=== PATIENT | female | born 1940 | race Caucasian/White ===

== ENCOUNTER 2020-09-15 12:57 | Outpatient (CLI) | payer MEDICARE, SELFPAY ==
--- NOTE | 2020-09-15 16:55 | ONC CON_ITS ---
Dr. Aguilar New Patient Note Patient: Ashlee Gray Unit #: [id number]: 1940 Dicatated By: Korin Aguilar M.D.Date of Visit: Sep 15, 2020 Onc MED New Patient/Consult Referring Physician: Luana Garcia History of Present Illness: Ms. Ashlee Gray, is a 80-year-old female with a history of stage IV breast cancer, as per patient in July 2019 she underwent mammogram which showed right breast mass followed by ultrasound right breast which shows 3.4 x 2 x 2.4 cm hypoechoic mass with spiculated margin at 1 o'clock position patient underwent right breast biopsy on August 16, 2019 which showed predominantly blood with atypical cells and on September 20, 2019, she underwent ultrasound-guided right breast biopsy which confirmed invasive ductal carcinoma ER positive more than 90% SD +40% and HER-2/joao negative, Ki-67 was 15% Patient underwent CT PET scan on October 02, 2019 which showed 3.6 x 2.7 cm mass in the right breast with SUV of 7. There is no pathologically enlarged or hypermetabolic lymph nodes seen. In the bones there is focal increased uptake in left sacral gladis at the level of S1 with SUV of 10. But no associated lesion by CT scan. And there is no other hypermetabolic lesion worrisome for malignancy. MRI scan of sacrum was recommended which was done on October 18, 2019 which showed within the left sacral ala S1 level basis stir hyperintense, T1 hypointense enhancing lesion measuring 3 x 2.3 x 2.7 cm does not appear to be extension into sacral neural foramen. No pathological fracture. No additional lesions are identified. As per medical record she was planned for breast surgery but it was canceled due to MRI scan findings and biopsy was ordered and on November 18, 2019 patient underwent sacral lesion biopsy which confirmed metastatic carcinoma favor breast origin, ER/SD positive, HER-2/joao negative Ki-67 was 20%. And on January 01, 2020 she was started on Ibrance and anastrozole and monthly Zometa. And on April 13, [address] scan of abdomen pelvis and bone scan which showed diverticulosis coli without CT scan evidence of diverticulitis. Stable small right adrenal gland nodule, stable 5 mm left lower lobe lung nodule, benign. Left sacral bone metastasis. And underwent bone scan on May 14, 2020 shows abnormal uptake in left sacral gladis near SI joint unchanged since prior. On the right at L4-L5 increased uptake associated noted unchanged since the prior could be degenerative. Patient received all this evaluation and treatment in [place], now moved to [place], [place] and now have decided to come to our clinic for further treatment. She is tolerating Ibrance/anastrozole/Zometa well but with expected side effects, bony pains, occasionally hot flashes. Patient still has right breast lesion, as per patient initially she was seen by surgery and removal of right breast was under consideration but somehow after she gone through sacral biopsy which came back positive for metastatic disease surgery was postponed and then due to Covid 19 situation it was not rescheduled. Her family history significant for breast cancer in her grandmother as well as brother She has history of COPD/asthma hypertension Patient denies any fever chills, denies any nausea or vomiting denies any diarrhea or constipation denies any new bony pains except persistent nagging pain in the lower back area but under control with current pain medication. She is on anastrozole and just started Ibrance today and she may need refill after this treatment. Past Medical History: Ms. Gray's medical history consists of chronic obstructive pulmonary disease, gastroesophageal reflux disease, hyperlipidemia, hypertension, and osteopenia. Past Surgical History: Ms. Gray's surgical/procedural history consists of appendectomy, carpal tunnel release, cataract excision, cholecystectomy, colectomy, colonoscopy, c-spine repair-plates and screws, hernia repair, knee atrhroscopy, and tubal ligation. Medications: Anastrozole 1 Tablet (of 1 mg) Oral daily, Metoprolol Succinate ER 1 Tablet (of 50 mg) Tablet SR 24 HR Oral daily, Ondansetron HCl 1 Tablet (of 4 mg) Oral q 8 hours PRN Allergies: Codeine Sulfate and Morphine Sulfate. Social History: Ms. Gray is . Ms. Gray no longer smokes. She has no history of drinking. Family History: There is no documented family history. Review Of Symptoms: Constitutional - Appetite is good and weight is stable. No fever or hot flashes. Energy level is poor, ENMT - No sinus congestion/drainage. No mouth sores. No sore throat or difficulty swallowing, Hematologic/Lymphatic - Positive for frequent nosebleeds. Pt also has history of blood transfusions, Respiratory - Positive for shortness of breath. Positive for cough and pleuritic pain. No hemoptysis, Cardiovascular - No angina pain. No palpitations, Gastrointestinal - Positive for nausea, no vomiting. No heartburn or acid reflux. Positive for diarrhea, no constipation. No blood in the stool or black stools, Genitourinary (F) - No dysuria or hematuria. Positive for urinary frequency. No urgency or incontinence, Musculoskeletal - Positive for joint and bone pain, Neurologic - Positive for headaches and dizziness. No numbness or tingling. No other focal neurologic symptoms, Psychiatric - Positive for anxiety, depression and insomnia. Vital Signs: Performed on Sep 15, 2020 14:06: 6, 38.36 (HIGH), 1.85 sq.m, 60 in, 95 % (LOW), 111 /min (HIGH), 18 /min, 142/92 mm(hg) (HIGH), 98.5 F, and 196.4 lbs (HIGH). Performance Status: 1 - No physically strenuous activity, but ambulatory and able to carry out light or sedentary work (e.g. office work, light house work). (ECOG) Physical Examination: ENMT - No mouth sores, no thrush, no jaundice, Respiratory - Lungs are clear to auscultation, Breast exam shows vaguely palpable mass in the right breast with nipple retraction, no overlying skin changes no right axillary lymph node palpable, Cardiovascular - Regular rate and rhythm of heart, Abdomen - Soft, bowel sounds present, Extremities - No visible edema. Lab/Imaging: Most recent lab results are not available for this patient. Impression: Metastatic breast cancer with biopsy-proven single lesion in left sacral ala initially diagnosed on September 20, 2019, ER more than 90% positive SD 40% positive HER-2/joao negative Ki-67 15%. Clinical stage T4, skin involvement, NX M1, stage IV Started on Ibrance/anastrozole/Zometa on January 01, 2020 COPD/asthma Obesity Hypertension Plan: Discussed with patient regarding her disease status and treatment options at this point, we will consider CT PET scan to assess disease status and response to Ibrance and anastrozole if CT PET scan shows persistent disease in the right breast and solitary left sacral gladis lesion, then will consider simple mastectomy and refer her to radiation oncology for evaluation for symptomatic single biopsy-proven left sacral bone lesion. With that patient will be without visibly active disease and then , to minimize treatment related toxicity, we would consider to continue with anastrozole alone along with vitamin D and calcium supplement. Patient was advised to hold Ibrance, to prevent neutropenia, in case surgical intervention is considered but to continue with with anastrozole along with vitamin D and calcium supplement. She will return to clinic after CT PET scan to discuss further treatment options. On the other hand if it shows metastatic disease or disease progression then we will discuss about other treatment options. Patient and her granddaughter expressed full understanding and in the meantime will obtain CBC CMP and CA 2729 and CA 15.3, if elevated, can be used for follow-up in the future. Signed By: Korin Aguilar M.D. <<Signature on File>>
== END 2020-09-15 12:58 | disposition home or self-care (01) ==
PROVIDERS: PCP Nurse Practitioner Family; Visit Provider Internal Medicine Hematology & Oncology
DX: C50.812 Malignant neoplasm of overlapping sites of left female breast (principal); Z17.0 Estrogen receptor positive status [ER+]; E55.9 Vitamin D deficiency, unspecified; E83.52 Hypercalcemia; I10 Essential (primary) hypertension; E66.01 Morbid (severe) obesity due to excess calories; J44.9 Chronic obstructive pulmonary disease, unspecified; J45.909 Unspecified asthma, uncomplicated; Z79.818 Long term (current) use of other agents affecting estrogen receptors and estrogen levels; Z79.899 Other long term (current) drug therapy
CPT/HCPCS: 99205

== ENCOUNTER 2020-09-30 10:22 | Outpatient (CLI) | payer MEDICARE, SELFPAY ==
[2020-09-30 10:56] LABS: Basophils # 0.1 10^3/uL (0.0-0.1); Basophils % 1.7 %; Eosinophils # 0.1 10^3/uL (0.0-0.8); Eosinophils % 1.8 %; Hematocrit 37.2 % (37.0-47.0); Hemoglobin 12.1 g/dL (11.5-15.3); Lymphocytes # 1.9 10^3/uL (0.8-4.8); Lymphocytes % 28.4 %; Mean Corpuscular HGB Conc 32.5 g/dL (30.0-36.0); Mean Corpuscular Hemoglobin 34.1 pg (28.0-34.0); Mean Corpuscular Volume 104.8 fL (81-99); Mean Platelet Volume 10.3 fL (7.4-10.4); Monocytes # 0.9 10^3/uL (0.2-0.9); Monocytes % 13.1 %; Neutrophils # 3.56 10^3/uL (1.8-7.7); Neutrophils % 54.7 %; Nucleated Red Blood Cells % 0 %; Platelet Count 257 10^3/cmm (130-400); Red Blood Count 3.55 10^6/uL (4.1-5.3); Red Cell Distribution Width 12.5 % (12.1-15.1); White Blood Count 6.5 10^3/uL (4.0-10.0)
[2020-09-30 11:27] LABS: Alanine Aminotransferase 13 U/L (0-33); Alkaline Phosphatase 74 IU/L (35-105); Aspartate Amino Transferase 17 U/L (0-32); Blood Urea Nitrogen 17 mg/dL (8-23); Calcium 9.5 mg/dL (8.5-10.5); Carbon Dioxide 28 mmol/L (22-29); Chloride 102 mmol/L (98-107); Globulin 2.7 g/dL (1.3-4.6); Glucose 122 mg/dL (65-115); Osmolality Calculated 289 mOsm/kg (285-295); Sodium 138 mmol/L (136-145); Total Bilirubin 0.4 mg/dL (0.15-1.2); Total Protein 6.7 g/dL (6.6-8.7)
== END 2020-09-30 10:23 | disposition home or self-care (01) ==
LOC: ONCMED 14:12
PROVIDERS: PCP Nurse Practitioner Family; Visit Provider Internal Medicine Hematology & Oncology
DX: C50.211 Malignant neoplasm of upper-inner quadrant of right female breast (principal)
CPT/HCPCS: 80053; 85025

== ENCOUNTER 2020-10-01 05:43 | Outpatient (CLI) | payer MEDICARE, SELFPAY ==
[2020-10-01 10:58] LABS: CA 15-3 39.7 U/mL (0-25)
[2020-10-03 09:33] LABS: CA 27.29 64 U/mL (<38)
--- NOTE | 2020-10-15 17:18 | ONC FU_ITS ---
Dr. Aguilar follow up note Patient: Ashlee Gray Unit #: [id number]: 1940 Dicatated By: Korin Aguilar M.D.Date of Visit:Oct 01, 2020 Onc Med Follow-up/Prog Note History of Present Illness: Ms. Ashlee Gray, is a 80-year-old female with a history of stage IV breast cancer, as per patient in July 2019 she underwent mammogram which showed right breast mass followed by ultrasound right breast which shows 3.4 x 2 x 2.4 cm hypoechoic mass with spiculated margin at 1 o'clock position patient underwent right breast biopsy on August 16, 2019 which showed predominantly blood with atypical cells and on September 20, 2019, she underwent ultrasound-guided right breast biopsy which confirmed invasive ductal carcinoma ER positive more than 90% KS +40% and HER-2/joao negative, Ki-67 was 15% Patient underwent CT PET scan on October 02, 2019 which showed 3.6 x 2.7 cm mass in the right breast with SUV of 7. There is no pathologically enlarged or hypermetabolic lymph nodes seen. In the bones there is focal increased uptake in left sacral gladis at the level of S1 with SUV of 10. But no associated lesion by CT scan. And there is no other hypermetabolic lesion worrisome for malignancy. MRI scan of sacrum was recommended which was done on October 18, 2019 which showed within the left sacral ala S1 level basis stir hyperintense, T1 hypointense enhancing lesion measuring 3 x 2.3 x 2.7 cm does not appear to be extension into sacral neural foramen. No pathological fracture. No additional lesions are identified. As per medical record she was planned for breast surgery but it was canceled due to MRI scan findings and biopsy was ordered and on November 18, 2019 patient underwent sacral lesion biopsy which confirmed metastatic carcinoma favor breast origin, ER/KS positive, HER-2/joao negative Ki-67 was 20%. And on January 01, 2020 she was started on Ibrance and anastrozole and monthly Zometa. And on April 13, [address] scan of abdomen pelvis and bone scan which showed diverticulosis coli without CT scan evidence of diverticulitis. Stable small right adrenal gland nodule, stable 5 mm left lower lobe lung nodule, benign. Left sacral bone metastasis. And underwent bone scan on May 14, 2020 shows abnormal uptake in left sacral gladis near SI joint unchanged since prior. On the right at L4-L5 increased uptake associated noted unchanged since the prior could be degenerative. Patient received all this evaluation and treatment in [place], now moved to [place], [place] and now have decided to come to our clinic for further treatment. She is tolerating Ibrance/anastrozole/Zometa well but with expected side effects, bony pains, occasionally hot flashes. Patient still has right breast lesion, as per patient initially she was seen by surgery and removal of right breast was under consideration but somehow after she gone through sacral biopsy which came back positive for metastatic disease surgery was postponed and then due to Covid 19 situation it was not rescheduled. Her family history significant for breast cancer in her grandmother as well as brother She has history of COPD/asthma hypertension Patient denies any fever chills, denies any nausea or vomiting denies any diarrhea or constipation denies any new bony pains except persistent nagging pain in the lower back area but under control with current pain medication. She is on anastrozole and just started Ibrance today and she may need refill after this treatment.Follow-up CT PET scan done on September 29, 2019 showed right breast lesion 3.9 x 1.8 cm SUV of 4.39 and no axillary lymphadenopathy Right clavicular head uptake, indeterminate. No other abnormality seen Came for follow-up, denies any specific complaints, no fever chills, no nausea or vomiting, no diarrhea or constipation, no new bony pains tolerating Arimidex/Ibrance well. Medications: Anastrozole 1 Tablet (of 1 mg) Oral daily, Metoprolol Succinate ER 1 Tablet (of 50 mg) Tablet SR 24 HR Oral daily, Ondansetron HCl 1 Tablet (of 4 mg) Oral q 8 hours PRN Allergies: Codeine Sulfate and Morphine Sulfate. Review of Systems: Review of Systems is not available for this patient. Vital Signs: Performed on Oct 01, 2020 08:52 Height - 60.00 in Weight - 195.8 lbs (LOW) BSA - 1.85 sq.m BMI - 38.24 (HIGH) Temperature - 98.6 F Pulse - 77 /min Respiration - 16 /min BP - 164/89 mm(hg) (HIGH) O2 Sat - 95 % (LOW) Pain - 7 Performance Status: 0 - Fully active, able to carry on all predisease activities without restrictions. (ECOG) Physical Examination: Respiratory - Lungs are clear to auscultation, Cardiovascular - Regular rate and rhythm of heart, Gastrointestinal - Soft, bowel sounds present, Extremities - No visible edema or rash. Lab/Imaging: Most recent lab results are not available for this patient. Impression: Metastatic breast cancer with biopsy-proven single lesion in left sacral ala Status post radiation therapy initially diagnosed on September 20, 2019, ER more than 90% positive KS 40% positive HER-2/joao negative Ki-67 15%. Clinical stage T4, skin involvement, NX M1, stage IV Started on Ibrance/anastrozole/Zometa on January 01, 2020 COPD/asthma Obesity Hypertension Follow-up CT PET scan done on September 29, 2020 showed persistent right breast uptake otherwise no right axillary lymphadenopathy or distant mets. Right clavicular head uptake, indeterminate Plan: Discussed with patient regarding her CT PET scan finding which showed persistent mass in her right breast size 3.9 x 1.8 cm with SUV of 4.39 but no right axillary lymphadenopathy or any distant mets but increased uptake in the right clavicular head, indeterminate At this point, we will refer her to surgery for evaluation regarding right breast lumpectomy followed by radiation therapy or simple mastectomy and refer to radiation oncology for evaluation for SBRT to right clavicular head if metastatic disease is confirmed, with this approach, there will not alexa radiographic evidence of active disease , considering her age , she can be managed with hormone therapy alone with minimal toxicity compared to hormonal therapy/Ibrance. In the meantime we will hold her Ibrance but continue with Arimidex Patient will return to clinic after surgical evaluation with CBC CMP Signed By: Korin Aguilar M.D. <<Signature on File>>
== END 2020-10-01 05:44 | disposition home or self-care (01) ==
LOC: ONCMED 05:44
PROVIDERS: PCP Nurse Practitioner Family; Visit Provider Internal Medicine Hematology & Oncology
DX: C50.411 Malignant neoplasm of upper-outer quadrant of right female breast (principal); C79.51 Secondary malignant neoplasm of bone; Z17.0 Estrogen receptor positive status [ER+]; Z79.811 Long term (current) use of aromatase inhibitors; Z79.899 Other long term (current) drug therapy; J44.9 Chronic obstructive pulmonary disease, unspecified; I10 Essential (primary) hypertension; E66.9 Obesity, unspecified; Z68.38 Body mass index [BMI] 38.0-38.9, adult
CPT/HCPCS: 86300; 99214

== ENCOUNTER 2020-10-12 06:40 | Outpatient (CLI) | payer MEDICARE, SELFPAY ==
--- NOTE | 2020-10-12 13:38 | N.ONRAD NP_ITS ---
Radiation Oncology Consultation Patient Name: Ashlee Gray Date of : 1940 Date of Service: 10/12/2020 Attending Physician: Mk Oseguera M.D. Ashlee Gray was seen in consultation this morning at the request of Giovanni Aguilar M.D. for consideration of possible radiotherapy for the management of her metastatic breast cancer. She was initially evaluated in the late fall 2018 for a palpable right breast lesion (medical records were requested and personally reviewed upon receipt). Diagnostic mammogram revealed a mass with spiculated margins in the central portion of the right breast associated with skin retraction. Ultrasonography confirmed a 2.4 cm low echoic mass in the right breast at the 1 o'clock position without suspicious axillary adenopathy. Initial biopsy in August 2019 was discordant with clinical presentation (non-diagnostic). A repeat biopsy obtained in September 2019 diagnosed a grade 2 invasive ductal carcinoma. The breast cancer profile was positive for estrogen receptor and progesterone receptor while negative for HER-2. FELIX???67 was 15%. A PET CT for initial staging demonstrated increased uptake in the left sacral ala with confirmation on MR of a T1 hypointense enhancing lesion measuring 3 cm without extension into the sacral neural foramina. In December 2019, she began Ibrance, anastrozole, and monthly Zometa at [facility] in [place], [place]. The patient moved to [place] last month and has established continuing care with [facility]. Staging PET CT ordered on September 29, 2020 (dependently visualized in [facility]) identified the known right breast cancer and a new lytic lesion in the right clavicular head (SUV 7.9). Following a discussion with Giovanni Aguilar M.D. and Bjorn Nagel M.D. concerning the patient's limited disease burden metastatic breast cancer, consideration for surgery is warranted. Retrospective studies have suggested a survival benefit after complete excision of the breast tumor. However, two randomized studies evaluated surgery in the setting of metastatic disease failed to demonstrate an overall survival difference. Interestingly, a Vietnamese study reported a survival advantage in those patients randomized to local management. Of note, a subgroup analysis reported the greatest overall survival benefit from surgical intervention seen in women with hormone receptor positive disease, HER-2 negative disease, and solitary bone metastasis. The patient will be evaluated for possible surgical intervention. She has verbalized understanding and would like to proceed as recommended. Signed by: Dr. Mk Oseguera 10/12/2020 1:37:10 PM
== END 2020-10-12 06:41 | disposition home or self-care (01) ==
LOC: ONCMED 06:41
PROVIDERS: PCP Nurse Practitioner Family; Visit Provider Radiology Radiation Oncology
DX: C50.211 Malignant neoplasm of upper-inner quadrant of right female breast (principal); Z17.0 Estrogen receptor positive status [ER+]; C79.51 Secondary malignant neoplasm of bone
CPT/HCPCS: 99215

== ENCOUNTER → 2020-10-16 14:05 | Outpatient (BNVA) | payer MEDICARE, SELFPAY | PROVIDERS: PCP Nurse Practitioner Family; Visit Provider Surgery | DX: Z85.3 Personal history of malignant neoplasm of breast (principal) | CPT/HCPCS: 87635 ==

== ENCOUNTER 2020-10-20 12:12 | Outpatient (RCR) | payer MEDICARE, SELFPAY | END 2020-11-08 23:59 | disposition home or self-care (01) | LOC: SPT 12:12 | PROVIDERS: PCP Nurse Practitioner Family; Referring Provider Internal Medicine Hematology & Oncology; Visit Provider Internal Medicine Hematology & Oncology | DX: C50.919 Malignant neoplasm of unspecified site of unspecified female breast (principal) | CPT/HCPCS: 97161 ==

== ENCOUNTER 2020-10-21 12:10 | Observation (INO) | payer MEDICARE, SELFPAY ==
[2020-10-20 15:59] VITALS: BMI 38.2
[2020-10-21] VITALS (21 sets, daily range): BP systolic 96–175; BP diastolic 53–80; PULSE 73–97; RESP 13–24; TEMP 35.8–36.9; O2SAT 92–100
--- NOTE | 2020-10-21 09:28 | W.PM.OPSUD ---
Surgery/Procedure H&P Update DATE OF PROCEDURE: October 21, 2020 DATE H&P PERFORMED: 10/06/20 H&P UPDATE INFORMATION: I have reviewed H&P completed within last 30 days, I have examined patient prior to procedure and No changes to prior documentation PREOP DIAGNOSIS: Right breast cancer PLANNED PROCEDURE: Operation Date: 10/21/20 09:50 Proposed Procedures p Mastectomy Simple 18189 Z85.3(Right) - Robe Milan MD
[2020-10-21] MEDS: sodium chloride 0.9% 1,000 ML 30 ML IV (09:30)
--- NOTE | 2020-10-21 10:42 | ANES.PREANE2 ---
Pre-Anesthetic Assessment Pre-Anesthetic Assessment: Height/Weight: Height 1.52 m Weight 88.904 kg Temp Pulse Resp BP Pulse Ox 96.5 F L 88 18 167/80 96 10/21/20 09:24 10/21/20 09:24 10/21/20 09:24 10/21/20 09:24 10/21/20 09:24 Preop Diagnosis: Right breast cancer Proposed Procedure: Operation Date: 10/21/20 09:50 Proposed Procedures p Mastectomy Simple 45219 Z85.3(Right) - Robe Milan MD Was Beta [place] taken within 24 hours: Yes Last intake: Intake Last Liquid Date 10/20/20 Last Liquid Time 19:00 Last Solid Date 10/20/20 Last Solid Time 14:00 Social: Social History: No alcohol and No tobacco Exam: Pre-Anes Outpt Exam: alert, oriented x 3, clear to auscultation bilaterally and regular rate & rhythm Airway: Submandibular: WNL Cervical ROM: WNL MP: 2 Dentition: False Pulmonary: Pulmonary: Asthma and COPD CV/HEM: CV/HEM: HTN Metabolic: Metabolic: Morbid obesity Anesthetic Plan: ASA status: 3 Anesthesia: General Other: H/O post op delirium Risk of > 500 ml blood loss (7ml/kg in children): No Meds/Allergies Current Medications: Current Medications Generic Name Dose Route Start Last Admin Trade Name Freq PRN Reason Stop Dose Admin Sodium Chloride 1,000 mls @ 30 ml s/hr 10/21/20 09:15 10/21/20 09:30 Sodium Chloride 0.9% IV 10/22/20 09:14 30 mls/hr .Q24H SEEMA Administration PFSH Anesthesia PFSH: Medical History (Updated 10/08/20 @ 12:10 by Robe Milan MD) COPD (chronic obstructive pulmonary disease) History of right breast cancer Hypertension Pneumonia Surgical History (Updated 10/06/20 @ 16:34 by Robe Milan MD) H/O neck surgery History of appendectomy History of arthroscopic knee surgery History of breast biopsy History of carpal tunnel release History of hernia repair History of laparoscopic cholecystectomy History of tubal ligation Family History Denies family history of Anesthesia complication Bleeding disorder Social History Smoking and tobacco status: never smoked Alcohol intake: never Adopted: No Caregiver/support person: Yes Lives independently: Yes Data Anesthesia Cardiac Studies: No Data to Display
[2020-10-21] MEDS: ondansetron 2 mg/ML SDV 2 mL 4 MG IVP ×4 (12:32→23:28)
--- NOTE | 2020-10-21 12:36 | PM.OP ---
Operative Report Date of procedure: October 21, 2020 Pre-op Diagnosis: Right breast cancer Post-op Diagnosis: 1. Right breast invasive ductal carcinoma 2. Mass could not be palpated in the clavicle Procedure Done: Right mastectomy Specimens removed/disposition: Right mastectomy, short stitch superior, long stitch lateral Surgeon: Robe Milan Anesthesia: General Condition: stable Disposition: PACU Procedure: The patient was taken to the operating room and intubated under general anesthesia after IV antibiotic and instead. The right chest and arm was prepped and draped in a sterile manner. Using a 15 blade an elliptical incision was made around the nipple areolar complex and dermis was divided with electrocautery. 60 mL of normal saline mixed with 20 mL of 1% lidocaine and 20 mL of 0.5% Marcaine was injected deep to the dermis using a 22-gauge spinal needle for tumescence. Using Bjorn scissors skin flaps were raised superiorly up to the second rib space, inferiorly to the inframammary line, medially up to the lateral edge of sternum and laterally up to the latissimus dorsi in the avascular plane. Using electrocautery the breast along with the pectoral fascia was dissected off the pectoralis muscle starting superiorly and medially and moving inferiorly and laterally. A short stitch was placed superiorly and long stitch was placed laterally using 2-0 silk on the partially excised breast specimen. The lateral edge of the breast was freed along with the axillary tail and the specimen was removed entirely from the operative field. There were couple of bleeding muscular branches from the pectoral muscle which were controlled with cautery and medium clips. The wound was irrigated with warm water and the site was reexamined to ensure adequate hemostasis. Thrombin Gelfoam and fibrin glue was applied over the mastectomy bed for hemostasis. There was no active bleeding noted. A stab incision was made laterally and 10 flat DESTIN drain was placed along the inframammary fold and attached to bulb suction. The skin flaps appeared healthy and of adequate thickness. The dermis was approximated using running 3-0 Vicryl suture and the skin was closed using absorbable sutures and surgical glue. Fluffs and a surgical bra was used for pressure dressing. Patient was transferred to the recovery room in stable condition.
[2020-10-21] MEDS: metoclopramide 5 mg/mL SDV 2 mL 10 MG IVP (12:43)
--- NOTE | 2020-10-21 13:39 | ANE.PACU2 ---
Inpatient post-anesthesia follow up: Airway intact: Yes Vital signs: Temperature 97.4 F Pulse Rate 83 Respiratory Rate 18 Blood Pressure 146/62 Pulse Oximetry 98 Oxygen Delivery Me thod Nasal Cannula Oxygen Flow Rate 1 Fraction of Inspir ed Oxygen Hydration adequate: Yes Nausea and vomiting: No Pain level: 2 Mental status: Baseline
[2020-10-21] MEDS: sodium chloride 0.9% 1,000 ML 50 ML IV (13:45)
[2020-10-21] MEDS: docusate sodium 100 mg Capsule PO (17:26)
[2020-10-21] MEDS: HYDROcodone-acetaminophen 5-325 mg Tablet 1 TAB PO (23:26)
[2020-10-21] MEDS: ketorolac 30 mg/mL INJ 15 MG IVP (23:38)
[2020-10-22 02:35] LABS: Basophils % 0.2 %; Hematocrit 32.2 % (37.0-47.0); Hemoglobin 10.3 g/dL (11.5-15.3); Lymphocytes % 5.5 %; Mean Corpuscular Volume 103.2 fL (81-99); Mean Platelet Volume 11.1 fL (7.4-10.4); Monocytes # 1.7 10^3/uL (0.2-0.9); Monocytes % 8.8 %; Neutrophils # 16.12 10^3/uL (1.8-7.7); Neutrophils % 84.9 %; Nucleated Red Blood Cells % 0 %; Platelet Count 217 10^3/cmm (130-400); Red Blood Count 3.12 10^6/uL (4.1-5.3); Red Cell Distribution Width 12.1 % (12.1-15.1)
[2020-10-22 02:52] LABS: Blood Urea Nitrogen 21 mg/dL (8-23); Calcium 7.9 mg/dL (8.5-10.5); Carbon Dioxide 25 mmol/L (22-29); Chloride 105 mmol/L (98-107); Glucose 181 mg/dL (65-115); Osmolality Calculated 298 mOsm/kg (285-295); Sodium 140 mmol/L (136-145)
[2020-10-22 04:32] VITALS: BP 112/52; PULSE 89; RESP 18; TEMP 36.6; O2SAT 95
[2020-10-22 07:37] VITALS: BP 106/53; PULSE 91; RESP 18; TEMP 36.8; O2SAT 95
[2020-10-22 07:42] VITALS: BP 106/53; PULSE 91; RESP 18; TEMP 36.8; O2SAT 95
[2020-10-22] MEDS: docusate sodium 100 mg Capsule PO ×2 (09:00→18:02)
[2020-10-22] MEDS: metoprolol succinate ER (24 HR) 50 mg Tablet PO (09:00)
--- NOTE | 2020-10-22 09:32 | P.PN_ITS ---
Vitals/I&O/Wt Last Vital Signs Temp 98.2 F 10/22/20 07:42 Pulse 91 10/22/20 07:42 Resp 18 10/22/20 07:42 BP 106/53 10/22/20 07:42 Pulse Ox 95 10/22/20 07:42 10/21/20 10/22/20 10/22/20 22:59 06:59 14:59 Intake Total 50 / 150 50 / 150 240 / 240 Output Total 510 / 1040 370 / 1040 60 / 60 Balance -460 / -890 -320 / -890 180 / 180 Weight last 48 hrs Weight 196 lb Weight 196 lb Physical Exam Narrative: EXAM NARRATIVE: Chest: Ecchymosis of the skin flaps right mastectomy drain has sanguinous output of 350 cc since surgery Data : 10/22/20 02:06 10/22/20 02:06 A&P Assessment and plan (1) S/P right mastectomy: Status post right mastectomy overall doing well DC IV fluids Regular diet Continue home meds She had 350 cc of sanguinous output since yesterday and therefore I will repeat the hemoglobin this evening and tomorrow morning to ensure that she does not have significant postop bleed Status: Acute Attestations Medical Necessity Statement*: right mastectomy Coding Level of Care Code Acute Supervisor Rubber Covering for Mera Fwrush Diagnoses S/P right mastectomy Z90.11
[2020-10-22 11:55] VITALS: BP 111/67; PULSE 90; RESP 18; TEMP 37.3; O2SAT 96
[2020-10-22 15:58] VITALS: BP 115/60; PULSE 50; RESP 18; TEMP 36.9; O2SAT 99
[2020-10-22 16:44] LABS: Hematocrit 30.3 % (37.0-47.0); Hemoglobin 9.8 g/dL (11.5-15.3)
[2020-10-22] MEDS: HYDROcodone-acetaminophen 5-325 mg Tablet 1 TAB PO (18:02)
[2020-10-22 19:09] VITALS: BP 104/59; PULSE 104; RESP 18; TEMP 37; O2SAT 94
[2020-10-23 01:28] VITALS: BP 154/65; PULSE 79; RESP 18; TEMP 36.5; O2SAT 98
[2020-10-23 02:28] LABS: Basophils # 0.1 10^3/uL (0.0-0.1); Basophils % 0.5 %; Eosinophils % 0.2 %; Hematocrit 30.4 % (37.0-47.0); Hemoglobin 9.5 g/dL (11.5-15.3); Lymphocytes # 2.8 10^3/uL (0.8-4.8); Lymphocytes % 23.3 %; Mean Corpuscular HGB Conc 31.3 g/dL (30.0-36.0); Mean Corpuscular Hemoglobin 32.8 pg (28.0-34.0); Mean Corpuscular Volume 104.8 fL (81-99); Mean Platelet Volume 11.3 fL (7.4-10.4); Monocytes # 1.6 10^3/uL (0.2-0.9); Monocytes % 13.4 %; Neutrophils # 7.51 10^3/uL (1.8-7.7); Neutrophils % 62.1 %; Nucleated Red Blood Cells % 0 %; Platelet Count 206 10^3/cmm (130-400); Red Cell Distribution Width 12.4 % (12.1-15.1); White Blood Count 12.1 10^3/uL (4.0-10.0)
[2020-10-23 02:48] LABS: Anion Gap 13.3 (5-19); Blood Urea Nitrogen 24 mg/dL (8-23); Calcium 7.8 mg/dL (8.5-10.5); Carbon Dioxide 25 mmol/L (22-29); Chloride 106 mmol/L (98-107); Glucose 120 mg/dL (65-115); Osmolality Calculated 295 mOsm/kg (285-295); Potassium 4.3 mmol/L (3.5-5.1); Sodium 140 mmol/L (136-145)
[2020-10-23 05:24] VITALS: BP 120/73; PULSE 79; RESP 18; TEMP 36.6; O2SAT 94
--- NOTE | 2020-10-23 06:39 | PC.NURSE ---
Patient slept partially through the night. Patient did complain that the surgical bra was causing discomfort and rubbing, the was alleviated by adjusting.
[2020-10-23 07:08] VITALS: BP 122/71; PULSE 80; RESP 18; TEMP 37.1; O2SAT 96
[2020-10-23] MEDS: docusate sodium 100 mg Capsule PO (08:05)
[2020-10-23] MEDS: metoprolol succinate ER (24 HR) 50 mg Tablet PO (08:05)
[2020-10-23 11:05] VITALS: BP 123/66; PULSE 77; RESP 18; TEMP 37.2; O2SAT 94
--- NOTE | 2020-10-23 12:03 | PC.CHAP ---
Pastoral Care Encounter/Spiritual Assessment Type of Contact [] Declined corrections cadet visit [] Patient/Family/Request visit [] Outpatient visit [] Follow-up visit [] Physician referral [] Code/Alert [xx] Routine visit [] Staff referral [] Actively dying [] Patient sleeping [] Family support [] [] Out of room [] Palliative care [] [] Receiving care in room [] Pre-surgical visit [] Trauma [] Long length of stay [] ICU visit [] Other: Relational/Emotional Strength [xx] Patient feels connected with others/family/visitors/staff [] Distress [] Loneliness/isolation [] Abandonment Spirituality of Patient [xx] Person of Guerline [xx] Attends Religion of their Guerline [xx] Believes in Prayer [xx] Reads Bible or Shinto materials [] There are Spiritual issues to be addressed Financial Reporting Analyst Interventions [xx] Prayer [xx] Active listening [xx] Non-anxious presence [] Spiritual/emotional support [] Crisis/trauma care [] Spiritual counseling [] Bereavement support [] Provided bereavement packet [xx] Provided Bible/devotional materials [] Provided toy/stuffed animal, coloring book to patient or family member [] Provided Communion [] Anointing/Camp [] Salvation [xx] Completed spiritual assessment [] Other: Impact on Illness or Injury [] Angry [] Fearful [] Anxious [] Often cries [] Exhaustion [] Unable to work [] Unable to attend quaker [] Unable to walk/stand [] Unable to read [] Unable to drive [] Unable to eat/drink [] Unable to sleep [] Unable to be with family [] Patient intubated [] Other: Summary Patient stated she feels much better and expects to be discharged later today. She accepted devotional [employer]. Time spent with patient 12 minutes
[2020-10-23] MEDS: ketorolac 30 mg/mL INJ 15 MG IVP (13:21)
[2020-10-23 15:48] VITALS: BP 133/66; PULSE 76; RESP 18; TEMP 36.8; O2SAT 96
--- NOTE | 2020-10-23 15:55 | PM.PN ---
Subjective Subjective: Interval history: She is overall doing well, still continues to have serosanguineous output from the DESTIN drain, pain is better controlled Vitals/I&O/Wt Last Vital Signs Temp 98.3 F 10/23/20 15:48 Pulse 76 10/23/20 15:48 Resp 18 10/23/20 15:48 BP 133/66 10/23/20 15:48 Pulse Ox 96 10/23/20 15:48 10/23/20 10/23/20 10/23/20 06:59 14:59 22:59 Intake Total 720 / 720 Output Total 455 / 745 Balance -455 / 975 720 / 720 Physical Exam Narrative: EXAM NARRATIVE: Chest: Ecchymosis of the skin flaps, incision healing well, DESTIN drain output serosanguineous, no significant cellulitis or hematoma Data : 10/23/20 01:55 10/23/20 01:55 A&P Assessment and plan (1) S/P right mastectomy: Overall doing well, keen to go home Hemoglobin is stable Given instructions on DESTIN drain care and to contact us once output is less than 30 cc in 24 hours Status: Acute Attestations Medical Necessity Statement*: Status post mastectomy going home today Coding Level of Care Code Acute Dentures Lab Technician for Chg Fwd Diagnoses S/P right mastectomy Z90.11
--- NOTE | 2020-10-23 15:56 | P.DS_ITS ---
Discharge Providers Date of Admission: 10/21/20 12:10 Date of Discharge: October 23, 2020 Attending Provider at Admission: Robe Milan MD Attending Provider at Discharge: Robe iMlan MD Primary Care Provider: EASTON Singleton Diagnoses at Discharge Discharge Diagnosis (1) S/P right mastectomy: Status: Acute Reason for Visit Reason for Visit: history of right breast cancer Hospital Course Hospital Course This is a 80-year-old female who underwent simple right mastectomy on 10/21/2020. Patient had 350 cc of serosanguineous output from the DESTIN drain on postop day 1 and therefore she was kept for 1 more day in the hospital. Her hemoglobin remained stable and she was hemodynamically stable. At time of discharge she was ambulating her pain is well controlled and her vital signs are stable. Her last hemoglobin is 9.5 Discharge Data Data Completed and Pending: Pending at discharge Category Date Time Status Basic Metabolic P blake AM LABS Lab 10/24/20 04:00 Ordered Complete Blood Co unt w/Auto AM LABS Lab 10/24/20 04:00 Ordered Pathology: Surgic al [PTH] Routine Pth 10/21/20 12:14 Received Labs from last 24 hours 10/23/20 10/23/20 10/22/20 01:55 01:55 16:35 WBC 12.1 H RBC 2.90 L Hgb 9.5 L 9.8 L Hct 30.4 L 30.3 L MCV 104.8 H MCH 32.8 MCHC 31.3 RDW 12.4 Plt Count 206 MPV 11.3 H Neut % (Auto) 62.1 Lymph % (Auto) 23.3 Carlton % (Auto) 13.4 Eos % (Auto) 0.2 Baso % (Auto) 0.5 Neut # (Auto) 7.51 Lymph # (Auto) 2.8 Carlton # (Auto) 1.6 H Eos # (Auto) 0.0 Baso # (Auto) 0.1 Nucleated RBC % (a uto) 0 Nucleated RBCs # 0.0 Sodium 140 Potassium 4.3 Chloride 106 Carbon Dioxide 25 Anion Gap 13.3 BUN 24 H Creatinine 1.4 H GFR Calculation Not Reportable Glucose 120 H Calculated Osmolal ity 295 Calcium 7.8 L Vitals: Last Vital Signs Temp 98.3 F 10/23/20 15:48 Pulse 76 10/23/20 15:48 Resp 18 10/23/20 15:48 BP 133/66 10/23/20 15:48 Pulse Ox 96 10/23/20 15:48 Discharge Plan Discharge Patient Disposition: Home Condition: Stable Prescriptions: New Zofran 4 mg tablet 4 mg PO Q6H PRN (Reason: nausea and vomiting) Qty: 20 RF: 0 Colace 100 mg capsule 100 mg PO BID Qty: 30 RF: 0 [place] 5-325 mg tablet 1 tab PO Q6H 7 Days Qty: 20 RF: 0 Continued anastrozole 1 mg tablet 1 mg PO DAILY RF: 0 metoprolol succinate 50 mg tablet extended release 24 hr 50 mg PO DAILY RF: 0 ondansetron HCl [Zofran] 4 mg tablet 4 mg PO Q8H RF: 0 Discharge Orders: Discharge Order (Routine); Ordered 10/23/20 Ordered By: Robe Milan Referrals: Robe Milan MD [Physician] - 2 weeks (Call on Monday to make an appointment to be seen within 2 weeks.) Discharge Diet: Advance as tolerated and Usual diet Patient Instructions: Den-Story Drain Care (DC), Mastectomy (DC), Wound Care (General) Activity Restrictions/Additional Instructions: 1. Up and walking as tolerated. 2. Ok to shower in 48 hours after surgery. 3. Remove Dermabond dressing in 7-10 days. 4. Do not lift more than 10 pounds. 5. Do not operate heavy machinery or drive while using pain medications. 6. Advised to return to ER or contact my office if there are any signs of infection like, increasing pain, fevers, chills, redness or drainage of pus. 7. Contact clinic once drain output is less than 30 cc in 24 hours for removal Discharge Attestations Time Spent in Discharge Care*: less than 30 min Quality Metrics Clinical Quality Measures During this hospital stay, did patient experience: None Coding Level of Care Code Acute Plaster Machine Operator for g Fwd Diagnoses S/P right mastectomy Z90.11
[2020-10-23 17:09] VITALS: BP 133/66; PULSE 76; RESP 18; TEMP 36.8; O2SAT 96
--- NOTE | 2020-10-23 17:10 | PC.NURSE ---
Patient discharged at this time in stable condition. Released in the care of patients spouse. Discharge instructions given to patient. All questions answered. IV was removed tip intact.
--- NOTE | 2020-10-23 17:20 | PC.RESP ---
Smoking Cessation and Pulmonary Rehab information sent to patient.
[2020-11-03 14:39] LABS: Miscellaneous Test See Scanned Lab Rpt
== END 2020-10-23 16:45 | disposition home or self-care (01) ==
LOC: MEDSURG 12:10
PROVIDERS: Admitting Provider Surgery; PCP Nurse Practitioner Family; Visit Provider Surgery
PROC: (CPT 19303; principal; 2020-10-21 09:50)
DX: C50.911 Malignant neoplasm of unspecified site of right female breast (principal); Z80.3 Family history of malignant neoplasm of breast; J44.9 Chronic obstructive pulmonary disease, unspecified; I10 Essential (primary) hypertension
CPT/HCPCS: 19303; 12345; 36415; 80048; 85014; 85018; 85025; 88309; 88361; 88367; 88374; 96365; 96375; G0378; J0131; J0690; J1100; J1885; J2405; J2704; J2765; J3010; J3490; J7030

== ENCOUNTER 2020-11-04 17:49 | Observation (INO) | payer MEDICARE, SELFPAY ==
[2020-11-04] VITALS (7 sets, daily range): BP systolic 113–133; BP diastolic 60–83; PULSE 90–104; RESP 13–24; TEMP 37.5–37.8; O2SAT 92–95; BMI 36.9
--- NOTE | 2020-11-04 18:33 | XR_ITS ---
WS: [id number] Exam: XR chest 1V portable [id number] Date/Time of Exam: 11/04/2020 7:10 PM Reason For Exam: cough Comparison 11/13/2017. The lungs are clear and fully expanded. Chronic elevation of the right diaphragm. Cardiomediastinal s tructures are unremarkable for technique. No pleural effusions. Operative fusion and laminectomy of t he visualized lower cervical spine with hardware. Monitoring leads superimpose the chest. XR/XR chest 1V portable [id number] IMPRESSION: 1. No acute cardiopulmonary finding.
--- NOTE | 2020-11-04 19:34 | ECG_ITS ---
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
[2020-11-04 20:24] LABS: Basophils # 0.2 10^3/uL (0.0-0.1); Basophils % 0.7 %; Eosinophils % 0.2 %; Hematocrit 36.7 % (37.0-47.0); Hemoglobin 11.6 g/dL (11.5-15.3); Lymphocytes # 2.3 10^3/uL (0.8-4.8); Lymphocytes % 10.5 %; Mean Corpuscular HGB Conc 31.6 g/dL (30.0-36.0); Mean Corpuscular Hemoglobin 31.7 pg (28.0-34.0); Mean Corpuscular Volume 100.3 fL (81-99); Mean Platelet Volume 10.5 fL (7.4-10.4); Monocytes # 2.4 10^3/uL (0.2-0.9); Monocytes % 11.3 %; Neutrophils # 16.59 10^3/uL (1.8-7.7); Neutrophils % 76.9 %; Nucleated Red Blood Cells % 0 %; Platelet Count 252 10^3/cmm (130-400); Red Blood Count 3.66 10^6/uL (4.1-5.3); Red Cell Distribution Width 12.3 % (12.1-15.1); White Blood Count 21.6 10^3/uL (4.0-10.0)
[2020-11-04 20:30] LABS: D Dimer 0.79 ug/mIFEU (0-0.59)
[2020-11-04 20:36] LABS: Lactic Sepsis W/Reflex 1.9 mmol/L (0.5-2.2)
[2020-11-04] MEDS: sodium chloride 0.9% 1,000 ML 75 ML IV (20:37)
[2020-11-04] MEDS: acetaminophen 500 mg Tablet 1000 MG PO (20:38)
[2020-11-04 20:41] LABS: Troponin T (5th) Once 18 ng/L (0-10)
--- NOTE | 2020-11-04 20:45 | CTR_ITS ---
PROCEDURE INFORMATION: Exam: CT Angiography Chest With Contrast Exam date and time: 11/04/2020 9:02 PM Age: 80 years old Clinical indication: Shortness of breath; Prior surgery; Surgery date: <1 month; Patient HX: SOB and cough. Mastectomy two weeks ago. ; Additional info: R/O pe TECHNIQUE: Imaging protocol: Computed tomographic angiography of the chest with contrast. 3D rendering (Not supervised by radiologist): MIP and/or 3D reconstructed images were created by the technologist. Radiation optimization: All CT scans at this facility use at least one of these dose optimization techniques: automated exposure control; mA and/or kV adjustment per patient size (includes targeted exams where dose is matched to clinical indication); or iterative reconstruction. Contrast material: VISI 320; Contrast volume: 69 ml; Contrast route: INTRAVENOUS (IV); COMPARISON: CR XR chest 1V portable [id number] 11/04/2020 8:14 PM RADIATION DOSE METRICS: Total DLP (mGy-cm): 839.14 FINDINGS: Pulmonary arteries: Normal. No pulmonary emboli. Aorta: Unremarkable. No aortic aneurysm. No aortic dissection. Lungs: [id number] emphysema of the lungs. Mild dependent subsegmental atelectasis in the lower lobes. No focal pulmonary consolidation. No focal endobronchial lesion. No suspicious pulmonary nodule. Pleural spaces: Unremarkable. No pneumothorax. No pleural effusion. Heart: Unremarkable. No cardiomegaly. No pericardial effusion. Lymph nodes: Unremarkable. No enlarged lymph nodes. Gallbladder and bile ducts: Cholecystectomy. Bones/joints: Unremarkable. No acute fracture. Soft tissues: Large bandlike fluid and gas collection in the deep subcutaneous fat of the right anterior chest wall superficial to the pectoralis musculature. The collection spans about 20 cm in transverse diameter by 3.2 cm AP by the 8.7 cm in [address]aniocaudad length. CT/CT angio chest PE protcl [id number] IMPRESSION: 1. Negative for pulmonary embolism. 2. No focal pneumonia. 3. Large postoperative nonspecific fluid and gas collection in the deep subcutaneous fat of the right anterior chest wall. This may represent of postoperative seroma, hematoma, lymphatic collection, or abscess not excluded. Radiation Dose CTDIVOL = (mGy): DLP = 839.14 (mGy-cm)
[2020-11-04 20:46] LABS: Alanine Aminotransferase 13 U/L (0-33); Albumin Level 3.6 g/dL (3.5-5.2); Alkaline Phosphatase 75 IU/L (35-105); Anion Gap 14.7 (5-19); Aspartate Amino Transferase 22 U/L (0-32); Blood Urea Nitrogen 14 mg/dL (8-23); C Reactive Protein 138.8 mg/L (0.0-4.9); Calcium 8.7 mg/dL (8.5-10.5); Carbon Dioxide 25 mmol/L (22-29); Chloride 99 mmol/L (98-107); Globulin 2.4 g/dL (1.3-4.6); Glucose 133 mg/dL (65-115); NT Pro B Type Natriuretic Pept 180 pg/mL (0-450); Osmolality Calculated 280 mOsm/kg (285-295); Potassium 4.7 mmol/L (3.5-5.1); Sodium 134 mmol/L (136-145); Total Bilirubin 0.9 mg/dL (0.15-1.2)
[2020-11-04 20:57] LABS: Influenza A by IFA Negative (Negative); Influenza B by IFA Negative (Negative); SARS Covid-2 Antigen Negative (Negative)
[2020-11-04] MEDS: iodixanol 320 mg/mL 100mL Btl IV (21:43)
--- NOTE | 2020-11-04 22:53 | PM.HP ---
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 Milan, presented today with chief complaint of not feeling well. Patient is stating that in last 2 to 3 days she has not been feeling well which she is describing as fever as high as 10 2-1 03, her right side of the chest is sore and tender, about 2 days ago her daughter who is a nurse when she was changing dressing she noticed purulent discharge around the draining catheter, she has follow-up with Dr. Milan as well. Drains were removed. She has had multiple episodes of emesis today. Because of the symptoms she decided to come to the hospital for further evaluation Diagnostics in the ER revealed sepsis, CT rule out PE no consolidation seen on pulmonary imaging, she has tender anterior chest wall on the right side with mild hyperemia, Dr. Murillo was notified who recommended breast ultrasound to rule out abscess, I have started her on clindamycin CTA chest: 1. Negative for pulmonary embolism. 2. No focal pneumonia. 3. Large postoperative nonspecific fluid and gas collection in the deep subcutaneous fat of the right anterior chest wall. This may represent of postoperative seroma, hematoma, lymphatic collection, or abscess not excluded. Breast ultrasound: IMPRESSION: Soft tissue fluid collection in the right anterior chest wall not clearly assessed by this examinatio Review of Systems Const: Reports: fever(s), chills, body aches, change in appetite, change in weight, fatigue and malaise Eyes: Denies: change in vision ENMT: Denies: throat pain Card: Reports: chest pain; Denies: swelling of feet/ankles, pre-syncope or dyspnea on exertion Resp: Denies: dyspnea GI: Reports: nausea and vomiting; Denies: abdominal pain, diarrhea or constipation : Denies: flank pain Musc: Denies: neck pain Skin/Breast: Reports: skin tenderness, skin swelling, new lesions, changing lesions and non-healing lesions; Denies: lesions Neuro: Denies: headache(s) Psych: Denies: anxiety Endo: Denies: polyuria Ronen/Lymph: Denies: easy bruising All/Imm: Denies: urticaria Medications/Allergies Home Medications Medication Instructions Recorded Confirmed Last Taken Type anastrozole 1 mg tablet 1 mg PO DAILY@0710/06/20 11/04/20 11/04/20 History metoprolol succinate 50 mg 50 mg PO DAILY@0700 10/06/20 11/04/20 11/04/20 History tablet,extended release 24 hr ondansetron HCl [Zofran] 4 mg PO Q6H PRN #20 tab 10/23/20 11/04/20 11/04/20 Rx acetaminophen [Tylenol] 325 mg PO QID PRN 11/04/20 11/04/20 Unknown History docusate sodium [Colace] 100 mg PO BID PRN 11/04/20 11/04/20 11/03/20 History hydrocodone-acetaminophen 1 tab PO Q6H PRN 11/04/20 11/04/20 11/04/20 History Allergies Allergy/AdvReac Type Severity Reaction Status Date / Time codeine Allergy Unknown Unknown Verified 11/04/20 17:56 morphine Allergy Unknown Unknown Verified 11/04/20 17:56 PFSH Acute PFSH: Medical History COPD (chronic obstructive pulmonary disease) History of right breast cancer Hypertension Pneumonia Surgical History H/O neck surgery History of appendectomy History of arthroscopic knee surgery History of breast biopsy History of carpal tunnel release History of hernia repair History of laparoscopic cholecystectomy History of tubal ligation S/P right mastectomy (10/21/20) Family History Denies family history of Anesthesia complication Bleeding disorder Social History Smoking and tobacco status: never smoked Alcohol intake: never Adopted: No Caregiver/support person: Yes Lives independently: Yes Vitals/I&O/Wt Last Vital Signs Temp 99.5 F 11/04/20 19:45 Pulse 96 11/04/20 19:45 Resp 13 11/04/20 19:45 BP 133/83 11/04/20 19:45 Pulse Ox 94 11/04/20 20:07 Weight last 48 hrs Weight 85.729 kg Physical Exam Narrative: EXAM NARRATIVE: Elderly female was sitting in her bed without any active respiratory distress was saturating well on room air, appears stated age Very pleasant during my evaluation S1, S2 sinus rhythm Abdomen soft no abdominal pain No acute respite distress Right side of her chest does not show any active purulent drainage however shows sign of mild hyperemia with tenderness on palpation Appropriate mood and affect No neurological deficit No joint swelling or lower extremity swelling Data : 11/04/20 19:58 11/04/20 19:58 A&P Assessment and plan (1) Sepsis: Criteria met with tachycardia, leukocytosis, lactic acid normal CTA chest rule out PE no consolidation or signs of pneumonia she saturating well on room air Most likely source is infected hematoma versus anterior chest wall abscess Obtain blood cultures Keep maintenance fluid rate normal saline at 75 mL/h Status: Acute Qualifiers: Sepsis acute organ dysfunction status: unspecified Sepsis type: sepsis due to unspecified organism Qualified Code(s): A41.9 - Sepsis, unspecified organism (2) Acute breast pain: Postop day 15 Patient is stating that her daughter noticed purulent drainage about 2 days ago when she was changing dressing around the drainage catheter Tender with hyperemia concern for anterior chest wall abscess Clindamycin for toxin suppression along vancomycin We will consult general surgery Ultrasound right breast area showed complex fluid collection subcutaneous fat right anterior chest wall We will keep her n.p.o. 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 DNR/DNI Attestations Medical Necessity Statement*: Anticipating stay in the hospital cross more than 2 midnights for this, possible postoperative abscess formation Time Spent in Patient Care: (>than 50% of time spent in counselling and/or direct pt care on unit). 35mins Coding Level of Care Code Acute Deposit Refund Clerk for Chg Fwd Diagnoses Sepsis A41.9 Sepsis acute organ dysfunction status: unspecified Sepsis type: sepsis due to unspecified organism Acute breast pain N64.4
--- NOTE | 2020-11-04 22:58 | ED_ITS ---
HPI - General Adult General: Chief complaint: COVID symptoms Stated complaint: Fever, Nausea, Headache, Poss Infection Time Seen by Provider: 11/04/20 19:34 History of Present Illness: HPI narrative: The patient is a 80-year-old female with past medical history right breast cancer status postmastectomy on October 21. She had her drain taken out a couple days ago. She comes to the ER today complaining of a couple days of increasing fatigue, weakness, headache, loss of taste and smell, muscle aches. Most pronounced is the general weakness she says she got progressively weaker throughout the day and eventually had to be carried around so she was brought to the ER. She also says she had a fever up to 102.1 at home and has not been drinking well. Onset (ago): day(s) (2) Severity: moderate Quality: sharp Pain Consistency: constant Relieving factors: none Exacerbating factors: none Associated symptoms: Reports cough, dyspnea, fevers/chills, nausea and weakness; Deny chest pain, confusion, headache(s), rash or palpitations Review of Systems General: Reports: 10 or more systems reviewed and unremarkable except in HPI and below Const: Reports: fever(s), chills, body aches and fatigue Eyes: Denies: change in vision, blurry vision or eye redness ENMT: Denies: throat pain, swelling of lips/tongue, ear or mastoid pain or nasal congestion Card: Denies: chest pain, palpitations, irregular heart rhythm, edema, dyspnea on exertion or orthopnea Resp: Reports: dyspnea and non-productive cough GI: Reports: nausea : Denies: flank pain, difficulty voiding, urinary frequency or urinary urgency Musc: Denies: neck pain, back pain, extremity pain, joint pain, joint redness, limited range of motion or muscle weakness Skin/Breast: Denies: rash, pruritus, erythema, skin pain or skin tenderness Neuro: Denies: headache(s), numbness in extremities, weakness in extremities, sensory changes, difficulty walking, dizziness, confusion or Slurred speech present Psych: Denies: anxiety or depression Endo: Denies: polyuria All/Imm: Denies: urticaria, throat swelling or tongue swelling PFS ED PFSH: Medical History COPD (chronic obstructive pulmonary disease) History of right breast cancer Hypertension Pneumonia Surgical History H/O neck surgery History of appendectomy History of arthroscopic knee surgery History of breast biopsy History of carpal tunnel release History of hernia repair History of laparoscopic cholecystectomy History of tubal ligation S/P right mastectomy (10/21/20) Family History Denies family history of Anesthesia complication Bleeding disorder Social History Smoking and tobacco status: never smoked Alcohol intake: never Adopted: No Caregiver/support person: Yes Lives independently: Yes Physical Exam Const: COMMON NORMALS: no acute distress, average body habitus, patient oriented x3, no limitations, healthy appearing, alert and well nourished GENERAL APPEARANCE: cooperative, comfortable, well kempt and well developed ORIENTATION/CONSCIOUSNESS: Yes awake, Yes oriented to person, Yes oriented to place and Yes oriented to time OTHER: Elevated temperature 100.1. Slightly pale HENMT: COMMON NORMALS: normocephalic, external ears normal and Normal external nose present HEAD & SCALP: normal to inspection and normocephalic NOSE: Normal external nose present EXTERNAL EAR: Yes external ears normal MOUTH: Normal oral and palatal mucosa present THROAT: posterior oropharynx normal Eye: COMMON NORMALS: Equal, round and reactive pupils present and EOMs intact bilaterally GENERAL EYE: appearance normal, both eyes and all related structures PUPIL: Yes Equal, round and reactive pupils present Neck/C-Spine: COMMON NORMALS: full ROM, no lymphadenopathy, no meningeal signs and no JVD GENERAL: Yes normal visual inspection Lymph: LYMPHATIC: no lymphadenopathy noted Chest: COMMONS NORMALS: normal inspection of the chest and normal palpation of entire chest wall OTHER: Status post right mastectomy aged approximately 2 weeks. Tenderness likely expected for 2 weeks post surgery. No significant bruising or erythema noted. Resp: COMMON NORMALS: normal respiratory effort, No retractions, No use of accessory muscles, clear to auscultation bilaterally and percussion normal EFFORT & INSPECTION: Yes able to speak in complete sentences AUSCULTATION: clear to auscultation bilaterally PERCUSSION: percussion normal Cardio: COMMON NORMALS: no JVD, regular rhythm, S1 normal heart sound present, S2 normal heart sound present and Peripheral pulses 2+ throughout RATE: tachycardic RHYTHM: regular rhythm HEART SOUNDS: S1 normal heart sound present and S2 normal heart sound present PERIPHERAL PULSES: Peripheral pulses 2+ throughout GI: COMMON NORMALS: Normal to inspection, nondistended, normoactive bowel sounds present, Soft to palpation, non-tender and no masses INSPECTION: Yes normal to inspection PALPATION: Yes Soft to palpation : COMMON NORMALS: Yes no CVA tenderness BLADDER/KIDNEY EXAM: Yes no CVA tenderness Back/Pelvis: COMMON NORMALS: no CVA tenderness, thoracic and lumbar spine normal to inspection, no thoracic nor lumbar tenderness and thoraco-lumbar ROM normal Extremity: COMMON NORMALS: normal to inspection, full ROM, capillary refill normal, no joint enlargement and no pedal edema GENERAL: Yes normal exam except as noted Neuro: COMMON NORMALS: patient oriented x3, CN's II-XII intact bilaterally, moves all extremities, no focal motor deficits, no sensory deficits noted and gait normal SENSORIUM/ORIENTATION: Yes alert, Yes oriented to person, Yes oriented to place and Yes oriented to time MENINGEAL SIGNS: Yes no meningeal signs OTHER: She has mild general weakness. No focal weakness. Psych: COMMON NORMALS: mental status grossly normal, Normal thought process present, cooperative, normal affect and speech normal APPEARANCE: Yes well kempt ATTITUDE: Yes calm SPEECH: Yes normal speech THOUGHT PROCESS: Normal thought process present Skin: COMMON NORMALS: no rashes or lesions noted GENERAL SKIN EXAM: no rashes or lesions noted and pallor Course Vital Signs: Vital signs: Vital Signs Temperature 99.5 F 11/04/20 19:45 Pulse Rate 96 11/04/20 19:45 Respiratory Rate 13 11/04/20 19:45 Blood Pressure 133/83 11/04/20 19:45 Pulse Oximetry 94 11/04/20 20:07 MDM - General Adult MDM Narrative: Medical decision making narrative: She presents with Covid symptoms and right breast pain. The patient has a white count of 21.6 with elevated temperature and possible source of infection in her lungs and right breast. CT shows a possible fluid collection in the right breast. Discussed with Dr. Murillo who recommends getting an ultrasound but thinks more likely the respiratory symptoms are the cause of her sepsis. Discussed with Dr. Davenport who accepts for inpatient hospitalization. Lab Data: Labs: Lab Results 11/04/20 11/04/20 11/04/20 Range/Units 19:58 19:58 19:58 WBC 21.6 H (4.0-10.0) 10^3/ uL RBC 3.66 L (4.1-5.3) 10^6/u L Hgb 11.6 (11.5-15.3) g/dL Hct 36.7 L (37.0-47.0) % MCV 100.3 H (81-99) fL MCH 31.7 (28.0-34.0) pg MCHC 31.6 (30.0-36.0) g/dL RDW 12.3 (12.1-15.1) % Plt Count 252 (130-400) 10^3/c mm MPV 10.5 H (7.4-10.4) fL Neut % (Auto) 76.9 % Lymph % (Auto) 10.5 % [place]ger % (Auto) 11.3 % Eos % (Auto) 0.2 % Baso % (Auto) 0.7 % Neut # (Auto) 16.59 H (1.8-7.7) 10^3/u L Lymph # (Auto) 2.3 (0.8-4.8) 10^3/u L Wil[place]ger # (Auto) 2.4 H (0.2-0.9) 10^3/u L Eos # (Auto) 0.0 (0.0-0.8) 10^3/u L Baso # (Auto) 0.2 H (0.0-0.1) 10^3/u L Nucleated RBC % (a uto) 0 % Nucleated RBCs # 0.0 /100WBC D-Dimer 0.79 H (0-0.59) ug/mIFE U Sodium 134 L (136-145) mmol/L Potassium 4.7 (3.5-5.1) mmol/L Chloride 99 (98-107) mmol/L Carbon Dioxide 25 (22-29) mmol/L Anion Gap 14.7 (5-19) BUN 14 (8-23) mg/dL Creatinine 1.5 H (0.5-0.9) mg/dL GFR Calculation Not Reportable Glucose 133 H (65-115) mg/dL Calculated Osmolal ity 280 L (285-295) mOsm/k g Lactic Acid (0.5-2.2) mmol/L Calcium 8.7 (8.5-10.5) mg/dL Total Bilirubin 0.9 (0.15-1.2) mg/dL AST 22 (0-32) U/L ALT 13 (0-33) U/L Alkaline Phosphata se 75 (35-105) IU/L Troponin T Gen 5 n g/L (0-10) ng/L C-Reactive Protein 138.8 H (0.0-4.9) mg/L NT-Pro-B Natriuret Pep 180 (0-450) pg/mL Total Protein 6.0 L (6.6-8.7) g/dL Albumin 3.6 (3.5-5.2) g/dL Globulin 2.4 (1.3-4.6) g/dL Influenza Type A A g (Negative) Influenza Type B A g (Negative) SARS-CoV-2 Ag (Rap id) (Negative) 11/04/20 11/04/20 11/04/20 Range/Units 19:58 19:58 20:02 WBC (4.0-10.0) 10^3/ uL RBC (4.1-5.3) 10^6/u L Hgb (11.5-15.3) g/dL Hct (37.0-47.0) % MCV (81-99) fL MCH (28.0-34.0) pg MCHC (30.0-36.0) g/dL RDW (12.1-15.1) % Plt Count (130-400) 10^3/c mm MPV (7.4-10.4) fL Neut % (Auto) % Lymph % (Auto) % [place]barger % (Auto) % Eos % (Auto) % Baso % (Auto) % Neut # (Auto) (1.8-7.7) 10^3/u L Lymph # (Auto) (0.8-4.8) 10^3/u L Wilbarger # (Auto) (0.2-0.9) 10^3/u L Eos # (Auto) (0.0-0.8) 10^3/u L Baso # (Auto) (0.0-0.1) 10^3/u L Nucleated RBC % (a uto) % Nucleated RBCs # /100WBC D-Dimer (0-0.59) ug/mIFE U Sodium (136-145) mmol/L Potassium (3.5-5.1) mmol/L Chloride (98-107) mmol/L Carbon Dioxide (22-29) mmol/L Anion Gap (5-19) BUN (8-23) mg/dL Creatinine (0.5-0.9) mg/dL GFR Calculation Glucose (65-115) mg/dL Calculated Osmolal ity (285-295) mOsm/k g Lactic Acid 1.9 (0.5-2.2) mmol/L Calcium (8.5-10.5) mg/dL Total Bilirubin (0.15-1.2) mg/dL AST (0-32) U/L ALT (0-33) U/L Alkaline Phosphata se (35-105) IU/L Troponin T Gen 5 n g/L 18 H (0-10) ng/L C-Reactive Protein (0.0-4.9) mg/L NT-Pro-B Natriuret Pep (0-450) pg/mL Total Protein (6.6-8.7) g/dL Albumin (3.5-5.2) g/dL Globulin (1.3-4.6) g/dL Influenza Type A A g (Negative) Influenza Type B A g (Negative) SARS-CoV-2 Ag (Rap id) Negative (Negative) 11/04/20 Range/Units 20:02 WBC (4.0-10.0) 10^3/ uL RBC (4.1-5.3) 10^6/u L Hgb (11.5-15.3) g/dL Hct (37.0-47.0) % MCV (81-99) fL MCH (28.0-34.0) pg MCHC (30.0-36.0) g/dL RDW (12.1-15.1) % Plt Count (130-400) 10^3/c mm MPV (7.4-10.4) fL Neut % (Auto) % Lymph % (Auto) % Wilbarger % (Auto) % Eos % (Auto) % Baso % (Auto) % Neut # (Auto) (1.8-7.7) 10^3/u L Lymph # (Auto) (0.8-4.8) 10^3/u L [place] # (Auto) (0.2-0.9) 10^3/u L Eos # (Auto) (0.0-0.8) 10^3/u L Baso # (Auto) (0.0-0.1) 10^3/u L Nucleated RBC % (a uto) % Nucleated RBCs # /100WBC D-Dimer (0-0.59) ug/mIFE U Sodium (136-145) mmol/L Potassium (3.5-5.1) mmol/L Chloride (98-107) mmol/L Carbon Dioxide (22-29) mmol/L Anion Gap (5-19) BUN (8-23) mg/dL Creatinine (0.5-0.9) mg/dL GFR Calculation Glucose (65-115) mg/dL Calculated Osmolal ity (285-295) mOsm/k g Lactic Acid (0.5-2.2) mmol/L Calcium (8.5-10.5) mg/dL Total Bilirubin (0.15-1.2) mg/dL AST (0-32) U/L ALT (0-33) U/L Alkaline Phosphata se (35-105) IU/L Troponin T Gen 5 n g/L (0-10) ng/L C-Reactive Protein (0.0-4.9) mg/L NT-Pro-B Natriuret Pep (0-450) pg/mL Total Protein (6.6-8.7) g/dL Albumin (3.5-5.2) g/dL Globulin (1.3-4.6) g/dL Influenza Type A A g Negative (Negative) Influenza Type B A g Negative (Negative) SARS-CoV-2 Ag (Rap id) (Negative) Discharge Plan Discharge Patient Disposition: Admitted As Inpatient Clinical Impression: Acute breast pain Sepsis Qualifiers: Sepsis type: sepsis due to unspecified organism Sepsis acute organ dysfunction status: unspecified Qualified Code(s): A41.9 - Sepsis, unspecified organism Condition: Stable Coding Level of Care 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
[2020-11-04] MEDS: levofloxacin-dextrose 5 % 750 MG/150 ML PREMIX 100 MG IV (23:11)
[2020-11-04] MEDS: HYDROcodone-acetaminophen 5-325 mg Tablet 1 TAB PO (23:37)
--- NOTE | 2020-11-04 23:49 | PC.NURSE ---
called to patients room due to redness at and around the IV site where levoquin was running. the infusion was stopped; Dr. Navarro was notified; orders given to stop infusion and switch to rocephin.
[2020-11-04] MEDS: ondansetron 2 mg/ML SDV 2 mL 4 MG IVP (23:55)
[2020-11-04] MEDS: cefTRIAXone 1,000 MG in sodium chloride 0.9% (plus) 50 ML 100 MG IV (23:58)
[2020-11-05] VITALS (7 sets, daily range): BP systolic 99–133; BP diastolic 58–76; PULSE 81–93; RESP 16–22; TEMP 36.3–37.6; O2SAT 93–95
--- NOTE | 2020-11-05 00:01 | USR_ITS ---
PROCEDURE INFORMATION: Exam: US Right Breast Limited; Trauma Exam date and time: 11/05/2020 12:02 AM Age: 80 years old Clinical indication: Abnormal findings on imaging; Right; Prior surgery; Surgery date: <1 month; Additional info: Evaluate fluid collection seen on CT. Post mastectomy on10/21 TECHNIQUE: Imaging protocol: Limited ultrasound of Right breast with image documentation, including axilla when performed. Exam focused on the search and evaluation for trauma. COMPARISON: No relevant prior studies available. FINDINGS: US breast: Edematous soft tissues of right anterior chest wall. Elongated hypoechoic complex fluid collection in the subcutaneous fat of the right anterior chest wall as suggested on the CT scan, although difficult to characterize secondary to artifact with challenging acoustic windows from the overlying surgical incision. US/US breast RT limited* [id number] IMPRESSION: Soft tissue fluid collection in the right anterior chest wall not clearly assessed by this examination.
[2020-11-05] MEDS: azithromycin 500 MG in sodium chloride 0.9% 250 ML 250 MG IV (00:56)
--- NOTE | 2020-11-05 01:51 | PC.PHAR ---
Pharmacokinetic dosing service Date: 11/05/2020 Time: 199 Objective: Patient: Ashlee Gray Floor: 253-2 Age: 80 yo Serum creatinine: 1.5 mg/dL Height: 60.0 Inches Weight (kg): 85.729 Diagnosis: Relevant medical/social history: Cultures and sensitivities: Other labs: Assessment: IBW (kg): 45.50 Dosing wt(kg): 85.729 Estimated Creatinine clearance (ml/min): 22.2 CRCL method: Cockcroft and Gault using ibw(default). Drug selected: Vancomycin Loading dose (mg): 0 Vd (liters): 77.2 (factor used: 0.9 L/kg) Domo (hr-1): 0.023 Half life (hrs): 30.14 Recommended dose: 1500 mg Interval: 36 hrs Infusion time (hrs): 1.5 Predicted peak (mcg/mL): 33.9 Predicted trough (mcg/mL): 15.33 Total body weight is being used for vancomycin dosing. Renal function is stable [ ] /unstable [ ] Recommendations: Give Vancomycin 1500 mg q 36 hrs with an expected Cpeak of 33.9 mcg/ml and an expected Ctrough of 15.33 mcg/ml Renal dosing of other antibiotics (review renal dosing of other medications and list guidelines here): Thank you for the consult, will continue to follow. Signature: Blanca Dumont [facility]
[2020-11-05] MEDS: sodium chloride 0.9% 1,000 ML 75 ML IV (02:41)
[2020-11-05] MEDS: vancomycin 1,500 MG/300 ML PIGGYBACK 150 MG IV (02:42)
[2020-11-05] MEDS: clindamycin 600 MG/50 ML PREMIX 100 MG IV ×2 (02:42→09:17)
[2020-11-05 03:26] LABS: Basophils # 0.1 10^3/uL (0.0-0.1); Basophils % 0.6 %; Eosinophils # 0.1 10^3/uL (0.0-0.8); Eosinophils % 0.4 %; Hematocrit 37.2 % (37.0-47.0); Hemoglobin 10.9 g/dL (11.5-15.3); Lymphocytes # 2.6 10^3/uL (0.8-4.8); Lymphocytes % 16.1 %; Mean Corpuscular HGB Conc 29.3 g/dL (30.0-36.0); Mean Corpuscular Hemoglobin 31.7 pg (28.0-34.0); Mean Corpuscular Volume 108.1 fL (81-99); Mean Platelet Volume 9.9 fL (7.4-10.4); Monocytes # 1.9 10^3/uL (0.2-0.9); Monocytes % 12.1 %; Neutrophils # 11.18 10^3/uL (1.8-7.7); Neutrophils % 70.3 %; Nucleated Red Blood Cells % 0 %; Platelet Count 191 10^3/cmm (130-400); Red Blood Count 3.44 10^6/uL (4.1-5.3); Red Cell Distribution Width 12.5 % (12.1-15.1); White Blood Count 15.9 10^3/uL (4.0-10.0)
[2020-11-05 03:45] LABS: Blood Urea Nitrogen 15 mg/dL (8-23); Calcium 7.8 mg/dL (8.5-10.5); Carbon Dioxide 23 mmol/L (22-29); Chloride 104 mmol/L (98-107); Glucose 103 mg/dL (65-115); Osmolality Calculated 281 mOsm/kg (285-295); Sodium 135 mmol/L (136-145)
[2020-11-05 03:50] LABS: Anion Gap 12.1 (5-19); Potassium 4.1 mmol/L (3.5-5.1)
[2020-11-05] MEDS: diphenhydrAMINE 50 mg/mL SDV 1mL 25 MG IVP (05:08)
--- NOTE | 2020-11-05 05:09 | PC.NURSE ---
pt has received azithromycin followed by clindamycin along with vancomycin as well as her IVF at 75m/hr. pt had no immediate complaints when the azithromycin and clindamycin finished. As soon as the vancomycin had infused, pt began complaining of both palms itching to TRENT Haq. This nurse went in to observe pt and noticed redness around pt's eyes and chin. trunk and limbs were assessed for other reddened areas, no other areas noted. The pt does not complain of shortness of breath or trouble swallowing. This nurse asked TRENT [place] Charge to come lay eyes on the pt, since she did her physical admission, for a second opinion. Itchiness was also accompanied by a drop of BP from 133/76 at 0132 to 99/60 at 0424. Pt received a one time dose 25mg Benadryl IVP.
[2020-11-05] MEDS: metoprolol succinate ER (24 HR) 50 mg Tablet PO (06:18)
[2020-11-05] MEDS: anastrozole 1 mg Tablet PO (06:18)
--- NOTE | 2020-11-05 12:55 | PM.CONSULT ---
Providers/Reason For Consult Consulting Physican/Specialty*: Franco Davenport MD Reason for Consult*: Fevers Attending Physician: Franco Davenport MD Primary Care Provider: EASTON Singleton History of Present Illness History of Present Illness Ashlee Gray is a 80 year old female who underwent simple right mastectomy on 10/21/2020. Patient subsequently discharged home on 10/23/2020 with a DESTIN drain. I saw her in the office on 11/03/2020 where there was concern about erythema around the drain and the drain was removed. She states that she did well that night but the following day she developed fevers and generalized body aches. Her breast was mildly more tender but she had generalized myalgia and chills. Review of Systems General: Reports: 10 or more systems reviewed and unremarkable except in HPI and below Meds/Allergies Home Medications and Allergies Home Medications Medication Instructions Recorded Confirmed Last Taken Type anastrozole 1 mg tablet 1 mg PO DAILY@0700 10/06/20 11/04/20 11/04/20 History metoprolol succinate 50 mg 50 mg PO DAILY@0700 10/06/20 11/04/20 11/04/20 History tablet,extended release 24 hr ondansetron HCl [Zofran] 4 mg PO Q6H PRN #20 tab 10/23/20 11/04/20 11/04/20 Rx acetaminophen [Tylenol] 325 mg PO QID PRN 11/04/20 11/04/20 Unknown History docusate sodium [Colace] 100 mg PO BID PRN 11/04/20 11/04/20 11/03/20 History hydrocodone-acetaminophen 1 tab PO Q6H PRN 11/04/20 11/04/20 11/04/20 History Allergies Allergy/AdvReac Type Severity Reaction Status Date / Time codeine Allergy Unknown Unknown Verified 11/04/20 17:56 morphine Allergy Unknown Unknown Verified 11/04/20 17:56 levofloxacin [From Levaquin] Allergy ALGY-Hives Verified 11/05/20 01:56 Current Medications Current Medications Generic Name Dose Route Start Last Admin Trade Name Freq PRN Reason Stop Dose Admin Anastrozole 1 mg 11/05/20 07:00 11/05/20 06:18 Anastrozole 1 Mg Tablet PO 1 mg DAILY@0700 SEEMA Administration Sodium Chloride 1,000 mls @ 75 mls/hr 11/04/20 19:45 11/05/20 02:41 Sodium Chloride 0.9% IV 75 mls/hr .[id number] SEEMA Administration Clindamycin HCl/Dextrose 600 mg in 50 mls @ 100 mls/hr 11/05/20 03:00 11/05/20 09:17 Cleocin IV 100 mls/hr Q6H SEEMA Administration Protocol Vancomycin/PEG/NADA/Lysine/Water 1,500 mg in 300 mls @ 200 mls/hr 11/05/20 02:00 11/05/20 04:58 Vancocin IV Infused Q36H SEEMA Infusion Metoprolol Succinate 50 mg 11/05/20 07:00 11/05/20 06:18 Metoprolol Succinate Er (24 Hr) 50 Mg Tablet PO 50 mg DAILY@0700 SEEMA Administration PFSH Acute PFSH: Medical History COPD (chronic obstructive pulmonary disease) History of right breast cancer Hypertension Pneumonia Surgical History H/O neck surgery History of appendectomy History of arthroscopic knee surgery History of breast biopsy History of carpal tunnel release History of hernia repair History of laparoscopic cholecystectomy History of tubal ligation S/P right mastectomy (10/21/20) Family History Denies family history of Anesthesia complication Bleeding disorder Social History Smoking and tobacco status: never smoked Alcohol intake: never Adopted: No Caregiver/support person: Yes Lives independently: Yes Vitals/I&O/Wt Last Vital Signs Temp 98.0 F 11/05/20 11:33 Pulse 84 11/05/20 11:33 Resp 17 11/05/20 11:33 BP 113/73 11/05/20 11:33 Pulse Ox 94 11/05/20 11:33 11/04/20 11/05/20 11/05/20 22:59 06:59 14:59 Intake Total 1136.667 / 1136.667 240 / 240 Output Total 500 / 500 Balance 636.667 / 636.667 240 / 240 Weight last 48 hrs Weight 189 lb Physical Exam Narrative: EXAM NARRATIVE: HEENT: Normocephalic Eye: Sclera /conjunctiva normal Abdomen: Ecchymosis abdominal wall Neurological: Oriented to place person and time Skin: Intact, no lesions appreciated on gross exam Breast: Well-healed mastectomy scar, no significant cellulitis, some underlying postop fluid Left breast -no palpable masses or skin changes, Left nipple areolar complex: Normal, no drainage, left axilla: Normal Data Micro: Micro: Microbiology 11/05/20 03:00 Blood Culture - Pr eliminary Blood SPECIMEN [facility] LUIS ANGEL 11/05/20 03:00 Blood Culture - Pr eliminary Blood SPECIMEN [facility] A&P Assessment and plan (1) Sepsis: 80-year-old female status post right mastectomy for invasive ductal carcinoma who presents with fevers and generalized body aches. On clinical exam there does not appear to be any cellulitis of significance. There was air noted on the CT chest which would be not unexpected considering the fact that the DESTIN drain had been taken out 24 hours prior. Rapid COVID-19 test was negative. At this point patient is hemodynamically stable and will therefore continue the vancomycin and clindamycin for 24 more hours. I have explained to the patient that she if she continues to be afebrile and her repeat white count tomorrow morning is normal then we will transition her to oral antibiotics for possible discharge tomorrow. 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
--- NOTE | 2020-11-05 15:22 | P.PN_ITS ---
Subjective Subjective: Interval history: Overnight labs and H&P reviewed. Patient denies any new complaints. 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 Site of drain removal with some crusting, no gross discharge noted. Data : 11/05/20 03:00 11/05/20 03:00 Micro: Microbiology 11/05/20 03:00 Blood Culture - Preliminary Blood SPECIMEN COLLECTED 11/05/20 03:00 Blood Culture - Preliminary Blood SPECIMEN COLLECTED A&P Assessment and plan (1) Sepsis: Criteria met with tachycardia, leukocytosis, fever CTA chest rule out PE no consolidation or signs of pneumonia she saturating well on room air Most likely source is infected hematoma versus anterior chest wall abscess Currently on treatment with vancomycin and clindamycin. Discontinue clindamycin as there are no signs of necrotizing fasciitis at this present time. Add cefazolin 2 g IV every 8 hours. Trend leukocytosis, fever curve. Rapid Covid antigen is negative, check Covid PCR. Status: Acute Qualifiers: Sepsis acute organ dysfunction status: unspecified Sepsis type: sepsis due to unspecified organism Qualified Code(s): A41.9 - Sepsis, unspecified organism (2) Acute breast pain: Appreciate general surgery recommendations. 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
[2020-11-05] MEDS: HYDROcodone-acetaminophen 5-325 mg Tablet 1 TAB PO (16:45)
[2020-11-05] MEDS: ondansetron 4 MG Tablet PO (16:53)
[2020-11-06] VITALS: BP 117/69; PULSE 86; RESP 18; TEMP 37.4; O2SAT 92
[2020-11-06 02:59] LABS: Basophils # 0.1 10^3/uL (0.0-0.1); Basophils % 0.8 %; Eosinophils # 0.3 10^3/uL (0.0-0.8); Eosinophils % 2.8 %; Hematocrit 31.1 % (37.0-47.0); Hemoglobin 9.7 g/dL (11.5-15.3); Lymphocytes # 1.6 10^3/uL (0.8-4.8); Lymphocytes % 15.6 %; Mean Corpuscular HGB Conc 31.2 g/dL (30.0-36.0); Mean Corpuscular Hemoglobin 31.9 pg (28.0-34.0); Mean Corpuscular Volume 102.3 fL (81-99); Mean Platelet Volume 10.9 fL (7.4-10.4); Monocytes # 1.2 10^3/uL (0.2-0.9); Monocytes % 11.7 %; Neutrophils % 68.7 %; Nucleated Red Blood Cells % 0 %; Platelet Count 186 10^3/cmm (130-400); Red Blood Count 3.04 10^6/uL (4.1-5.3); Red Cell Distribution Width 12.4 % (12.1-15.1); White Blood Count 10.5 10^3/uL (4.0-10.0)
[2020-11-06 03:12] LABS: Anion Gap 11.9 (5-19); Blood Urea Nitrogen 14 mg/dL (8-23); Carbon Dioxide 25 mmol/L (22-29); Chloride 104 mmol/L (98-107); Glucose 94 mg/dL (65-115); Osmolality Calculated 284 mOsm/kg (285-295); Potassium 3.9 mmol/L (3.5-5.1); Sodium 137 mmol/L (136-145)
[2020-11-06 04:00] VITALS: BP 124/73; PULSE 79; RESP 18; TEMP 37; O2SAT 94
[2020-11-06] MEDS: metoprolol succinate ER (24 HR) 50 mg Tablet PO (06:04)
[2020-11-06] MEDS: anastrozole 1 mg Tablet PO (06:04)
[2020-11-06 07:35] VITALS: BP 109/60; PULSE 75; RESP 17; TEMP 37.2; O2SAT 94
[2020-11-06] MEDS: HYDROcodone-acetaminophen 5-325 mg Tablet 1 TAB PO (10:24)
[2020-11-06 12:00] VITALS: BP 113/68; PULSE 87; RESP 18; TEMP 36.7; O2SAT 95
--- NOTE | 2020-11-06 13:52 | PM.DCS ---
Discharge Providers Date of Admission: 11/04/20 22:56 Date of Discharge: November 06, 2020 Attending Provider at Admission: Franco Davenport MD Attending Provider at Discharge: Juliann Marcum MD Primary Care Provider: EASTON Singleton Diagnoses at Discharge Discharge Diagnosis (1) Sepsis: Status: Acute Qualifiers: Sepsis acute organ dysfunction status: unspecified Sepsis type: sepsis due to unspecified organism Qualified Code(s): A41.9 - Sepsis, unspecified organism (2) Acute breast pain: Status: Acute Reason for Visit Reason for Visit: Fever, Nausea, Headache, Poss Infection Hospital Course Hospital Course Ashlee Gray is a 80 year old female who has history of 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 Milan, presented today with chief complaint of feeling unwell, fever 102-103F at home, soreness over surgical site and pus discharge from site of drain removal noticed by her daughter at dressing change. Initial diagnostics are consistent with sepsis. CTA was performed which was negative for PE, showed postoperative nonspecific fluid and gas collection in the deep subcutaneous fat of the right anterior chest wall suggestive of seroma versus hematoma versus abscess which could not be completely excluded. Breast ultrasound also showed a soft tissue collection however was not clearly visualized. Due to concern for sepsis as a result of SSTI at the recent mastectomy site, she was started on IV antibiotics, initially clindamycin and vancomycin, thereafter changed to cefazolin and IV vancomycin. Air in the tissue more suggestive of recent surgery versus recent drain placement rather than necrotizing fasciitis. Her fever curve improved, T-max during hospital stay was 100.1, over last 24 hours she has been afebrile. White blood cell count has improved from 15-10. She has been transitioned to oral antibiotics to complete 1 week of treatment. Hospital course also notable for acute gout flare involving the left second and third toes. For this she is being given a short course of prednisone 40 mg for 5 days. Recommended to follow-up with primary care provider in the next 7 to 10 days to discuss options for chronic suppression and testing uric acid levels. Physical Exam Narrative: EXAM NARRATIVE: GEN: Awake, alert and oriented, no acute distress CVS: S1S2 N RS: CTA B/L Abd: Soft, nt/nd , bs+ OUTSOLE COMPRESSOR: no focal neuro deficits ext: No erythema or fluctuance noted at the site of mastectomy. Discomfort to palpation present along the suture line. Site of drain removal with some minimal crusting. Discharge Data Data Completed and Pending: Completed Studies During Hospitalization Category Date Time Status CT angio chest PE protcl [id number] Stat Cat Scan 11/04/20 20:45 Completed XR chest 1V jaya ble [id number] Stat Exams 11/04/20 18:33 Completed US breast RT limi gene* [id number] Urgent Ultrasound 11/05/20 00:01 Completed Pending at discharge Category Date Time Status Blood Culture Sta t Lab 11/05/20 03:00 Results Coronavirus Test [facility] Lab 11/05/20 19:33 Received Urinalysis Routin e Lab 11/05/20 19:34 Ordered Labs from last 24 hours 11/06/20 11/06/20 11/06/20 09:22 01:58 01:58 WBC 10.5 H RBC 3.04 L Hgb 9.7 L Hct 31.1 L MCV 102.3 H D MCH 31.9 MCHC 31.2 D RDW 12.4 Plt Count 186 MPV 10.9 H Neut % (Auto) 68.7 Lymph % (Auto) 15.6 [place] % (Auto) 11.7 Eos % (Auto) 2.8 Baso % (Auto) 0.8 Neut # (Auto) 7.20 Lymph # (Auto) 1.6 [place] # (Auto) 1.2 H Eos # (Auto) 0.3 Baso # (Auto) 0.1 Nucleated RBC % (a uto) 0 Nucleated RBCs # 0.0 Sodium 137 Potassium 3.9 Chloride 104 Carbon Dioxide 25 Anion Gap 11.9 BUN 14 Creatinine 1.4 H GFR Calculation Not Reportable Glucose 94 Calculated Osmolal ity 284 L Calcium 8.0 L Nasal/Oral COVID-1 9 PCR Pending Vitals: Last Vital Signs Temp 98.1 F 11/06/20 12:00 Pulse 87 11/06/20 12:00 Resp 18 11/06/20 12:00 BP 113/68 11/06/20 12:00 Pulse Ox 95 11/06/20 12:00 Microbiology 11/05/20 03:00 Blood Blood Culture - Preliminary NEGATIVE TO DATE 11/05/20 03:00 Blood Blood Culture - Preliminary NEGATIVE TO DATE Discharge Plan Discharge Patient Disposition: Home Condition: Stable Prescriptions: New cefadroxil 500 mg capsule 500 mg PO Q12H 7 Days Qty: 10 RF: 0 doxycycline hyclate 100 mg capsule 100 mg PO BID 7 Days Qty: 14 RF: 0 prednisone 20 mg tablet 20 mg PO BID 5 Days Qty: 10 RF: 0 pantoprazole [Protonix] [address] for susp in packet 40 mg PO DAILY 7 Days Qty: 7 RF: 0 Continued anastrozole 1 mg tablet 1 mg PO DAILY@0700 RF: 0 metoprolol succinate 50 mg tablet extended release 24 hr 50 mg PO DAILY@0700 RF: 0 Tylenol 325 mg Tablet 325 mg PO QID PRN (Reason: Pain) RF: 0 hydrocodone-acetaminophen 5-325 mg tablet 1 tab PO Q6H PRN (Reason: Pain) RF: 0 Colace 100 mg capsule 100 mg PO BID PRN (Reason: Constipation) RF: 0 ondansetron HCl [Zofran] 4 mg tablet 4 mg PO Q6H PRN (Reason: nausea and vomiting) Qty: 20 RF: 0 Discharge Orders: Discharge Order (Routine); Ordered 11/06/20 Ordered By: Juliann Marcum Referrals: Robe Milan MD [Physician] - 7-10 days Luana Garcia FNP [Primary Care Provider] - 7-10 days Discharge Diet: Usual diet Discharge Activity: Resume usual activity Discharge Attestations Time Spent in Discharge Care*: greater than 30 min Quality Metrics Clinical Quality Measures During this hospital stay, did patient experience: None Coding Level of Care Code Acute Special Effects Person for [facility] Fwd Diagnoses Sepsis A41.9 Sepsis acute organ dysfunction status: unspecified Sepsis type: sepsis due to unspecified organism Acute breast pain N64.4
--- NOTE | 2020-11-06 14:32 | PC.NURSE ---
Discharge instructions reviewed, denies further questions or concerns.
[2020-11-06 14:59] VITALS: BP 113/68; PULSE 87; RESP 18; TEMP 36.7; O2SAT 95
--- NOTE | 2020-11-06 14:59 | PC.NURSE ---
Patient given IV solumedrol for gout flare up in left foot, then verbalized okay for discharge, denies further needs.
--- NOTE | 2020-11-06 17:15 | P.PN_ITS ---
Subjective Subjective: Interval history: Patient has been doing well, denies any significant pain, her T-max was 99 Medications: Reviewed: Yes Vitals/I&O/Wt Last Vital Signs Temp 98.1 F 11/06/20 14:59 Pulse 87 11/06/20 14:59 Resp 18 11/06/20 14:59 BP 113/68 11/06/20 14:59 Pulse Ox 95 11/06/20 14:59 11/06/20 11/06/20 11/06/20 06:59 14:59 22:59 Intake Total 400 / 1980 480 / 480 Output Total 160 / 160 Balance 240 / 1820 480 / 480 Weight last 48 hrs Weight 189 lb Physical Exam Narrative: EXAM NARRATIVE: Right chest: Mastectomy incision healing well, no cellulitis or hematoma Data : 11/06/20 01:58 11/06/20 01:58 Micro: Microbiology 11/05/20 03:00 Blood Culture - Preliminary Blood NEGATIVE TO DATE 11/05/20 03:00 Blood Culture - Preliminary Blood NEGATIVE TO DATE A&P Assessment and plan (1) S/P right mastectomy: Overall doing well WBC down to 10, patient has been afebrile for the last 24 hours DC home today Follow-up 1 week Status: Acute Attestations Medical Necessity Statement*: Status post mastectomy admitted with fevers Coding Level of Care Code Acute [employer] Hand[employer] Supervisor 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
[2020-11-08 16:00] LABS: Coronavirus Test Green County Not Detected
== END 2020-11-06 15:00 | disposition home or self-care (01) ==
LOC: ER 22:58 → MEDSURG 11-05 13:39
PROVIDERS: Surgery; Admitting Provider Internal Medicine; Emergency Provider Family Medicine; PCP Nurse Practitioner Family; Visit Provider Student in an Organized Health Care Education/Training Program
DX: A41.9 Sepsis, unspecified organism (principal); N64.4 Mastodynia; Z90.11 Acquired absence of right breast and nipple; Z85.3 Personal history of malignant neoplasm of breast; C79.51 Secondary malignant neoplasm of bone; Z66 Do not resuscitate; J44.9 Chronic obstructive pulmonary disease, unspecified; I10 Essential (primary) hypertension
CPT/HCPCS: 36415; 71045; 71275; 76642; 80048; 80053; 83605; 83880; 84484; 85025; 85378; 86140; 87040; 87426; 87635; 87804; 93005; 96361; 96365; 96367; 96375; 99285; G0378; J0456; J0690; J0696; J1200; J1956; J2405; J2920; J3370; J3490; J7030; J7050; J8999; Q0162; Q9967

== ENCOUNTER 2020-11-17 08:06 | Outpatient (CLI) | payer MEDICARE, SELFPAY ==
[2020-11-17 08:50] LABS: Basophils # 0.1 10^3/uL (0.0-0.1); Basophils % 0.5 %; Eosinophils # 0.5 10^3/uL (0.0-0.8); Eosinophils % 4.1 %; Hematocrit 37.5 % (37.0-47.0); Hemoglobin 11.4 g/dL (11.5-15.3); Lymphocytes % 26.8 %; Mean Corpuscular HGB Conc 30.4 g/dL (30.0-36.0); Mean Corpuscular Hemoglobin 30.8 pg (28.0-34.0); Mean Corpuscular Volume 101.4 fL (81-99); Monocytes # 1.4 10^3/uL (0.2-0.9); Monocytes % 12.5 %; Neutrophils # 6.11 10^3/uL (1.8-7.7); Neutrophils % 55.4 %; Nucleated Red Blood Cells % 0 %; Platelet Count 218 10^3/cmm (130-400)
[2020-11-17 09:14] LABS: Alanine Aminotransferase 10 U/L (0-33); Albumin Level 3.3 g/dL (3.5-5.2); Alkaline Phosphatase 81 IU/L (35-105); Anion Gap 12.3 (5-19); Aspartate Amino Transferase 14 U/L (0-32); Blood Urea Nitrogen 13 mg/dL (8-23); Carbon Dioxide 27 mmol/L (22-29); Chloride 103 mmol/L (98-107); Globulin 2.9 g/dL (1.3-4.6); Glucose 100 mg/dL (65-115); Osmolality Calculated 286 mOsm/kg (285-295); Potassium 4.3 mmol/L (3.5-5.1); Sodium 138 mmol/L (136-145); Total Bilirubin 0.3 mg/dL (0.15-1.2); Total Protein 6.2 g/dL (6.6-8.7)
--- NOTE | 2020-11-17 17:00 | ONC FU_ITS ---
Dr. Aguilar follow up note Patient: Ashlee Gray Unit #: [id number]: [id number] Dicatated By: Korin Aguilar M.D.Date of Visit:Nov 17, 2020 Onc Med Follow-up/Prog Note History of Present Illness: Ms. Ashlee Gray, is a 80-year-old female with a history of stage IV breast cancer, as per patient in July 2019 she underwent mammogram which showed right breast mass followed by ultrasound right breast which shows 3.4 x 2 x 2.4 cm hypoechoic mass with spiculated margin at 1 o'clock position patient underwent right breast biopsy on August 16, 2019 which showed predominantly blood with atypical cells and on September 20, 2019, she underwent ultrasound-guided right breast biopsy which confirmed invasive ductal carcinoma ER positive more than 90% GA +40% and HER-2/joao negative, Ki-67 was 15% Patient underwent CT PET scan on October 02, 2019 which showed 3.6 x 2.7 cm mass in the right breast with SUV of 7. There is no pathologically enlarged or hypermetabolic lymph nodes seen. In the bones there is focal increased uptake in left sacral gladis at the level of S1 with SUV of 10. But no associated lesion by CT scan. And there is no other hypermetabolic lesion worrisome for malignancy. MRI scan of sacrum was recommended which was done on October 18, 2019 which showed within the left sacral ala S1 level basis stir hyperintense, T1 hypointense enhancing lesion measuring 3 x 2.3 x 2.7 cm does not appear to be extension into sacral neural foramen. No pathological fracture. No additional lesions are identified. As per medical record she was planned for breast surgery but it was canceled due to MRI scan findings and biopsy was ordered and on November 18, 2019 patient underwent sacral lesion biopsy which confirmed metastatic carcinoma favor breast origin, ER/GA positive, HER-2/joao negative Ki-67 was 20%. And on January 01, 2020 she was started on Ibrance and anastrozole and monthly Zometa. And on April 13, [address] scan of abdomen pelvis and bone scan which showed diverticulosis coli without CT scan evidence of diverticulitis. Stable small right adrenal gland nodule, stable 5 mm left lower lobe lung nodule, benign. Left sacral bone metastasis. And underwent bone scan on May 14, 2020 shows abnormal uptake in left sacral gladis near SI joint unchanged since prior. On the right at L4-L5 increased uptake associated noted unchanged since the prior could be degenerative. Patient received all this evaluation and treatment in [place], now moved to [place], [place] and now have decided to come to our clinic for further treatment. She is tolerating Ibrance/anastrozole/Zometa well but with expected side effects, bony pains, occasionally hot flashes. Patient still has right breast lesion, as per patient initially she was seen by surgery and removal of right breast was under consideration but somehow after she gone through sacral biopsy which came back positive for metastatic disease surgery was postponed and then due to Covid 19 situation it was not rescheduled. Her family history significant for breast cancer in her grandmother as well as brother She has history of COPD/asthma hypertension Patient denies any fever chills, denies any nausea or vomiting denies any diarrhea or constipation denies any new bony pains except persistent nagging pain in the lower back area but under control with current pain medication. Follow-up CT PET scan done on September 29, 2019 showed right breast lesion 3.9 x 1.8 cm SUV of 4.39 and no axillary lymphadenopathy Right clavicular head uptake, indeterminate. 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 pT2 ,pN1a. Postop period was complicated by large seroma right chest wall because of progressive shortness of breath she underwent CT angiogram on November 04, 2020 which showed no evidence of pulmonary embolism but large postoperative nonspecific fluid and gas collection in the deep subcutaneous fat of right anterior chest wall, now being managed by Dr. Milan Came for follow-up, denies any specific complaints today no fever chills, no nausea or vomiting, no diarrhea or constipation, no new bony pains, no fever chills, right anterior chest wall puffiness and swelling is still there, as per patient Dr. Milan told her it should continue to get better but he is monitoring her. Medications: Anastrozole 1 Tablet (of 1 mg) Oral daily, Metoprolol Succinate ER 1 Tablet (of 50 mg) Tablet SR 24 HR Oral daily, Ondansetron HCl 1 Tablet (of 4 mg) Oral q 8 hours PRN Allergies: Codeine Sulfate and Morphine Sulfate. Review of Systems: Review of Systems is not available for this patient. Vital Signs: Performed on Nov 17, 2020 09:55 Height - 60.00 in Weight - 192.6 lbs (LOW) BSA - 1.84 sq.m BMI - 37.61 (HIGH) Temperature - 98.0 F (LOW) Pulse - 83 /min Respiration - 20 /min BP - 172/86 mm(hg) (HIGH) O2 Sat - 97 % Pain - 6 Fatigue - 10 Performance Status: 1 - No physically strenuous activity, but ambulatory and able to carry out light or sedentary work (e.g. office work, light house work). (ECOG) Physical Examination: Respiratory - Lungs are clear to auscultation Cardiovascular - Regular rate and rhythm of heart , Gastrointestinal -Soft, bowel sounds present Extremities -No visible edema, right anterior chest wall with puffinessLab/Imaging: Test performed on Oct 01, 2020 10:27 CA 15-3 39.7 U/mL CA 27.29 64 U/mL Test performed on Sep 30, 2020 10:27 Sodium 138 mmol/L Potassium 4.0 mmol/L Chloride 102 mmol/L CO2 28 mmol/L Anion Gap 12.0 BUN 17 mg/dL Creatinine 1.1 mg/dL Cr Clearance (Est) 59.10 mL/min Glucose 122 mg/dL Osmolality - Calculated 289 mOsm/kg Calcium 9.5 mg/dL Protein, Total 6.7 g/dL Albumin 4.0 g/dL Globulin 2.7 g/dL Bilirubin, Total 0.4 mg/dL ALT (SGPT) 13 U/L AST (SGOT) 17 U/L Alkaline Phosphatase 74 IU/L WBC 6.5 10 3/uL RBC 3.55 10 6/uL HGB 12.1 g/dL HCT 37.2 % MCV 104.8 fL MCH 34.1 pg MCHC 32.5 g/dL RDW 12.5 % Platelet Count 257 10 3/cmm MPV 10.3 fL Neutrophils 3.56 10 3/uL Lymphocytes 1.9 10 3/uL Monocytes 0.9 10 3/uL Eosinophils 0.1 10 3/uL Basophils 0.1 10 3/uL Neutrophil % 54.7 % Lymphocyte % 28.4 % Monocyte % 13.1 % Eosinophil % 1.8 % Basophils % 1.7 % NRBC % 0 % Impression: Status post right mastectomy with right axillary lymph node dissection done on October 21, 2019 as PET scan shows no more evidence of distant mets only right breast mass uptake. 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 Clinical stage T4, skin involvement, NX M1, stage IV Started on Ibrance/anastrozole/Zometa on January 01, 2020 COPD/asthma Obesity Hypertension Follow-up CT PET scan done on September 29, 2020 showed persistent right breast uptake otherwise no right axillary lymphadenopathy or distant mets. Right clavicular head uptake, indeterminate Plan: Discussed with patient regarding her labs white blood count 11 hemoglobin 11.4 g compared to 12.1 g on September 30, 2020 hematocrit 37.5 platelets 218,000, CMP within normal limits and status post right mastectomy and her pathology report Clinically, patient doing well, tolerated right mastectomy with axillary lymph node dissection well but postop period was complicated by large seroma which was causing shortness of breath for which patient underwent CTA which showed no evidence of pulmonary embolism. No seroma is improving. And patient is feeling better. Her right mastectomy specimen showed T2 lesion but metaplastic carcinoma with osteoid and sarcomatoid differentiation, ER/GA HER-2/joao status is pending, 2 out of 9 lymph nodes positive for metastatic disease 1 showed extranodal extension, due to metaplastic differentiation as well as extranodal extension, patient is a high risk, so we will consider continue with Ibrance/Arimidex. Patient has 1 cycle of Ibrance at home so she will start taking her Ibrance today for 3 weeks on 1 week off along with daily Arimidex and will continue with Zometa every 3 months and she will receive her next dose today.We will also discuss with radiation oncology regarding role of radiation oncology with extranodal involvement Patient return to clinic in 1 month with CBC CMP and CA 27-[address] PET scan after 3-4 cycle Ibrance/Arimidex. Signed By: Korin Aguilar M.D. <<Signature on File>>
== END 2020-11-17 08:07 | disposition home or self-care (01) ==
LOC: ONCMED 08:07
PROVIDERS: PCP Nurse Practitioner Family; Visit Provider Internal Medicine Hematology & Oncology
DX: C50.211 Malignant neoplasm of upper-inner quadrant of right female breast (principal); C79.51 Secondary malignant neoplasm of bone; C77.3 Secondary and unspecified malignant neoplasm of axilla and upper limb lymph nodes; J44.9 Chronic obstructive pulmonary disease, unspecified; E66.9 Obesity, unspecified; I10 Essential (primary) hypertension; Z17.0 Estrogen receptor positive status [ER+]; Z90.11 Acquired absence of right breast and nipple; Z68.37 Body mass index [BMI] 37.0-37.9, adult
CPT/HCPCS: 36415; 80053; 85025; 99215

== ENCOUNTER 2020-11-21 17:24 | Inpatient (IN) | payer MEDICARE, SELFPAY ==
[2020-11-21 18:16] VITALS: BP 125/82; PULSE 87; RESP 16; TEMP 36.6; O2SAT 95; BMI 37.0
--- NOTE | 2020-11-21 18:36 | CTR_ITS ---
PROCEDURE INFORMATION: Exam: CT Chest With Contrast; Diagnostic Exam date and time: 11/21/2020 7:18 PM Age: 80 years old Clinical indication: Condition or disease; Chest deformity; Primary cancer: Breast; Prior surgery; Surgery date: 1-6 months; Patient HX: R mastectomy site abcess; Additional info: Fever HX of abscess right mastectomy site TECHNIQUE: Imaging protocol: Diagnostic computed tomography of the chest with contrast. Radiation optimization: All CT scans at this facility use at least one of these dose optimization techniques: automated exposure control; mA and/or kV adjustment per patient size (includes targeted exams where dose is matched to clinical indication); or iterative reconstruction. Contrast material: VISI 320; Contrast volume: 95 ml; Contrast route: INTRAVENOUS (IV); COMPARISON: CT angio chest PE protcl [id number] 11/04/2020 9:56 PM RADIATION DOSE METRICS: Total DLP (mGy-cm): 964.64 FINDINGS: Lungs: Bilateral dependent atelectasis. Pleural spaces: Unremarkable. No pneumothorax. No pleural effusion. Heart: Unremarkable. No cardiomegaly. No pericardial effusion. Aorta: Unremarkable. No aortic aneurysm. Lymph nodes: Unremarkable. No enlarged lymph nodes. Gallbladder and bile ducts: Cholecystectomy. Bones/joints: Unremarkable. No acute fracture. Soft tissues: Right breast 18 cm subcutaneous fluid collection containing air may reflect an infected seroma increased in size compared to prior exam with more fluid. CT/CT chest w con* [id number] IMPRESSION: 1. Negative for pulmonary embolus. 2. Right breast 18 cm subcutaneous fluid collection containing air may reflect an infected seroma increased in size compared to prior exam with more fluid. 3. Cholecystectomy. 4. Bilateral dependent atelectasis. Radiation Dose CTDIVOL = (mGy): DLP = 964.64 (mGy-cm)
--- NOTE | 2020-11-21 19:01 | ED_ITS ---
HPI - Skin/Abscess/Foreign Bdy General: Chief complaint: Skin/Abscess/Foreign Body Stated complaint: swelling in mastectomy site Time Seen by Provider: 11/21/20 18:35 History of Present Illness: HPI narrative: 80-year-old female history of breast cancer status post mastectomy. She presents with fevers, chills generalized weakness, and increasing swelling and pain to the right breast mastectomy site. She states that she was admitted and treated with antibiotic and discharged a few days ago. She finished her home course of antibiotics, but then began to get fevers and weak again. She is experienced increasing pain and swelling no drainage MD complaint: other Onset (ago): day(s) Tetanus up to date: yes Location: chest Severity: moderate Quality: stabbing and aching Pain Consistency: constant Relieving factors: none Exacerbating factors: movement Associated symptoms: Reports chills, fever(s) and nausea; Deny cough, itching, short of breath or vomiting Treatments prior to arrival: none Review of Systems Const: Reports: fever(s) and chills Eyes: Denies: change in vision ENMT: Denies: odynophagia or sinus pain Card: Reports: chest pain (Breast); Denies: palpitations, irregular heart rhythm or swelling of feet/ankles Resp: Denies: dyspnea or wheezing GI: Reports: nausea; Denies: vomiting : Denies: dysuria or hematuria Musc: Denies: neck pain or joint warmth Skin/Breast: Denies: rash Neuro: Denies: headache(s) Psych: Denies: anxiety PFSH ED PFSH: Medical History (Updated 11/22/20 @ 06:46 by Robert Connolly DO) COPD (chronic obstructive pulmonary disease) History of right breast cancer Hypertension Pneumonia Surgical History H/O neck surgery History of appendectomy History of arthroscopic knee surgery History of breast biopsy History of carpal tunnel release History of hernia repair History of laparoscopic cholecystectomy History of tubal ligation S/P right mastectomy (10/21/20) Family History Denies family history of Anesthesia complication Bleeding disorder Social History Smoking and tobacco status: never smoked Alcohol intake: never Adopted: No Caregiver/support person: Yes Lives independently: Yes Physical Exam Const: GENERAL APPEARANCE: well developed ORIENTATION/CONSCIOUSNESS: Yes oriented to person, Yes oriented to place and Yes oriented to time HENMT: COMMON NORMALS: normocephalic, external ears normal and Normal external nose present HEAD & SCALP: normocephalic FACE & SINUS: normal facial exam NOSE: Normal external nose present and No nasal discharge present EXTERNAL EAR: Yes external ears normal Eye: COMMON NORMALS: Equal, round and reactive pupils present, EOMs intact bilaterally and conjunctivae normal EYELID: eyelids normal CONJUNCTIVA: Yes conjunctivae normal PUPIL: Yes Equal, round and reactive pupils present Neck/C-Spine: GENERAL: No tracheal deviation Chest: COMMONS NORMALS: normal inspection of the chest CHEST: Yes tenderness Breast/axilla inspection: Yes abnormal inspection of the breast, Yes skin changes and Yes Other OTHER: Exam the right breast reveals no streaking redness. There is warmth. There is significant tenderness over the mastectomy site. No drainage. Resp: COMMON NORMALS: clear to auscultation bilaterally EFFORT & INSPECTION: No tachypneic, No respiratory distress, No retractions, No uses accessory muscles and No tracheal deviation AUSCULTATION: clear to auscultation bilaterally, no rhonchi, no wheezes and lung sounds not diminished Cardio: COMMON NORMALS: regular rate and regular rhythm RATE: regular rate RHYTHM: regular rhythm HEART SOUNDS: no murmurs PERIPHERAL PULSES: radial pulses present GI: INSPECTION: No abdominal distension AUSCULTATION: No Hyperactive bowel sounds present and No Hypoactive bowel sounds present PALPATION: No Guarding due to palpation present (GI) and No Rigid due to palpation PERCUSSION: no dullness to percussion and no tympanic to percussion : COMMON NORMALS: Yes no CVA tenderness BLADDER/KIDNEY EXAM: Yes no CVA tenderness Back/Pelvis: COMMON NORMALS: no CVA tenderness Neuro: SENSORIUM/ORIENTATION: Yes oriented to person, Yes oriented to place and Yes oriented to time Psych: COMMON NORMALS: mental status grossly normal Skin: COMMON NORMALS: no rashes or lesions noted GENERAL SKIN EXAM: no rashes or lesions noted Course Consultations: Consultation #1: Giurgius Consultation #2: Eligio Vital Signs: Vital signs: Vital Signs Temperature 98.1 F 11/22/20 04:00 Pulse Rate 94 11/22/20 04:00 Respiratory Rate 18 11/22/20 04:00 Blood Pressure 147/79 11/22/20 04:00 Pulse Oximetry 92 11/22/20 04:00 MDM - Skin/Abscess/Foreign Bdy MDM Narrative: Medical decision making narrative: 80-year-old female recently hospitalized for fevers. This is likely related to fluid collection in the right mastectomy site. She returns after fever returned, with increasing pain and swelling. Her white blood cell count is only 8.3, but CRP is significantly elevated at 75. Creatinine is 1.4. CT shows enlargement of the right mastectomy site fluid collection. She will be admitted for IV antibiotics. Surgery was consulted from the ER. Lab Data: Labs: Lab Results 11/21/20 11/21/20 11/21/20 Range/Units 19:22 19:22 19:22 WBC 8.3 (4.0-10.0) 10^3/ uL RBC 3.64 L (4.1-5.3) 10^6/u L Hgb 11.4 L (11.5-15.3) g/dL Hct 35.6 L (37.0-47.0) % MCV 97.8 (81-99) fL MCH 31.3 (28.0-34.0) pg MCHC 32.0 (30.0-36.0) g/dL RDW 12.8 (12.1-15.1) % Plt Count 187 (130-400) 10^3/c mm MPV 10.4 (7.4-10.4) fL Neut % (Auto) 67.7 % Lymph % (Auto) 23.7 % Taney % (Auto) 5.9 % Eos % (Auto) 1.8 % Baso % (Auto) 0.7 % Neut # (Auto) 5.59 (1.8-7.7) 10^3/u L Lymph # (Auto) 2.0 (0.8-4.8) 10^3/u L Taney # (Auto) 0.5 (0.2-0.9) 10^3/u L Eos # (Auto) 0.2 (0.0-0.8) 10^3/u L Baso # (Auto) 0.1 (0.0-0.1) 10^3/u L Nucleated RBC % (a uto) 0 % Nucleated RBCs # 0.0 /100WBC Sodium 134 L (136-145) mmol/L Potassium 4.3 (3.5-5.1) mmol/L Chloride 97 L (98-107) mmol/L Carbon Dioxide 28 (22-29) mmol/L Anion Gap 13.3 (5-19) BUN 12 (8-23) mg/dL Creatinine 1.4 H (0.5-0.9) mg/dL GFR Calculation Not Reportable Glucose 116 H (65-115) mg/dL Calculated Osmolal ity 279 L (285-295) mOsm/k g Lactic Acid 1.2 (0.5-2.2) mmol/L Calcium 9.1 (8.5-10.5) mg/dL Total Bilirubin 0.8 (0.15-1.2) mg/dL AST 18 (0-32) U/L ALT 15 (0-33) U/L Alkaline Phosphata se 67 (35-105) IU/L C-Reactive Protein 75.8 H (0.0-4.9) mg/L Total Protein 6.5 L (6.6-8.7) g/dL Albumin 3.3 L (3.5-5.2) g/dL Globulin 3.2 (1.3-4.6) g/dL Discharge Plan Discharge Patient Disposition: Admitted As Inpatient Admit Provider: Vaibhav Del Valle Clinical Impression: Surgical site infection Condition: Stable Coding Level of Care Code ED Primary Montessori Teacher for Chg Fwd Exam Comprehensive
[2020-11-21 19:34] LABS: Basophils # 0.1 10^3/uL (0.0-0.1); Basophils % 0.7 %; Eosinophils # 0.2 10^3/uL (0.0-0.8); Eosinophils % 1.8 %; Hematocrit 35.6 % (37.0-47.0); Hemoglobin 11.4 g/dL (11.5-15.3); Lymphocytes % 23.7 %; Mean Corpuscular Hemoglobin 31.3 pg (28.0-34.0); Mean Corpuscular Volume 97.8 fL (81-99); Mean Platelet Volume 10.4 fL (7.4-10.4); Monocytes # 0.5 10^3/uL (0.2-0.9); Monocytes % 5.9 %; Neutrophils # 5.59 10^3/uL (1.8-7.7); Neutrophils % 67.7 %; Nucleated Red Blood Cells % 0 %; Platelet Count 187 10^3/cmm (130-400); Red Blood Count 3.64 10^6/uL (4.1-5.3); Red Cell Distribution Width 12.8 % (12.1-15.1); White Blood Count 8.3 10^3/uL (4.0-10.0)
[2020-11-21 19:49] LABS: Alanine Aminotransferase 15 U/L (0-33); Albumin Level 3.3 g/dL (3.5-5.2); Alkaline Phosphatase 67 IU/L (35-105); Anion Gap 13.3 (5-19); Aspartate Amino Transferase 18 U/L (0-32); Blood Urea Nitrogen 12 mg/dL (8-23); C Reactive Protein 75.8 mg/L (0.0-4.9); Calcium 9.1 mg/dL (8.5-10.5); Carbon Dioxide 28 mmol/L (22-29); Chloride 97 mmol/L (98-107); Globulin 3.2 g/dL (1.3-4.6); Glucose 116 mg/dL (65-115); Osmolality Calculated 279 mOsm/kg (285-295); Potassium 4.3 mmol/L (3.5-5.1); Sodium 134 mmol/L (136-145); Total Bilirubin 0.8 mg/dL (0.15-1.2); Total Protein 6.5 g/dL (6.6-8.7)
[2020-11-21 19:50] LABS: Lactic Sepsis W/Reflex 1.2 mmol/L (0.5-2.2)
[2020-11-21 19:55] VITALS: BP 141/79; PULSE 73; RESP 18; O2SAT 95
[2020-11-21] MEDS: sodium chloride 0.9% 1,000 ML 200 ML IV (20:10)
[2020-11-21] MEDS: iodixanol 320 mg/mL 100mL Btl IV (20:33)
[2020-11-21 21:05] VITALS: BP 170/83; PULSE 77; RESP 18; O2SAT 97
[2020-11-21] MEDS: ondansetron 2 mg/ML SDV 2 mL 4 MG IVP (21:44)
[2020-11-21 21:49] VITALS: RESP 18; O2SAT 97
[2020-11-21] MEDS: HYDROmorphone 1 mg/mL INJ 1 mL IVP (21:49)
[2020-11-21 21:59] VITALS: BP 122/86; PULSE 87; RESP 17; O2SAT 90
[2020-11-21 23:00] VITALS: BP 128/83; PULSE 85; RESP 16; O2SAT 95
[2020-11-21] MEDS: piperacillin-tazobactam 3.375 GM in sodium chloride 0.9% (plus) 50 ML IV (23:25)
[2020-11-21] MEDS: metoclopramide 5 mg/mL SDV 2 mL IVP (23:26)
--- NOTE | 2020-11-21 23:33 | PM.HP ---
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 Patient tells me that since getting on the hospital she did feel better, remained afebrile, finished her antibiotic therapy, but for the last 48 hours, she has had felt fatigue, malaise, she has developed subjective fevers, increased pain over surgical site. No swelling over surgical site, notes overlying skin changes, but has noticed increased swelling Review of Systems Const: Reports: fever(s), chills, fatigue and malaise Eyes: Denies: change in vision or blurry vision ENMT: Denies: nasal congestion Resp: Denies: dyspnea, productive cough, non-productive cough or wheezing GI: Denies: abdominal pain, nausea, vomiting, hematemesis, diarrhea, constipation, hematochezia or melena : Denies: flank pain, dysuria or urinary frequency Musc: Denies: neck pain or back pain Skin/Breast: Reports: erythema, skin pain, surgical incision, breast pain and breast swelling Neuro: Denies: headache(s), dizziness or vertigo Psych: Denies: anxiety or depression Endo: Denies: polyuria or polydipsia Medications/Allergies Home Medications Medication Instructions Recorded Confirmed Last Taken Type anastrozole 1 mg tablet 1 mg PO DAILY@69910/06/20 11/16/20 11/04/20 History metoprolol succinate 50 mg 50 mg PO DAILY@69910/06/20 11/16/20 11/04/20 History tablet,extended release 24 hr ondansetron HCl [Zofran] 4 mg PO Q6H PRN #20 tab 10/23/20 11/16/20 11/04/20 Rx Colace 100 mg PO BID PRN 11/04/20 11/16/20 11/03/20 History Tylenol 325 mg PO QID PRN 11/04/20 11/16/20 Unknown History hydrocodone-acetaminophen 1 tab PO Q6H PRN 11/04/20 11/16/20 11/04/20 History Allergies Allergy/AdvReac Type Severity Reaction Status Date / Time codeine Allergy Unknown Unknown Verified 11/16/20 13:07 morphine Allergy Unknown Unknown Verified 11/16/20 13:07 levofloxacin [From Levaquin] Allergy ALGY-Hives Verified 11/16/20 13:07 PFSH Acute PFSH: Medical History COPD (chronic obstructive pulmonary disease) History of right breast cancer Hypertension Pneumonia Surgical History H/O neck surgery History of appendectomy History of arthroscopic knee surgery History of breast biopsy History of carpal tunnel release History of hernia repair History of laparoscopic cholecystectomy History of tubal ligation S/P right mastectomy (10/21/20) Family History Denies family history of Anesthesia complication Bleeding disorder Social History Smoking and tobacco status: never smoked Alcohol intake: never Adopted: No Caregiver/support person: Yes Lives independently: Yes Vitals/I&O/Wt Last Vital Signs Temp 97.9 F 11/21/20 18:16 Pulse 87 11/21/20 21:59 Resp 17 11/21/20 21:59 BP 122/86 11/21/20 21:59 Pulse Ox 90 11/21/20 21:59 Weight last 48 hrs Weight 86.183 kg Physical Exam Const: COMMON NORMALS: no acute distress and patient oriented x3 GENERAL APPEARANCE: cooperative and comfortable HENMT: COMMON NORMALS: normocephalic HEAD & SCALP: normocephalic Eye: COMMON NORMALS: Equal, round and reactive pupils present and EOMs intact bilaterally GENERAL EYE: appearance normal, both eyes and all related structures PUPIL: Yes Equal, round and reactive pupils present Neck/C-Spine: COMMON NORMALS: full ROM, no lymphadenopathy, no JVD and Thyroid normal THYROID: Thyroid normal Lymph: LYMPHATIC: no lymphadenopathy noted Chest: OTHER: Right breast, surgical site, some slight surrounding erythema, but was has breast swelling, has exquisite tenderness at 4 o'clock position of right breast Resp: COMMON NORMALS: normal respiratory effort, No retractions, No use of accessory muscles and clear to auscultation bilaterally AUSCULTATION: clear to auscultation bilaterally Cardio: COMMON NORMALS: no JVD, regular rate, regular rhythm, S1 normal heart sound present, S2 normal heart sound present, No gallops present (Cardio), No clicks present (Cardio) and No murmurs present (Cardio) RATE: regular rate RHYTHM: regular rhythm HEART SOUNDS: S1 normal heart sound present and S2 normal heart sound present GI: COMMON NORMALS: Normal to inspection, nondistended, normoactive bowel sounds present, Soft to palpation, non-tender and No hepatosplenomegaly present PALPATION: Yes Soft to palpation and Yes No hepatosplenomegaly present Extremity: COMMON NORMALS: normal to inspection, full ROM and no pedal edema Neuro: COMMON NORMALS: patient oriented x3, CN's II-XII intact bilaterally, moves all extremities and no focal motor deficits Psych: COMMON NORMALS: mental status grossly normal, Normal thought process present and cooperative THOUGHT PROCESS: Normal thought process present Data : 11/21/20 19:22 11/21/20 19:22 Micro: Microbiology 11/21/20 20:00 Blood Culture - Preliminary Blood SPECIMEN COLLECTED 11/21/20 19:22 Blood Culture - Preliminary Blood SPECIMEN COLLECTED A&P Assessment and plan (1) Surgical site infection: Chest CT shows right breast 18 cm subcutaneous fluid collection containing air may reflect an infected seroma increase in size compared to prior exam with more fluid Plan: -Admit to general medical floors -Blood cultures, UA -Start on broad-spectrum antibiotic therapy vancomycin, Zosyn -Monitor for fevers, monitor for skin changes -General surgery on consult, will see if we can talk to Dr. Milan tomorrow morning as he operated on the patient -Hydrocodone for pain control -Full code -Lovenox for DVT prophylaxis Status: Acute (2) Acute breast pain: Status: Acute (3) History of right breast cancer: Status: Acute (4) FELIX (acute kidney injury): Continue IV hydration Status: Acute Attestations Medical Necessity Statement*: Patient course hospitalization, inpatient, greater than 2 midnights for surgical site infection Coding Level of Care Code Acute Personal Care Service Provider for Chg Fwd Diagnoses Surgical site infection T81.49XA Acute breast pain N64.4 History of right breast cancer Z85.3 FELIX (acute kidney injury) N17.9
[2020-11-22] VITALS (16 sets, daily range): BP systolic 90–148; BP diastolic 55–79; PULSE 60–99; RESP 16–19; TEMP 36.3–37.2; O2SAT 92–100
[2020-11-22] MEDS: vancomycin 1,000 MG in sodium chloride 0.9% 250 ML 250 MG IV (00:03)
[2020-11-22] MEDS: enoxaparin 40 mg/0.4 mL Syringe SUBCUT (01:20)
[2020-11-22] MEDS: sodium chloride 0.9% 1,000 ML 100 ML IV (01:20)
--- NOTE | 2020-11-22 01:32 | PC.PHAR ---
Pharmacokinetic dosing service Date: 11/22/20 Time: 129 Objective: Patient: Ashlee Gray Floor: 251-2 Age: 80 yo Serum creatinine: 1.4 mg/dL Height: 60.0 Inches Weight (kg): 86.183 Diagnosis: Relevant medical/social history: Cultures and sensitivities: Other labs: Assessment: IBW (kg): 50.00 Dosing wt(kg): 86.183 Estimated Creatinine clearance (ml/min): 30.8 CRCL method: Cockcroft and Gault using ibw(default). Drug selected: Vancomycin Loading dose (mg): 0 Vd (liters): 77.6 (factor used: 0.9 L/kg) Domo (hr-1): 0.030 Half life (hrs): 23.10 Recommended dose: 1250 mg Interval: 24 hrs Infusion time (hrs): 1.5 Predicted peak (mcg/mL): 30.7 Predicted trough (mcg/mL): 15.63 Total body weight is being used for vancomycin dosing. Renal function is stable [ ] /unstable [ ] Recommendations: Give Vancomycin 1250 mg q 24 hrs with an expected Cpeak of 30.7 mcg/ml and an expected Ctrough of 15.63 mcg/ml Renal dosing of other antibiotics (review renal dosing of other medications and list guidelines here): Thank you for the consult, will continue to follow. Signature: Blanca Dumont [facility]
--- NOTE | 2020-11-22 03:00 | PC.NURSE ---
Daylight savings time. Patient resting in bed at this time.
[2020-11-22 06:30] LABS: Basophils # 0.1 10^3/uL (0.0-0.1); Eosinophils # 0.1 10^3/uL (0.0-0.8); Eosinophils % 1.4 %; Hematocrit 33.2 % (37.0-47.0); Lymphocytes # 1.3 10^3/uL (0.8-4.8); Lymphocytes % 25.7 %; Mean Corpuscular HGB Conc 30.1 g/dL (30.0-36.0); Mean Corpuscular Hemoglobin 31.1 pg (28.0-34.0); Mean Corpuscular Volume 103.1 fL (81-99); Mean Platelet Volume 10.5 fL (7.4-10.4); Monocytes # 0.3 10^3/uL (0.2-0.9); Monocytes % 5.4 %; Neutrophils # 3.43 10^3/uL (1.8-7.7); Neutrophils % 66.1 %; Nucleated Red Blood Cells % 0 %; Platelet Count 162 10^3/cmm (130-400); Red Blood Count 3.22 10^6/uL (4.1-5.3); Red Cell Distribution Width 12.8 % (12.1-15.1); White Blood Count 5.2 10^3/uL (4.0-10.0)
[2020-11-22 06:58] LABS: Magnesium 1.7 mg/dL (1.7-2.3); Phosphorus 3.1 mg/dL (2.5-4.5)
[2020-11-22 06:59] LABS: Lactate (Lactic Acid level) 1.1 mmol/L (0.5-2.2)
[2020-11-22 07:01] LABS: Alanine Aminotransferase 16 U/L (0-33); Albumin Level 2.7 g/dL (3.5-5.2); Alkaline Phosphatase 64 IU/L (35-105); Anion Gap 11.4 (5-19); Aspartate Amino Transferase 22 U/L (0-32); Blood Urea Nitrogen 12 mg/dL (8-23); Calcium 7.9 mg/dL (8.5-10.5); Carbon Dioxide 26 mmol/L (22-29); Chloride 104 mmol/L (98-107); Glucose 115 mg/dL (65-115); Osmolality Calculated 285 mOsm/kg (285-295); Potassium 4.4 mmol/L (3.5-5.1); Sodium 137 mmol/L (136-145); Total Bilirubin 0.8 mg/dL (0.15-1.2); Total Protein 5.7 g/dL (6.6-8.7)
[2020-11-22 07:02] LABS: INR 1.07 (0.8-1.2)
[2020-11-22 07:08] LABS: Procalcitonin 0.12 ng/mL (0-0.5)
[2020-11-22 07:19] LABS: Creatine Phosphokinase 15 U/L (26-192)
--- NOTE | 2020-11-22 07:37 | PM.CONSULT ---
Providers/Reason For Consult Consulting Physican/Specialty*: Oswaldo Murillo MD Reason for Consult*: Right chest wall fluid collection concerning for abscess status post right mastectomy Attending Physician: Vaibhav Del Valle MD Primary Care Provider: EASTON Singleton History of Present Illness History of Present Illness Ms. Ashlee Gray is a 80 year old female undergone right total mastectomy by Dr. Milan my partner10/21/2020 for invasive carcinoma of the right breast. Patient had a drain that was removed after surgery and then she started to develop a fluid collection and a CT of the chest was done 11/04/20 that showed: 1. Negative for pulmonary embolism. 2. No focal pneumonia. 3. Large postoperative nonspecific fluid and gas collection in the deep subcutaneous fat of the right anterior chest wall. This may represent of postoperative seroma, hematoma, lymphatic collection, or abscess not excluded. Patient was seen by Dr. Milan on 11/16/2020 and was treated conservatively as the seroma/hematoma has been stable without evidence of infection. Patient presented yesterday to the emergency department with worsening pressure symptoms of the right pectoral area and a low-grade temperature. A repeat CTA of the chest was done that showed: 1. Negative for pulmonary embolus. 2. Right breast 18 cm subcutaneous fluid collection containing air may reflect an infected seroma increased in size compared to prior exam with more fluid. 3. Cholecystectomy. 4. Bilateral dependent atelectasis. General surgery was consulted for further evaluation and potential management Per patient's description she was placed on oral antibiotics and it seemed to help initially but there after the swelling got worse and causing a lot of pressure for her. Review of Systems General: Reports: 10 or more systems reviewed and unremarkable except in HPI and below Meds/Allergies Home Medications and Allergies Home Medications Medication Instructions Recorded Confirmed Last Taken Type anastrozole 1 mg tablet 1 mg PO DAILY@0710/06/20 11/16/20 11/04/20 History metoprolol succinate 50 mg 50 mg PO DAILY@69910/06/20 11/16/20 11/04/20 History tablet,extended release 24 hr ondansetron HCl [Zofran] 4 mg PO Q6H PRN #20 tab 10/23/20 11/16/20 11/04/20 Rx Colace 100 mg PO BID PRN 11/04/20 11/16/20 11/03/20 History Tylenol 325 mg PO QID PRN 11/04/20 11/16/20 Unknown History hydrocodone-acetaminophen 1 tab PO Q6H PRN 11/04/20 11/16/20 11/04/20 History Allergies Allergy/AdvReac Type Severity Reaction Status Date / Time codeine Allergy Unknown Unknown Verified 11/22/20 07:42 morphine Allergy Unknown Unknown Verified 11/22/20 07:42 levofloxacin [From Levaquin] Allergy ALGY-Hives Verified 11/22/20 07:42 Current Medications Current Medications Generic Name Dose Route Start Last Admin Trade Name Freq PRN Reason Stop Dose Admin Enoxaparin Sodium 40 mg 11/22/20 00:26 11/22/20 01:20 Enoxaparin 40 Mg/0.4 Ml Syringe SUBCUT 40 mg Q24H SEEMA Administration Sodium Chloride 1,000 mls @ 100 mls/hr 11/22/20 00:26 11/22/20 01:20 Sodium Chloride 0.9% IV 100 mls/hr .Q10H SEEMA Administration PFSH Acute PFSH: Medical History COPD (chronic obstructive pulmonary disease) History of right breast cancer Hypertension Pneumonia Surgical History H/O neck surgery History of appendectomy History of arthroscopic knee surgery History of breast biopsy History of carpal tunnel release History of hernia repair History of laparoscopic cholecystectomy History of tubal ligation S/P right mastectomy (10/21/20) Family History Denies family history of Anesthesia complication Bleeding disorder Social History Smoking and tobacco status: never smoked Alcohol intake: never Adopted: No Caregiver/support person: Yes Lives independently: Yes Vitals/I&O/Wt Last Vital Signs Temp 97.7 F 11/22/20 07:09 Pulse 72 11/22/20 07:09 Resp 19 H 11/22/20 07:09 BP 125/65 11/22/20 07:09 Pulse Ox 96 11/22/20 07:09 03/13/21 03/14/21 03/14/21 21:59 06:59 14:59 Intake Total Output Total Balance Weight last 48 hrs Weight 190 lb Physical Exam Narrative: EXAM NARRATIVE: Patient is conscious alert oriented X3 BMI 37.1 Head and neck examination PERRLA no masses no cervical lymphadenopathy no jaundice Cardiac examination audible S1-S2 no murmurs no gallops no arrhythmias Chest is clear bilateral,abscence of Rhonchi or wheezes,no surgical emphysema Bilateral breast examination done in the presence of a female acquisition lead nursing staff. Presence of right pectoral fluctuant swelling with mild erythema of the skin no much tenderness appreciated yet the skin is little tethered. No evidence of lymphedema of the right lower extremity and incision is well-healed Otherwise No clinically palpable breast masses,Left nipple area complex show no abnormalities , no evidence of nipple discharge, no evidence of lymphadenopathy clinically palpable per bilateral axillary examination as well as supra and infraclavicular regions. Abdomen nontender nondistended soft no organomegaly guarding or rigidity/no signs of peritonitis Obese Extremities no cyanosis no clubbing no edema Data Micro: Micro: Microbiology 11/21/20 20:00 Blood Culture - Pr eliminary Blood SPECIMEN [facility] ANGEL 11/21/20 19:22 Blood Culture - Pr eliminary Blood SPECIMEN [facility] A&P Assessment and plan (1) S/P right mastectomy: After history taking physical examination and reviewing the chart and images with my presented potation of the CT scan of the chest I do believe that the patient does have a postmastectomy seroma less likely infected component yet there is pockets of gas that could raise concern for infection. I do believe that drainage of the fluid collection would be appropriate with placement of drain and will plan to send for cultures. Informed consent per chart Assurance and education All questions have been answered and all concerns have been addressed to patient's satisfaction. Status: Acute Consult Attestations Medical Necessity Statement: Observation status for drainage of chest wall fluid collection. Time Spent in Patient Care: 16 - 35 minutes (>than 50% of time spent in counselling and/or direct pt care on unit). Coding Level of Care Code Acute Paint Process Engineer for Chg Fwd Diagnoses S/P right mastectomy Z90.11
--- NOTE | 2020-11-22 07:42 | PC.NURSE ---
Report to Rebekah NEWMAN at this time.
--- NOTE | 2020-11-22 09:19 | SUR.PHASEI ---
0921 PT LT AC IV PATENT OFIRMEV 1 GRAM IVPB UP AND NS AT KVO UP ORDERED, PT AWAKE ALERT DAUGHTER AT BEDSIDE.
[2020-11-22] MEDS: sodium chloride 0.9% 1,000 ML 30 ML IV (09:21)
--- NOTE | 2020-11-22 10:04 | SUR.PHASEI ---
PT AWAKE ALERT TALKATIVE WITH DAUGHTER SATS 100% ON RA.IV AT KVO RATE.
[2020-11-22 10:09] LABS: Add Urine Microscopic? NO
[2020-11-22] MEDS: scopolamine 1.5 Patch 1 PATCH TRANSDERMA (10:13)
--- NOTE | 2020-11-22 10:19 | ANES.PREANE2 ---
Pre-Anesthetic Assessment Pre-Anesthetic Assessment: Height/Weight: Height 1.52 m Weight 86.183 kg Temp Pulse Resp BP Pulse Ox 98.2 F 83 18 148/69 99 11/22/20 08:54 11/22/20 08:54 11/22/20 08:54 11/22/20 08:54 11/22/20 08:54 Preop Diagnosis: Right chest wall fluid collection Proposed Procedure: Operation Date: 11/22/20 09:55 Proposed Procedures p Incision And Drainage Right Breast(Right) - Oswaldo Murillo MD Was Beta [place] taken within 24 hours: Yes Last intake: Intake Last Liquid Date 11/22/20 Last Liquid Time 00:01 Last Solid Date 11/22/20 Last Solid Time 00:01 Social: Social History: No alcohol and No tobacco Exam: Pre-Anes Outpt Exam: alert, oriented x 3, clear to auscultation bilaterally and regular rate & rhythm Airway: Submandibular: WNL Cervical ROM: WNL MP: 2 Dentition: False CV/HEM: CV/HEM: HTN Metabolic: Metabolic: DM and Morbid obesity Anesthetic Plan: ASA status: 3E Anesthesia: General Other: PONV--TIVA Risk of > 500 ml blood loss (7ml/kg in children): No Meds/Allergies Current Medications: Current Medications Generic Name Dose Route Start Last Admin Trade Name Freq PRN Reason Stop Dose Admin Enoxaparin Sodium 40 mg 11/22/20 00:26 11/22/20 01:20 Enoxaparin 40 Mg /0.4 Ml Syringe SUBCUT 40 mg Q24H SEEMA Administration Sodium Chloride 1,000 mls @ 100 m ls/hr 11/22/20 00:26 11/22/20 01:20 Sodium Chloride 0.9% IV 100 mls/hr .Q10H SEEMA Administration Sodium Chloride 1,000 mls @ 30 ml s/hr 11/22/20 10:00 11/22/20 09:21 Sodium Chloride 0.9% IV 11/23/20 09:59 30 mls/hr .Q24H SEEMA Administration PFSH Anesthesia PFSH: Medical History COPD (chronic obstructive pulmonary disease) History of right breast cancer Hypertension Pneumonia Surgical History H/O neck surgery History of appendectomy History of arthroscopic knee surgery History of breast biopsy History of carpal tunnel release History of hernia repair History of laparoscopic cholecystectomy History of tubal ligation S/P right mastectomy (10/21/20) Family History Denies family history of Anesthesia complication Bleeding disorder Social History Smoking and tobacco status: never smoked Alcohol intake: never Adopted: No Caregiver/support person: Yes Lives independently: Yes Data Anesthesia CBC & Chem 7: 11/22/20 05:54 11/22/20 05:54 Other Labs: Laboratory Results - last 48 hr 11/21/20 11/21/20 11/21/20 19:22 19:22 19:22 WBC 8.3 RBC 3.64 L Hgb 11.4 L Hct 35.6 L MCV 97.8 MCH 31.3 MCHC 32.0 RDW 12.8 Plt Count 187 MPV 10.4 Neut % (Auto) 67.7 Lymph % (Auto) 23.7 [place] % (Auto) 5.9 Eos % (Auto) 1.8 Baso % (Auto) 0.7 Neut # (Auto) 5.59 Lymph # (Auto) 2.0 [place] # (Auto) 0.5 Eos # (Auto) 0.2 Baso # (Auto) 0.1 Nucleated RBC % (auto) 0 Nucleated RBCs # 0.0 PT INR Sodium 134 L Potassium 4.3 Chloride 97 L Carbon Dioxide 28 Anion Gap 13.3 BUN 12 Creatinine 1.4 H GFR Calculation Not Reportable Glucose 116 H Calculated Osmolality 279 L Lactic Acid 1.2 Lactate Calcium 9.1 Phosphorus Magnesium Total Bilirubin 0.8 AST 18 ALT 15 Alkaline Phosphatase 67 Creatine Kinase C-Reactive Protein 75.8 H Total Protein 6.5 L Albumin 3.3 L Globulin 3.2 Procalcitonin 11/22/20 11/22/20 11/22/20 05:54 05:54 05:54 WBC RBC Hgb Hct MCV MCH MCHC RDW Plt Count MPV Neut % (Auto) Lymph % (Auto) [place] % (Auto) Eos % (Auto) Baso % (Auto) Neut # (Auto) Lymph # (Auto) [place] # (Auto) Eos # (Auto) Baso # (Auto) Nucleated RBC % (auto) Nucleated RBCs # PT 14.20 INR 1.07 Sodium Potassium Chloride Carbon Dioxide Anion Gap BUN Creatinine GFR Calculation Glucose Calculated Osmolality Lactic Acid Lactate 1.1 Calcium Phosphorus 3.1 Magnesium 1.7 Total Bilirubin AST ALT Alkaline Phosphatase Creatine Kinase C-Reactive Protein Total Protein Albumin Globulin Procalcitonin 11/22/20 11/22/20 11/22/20 05:54 05:54 05:54 WBC 5.2 RBC 3.22 L Hgb 10.0 L Hct 33.2 L MCV 103.1 H D MCH 31.1 MCHC 30.1 D RDW 12.8 Plt Count 162 MPV 10.5 H Neut % (Auto) 66.1 Lymph % (Auto) 25.7 [place] % (Auto) 5.4 Eos % (Auto) 1.4 Baso % (Auto) 1.0 Neut # (Auto) 3.43 Lymph # (Auto) 1.3 [place] # (Auto) 0.3 Eos # (Auto) 0.1 Baso # (Auto) 0.1 Nucleated RBC % (auto) 0 Nucleated RBCs # 0.0 PT INR Sodium 137 Potassium 4.4 Chloride 104 Carbon Dioxide 26 Anion Gap 11.4 BUN 12 Creatinine 1.2 H GFR Calculation Not Reportable Glucose 115 Calculated Osmolality 285 Lactic Acid Lactate Calcium 7.9 L Phosphorus Magnesium Total Bilirubin 0.8 AST 22 ALT 16 Alkaline Phosphatase 64 Creatine Kinase 15 L C-Reactive Protein Total Protein 5.7 L Albumin 2.7 L Globulin 3.0 Procalcitonin 0.12 Micro: Microbiology 11/21/20 20:00 Blood Culture - Preliminary Blood SPECIMEN COLLECTED 11/21/20 19:22 Blood Culture - Preliminary Blood SPECIMEN COLLECTED Cardiac Studies: No Data to Display
[2020-11-22 10:57] LABS: Bilirubin Urine Neg (Negative); Blood Urine Neg (Negative); Glucose Urine UA Norm (Normal); Ketones Urine Negative (Negative); Leukocyte Esterase Urine Negative (Negative); Nitrate Urine Negative (Negative); Protein Urine Neg (Negative); Urine Appearance Clear (CLEAR); Urine Color Yellow (Yellow); Urobilinogen Urine Norm (Negative); pH Urine 5 (5-7)
--- NOTE | 2020-11-22 11:43 | PM.OP ---
Operative Report Date of procedure: November 22, 2020 Pre-op Diagnosis: Right chest wall fluid collection Post-op diagnosis: other (Postmastectomy seroma) Post-op Findings: Postmastectomy seroma 600 mL Procedure Done: Incision and drainage of postmastectomy seroma Placement of Den-Story drain Implants: Den-Story drain Specimens removed/disposition: Swabs fro cultures and senstivity Fluid for C&S Surgeon: Oswaldo Murillo Equipment Cleaner: Surgical techjoanna Smyth Anesthesia: General (LMA packaging sales consultant Dejah) Estimated blood loss (mL): 5 Disposition: floor Brief History: Status post right mastectomy seroma formation Full H&P and informed consent per chart Procedure: After identifying the patient holding area, the Right chest wall site was identified before the procedure by myself, patient was then taken to the operative suite, was placed in supine position, LMA was placed by the anesthesia provider, prophylactic IV antibiotics were given per protocol, Right arm was placed in 90? to her body, prep and drape of the Right pectoralis region was done under the usual sterile technique. Time-out was done verifying the patient's name/date of /planned procedure and destination after the procedure, all were in agreement. I started placement of an incision at the far lateral side of the mastectomy scar, followed by dissection to the subcutaneous layer and a hemostat blunt tipped was thrusted into the underlying postmastectomy cavity and a gush of serous slightly turbid fluid was evident followed by swabs for aerobes and anaerobes and body fluid for cultures and sensitivities. A total of about 600 mL of seroma was suctioned followed by copious irrigation with warm saline and appropriate hemostasis then a Den-Story was placed and secured to the skin by 2-0 nylon x2. Dry dressing was applied followed by fluffs and sports bra Patient tolerated the procedure well,count of instruments, needles and sponges were completed at the end of the procedure.And then patient was taken to the recovery area in stable condition. I Was present for the whole entire procedure
--- NOTE | 2020-11-22 11:47 | SUR.PHASEI ---
PT AWAKE ALERT DENIES PAIN AND NAUSEA, VSS IV PATENT PT TAKING OCC ICE CHIPS DRESSING TO RT CHEST D/I DRAIN IN PLACE.
--- NOTE | 2020-11-22 12:02 | ANE.PACU2 ---
Inpatient post-anesthesia follow up: Airway intact: Yes Vital signs: Temperature 97.6 F Pulse Rate [Left R adial] 87 Pulse Rate 70 Respiratory Rate 17 Blood Pressure [Le ft Arm] 125/82 Blood Pressure 124/73 Pulse Oximetry 100 Oxygen Delivery Me thod Room Air Oxygen Flow Rate 2 Fraction of Inspir ed Oxygen Hydration adequate: Yes Nausea and vomiting: No Pain level: 1 Mental status: Baseline
[2020-11-22 12:25] LABS: C Reactive Protein 68.6 mg/L (0.0-4.9)
--- NOTE | 2020-11-22 13:09 | PC.NURSE ---
Notified Dr Marcum that patient takes Ibrance that she takes daily. She brought her meds. I don't see it ordered and I just updated her home meds and added it. She is requesting to take her home med because it is so expensive. Per Dr Marcum, OK
--- NOTE | 2020-11-22 13:21 | PC.NURSE ---
Notified Dr Marcum that patient says she takes her Metoprolol and Arimidex at 1800 daily. and she said she took it last night. Can I switch it to 1800 daily starting to day. It is currently scheduled for [address] Marcum, OK to switch to 1800 daily
--- NOTE | 2020-11-22 14:46 | PC.OT ---
Patient had surgery late this morning, holding occupational therapy evaluation today
--- NOTE | 2020-11-22 15:36 | P.DS_ITS ---
Discharge Providers Date of Admission: 11/22/20 00:26 Date of Discharge: November 22, 2020 Attending Provider at Admission: Vaibhav Del Valle MD Attending Provider at Discharge: Juliann Marcum MD Primary Care Provider: EASTON Singleton Diagnoses at Discharge Discharge Diagnosis (1) S/P right mastectomy: Status: Acute Reason for Visit Reason for Visit: swelling in mastectomy site Hospital Course Hospital Course Ms. Ashlee Gray is a 80 year old female undergone right total mastectomy 10/21/2020 for invasive carcinoma of the right breast, recently treated with antibiotics for possible infected postoperative seroma, followed up as outpatient, returned last night with worsening pressure symptoms of the right pectoral area and a low-grade temperature. CT of the chest was done overnight with negative for PE but showed 18 cm subcutaneous fluid collection containing air which may reflect an infected seroma. She underwent removal of 600 cc of seroma fluid today and placement of a DESTIN drain by Dr. Murillo today. Cultures have been taken and sent. She is being discharged today on empiric antibiotic Augmentin to follow-up with Dr. Murillo per patient request in about 7 to 10 days. Physical Exam Narrative: EXAM NARRATIVE: GEN: Awake, alert and oriented, no acute distress Chest wall examination surgical area not open, has mastectomy bra in place right now CVS: S1S2 N RS: CTA B/L Abd: Soft, nt/nd , bs+ HUMAN FACTORS ADVISOR LEAD: no focal neuro deficits Discharge Data Data Completed and Pending: Completed Studies During Hospitalization Category Date Time Status CT chest w con* 7 1260 Urgent Cat Scan 11/21/20 18:36 Completed Pending at discharge Category Date Time Status Anaerobic Culture Routine Lab 11/22/20 Received Blood Culture Sta t Lab 11/21/20 20:00 Results Body Fluid Cultur e & GS Routine Lab 11/22/20 Received C Reactive Protei n AM LABS Lab 11/23/20 04:00 Ordered C Reactive Protei n AM LABS Lab 11/24/20 04:00 Ordered Creatine Phosphok inase AM LABS Lab 11/23/20 04:00 Ordered Creatine Phosphok inase AM LABS Lab 11/24/20 04:00 Ordered Lactate (Lactic A bhargavi level) AM LABS Lab 11/23/20 04:00 Ordered Lactate (Lactic A bhargavi level) AM LABS Lab 11/24/20 04:00 Ordered Magnesium AM LABS Lab 11/23/20 04:00 Ordered Magnesium AM LABS Lab 11/24/20 04:00 Ordered Phosphorus AM LAB S Lab 11/23/20 04:00 Ordered Phosphorus AM LAB S Lab 11/24/20 04:00 Ordered Procalcitonin AM LABS Lab 11/23/20 04:00 Ordered Procalcitonin AM LABS Lab 11/24/20 04:00 Ordered Prothrombin Time INR AM LABS Lab 11/23/20 04:00 Ordered Prothrombin Time INR AM LABS Lab 11/24/20 04:00 Ordered Labs from last 24 hours 11/22/20 11/22/20 11/22/20 Unknown 05:54 05:54 WBC 5.2 RBC 3.22 L Hgb 10.0 L Hct 33.2 L MCV 103.1 H D MCH 31.1 MCHC 30.1 D RDW 12.8 Plt Count 162 MPV 10.5 H Neut % (Auto) 66.1 Lymph % (Auto) 25.7 [place] % (Auto) 5.4 Eos % (Auto) 1.4 Baso % (Auto) 1.0 Neut # (Auto) 3.43 Lymph # (Auto) 1.3 [place] # (Auto) 0.3 Eos # (Auto) 0.1 Baso # (Auto) 0.1 Nucleated RBC % (a uto) 0 Nucleated RBCs # 0.0 PT INR Sodium 137 Potassium 4.4 Chloride 104 Carbon Dioxide 26 Anion Gap 11.4 BUN 12 Creatinine 1.2 H GFR Calculation Not Reportable Glucose 115 Calculated Osmolal ity 285 Lactic Acid Lactate Calcium 7.9 L Phosphorus Magnesium Total Bilirubin 0.8 AST 22 ALT 16 Alkaline Phosphata se 64 Creatine Kinase C-Reactive Protein Total Protein 5.7 L Albumin 2.7 L Globulin 3.0 Procalcitonin Urine Color Yellow Urine Appearance Clear Urine pH 5 Ur Specific Gravit y 1.010 Urine Protein Neg Urine Glucose (UA) Norm Urine Ketones Negative Urine Blood Neg Urine Nitrate Negative Urine Bilirubin Neg Urine Urobilinogen Norm Ur Leukocyte Susie ase Negative 11/22/20 11/22/20 11/22/20 05:54 05:54 05:54 WBC RBC Hgb Hct MCV MCH MCHC RDW Plt Count MPV Neut % (Auto) Lymph % (Auto) [place] % (Auto) Eos % (Auto) Baso % (Auto) Neut # (Auto) Lymph # (Auto) [place] # (Auto) Eos # (Auto) Baso # (Auto) Nucleated RBC % (a uto) Nucleated RBCs # PT 14.20 INR 1.07 Sodium Potassium Chloride Carbon Dioxide Anion Gap BUN Creatinine GFR Calculation Glucose Calculated Osmolal ity Lactic Acid Lactate 1.1 Calcium Phosphorus Magnesium Total Bilirubin AST ALT Alkaline Phosphata se Creatine Kinase 15 L C-Reactive Protein Total Protein Albumin Globulin Procalcitonin 0.12 Urine Color Urine Appearance Urine pH Ur Specific Gravit y Urine Protein Urine Glucose (UA) Urine Ketones Urine Blood Urine Nitrate Urine Bilirubin Urine Urobilinogen Ur Leukocyte Susie ase 11/22/20 11/21/20 11/21/20 05:54 19:22 19:22 WBC RBC Hgb Hct MCV MCH MCHC RDW Plt Count MPV Neut % (Auto) Lymph % (Auto) [place] % (Auto) Eos % (Auto) Baso % (Auto) Neut # (Auto) Lymph # (Auto) [place] # (Auto) Eos # (Auto) Baso # (Auto) Nucleated RBC % (a uto) Nucleated RBCs # PT INR Sodium 134 L Potassium 4.3 Chloride 97 L Carbon Dioxide 28 Anion Gap 13.3 BUN 12 Creatinine 1.4 H GFR Calculation Not Reportable Glucose 116 H Calculated Osmolal ity 279 L Lactic Acid 1.2 Lactate Calcium 9.1 Phosphorus 3.1 Magnesium 1.7 Total Bilirubin 0.8 AST 18 ALT 15 Alkaline Phosphata se 67 Creatine Kinase C-Reactive Protein 68.6 H 75.8 H Total Protein 6.5 L Albumin 3.3 L Globulin 3.2 Procalcitonin Urine Color Urine Appearance Urine pH Ur Specific Gravit y Urine Protein Urine Glucose (UA) Urine Ketones Urine Blood Urine Nitrate Urine Bilirubin Urine Urobilinogen Ur Leukocyte Susie ase 11/21/20 19:22 WBC 8.3 RBC 3.64 L Hgb 11.4 L Hct 35.6 L MCV 97.8 MCH 31.3 MCHC 32.0 RDW 12.8 Plt Count 187 MPV 10.4 Neut % (Auto) 67.7 Lymph % (Auto) 23.7 [place] % (Auto) 5.9 Eos % (Auto) 1.8 Baso % (Auto) 0.7 Neut # (Auto) 5.59 Lymph # (Auto) 2.0 [place] # (Auto) 0.5 Eos # (Auto) 0.2 Baso # (Auto) 0.1 Nucleated RBC % (a uto) 0 Nucleated RBCs # 0.0 PT INR Sodium Potassium Chloride Carbon Dioxide Anion Gap BUN Creatinine GFR Calculation Glucose Calculated Osmolal ity Lactic Acid Lactate Calcium Phosphorus Magnesium Total Bilirubin AST ALT Alkaline Phosphata se Creatine Kinase C-Reactive Protein Total Protein Albumin Globulin Procalcitonin Urine Color Urine Appearance Urine pH Ur Specific Gravit y Urine Protein Urine Glucose (UA) Urine Ketones Urine Blood Urine Nitrate Urine Bilirubin Urine Urobilinogen Ur Leukocyte Susie ase Vitals: Last Vital Signs Temp 97.6 F 11/22/20 11:55 Pulse 70 11/22/20 11:55 Resp 17 11/22/20 11:55 BP 124/73 11/22/20 11:55 Pulse Ox 100 11/22/20 11:55 Discharge Plan Discharge Patient Disposition: Home Condition: Stable Prescriptions: New amoxicillin-pot clavulanate [Augmentin] 875-125 mg tablet 1 tab PO BID 7 Days Qty: 14 RF: 0 Continued anastrozole 1 mg tablet 1 mg PO DAILY@0700 RF: 0 metoprolol succinate 50 mg tablet extended release 24 hr 50 mg PO DAILY@0700 RF: 0 acetaminophen [Tylenol] 325 mg Tablet 325 mg PO QID PRN (Reason: Pain) RF: 0 hydrocodone-acetaminophen 5-325 mg tablet 1 tab PO Q6H PRN (Reason: Pain) RF: 0 docusate sodium [Colace] 100 mg capsule 100 mg PO BID PRN (Reason: Constipation) RF: 0 ondansetron HCl [Zofran] 4 mg tablet 4 mg PO Q6H PRN (Reason: nausea and vomiting) Qty: 20 RF: 0 allopurinol 100 mg Tablet 100 mg PO DAILY RF: 0 Ibrance 125 mg Capsule 125 mg PO DAILY RF: 0 Discharge Orders: Discharge Order (Routine); Ordered 11/22/20 Ordered By: Juliann Marcum Referrals: Oswaldo Murillo MD [Physician] - 7-10 days Discharge Diet: Usual diet Discharge Activity: Resume usual activity Discharge Attestations Time Spent in Discharge Care*: less than 30 min Quality Metrics Clinical Quality Measures During this hospital stay, did patient experience: None Coding Level of Care Code Acute Chg FW DC note Diagnoses S/P right mastectomy Z90.11
--- NOTE | 2020-11-22 16:05 | PC.NURSE ---
patient and daughter given discharge instructions and verbalized understanding of instructions. patient taken to private vehicle via wheelchair by staff.
== END 2020-11-22 16:10 | disposition home or self-care (01) | DRG 920 ==
LOC: ER 18:35 → MEDSURG 11-22 06:46
PROVIDERS: Nurse Practitioner Family; Surgery; Admitting Provider Family Medicine; Emergency Provider Emergency Medicine; PCP Nurse Practitioner Family; Visit Provider Student in an Organized Health Care Education/Training Program
PROC: 0J960ZX Drainage of Chest Subcutaneous Tissue and Fascia, Open Approach, Diagnostic (ICD-10-PCS; principal; 2020-11-22 09:45)
DX: M96.843 Postprocedural seroma of a musculoskeletal structure following other procedure (principal); C79.51 Secondary malignant neoplasm of bone; N17.9 Acute kidney failure, unspecified; C50.911 Malignant neoplasm of unspecified site of right female breast; Z90.11 Acquired absence of right breast and nipple; Z79.899 Other long term (current) drug therapy; J44.9 Chronic obstructive pulmonary disease, unspecified; I10 Essential (primary) hypertension; Z87.01 Personal history of pneumonia (recurrent); Z79.811 Long term (current) use of aromatase inhibitors; Z79.891 Long term (current) use of opiate analgesic
CPT/HCPCS: 36415; 71260; 80053; 81003; 82550; 83605; 83735; 84100; 84145; 85025; 85610; 86140; 87040; 87070; 87075; 87205; 94664; 96365; 96367; 96372; 96375; 99285; J0131; J0690; J1170; J1650; J2405; J2543; J2704; J2765; J3010; J3370; J7030; J7050; Q9967

== ENCOUNTER 2020-11-27 06:07 | Outpatient (CLI) | payer MEDICARE, SELFPAY ==
--- NOTE | 2020-11-27 10:41 | ONCRAD EPV_ITS ---
Radiation Oncology Follow-Up Note Patient Name: Ashlee Gray Date of : 1940 Date of Service: 11/27/2020 Attending Physician: Mk Oseguera M.D. Ashlee Gray was seen in follow-up this morning at the request of Giovanni Aguilar M.D. for consideration of possible radiotherapy for the management of her metastatic breast cancer. She was initially evaluated in the late fall 2018 for a palpable right breast lesion. Diagnostic mammogram revealed a mass with spiculated margins in the central portion of the right breast associated with skin retraction. Ultrasonography confirmed a 2.4 cm low echoic mass in the right breast at the 1 o'clock position without suspicious axillary adenopathy. Initial biopsy in August 2019 was discordant with clinical presentation (non-diagnostic). A repeat biopsy obtained in September 2019 diagnosed a grade 2 invasive ductal carcinoma. The breast cancer profile was positive for estrogen receptor and progesterone receptor while negative for HER-2. The KI???67 was 15%. A PET CT for initial staging demonstrated increased uptake in the left sacral ala with confirmation on MR of a T1 hypointense enhancing lesion measuring 3 cm without extension into the sacral neural foramina. In December 2019, she began Ibrance, anastrozole, and monthly Zometa at [facility] in [place], [place]. The patient moved to [place] last month and has established continuing care with [facility]. Staging PET CT ordered on September 29, 2020 (independently visualized in [employer]) identified the known right breast cancer and a new lytic lesion in the right clavicular head (SUV 7.9). A right total mastectomy with an axillary lymph node dissection was performed by Robe Milan M.D., on October 21, 2020. 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 A total of 9 lymph nodes were harvested with 2 nodes harboring metastatic disease with extranodal extension present. All surgical margins were negative for malignancy. Her postoperative convalescence has been complicated by a right chest wall seroma that necessitated incision and drainage on November 22, 2020. A Gram stain of the fluid demonstrated polymorphonuclear neutrophils without organisms identified. All cultures have been negative. She presents for discussion with regard to postmastectomy radiotherapy. Following a discussion with Barjnder Aguilar, M.D. concerning the patient's limited disease burden metastatic breast cancer, consideration for adjuvant radiotherapy is warranted giving consideration to the patient's limited disease burden and the high risk pathological attributes discerned (i.e. moni metastases with MICHELE). I would recommend a five week course of right chest wall and regional lymph node radiotherapy. A computed tomographic radiotherapy planning scan with contrast will be performed to identify the clinical tumor volumes. The potential toxicities of post-mastectomy radiotherapy were reviewed. The patient has verbalized understanding would like to proceed as recommended. Signed by: Dr. Mk Oseguera 11/27/2020 10:39:18 AM
== END 2020-11-27 06:08 | disposition home or self-care (01) ==
PROVIDERS: PCP Nurse Practitioner Family; Visit Provider Radiology Radiation Oncology
DX: C50.211 Malignant neoplasm of upper-inner quadrant of right female breast (principal); C79.51 Secondary malignant neoplasm of bone; C77.3 Secondary and unspecified malignant neoplasm of axilla and upper limb lymph nodes; Z17.0 Estrogen receptor positive status [ER+]; Z90.11 Acquired absence of right breast and nipple; Z79.899 Other long term (current) drug therapy; Z79.811 Long term (current) use of aromatase inhibitors
CPT/HCPCS: 99215

== ENCOUNTER 2021-01-08 05:48 | Outpatient (RCR) | payer MEDICARE, SELFPAY ==
--- NOTE | 2020-12-23 | CT_ITS ---
Radiation Therapy Planning CT images; total exam DLP: 1215.73 mGy-cm MTDD
[2020-12-23] MEDS: iodixanol 320 mg/mL 100mL Btl (RAD THERAPY ONLY) IV (08:34)
[2020-12-23 09:05] LABS: Basophils # 0.1 10^3/uL (0.0-0.1); Basophils % 3.4 %; Eosinophils # 0.1 10^3/uL (0.0-0.8); Eosinophils % 2.3 %; Hematocrit 32.4 % (37.0-47.0); Hemoglobin 10.3 g/dL (11.5-15.3); Lymphocytes # 1.5 10^3/uL (0.8-4.8); Lymphocytes % 58.6 %; Mean Corpuscular HGB Conc 31.8 g/dL (30.0-36.0); Mean Corpuscular Hemoglobin 31.3 pg (28.0-34.0); Mean Corpuscular Volume 98.5 fL (81-99); Mean Platelet Volume 9.6 fL (7.4-10.4); Monocytes # 0.2 10^3/uL (0.2-0.9); Monocytes % 6.1 %; Neutrophils % 29.2 %; Nucleated Red Blood Cells % 0 %; Platelet Count 174 10^3/cmm (130-400); Red Blood Count 3.29 10^6/uL (4.1-5.3); White Blood Count 2.6 10^3/uL (4.0-10.0)
[2020-12-23 09:31] LABS: Alanine Aminotransferase 10 U/L (0-33); Albumin Level 3.3 g/dL (3.5-5.2); Alkaline Phosphatase 54 IU/L (35-105); Anion Gap 11.3 (5-19); Aspartate Amino Transferase 17 U/L (0-32); Blood Urea Nitrogen 8 mg/dL (8-23); Calcium 7.3 mg/dL (8.5-10.5); Carbon Dioxide 23 mmol/L (22-29); Chloride 109 mmol/L (98-107); Globulin 2.3 g/dL (1.3-4.6); Glucose 115 mg/dL (65-115); Osmolality Calculated 289 mOsm/kg (285-295); Potassium 3.3 mmol/L (3.5-5.1); Sodium 140 mmol/L (136-145); Total Bilirubin 0.4 mg/dL (0.15-1.2); Total Protein 5.6 g/dL (6.6-8.7)
[2020-12-23 09:41] LABS: Slide Review Slide Review Perform
[2020-12-23 09:42] LABS: Neutrophils # 0.77 10^3/uL (1.8-7.7)
[2020-12-24 08:02] LABS: CA 27.29 35 U/mL (<38)
--- NOTE | 2020-12-24 10:29 | ONC FU_ITS ---
Dr. Aguilar follow up note Patient: Ashlee Gray Unit #: [id number]: 1940 Dicatated By: Korin Aguilar M.D.Date of Visit:Dec 23, 2020 Onc Med Follow-up/Prog Note History of Present Illness: Ms. Ashlee Gray, is a 80-year-old female with a history of stage IV breast cancer, as per patient in July 2019 she underwent mammogram which showed right breast mass followed by ultrasound right breast which shows 3.4 x 2 x 2.4 cm hypoechoic mass with spiculated margin at 1 o'clock position patient underwent right breast biopsy on August 16, 2019 which showed predominantly blood with atypical cells and on September 20, 2019, she underwent ultrasound-guided right breast biopsy which confirmed invasive ductal carcinoma ER positive more than 90% NJ +40% and HER-2/joao negative, Ki-67 was 15% Patient underwent CT PET scan on October 02, 2019 which showed 3.6 x 2.7 cm mass in the right breast with SUV of 7. There is no pathologically enlarged or hypermetabolic lymph nodes seen. In the bones there is focal increased uptake in left sacral gladis at the level of S1 with SUV of 10. But no associated lesion by CT scan. And there is no other hypermetabolic lesion worrisome for malignancy. MRI scan of sacrum was recommended which was done on October 18, 2019 which showed within the left sacral ala S1 level basis stir hyperintense, T1 hypointense enhancing lesion measuring 3 x 2.3 x 2.7 cm does not appear to be extension into sacral neural foramen. No pathological fracture. No additional lesions are identified. As per medical record she was planned for breast surgery but it was canceled due to MRI scan findings and biopsy was ordered and on November 18, 2019 patient underwent sacral lesion biopsy which confirmed metastatic carcinoma favor breast origin, ER/NJ positive, HER-2/joao negative Ki-67 was 20%. And on January 01, 2020 she was started on Ibrance and anastrozole and monthly Zometa. And on April 13, [address] scan of abdomen pelvis and bone scan which showed diverticulosis coli without CT scan evidence of diverticulitis. Stable small right adrenal gland nodule, stable 5 mm left lower lobe lung nodule, benign. Left sacral bone metastasis. And underwent bone scan on May 14, 2020 shows abnormal uptake in left sacral gladis near SI joint unchanged since prior. On the right at L4-L5 increased uptake associated noted unchanged since the prior could be degenerative. Patient received all this evaluation and treatment in [place], now moved to [place], [place] and now have decided to come to our clinic for further treatment. She is tolerating Ibrance/anastrozole/Zometa well but with expected side effects, bony pains, occasionally hot flashes. Patient still has right breast lesion, as per patient initially she was seen by surgery and removal of right breast was under consideration but somehow after she gone through sacral biopsy which came back positive for metastatic disease surgery was postponed and then due to Covid 19 situation it was not rescheduled. Her family history significant for breast cancer in her grandmother as well as brother She has history of COPD/asthma hypertension Patient denies any fever chills, denies any nausea or vomiting denies any diarrhea or constipation denies any new bony pains except persistent nagging pain in the lower back area but under control with current pain medication. Follow-up CT PET scan done on September 29, 2019 showed right breast lesion 3.9 x 1.8 cm SUV of 4.39 and no axillary lymphadenopathy Right clavicular head uptake, indeterminate. 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 pT2 ,pN1a. Postop period was complicated by large seroma right chest wall because of progressive shortness of breath she underwent CT angiogram on November 04, 2020 which showed no evidence of pulmonary embolism but large postoperative nonspecific fluid and gas collection in the deep subcutaneous fat of right anterior chest wall, now being managed by Dr. Milan Came for follow-up, denies any specific complaints except off-and-on anxiety attacks otherwise no fever chills, no nausea or vomiting, no diarrhea constipation, tolerating Ibrance and Arimidex well as per patient she has 5 more days of 3 weekly course of Ibrance left. And right postsurgical seroma has almost resolved. Medications: Acetaminophen 2 Tabminder (of 500 mg) Tablet Oral q 4 hours PRN, Allopurinol 1 Tablet (of 100 mg) Tablet Oral daily, Anastrozole 1 Tablet (of 1 mg) Tablet Oral daily, Augmentin 1 Tablet (of 500-125 mg) Tablet Oral b.i.d. for 7 days, Metoprolol Succinate ER 1 Tablet (of 50 mg) Tablet SR 24 HR Oral daily, Ondansetron HCl 1 Tablet (of 4 mg) Oral q 8 hours PRN Allergies: Codeine Sulfate, Morphine Sulfate, and Vancomycin HCl. Review of Systems: Review of Systems is not available for this patient. Vital Signs: Performed on Dec 23, 2020 11:54 Height - 60.00 in Weight - 192 lbs (HIGH) BSA - 1.83 sq.m BMI - 37.50 (HIGH) Temperature - 97.1 F (LOW) Pulse - 78 /min Respiration - 18 /min BP - 189/99 mm(hg) (HIGH) O2 Sat - 95 % (LOW) Pain - 0 Fatigue - 10 Performance Status: 1 - No physically strenuous activity, but ambulatory and able to carry out light or sedentary work (e.g. office work, light house work). (ECOG) Physical Examination: Respiratory - Lungs are clear to auscultation, Cardiovascular - Regular rate and rhythm of heart, Gastrointestinal - Soft, bowel sounds present, Extremities - No visible edema or rash. Lab/Imaging: Test performed on Oct 01, 2020 10:27 CA 15-3 39.7 U/mL CA 27.29 64 U/mL Test performed on Sep 30, 2020 10:27 Sodium 138 mmol/L Potassium 4.0 mmol/L Chloride 102 mmol/L CO2 28 mmol/L Anion Gap 12.0 BUN 17 mg/dL Creatinine 1.1 mg/dL Cr Clearance (Est) 59.10 mL/min Glucose 122 mg/dL Osmolality - Calculated 289 mOsm/kg Calcium 9.5 mg/dL Protein, Total 6.7 g/dL Albumin 4.0 g/dL Globulin 2.7 g/dL Bilirubin, Total 0.4 mg/dL ALT (SGPT) 13 U/L AST (SGOT) 17 U/L Alkaline Phosphatase 74 IU/L WBC 6.5 10 3/uL RBC 3.55 10 6/uL HGB 12.1 g/dL HCT 37.2 % MCV 104.8 fL MCH 34.1 pg MCHC 32.5 g/dL RDW 12.5 % Platelet Count 257 10 3/cmm MPV 10.3 fL Neutrophils 3.56 10 3/uL Lymphocytes 1.9 10 3/uL Monocytes 0.9 10 3/uL Eosinophils 0.1 10 3/uL Basophils 0.1 10 3/uL Neutrophil % 54.7 % Lymphocyte % 28.4 % Monocyte % 13.1 % Eosinophil % 1.8 % Basophils % 1.7 % NRBC % 0 % Impression: Status post right mastectomy with right axillary lymph node dissection done on October 21, 2019 as PET scan shows no more evidence of distant mets only right breast mass uptake. Final pathology showed 2.7 cm invasive carcinoma, metaplastic, with osteoid and sarcomatoid differentiation, grade 3, clear margins, pT2 2 out of 9 lymph node positive for metastatic disease 1 with extranodal extension pN1a, ER 99% positive NJ 70% positive HER-2/joao negative Metastatic breast cancer with biopsy-proven single lesion in left sacral ala Status post radiation therapy initially diagnosed on September 20, 2019, ER more than 90% positive NJ 40% positive HER-2/joao negative Ki-67 15%. Clinical stage T4, skin involvement, NX M1, stage IV Started on Ibrance/anastrozole/Zometa on January 01, 2020 COPD/asthma Obesity Hypertension Follow-up CT PET scan done on September 29, 2020 showed persistent right breast uptake otherwise no right axillary lymphadenopathy or distant mets. Right clavicular head uptake, indeterminate Plan: Discussed with patient regarding her labs white blood count 2.6, hemoglobin 10.3 g compared to 11.4 g on November 17, 2020 and 12.1 g on September 30, 2020 hematocrit 32.4 platelets under 74,000 neutrophil count 770 CMP within normal limit except potassium 3.3 Clinically, patient doing well with no signs symptom suggestive of disease progression, tolerating Ibrance/Arimidex well but with expected side effect e.g. progressive pancytopenia, more pronounced leukopenia/neutropenia, at this point, patient was advised to stop Ibrance for remaining days and then repeat her CBC in a week to ensure blood count recovery and in case her neutrophil counts drops below 500, will consider prophylactic antibiotics, patient was advised to call us in case she spike any fever and then she will return to clinic in 2 weeks with CBC and CMP, if there is resolution of her neutropenia/leukopenia will consider dose modification with next cycle or consider Neupogen on as-needed basis. We will also consider Ativan 0.5 mg p.o. 6 to 8-hour as needed for anxiety As for the mild hypokalemia is concerned, will consider potassium supplement KCl 20 mEq p.o. daily for 3 days then on as-needed basis. Signed By: Korin Aguilar M.D. <<Signature on File>>
--- NOTE | 2020-12-28 10:47 | ONCRAD TMN_ITS ---
Radiation Oncology Treatment Management Note Patient Name: Ashlee Gray Date of : 1940 Date of Service: 12/28/2020 Attending Physician: Mk Oseguera M.D. Ashlee Gray is a 70 year-old white female diagnosed with metastatic breast cancer in September 2019 (solitary sacral lesion). The breast cancer profile was positive for estrogen receptor and progesterone receptor, but negative for HER???2. Anastrozole and Ibrance were prescribed with a complete response to treatment identified upon repeat PET/CT in September 2020. A right total mastectomy with axillary lymph node dissection was performed by Robe Milan M.D. on 10/21/2020. A pathological stage IV ([id number]) grade 3 carcinoma with osteoid and sarcomatoid differentiation was diagnosed of the upper-inner quadrant of the right breast. Her postoperative convalescence was complicated by a persistent seroma requiring incision and drainage. She has received 2 Gy of a prescribed 50 Gy to the right chest wall delivered with a 3D conformal radiotherapy plan utilizing opposed tangential portal rubio matched to supraclavicular fossa and PAB ports. Upon review of systems, she denied any breast complaints to radiotherapy. On physical examination, the patient weighed 193 lbs. Her temperature was 97.8 ???F with a blood pressure of 176/80 mmHg. Her pulse was 78 bpm and her respiratory rate was 20. There was no erythema within the treatment rubio of the right chest wall. Continue right chest wall and regional lymph node irradiation as prescribed. Signed by: Dr. Mk Oseguera 12/28/2020 10:46:08 AM
[2020-12-31] MEDS: sodium chloride 0.9% (100 ml) 100 ML 75 ML (10:45)
[2020-12-31] MEDS: zoledronic acid 4 MG in sodium chloride 0.9% (100 ml) 100 ML 420 MG IV (10:50)
--- NOTE | 2021-01-04 10:58 | ONCRAD TMN_ITS ---
Radiation Oncology Treatment Management Note Patient Name: Ashlee Gray Date of : 1940 Date of Service: 01/04/2021 Attending Physician: Mk Oseguera M.D. Ashlee Gray is a 70 year-old white female diagnosed with metastatic breast cancer in September 2019 (solitary sacral lesion). The breast cancer profile was positive for estrogen receptor and progesterone receptor, but negative for HER???2. Anastrozole and Ibrance were prescribed with a complete response to treatment identified upon repeat PET/CT in September 2020. A right total mastectomy with axillary lymph node dissection was performed by Robe Milan M.D. on 10/21/2020. A pathological stage IV ([id number]) grade 3 carcinoma with osteoid and sarcomatoid differentiation was diagnosed of the upper-inner quadrant of the right breast. Her postoperative convalescence was complicated by a persistent seroma requiring incision and drainage. She has received 12 Gy of a prescribed 50 Gy to the right chest wall delivered with a 3D conformal radiotherapy plan utilizing opposed tangential portal rubio matched to supraclavicular fossa and PAB ports. Upon review of systems, she denied any breast complaints to radiotherapy. On physical examination, the patient weighed 193 lbs. Her temperature was 98.4 ???F with a blood pressure of 153/78 mmHg. Her pulse was 76 bpm and her respiratory rate was 20. There was no erythema within the treatment rubio of the right chest wall. Continue right chest wall and regional lymph node irradiation as planned. Signed by: Dr. Mk Oseguera 01/04/2021 10:56:32 AM
[2021-01-06 14:06] LABS: Basophils # 0.1 10^3/uL (0.0-0.1); Basophils % 2.7 %; Eosinophils # 0.1 10^3/uL (0.0-0.8); Eosinophils % 2.3 %; Hematocrit 38.3 % (37.0-47.0); Hemoglobin 12.1 g/dL (11.5-15.3); Lymphocytes # 1.7 10^3/uL (0.8-4.8); Lymphocytes % 39.6 %; Mean Corpuscular HGB Conc 31.6 g/dL (30.0-36.0); Mean Corpuscular Volume 98.2 fL (81-99); Mean Platelet Volume 10.2 fL (7.4-10.4); Monocytes # 0.7 10^3/uL (0.2-0.9); Monocytes % 16.9 %; Neutrophils # 1.67 10^3/uL (1.8-7.7); Nucleated Red Blood Cells % 0 %; Platelet Count 217 10^3/cmm (130-400); Red Cell Distribution Width 17.7 % (12.1-15.1); White Blood Count 4.4 10^3/uL (4.0-10.0)
[2021-01-06 14:24] LABS: Alanine Aminotransferase 9 U/L (0-33); Albumin Level 4.3 g/dL (3.5-5.2); Alkaline Phosphatase 76 IU/L (35-105); Anion Gap 11.9 (5-19); Aspartate Amino Transferase 16 U/L (0-32); Blood Urea Nitrogen 11 mg/dL (8-23); Calcium 9.4 mg/dL (8.5-10.5); Carbon Dioxide 29 mmol/L (22-29); Chloride 104 mmol/L (98-107); Globulin 2.7 g/dL (1.3-4.6); Glucose 125 mg/dL (65-115); Osmolality Calculated 293 mOsm/kg (285-295); Potassium 3.9 mmol/L (3.5-5.1); Sodium 141 mmol/L (136-145); Total Bilirubin 0.3 mg/dL (0.15-1.2)
--- NOTE | 2021-01-19 12:01 | ONC FU_ITS ---
[facility] Patient Note Patient: Ashlee Buenrostro Unit #: [id number]: 1940 Dictated By: Keith ValenciaDate of Visit: Jan 06, 2021 Onc MED Follow-Up/Prog Note Chief Complaint: Metastatic breast cancer History of Present Illness: Ms. Buenrostro is a 80-year-old female with a history of stage IV breast cancer. She reports in July 2019, she underwent mammogram which showed right breast mass followed by ultrasound right breast which showed a 3.4 x 2 x 2.4 cm hypoechoic mass with spiculated margin at 1 o'clock position. She underwent right breast biopsy on August 16, 2019 which showed predominantly blood with atypical cells. On September 20, 2019, she underwent ultrasound-guided right breast biopsy which confirmed invasive ductal carcinoma, ER positive more than 90%, NY +40% and HER-2/joao negative, Ki-67 was 15% Ms Buenrostro underwent PET/CT scan on October 02, 2019 which showed 3.6 x 2.7 cm mass in the right breast with SUV of 7. There was no pathologically enlarged or hypermetabolic lymph nodes seen. In the bones, there is focal increased uptake in left sacral gladis at the level of S1 with SUV of 10. But no associated lesion by CT scan. And there is no other hypermetabolic lesion worrisome for malignancy. MRI scan of sacrum was recommended on October 18, 2019 showed within the left sacral ala S1 level basis stir hyperintense, T1 hypointense enhancing lesion measuring 3 x 2.3 x 2.7 cm. It did not appear to have extension into sacral neural foramen. No pathological fracture. No additional lesions are identified. As per medical record, she was planned for breast surgery but it was canceled due to MRI scan findings and biopsy was ordered and on November 18, 2019. She underwent sacral lesion biopsy which confirmed metastatic carcinoma favor breast origin, ER/NY positive, HER-2/joao negative Ki-67 was 20%. On January 01, 2020 she was started on Ibrance/anastrozole and monthly Zometa. On April 13, [address] scan of abdomen pelvis which showed diverticulosis coli without CT scan evidence of diverticulitis. Stable small right adrenal gland nodule, stable 5 mm left lower lobe lung nodule, benign. Left sacral bone metastasis. And underwent bone scan on May 14, 2020 shows abnormal uptake in left sacral gladis near SI joint unchanged since prior. On the right at L4-L5 increased uptake associated noted unchanged since the prior could be degenerative. Ms Buenrostro had received all this evaluation and treatment in [place]. She relocated to [place], [place] and was evaluated by Dr Aguilar on September 15, 2020. She had follow-up PET/CT imaging on September 29, 2020 at [facility] in [facility] which reported a central nodular density in the right breast at the 12 o'clock position just cephalad to the nipple measuring 3.9 x 1.8 cm demonstrating a maximum SUV of 4.39. There was no concerning lymphadenopathy observed in the right axilla or elsewhere in the thoracic structures. No pulmonary nodules or other focus of increased metabolic activity was identified. The liver had a maximum SUV of 6.61. The right adrenal is mildly thickened without focal increase of metabolic activity. Unremarkable left adrenal. Unremarkable liver/vein, pancreas, kidneys and uterus. No lymphadenopathy or focal increase of metabolic activity in solid organs or other soft tissue structures. There was a tiny sclerotic focus present in the right acetabular roof without association increase of metabolic activity. Degenerative changes are present throughout the spine. A small lytic focus is present in the dorsal aspect of the right clavicular head associated with increased metabolic activity with maximum SUV of 7.88. There were no other focal increase in metabolic activity in the bone or muscle. Inflammatory changes are present in the right shoulder. Previous posterior cervical fusion surgery noted. The findings in the right clavicle head were indeterminate but could represent me metastatic involvement. 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 She was referred to surgery for right breast lumpectomy for the persistent mass in her right breast a 3.9 x 1.8 cm with an SUV of 4.39. The plan was to refer her for radiation therapy or simple mastectomy depending on results of the lumpectomy. She was also referred to radiation oncology for evaluation for SBRT to the right clavicular head if metastatic disease was confirmed. Her Ibrance was held but she continued with Arimidex at that time. Mrs. Buenrostro was seen by Dr. Milan on October 06, 2020. He had recommended right simple mastectomy. She was then seen by Dr. Mk Oseguera in radiation oncology on October 12, 2020 for possible radiotherapy for management of her metastatic breast cancer. Radiation was held for surgery consideration. She underwent simple right mastectomy with axillary lymph node dissection per Dr Milan on 10/21/2020. 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 1 lymph node did show extranodal extension. Per Dr. Aguilar's note pT2, pN1a. Her breast cancer prognostic profile/report from October 29, 2020 reported Ki-67 at 2% ER 99% NY 70% HER-2/joao IHC qualitative is 0+. She was seen on November 05, 2020 at [facility] for fever and generalized body aches. Her DESTIN drain has been removed on 11/03/2020. She was placed on vancomycin and clindamycin for 24+ hours and responded well. She was discharged on cefadroxil and doxycycline. She is also discharged on prednisone 20 mg twice daily for 5 days for an acute gout flare. She returned to [facility] on November 22, 2020 with swelling at the mastectomy site. She also had recurrence of low-grade temperature. She did have aspiration of the postmastectomy seroma of 600 mL. This was performed by Dr. Murillo on November 22, 2020. She was discharged on Augmentin twice daily for 7 days. She was then seen on 11/27/[address] Oseguera for consideration of radiotherapy for management of her metastatic breast cancer post simple right mastectomy. He recommended a 5 course of radiation therapy to the right chest wall and regional lymph node area. She was then seen for follow-up with Dr. Aguilar on December 23, 2020. She had resumed her Ibrance and Arimidex. She was tolerating it well. She had began radiation therapy to the right chest wall at that time as well. Her family history significant for breast cancer in her grandmother as well as brother She has history of COPD/asthma hypertension Patient denies any fever chills, denies any nausea or vomiting denies any diarrhea or constipation denies any new bony pains except persistent nagging pain in the lower back area but under control with current pain medication. Ms. Buenrostro is here today for follow-up. She has no new concerns today. She has not had recurrence of the postmastectomy seroma. She denies any fever or chills. She denies any hot flashes or night sweats. She states her appetite is fair. Her energy is fair . She is able to do all her ADLs without any assistance. She tries remain active around the house. She denies any new shortness of breath orthopnea. She denies any mouth sores, sore throat or difficulty swallowing. She denies any rash. She states she has not had any fever or any signs of infection. She has had no bruising or bleeding. She denies any cough or hemoptysis. She denies any wheezing. She states that she has not had any chest pain or palpitations. She denies nausea or vomiting. She denies any bone pain. Her ECOG is 1. Past Medical History: Chronic obstructive pulmonary disease Gastroesophageal reflux disease Hyperlipidemia Hypertension Osteopenia Past Surgical History: Appendectomy Carpal tunnel release Cataract excision Cholecystectomy Colectomy Colonoscopy C-spine repair-plates and screws Hernia repair Knee atrhroscopy Tubal ligation Mastectomy in 2020 - Total right Allergies: Codeine Sulfate, Morphine Sulfate, and Vancomycin HCl. Medications: Acetaminophen 2 Tabminder (of 500 mg) Tablet Oral q 4 hours PRN Allopurinol 1 Tablet (of 100 mg) Tablet Oral daily Anastrozole 1 Tablet (of 1 mg) Tablet Oral daily Metoprolol Succinate ER 1 Tablet (of 50 mg) Tablet SR 24 HR Oral daily Ondansetron HCl 1 Tablet (of 4 mg) Oral q 8 hours PRN Family History: Social History: Ms. Buenrostro is . Ms. Buenrostro quit smoking 56 years ago but had smoked 1.0 pack/day for 7 years. She has no history of drinking. Review Of Symptoms: <See Above> Vital Signs: Performed on Jan 06, 2021 15:01 Height - 60.00 in Weight - 191.6 lbs (LOW) BSA - 1.83 sq.m BMI - 37.42 (HIGH) Temperature - 97.6 F (LOW) Pulse - 90 /min Respiration - 17 /min BP - 145/83 mm(hg) (HIGH) O2 Sat - 97 % Pain - 10,1 - No physically strenuous activity, but ambulatory and able to carry out light or sedentary work (e.g. office work, light house work). (ECOG) Physical Examination: Constitutional Alert, oriented, no acute distress. Skin pink, warm and dry. Head Normocephalic; atraumatic. Eyes Conjunctivae and sclerae are clear and without icterus. Pupils are reactive and equal. Neck Supple without masses or thyromegaly. No jugular venous distension. Hematologic/Lymphatic No petechiae or purpura. No tender or palpable lymph nodes in the cervical or supraclavicular areas. Respiratory Lungs are clear to auscultation without rhonchi or wheezing. Cardiovascular Regular rate and rhythm of heart without murmurs,clicks, gallops or rubs. Chest Right chest wall is noted to have slight skin irritation from radiation therapy but overall her mastectomy site has healed well. There is no signs of seroma. Breasts Abdomen Non-tender, non-distended, no masses or ascites. Good bowel sounds noted in all quads. No guarding or rebound tenderness. No pulsatile masses. Back/Spine Non-tender to palpation. Extremities No visible deformities, no cyanosis, clubbing or edema. Musculoskeletal No tenderness or swelling, normal range of motion without obvious weakness. Integumentary No rashes or lesions. Neurologic No sensory or motor deficits, normal cerebellar function, normal gait. Psychiatric Alert and oriented times three. Coherent speech. Verbalizes understanding of our discussions today. Laboratory:Test performed on Jan 06, 2021 13:13 Sodium 141 mmol/L Potassium 3.9 mmol/L Chloride 104 mmol/L CO2 29 mmol/L Anion Gap 11.9 BUN 11 mg/dL Creatinine 0.9 mg/dL Cr Clearance (Est) 69.54 mL/min Glucose 125 mg/dL Osmolality - Calculated 293 mOsm/kg Calcium 9.4 mg/dL Protein, Total 7.0 g/dL Albumin 4.3 g/dL Globulin 2.7 g/dL Bilirubin, Total 0.3 mg/dL ALT (SGPT) 9 U/L AST (SGOT) 16 U/L Alkaline Phosphatase 76 IU/L WBC 4.4 10 3/uL RBC 3.90 10 6/uL HGB 12.1 g/dL HCT 38.3 % MCV 98.2 fL MCH 31.0 pg MCHC 31.6 g/dL RDW 17.7 % Platelet Count 217 10 3/cmm MPV 10.2 fL Neutrophils 1.67 10 3/uL Lymphocytes 1.7 10 3/uL Monocytes 0.7 10 3/uL Eosinophils 0.1 10 3/uL Basophils 0.1 10 3/uL Neutrophil % 38.0 % Lymphocyte % 39.6 % Monocyte % 16.9 % Eosinophil % 2.3 % Basophils % 2.7 % NRBC % 0 % Test performed on Oct 01, 2020 10:27 CA 15-3 39.7 U/mL CA 27.29 64 U/mL Impression: Status post right mastectomy with right axillary lymph node dissection done on October 21, 2019 as PET scan shows no more evidence of distant mets only right breast mass uptake. Final pathology showed 2.7 cm invasive carcinoma, metaplastic, with osteoid and sarcomatoid differentiation, grade 3, clear margins, pT2 2 out of 9 lymph node positive for metastatic disease 1 with extranodal extension pN1a, ER 99% positive [place] 70% positive HER-2/joao negative Metastatic breast cancer with biopsy-proven single lesion in left sacral ala Status post radiation therapy initially diagnosed on September 20, 2019, ER more than 90% positive [place] 40% positive HER-2/joao negative Ki-67 15%. Clinical stage T4, skin involvement, NX M1, stage IV Started on Ibrance/anastrozole/Zometa on January 01, 2020 COPD/asthma Obesity Hypertension Follow-up CT PET scan done on September 29, 2020 showed persistent right breast uptake otherwise no right axillary lymphadenopathy or distant mets. Right clavicular head uptake, indeterminate Plan/Problems Addressed at this Visit: 1. Metastatic breast cancer with known bone mets. A. Proceed with Ibrance but will decrease dose to 100 mg daily 21 out of 28 days due to neutropenia. B. She continues with Arimidex 1 mg daily for her ER/NY positive disease. C. Today's labs reviewed in detail discussed with Ms. Buenrostro and a copy was given to her. WBC 4.4, hemoglobin 12.1, platelets 217,000 ANC is 1670. It is noted that on December 23 her ANC was 770. Her potassium was 3.9 random glucose 126 creatinine 0.9 her LFTs are normal. Her last CA 27-29 was reported on December 23, 2020 at 35. It was 64 on October 01, 2020. Her CA 15-3 at that time was 39.7. D. She continues with every 3-month Zometa for her bone metastasis. Her last Zometa dosing was on December 31, 2020. E. She continues with radiation therapy to her right chest wall and associated lymph nodes status post simple mastectomy on October 21, 2020. F. We will recheck her CBC again in 2 weeks for evaluation of her chemotherapy induced neutropenia. G. We will plan to see her back in 4 weeks with CBC CMP CA 27-29 and CA 15-3. H. Ms. Buenrostro was instructed to contact us in the interim should questions or problems arise. Signed By: Keith Valencia-, CNP Korin Aguilar MD <<Signature on File>>
== END 2021-01-08 23:59 | disposition home or self-care (01) ==
LOC: ONCMED 05:48
PROVIDERS: Internal Medicine Hematology & Oncology; Nurse Practitioner; Absent Provider Radiology Radiation Oncology; PCP Nurse Practitioner Family; Visit Provider Radiology Radiation Oncology
DX: Z51.0 Encounter for antineoplastic radiation therapy (principal); C50.211 Malignant neoplasm of upper-inner quadrant of right female breast; Z17.0 Estrogen receptor positive status [ER+]; D70.1 Agranulocytosis secondary to cancer chemotherapy; T45.1X5A Adverse effect of antineoplastic and immunosuppressive drugs, initial encounter
CPT/HCPCS: 36415; 77290; 77295; 77300; 77334; 77336; 77387; 77412; 80053; 85025; 86300; 96365; 99214; 99215; J3489; Q9967

== ENCOUNTER 2021-02-05 05:53 | Outpatient (RCR) | payer MEDICARE, SELFPAY ==
--- NOTE | 2021-01-11 11:05 | ONCRAD TMN_ITS ---
Radiation Oncology Treatment Management Note Patient Name: Ashlee Gray Date of : 1940 Date of Service: 01/11/2021 Attending Physician: Mk Oseguera M.D. Ashlee Gray is a 70 year-old white female diagnosed with metastatic breast cancer in September 2019 (solitary sacral lesion). The breast cancer profile was positive for estrogen receptor and progesterone receptor, but negative for HER???2. Anastrozole and Ibrance were prescribed with a complete response to treatment identified upon repeat PET/CT in September 2020. A right total mastectomy with axillary lymph node dissection was performed by Robe Milan M.D. on 10/21/2020. A pathological stage IV ([id number]) grade 3 carcinoma with osteoid and sarcomatoid differentiation was diagnosed of the upper-inner quadrant of the right breast. Her postoperative convalescence was complicated by a persistent seroma requiring incision and drainage. She has received 22 Gy of a prescribed 50 Gy to the right chest wall delivered with a 3D conformal radiotherapy plan utilizing opposed tangential portal rubio matched to supraclavicular fossa and PAB ports. Upon review of systems, she denied any breast complaints to radiotherapy. On physical examination, the patient weighed 193 lbs. Her temperature was 98.4 ???F with a blood pressure of 153/78 mmHg. Her pulse was 76 bpm and her respiratory rate was 20. There was erythema within the treatment rubio of the right chest wall and axilla (grade II). Continue right chest wall and regional lymph node irradiation as prescribed. Signed by: Dr. Mk Oseguera 01/11/2021 11:04:15 AM
--- NOTE | 2021-01-11 11:18 | ONCRAD TMN_ITS ---
Radiation Oncology Treatment Management Note Patient Name: Ashlee Gray Date of : 1940 Date of Service: 01/11/2021 Attending Physician: Mk Oseguera M.D. Ashlee Gray is a 70 year-old white female diagnosed with metastatic breast cancer in September 2019 (solitary sacral lesion). The breast cancer profile was positive for estrogen receptor and progesterone receptor, but negative for HER???2. Anastrozole and Ibrance were prescribed with a complete response to treatment identified upon repeat PET/CT in September 2020. A right total mastectomy with axillary lymph node dissection was performed by Robe Milan M.D. on 10/21/2020. A pathological stage IV ([id number]) grade 3 carcinoma with osteoid and sarcomatoid differentiation was diagnosed of the upper-inner quadrant of the right breast. Her postoperative convalescence was complicated by a persistent seroma requiring incision and drainage. She has received 22 Gy of a prescribed 50 Gy to the right chest wall delivered with a 3D conformal radiotherapy plan utilizing opposed tangential portal rubio matched to supraclavicular fossa and PAB ports. Upon review of systems, she denied any breast complaints to radiotherapy. On physical examination, the patient weighed 194 lbs. Her temperature was 98.2 ???F with a blood pressure of 153/83 mmHg. Her pulse was 81 bpm and her respiratory rate was 18. There was erythema within the treatment rubio of the right chest wall and axilla (grade II). Continue right chest wall and regional lymph node irradiation as prescribed. Signed by: Dr. Mk Oseguera 01/11/2021 11:17:15 AM
--- NOTE | 2021-01-18 10:46 | ONCRAD TMN_ITS ---
Radiation Oncology Treatment Management Note Patient Name: Ashlee Gray Date of : 1940 Date of Service: 01/18/2021 Attending Physician: Mk Oseguera M.D. Ashlee Gray is a 70 year-old white female diagnosed with metastatic breast cancer in September 2019 (solitary sacral lesion). The breast cancer profile was positive for estrogen receptor and progesterone receptor, but negative for HER???2. Anastrozole and Ibrance were prescribed with a complete response to treatment identified upon repeat PET/CT in September 2020. A right total mastectomy with axillary lymph node dissection was performed by Robe Milan M.D. on 10/21/2020. A pathological stage IV ([id number]) grade 3 carcinoma with osteoid and sarcomatoid differentiation was diagnosed of the upper-inner quadrant of the right breast. Her postoperative convalescence was complicated by a persistent seroma requiring incision and drainage. She has received 32 Gy of a prescribed 50 Gy to the right chest wall delivered with a 3D conformal radiotherapy plan utilizing opposed tangential portal rubio matched to supraclavicular fossa and PAB ports. Upon review of systems, she denied any breast complaints to radiotherapy. On physical examination, the patient weighed 191 lbs. Her temperature was 98.1 ???F with a blood pressure of 134/73 mmHg. Her pulse was 86 bpm and her respiratory rate was 18. There was erythema within the treatment rubio of the right chest wall and axilla (grade II). Continue right chest wall and regional lymph node irradiation as planned. Signed by: Dr. Mk Oseguera 01/18/2021 10:44:51 AM
[2021-01-20 11:27] LABS: Alanine Aminotransferase 15 U/L (0-33); Albumin Level 3.9 g/dL (3.5-5.2); Alkaline Phosphatase 80 IU/L (35-105); Aspartate Amino Transferase 22 U/L (0-32); Carbon Dioxide 29 mmol/L (22-29); Chloride 102 mmol/L (98-107); Globulin 2.7 g/dL (1.3-4.6); Sodium 137 mmol/L (136-145); Total Bilirubin 0.4 mg/dL (0.15-1.2); Total Protein 6.6 g/dL (6.6-8.7)
[2021-01-20 12:11] LABS: Blood Urea Nitrogen 14 mg/dL (8-23); Calcium 8.3 mg/dL (8.5-10.5)
[2021-01-20 12:21] LABS: Glucose 124 mg/dL (65-115); Osmolality Calculated 286 mOsm/kg (285-295)
[2021-01-20 12:22] LABS: CA 15-3 26.6 U/mL (0-25)
[2021-01-21 09:52] LABS: CA 27.29 30 U/mL (<38)
[2021-02-03 09:56] LABS: Basophils # 0.1 10^3/uL (0.0-0.1); Basophils % 0.5 %; Eosinophils # 0.5 10^3/uL (0.0-0.8); Eosinophils % 4.9 %; Hematocrit 40.1 % (37.0-47.0); Hemoglobin 12.9 g/dL (11.5-15.3); Lymphocytes # 0.9 10^3/uL (0.8-4.8); Lymphocytes % 10.2 %; Mean Corpuscular HGB Conc 32.2 g/dL (30.0-36.0); Mean Corpuscular Hemoglobin 31.7 pg (28.0-34.0); Mean Corpuscular Volume 98.5 fL (81-99); Mean Platelet Volume 10.4 fL (7.4-10.4); Monocytes # 0.9 10^3/uL (0.2-0.9); Monocytes % 9.4 %; Neutrophils # 6.76 10^3/uL (1.8-7.7); Neutrophils % 74.3 %; Nucleated Red Blood Cells % 0 %; Platelet Count 163 10^3/cmm (130-400); Red Blood Count 4.07 10^6/uL (4.1-5.3); Red Cell Distribution Width 16.8 % (12.1-15.1); White Blood Count 9.1 10^3/uL (4.0-10.0)
[2021-02-03 10:29] LABS: Alanine Aminotransferase 16 U/L (0-33); Albumin Level 3.7 g/dL (3.5-5.2); Alkaline Phosphatase 74 IU/L (35-105); Aspartate Amino Transferase 20 U/L (0-32); Blood Urea Nitrogen 16 mg/dL (8-23); CA 15-3 24.7 U/mL (0-25); Calcium 8.9 mg/dL (8.5-10.5); Carbon Dioxide 29 mmol/L (22-29); Chloride 103 mmol/L (98-107); Globulin 2.9 g/dL (1.3-4.6); Glucose 140 mg/dL (65-115); Osmolality Calculated 289 mOsm/kg (285-295); Sodium 138 mmol/L (136-145); Total Bilirubin 0.5 mg/dL (0.15-1.2); Total Protein 6.6 g/dL (6.6-8.7)
--- NOTE | 2021-02-03 11:00 | ONCRAD TMN_ITS ---
Radiation Oncology Weekly Treatment Management Patient: Marina Biggs MR#: [id number] : 1940> Attending Physician: Dr. Paulo Stock Date of Service: 02/03/2021 Referring Physician(s) : Dr. Aguilar Diagnosis: C50.211 - Malignant neoplasm of upper-inner quadrant of right female breast, Diagnosed 09/2019 (Active) Stage IV, T2, pN1a, M1, G3, HER2 Neg, ER Pos, MN P Radiotherapy to date: Course: PMRT, Treatment Site: R ChestWall, Ref. ID: [id number], Energy: 15X, Dose/Fx (cGy): 200, #Fx: 25, Dose Correction (cGy): 0, Total Dose (cGy): 4,200, Start Date: 12/28/2020, End Date: 02/03/2021, Elapsed Days: 37 Treatment Site: [facility], Ref. ID: [id number], Energy: 15X/6X, Dose/Fx (cGy): 200, #Fx: , Dose Correction (cGy): 0, Total Dose (cGy): 4,200, Start Date: 12/28/2020, End Date: 02/03/2021, Elapsed Days: 37 Reason for visit: The patient is being seen today as part of their regularly scheduled weekly on treatment visits to assess for acute toxicities from radiotherapy. Review of Systems: Returns from break. She had moist desquamation on chest wall. She treated it aggressively at home while on treatment break. Now feeling better. Eating well. Activity level stable. Vital Signs: Performed on 02/03/2021 9:56 AM Height - 60.00 in, Temperature - 98.2 f (low), Pulse - 77 /min, Respiration - 18 /min, O2 Sat - 98.2 %, Pain - 0, Fatigue - 0 and BP - 147/ 80 mm(hg)(high/). Physical Exam: Erythema over right chest wall. Some tanning centrally.No desquamation. Imaging: Radiation therapy imaging related to accurate target localization (i.e. KV, MV and CBCT) was reviewed. Appropriate changes, if any, were made to ensure treatment accuracy. Plan: Good recovery following treatment break . Ok to resume today. Signed by: Dr. Paulo Stock 02/03/2021 10:58:15 AM
--- NOTE | 2021-02-03 16:59 | ONC FU_ITS ---
Dr. Agiular follow up note Patient: Ashlee Buenrostro Unit #: [id number]: 1940 Dicatated By: Korin Aguilar M.D.Date of Visit:February 03, 2021 Onc Med Follow-up/Prog Note History of Present Illness: Ms. Buenrostro is a 80-year-old female with a history of stage IV breast cancer. She reports in July 2019, she underwent mammogram which showed right breast mass followed by ultrasound right breast which showed a 3.4 x 2 x 2.4 cm hypoechoic mass with spiculated margin at 1 o'clock position. She underwent right breast biopsy on August 16, 2019 which showed predominantly blood with atypical cells. On September 20, 2019, she underwent ultrasound-guided right breast biopsy which confirmed invasive ductal carcinoma, ER positive more than 90%, LA +40% and HER-2/joao negative, Ki-67 was 15% Ms Buenrostro underwent PET/CT scan on October 02, 2019 which showed 3.6 x 2.7 cm mass in the right breast with SUV of 7. There was no pathologically enlarged or hypermetabolic lymph nodes seen. In the bones, there is focal increased uptake in left sacral gladis at the level of S1 with SUV of 10. But no associated lesion by CT scan. And there is no other hypermetabolic lesion worrisome for malignancy. MRI scan of sacrum was recommended on October 18, 2019 showed within the left sacral ala S1 level basis stir hyperintense, T1 hypointense enhancing lesion measuring 3 x 2.3 x 2.7 cm. It did not appear to have extension into sacral neural foramen. No pathological fracture. No additional lesions are identified. As per medical record, she was planned for breast surgery but it was canceled due to MRI scan findings and biopsy was ordered and on November 18, 2019. She underwent sacral lesion biopsy which confirmed metastatic carcinoma favor breast origin, ER/LA positive, HER-2/joao negative Ki-67 was 20%. On January 01, 2020 she was started on Ibrance/anastrozole and monthly Zometa. On April 13, [address] scan of abdomen pelvis which showed diverticulosis coli without CT scan evidence of diverticulitis. Stable small right adrenal gland nodule, stable 5 mm left lower lobe lung nodule, benign. Left sacral bone metastasis. And underwent bone scan on May 14, 2020 shows abnormal uptake in left sacral gladis near SI joint unchanged since prior. On the right at L4-L5 increased uptake associated noted unchanged since the prior could be degenerative. Ms Buenrostro had received all this evaluation and treatment in [place]. She relocated to [place], [place] and was evaluated by Dr Aguilar on September 15, 2020. She had follow-up PET/CT imaging on September 29, 2020 at [facility] in [facility] which reported a central nodular density in the right breast at the 12 o'clock position just cephalad to the nipple measuring 3.9 x 1.8 cm demonstrating a maximum SUV of 4.39. There was no concerning lymphadenopathy observed in the right axilla or elsewhere in the thoracic structures. No pulmonary nodules or other focus of increased metabolic activity was identified. The liver had a maximum SUV of 6.61. The right adrenal is mildly thickened without focal increase of metabolic activity. Unremarkable left adrenal. Unremarkable liver/vein, pancreas, kidneys and uterus. No lymphadenopathy or focal increase of metabolic activity in solid organs or other soft tissue structures. There was a tiny sclerotic focus present in the right acetabular roof without association increase of metabolic activity. Degenerative changes are present throughout the spine. A small lytic focus is present in the dorsal aspect of the right clavicular head associated with increased metabolic activity with maximum SUV of 7.88. There were no other focal increase in metabolic activity in the bone or muscle. Inflammatory changes are present in the right shoulder. Previous posterior cervical fusion surgery noted. The findings in the right clavicle head were indeterminate but could represent me metastatic involvement. 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 She was referred to surgery for right breast lumpectomy for the persistent mass in her right breast a 3.9 x 1.8 cm with an SUV of 4.39. The plan was to refer her for radiation therapy or simple mastectomy depending on results of the lumpectomy. She was also referred to radiation oncology for evaluation for SBRT to the right clavicular head if metastatic disease was confirmed. Her Ibrance was held but she continued with Arimidex at that time. Mrs. Buenrostro was seen by Dr. Milan on October 06, 2020. He had recommended right simple mastectomy. She was then seen by Dr. Mk Oseguera in radiation oncology on October 12, 2020 for possible radiotherapy for management of her metastatic breast cancer. Radiation was held for surgery consideration. She underwent simple right mastectomy with axillary lymph node dissection per Dr Milan on 10/21/2020. 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 1 lymph node did show extranodal extension. Per Dr. Aguilar's note pT2, pN1a. Her breast cancer prognostic profile/report from October 29, 2020 reported Ki-67 at 2% ER 99% LA 70% HER-2/joao IHC qualitative is 0+. She was seen on November 05, 2020 at [facility] for fever and generalized body aches. Her DESTIN drain has been removed on 11/03/2020. She was placed on vancomycin and clindamycin for 24+ hours and responded well. She was discharged on cefadroxil and doxycycline. She is also discharged on prednisone 20 mg twice daily for 5 days for an acute gout flare. She returned to [facility] on November 22, 2020 with swelling at the mastectomy site. She also had recurrence of low-grade temperature. She did have aspiration of the postmastectomy seroma of 600 mL. This was performed by Dr. Murillo on November 22, 2020. She was discharged on Augmentin twice daily for 7 days. She was then seen on 11/27/[address] Oseguera for consideration of radiotherapy for management of her metastatic breast cancer post simple right mastectomy. He recommended a 5 course of radiation therapy to the right chest wall and regional lymph node area. She was then seen for follow-up on December 23, 2020. She had resumed her Ibrance and Arimidex. She was tolerating it well. She had began radiation therapy to the right chest wall at that time as well. Her family history significant for breast cancer in her grandmother as well as brother She has history of COPD/asthma hypertension Came for follow-up, denies any specific complaints, no fever chills, no nausea or vomiting, no diarrhea constipation, tolerating radiation therapy to her right chest wall and right lower neck well and she has 4 more treatments to conclude her recommended radiation therapy. No nausea or vomiting, no diarrhea or constipation, no hot flashes, no mouth sores, no fever chills, no new bony pains, tolerating Ibrance/Arimidex well otherwise. Medications: Acetaminophen 2 Tabminder (of 500 mg) Tablet Oral q 4 hours PRN, Allopurinol 1 Tablet (of 100 mg) Tablet Oral daily, Anastrozole 1 Tablet (of 1 mg) Tablet Oral daily, Metoprolol Succinate ER 1 Tablet (of 50 mg) Tablet SR 24 HR Oral daily, Ondansetron HCl 1 Tablet (of 4 mg) Oral q 8 hours PRN Allergies: Codeine Sulfate, Morphine Sulfate, and Vancomycin HCl. Review of Systems: Review of Systems is not available for this patient. Vital Signs: Performed on February 03, 2021 09:56 Height - 60.00 in Temperature - 98.2 F (LOW) Pulse - 77 /min Respiration - 18 /min BP - 147/80 mm(hg) (HIGH) O2 Sat - 98.2 % Pain - 0 Fatigue - 0 Performance Status: 0 - Fully active, able to carry on all predisease activities without restrictions. (ECOG) Physical Examination: Respiratory - Lungs are clear to auscultation, Cardiovascular - Regular rate and rhythm of heart, Gastrointestinal - Soft, bowel sounds present, Extremities - No visible edema or rash. Lab/Imaging: Test performed on Jan 06, 2021 13:13 Sodium 141 mmol/L Potassium 3.9 mmol/L Chloride 104 mmol/L CO2 29 mmol/L Anion Gap 11.9 BUN 11 mg/dL Creatinine 0.9 mg/dL Cr Clearance (Est) 69.54 mL/min Glucose 125 mg/dL Osmolality - Calculated 293 mOsm/kg Calcium 9.4 mg/dL Protein, Total 7.0 g/dL Albumin 4.3 g/dL Globulin 2.7 g/dL Bilirubin, Total 0.3 mg/dL ALT (SGPT) 9 U/L AST (SGOT) 16 U/L Alkaline Phosphatase 76 IU/L WBC 4.4 10 3/uL RBC 3.90 10 6/uL HGB 12.1 g/dL HCT 38.3 % MCV 98.2 fL MCH 31.0 pg MCHC 31.6 g/dL RDW 17.7 % Platelet Count 217 10 3/cmm MPV 10.2 fL Neutrophils 1.67 10 3/uL Lymphocytes 1.7 10 3/uL Monocytes 0.7 10 3/uL Eosinophils 0.1 10 3/uL Basophils 0.1 10 3/uL Neutrophil % 38.0 % Lymphocyte % 39.6 % Monocyte % 16.9 % Eosinophil % 2.3 % Basophils % 2.7 % NRBC % 0 % Test performed on Oct 01, 2020 10:27 CA 15-3 39.7 U/mL CA 27.29 64 U/mL Impression: Status post right mastectomy with right axillary lymph node dissection done on October 21, 2019 as PET scan shows no more evidence of distant mets only right breast mass uptake. Final pathology showed 2.7 cm invasive carcinoma, metaplastic, with osteoid and sarcomatoid differentiation, grade 3, clear margins, pT2 2 out of 9 lymph node positive for metastatic disease 1 with extranodal extension pN1a, ER 99% positive LA 70% positive HER-2/joao negative Metastatic breast cancer with biopsy-proven single lesion in left sacral ala Status post radiation therapy initially diagnosed on September 20, 2019, ER more than 90% positive LA 40% positive HER-2/joao negative Ki-67 15%. Clinical stage T4, skin involvement, NX M1, stage IV Started on Ibrance/anastrozole/Zometa on January 01, 2020 COPD/asthma Obesity Hypertension Follow-up CT PET scan done on September 29, 2020 showed persistent right breast uptake otherwise no right axillary lymphadenopathy or distant mets. Right clavicular head uptake, indeterminate Plan: Discussed with patient regarding her labs white blood count 9.1 hemoglobin 12.9 hematocrit 40.1 platelets 163,000 CMP within normal limits CA 15.3 is 24.7 Clinically, patient doing well with no new signs suggestive of recurrence of disease, tolerating radiation therapy to her right chest wall and right lower neck well. And follow-up lab work-up is within normal range at this point we will proceed with next cycle of Ibrance while continue on daily Arimidex and she will return to clinic in 1 month with CBC CMP Signed By: Korin Aguilar M.D. <<Signature on File>>
[2021-02-04 07:58] LABS: CA 27.29 44 U/mL (<38)
== END 2021-02-08 23:59 | disposition home or self-care (01) ==
LOC: ONCMED 05:53
PROVIDERS: Internal Medicine Hematology & Oncology; Absent Provider Radiology Radiation Oncology; PCP Nurse Practitioner Family; Visit Provider Radiology Radiation Oncology
DX: Z51.0 Encounter for antineoplastic radiation therapy (principal); C50.211 Malignant neoplasm of upper-inner quadrant of right female breast; Z17.0 Estrogen receptor positive status [ER+]; Z79.899 Other long term (current) drug therapy
CPT/HCPCS: 36415; 77336; 77387; 77412; 80053; 85025; 86300; 99215

== ENCOUNTER 2021-03-09 05:30 | Outpatient (RCR) | payer MEDICARE, SELFPAY ==
--- NOTE | 2021-02-09 11:15 | ONCRAD TMN_ITS ---
Radiation Oncology Treatment Management Note Patient Name: Ashlee Gray Date of : 1940 Date of Service: 02/09/2021 Attending Physician: Mk Oseguera M.D. Ashlee Gray is a 70 year-old white female diagnosed with metastatic breast cancer in September 2019 (solitary sacral lesion). The breast cancer profile was positive for estrogen receptor and progesterone receptor, but negative for HER???2. Anastrozole and Ibrance were prescribed with a complete response to treatment identified upon repeat PET/CT in September 2020. A right total mastectomy with axillary lymph node dissection was performed by Robe Milan M.D. on 10/21/2020. A pathological stage IV ([id number]) grade 3 carcinoma with osteoid and sarcomatoid differentiation was diagnosed of the upper-inner quadrant of the right breast. Her postoperative convalescence was complicated by a persistent seroma requiring incision and drainage. She has received 48 Gy of a prescribed 50 Gy to the right chest wall delivered with a 3D conformal radiotherapy plan utilizing opposed tangential portal rubio matched to supraclavicular fossa and PAB ports. Upon review of systems, she denied any breast complaints to radiotherapy. On physical examination, the patient weighed 193 lbs. Her temperature was 97.4 ???F with a blood pressure of 147/80 mmHg. Her pulse was 80 bpm and her respiratory rate was 18. There was erythema within the treatment rubio of the right chest wall and axilla (grade I). Continue right chest wall and regional lymph node irradiation as prescribed. Signed by: Dr. Mk Oseguera 02/09/2021 11:14:24 AM
[2021-03-09 12:39] LABS: Basophils # 0.1 10^3/uL (0.0-0.1); Basophils % 3.1 %; Eosinophils % 1.2 %; Hematocrit 37.8 % (37.0-47.0); Hemoglobin 12.4 g/dL (11.5-15.3); Lymphocytes # 0.7 10^3/uL (0.8-4.8); Lymphocytes % 28.5 %; Mean Corpuscular HGB Conc 32.8 g/dL (30.0-36.0); Mean Corpuscular Hemoglobin 33.3 pg (28.0-34.0); Mean Corpuscular Volume 101.6 fL (81-99); Monocytes # 0.3 10^3/uL (0.2-0.9); Monocytes % 10.8 %; Neutrophils # 1.46 10^3/uL (1.8-7.7); Nucleated Red Blood Cells % 0 %; Platelet Count 213 10^3/cmm (130-400); Positive M 1; Red Blood Count 3.72 10^6/uL (4.1-5.3); Red Cell Distribution Width 15.9 % (12.1-15.1); White Blood Count 2.6 10^3/uL (4.0-10.0)
[2021-03-09 13:08] LABS: Slide Review Slide Review Perform
[2021-03-09 13:14] LABS: Alanine Aminotransferase 12 U/L (0-33); Albumin Level 3.8 g/dL (3.5-5.2); Alkaline Phosphatase 81 IU/L (35-105); Anion Gap 13.3 (5-19); Aspartate Amino Transferase 20 U/L (0-32); Blood Urea Nitrogen 14 mg/dL (8-23); CA 15-3 27.6 U/mL (0-25); Calcium 9.5 mg/dL (8.5-10.5); Carbon Dioxide 26 mmol/L (22-29); Chloride 101 mmol/L (98-107); Glucose 147 mg/dL (65-115); Osmolality Calculated 285 mOsm/kg (285-295); Potassium 4.3 mmol/L (3.5-5.1); Sodium 136 mmol/L (136-145); Total Bilirubin 0.6 mg/dL (0.15-1.2); Total Protein 6.8 g/dL (6.6-8.7)
--- NOTE | 2021-03-09 17:08 | ONC FU_ITS ---
Dr. Aguilar follow up note Patient: Ashlee Buenrostro Unit #: [id number]: 1940 Dicatated By: Korin Aguilar M.D.Date of Visit:Mar 09, 2021 Onc Med Follow-up/Prog Note History of Present Illness: Ms. Buenrostro is a 81-year-old female with a history of stage IV breast cancer. She reports in July 2019, she underwent mammogram which showed right breast mass followed by ultrasound right breast which showed a 3.4 x 2 x 2.4 cm hypoechoic mass with spiculated margin at 1 o'clock position. She underwent right breast biopsy on August 16, 2019 which showed predominantly blood with atypical cells. On September 20, 2019, she underwent ultrasound-guided right breast biopsy which confirmed invasive ductal carcinoma, ER positive more than 90%, MO +40% and HER-2/joao negative, Ki-67 was 15% Ms Buenrostro underwent PET/CT scan on October 02, 2019 which showed 3.6 x 2.7 cm mass in the right breast with SUV of 7. There was no pathologically enlarged or hypermetabolic lymph nodes seen. In the bones, there is focal increased uptake in left sacral gladis at the level of S1 with SUV of 10. But no associated lesion by CT scan. And there is no other hypermetabolic lesion worrisome for malignancy. MRI scan of sacrum was recommended on October 18, 2019 showed within the left sacral ala S1 level basis stir hyperintense, T1 hypointense enhancing lesion measuring 3 x 2.3 x 2.7 cm. It did not appear to have extension into sacral neural foramen. No pathological fracture. No additional lesions are identified. As per medical record, she was planned for breast surgery but it was canceled due to MRI scan findings and biopsy was ordered and on November 18, 2019. She underwent sacral lesion biopsy which confirmed metastatic carcinoma favor breast origin, ER/MO positive, HER-2/joao negative Ki-67 was 20%. On January 01, 2020 she was started on Ibrance/anastrozole and monthly Zometa. On April 13, [address] scan of abdomen pelvis which showed diverticulosis coli without CT scan evidence of diverticulitis. Stable small right adrenal gland nodule, stable 5 mm left lower lobe lung nodule, benign. Left sacral bone metastasis. And underwent bone scan on May 14, 2020 shows abnormal uptake in left sacral gladis near SI joint unchanged since prior. On the right at L4-L5 increased uptake associated noted unchanged since the prior could be degenerative. Ms Buenrostro had received all this evaluation and treatment in [place]. She relocated to [place], [place] and was evaluated by Dr Aguilar on September 15, 2020. She had follow-up PET/CT imaging on September 29, 2020 at [facility] in [facility] which reported a central nodular density in the right breast at the 12 o'clock position just cephalad to the nipple measuring 3.9 x 1.8 cm demonstrating a maximum SUV of 4.39. There was no concerning lymphadenopathy observed in the right axilla or elsewhere in the thoracic structures. No pulmonary nodules or other focus of increased metabolic activity was identified. The liver had a maximum SUV of 6.61. The right adrenal is mildly thickened without focal increase of metabolic activity. Unremarkable left adrenal. Unremarkable liver/vein, pancreas, kidneys and uterus. No lymphadenopathy or focal increase of metabolic activity in solid organs or other soft tissue structures. There was a tiny sclerotic focus present in the right acetabular roof without association increase of metabolic activity. Degenerative changes are present throughout the spine. A small lytic focus is present in the dorsal aspect of the right clavicular head associated with increased metabolic activity with maximum SUV of 7.88. There were no other focal increase in metabolic activity in the bone or muscle. Inflammatory changes are present in the right shoulder. Previous posterior cervical fusion surgery noted. The findings in the right clavicle head were indeterminate but could represent me metastatic involvement. 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 She was referred to surgery for right breast lumpectomy for the persistent mass in her right breast a 3.9 x 1.8 cm with an SUV of 4.39. The plan was to refer her for radiation therapy or simple mastectomy depending on results of the lumpectomy. She was also referred to radiation oncology for evaluation for SBRT to the right clavicular head if metastatic disease was confirmed. Her Ibrance was held but she continued with Arimidex at that time. Mrs. Buenrostro was seen by Dr. Milan on October 06, 2020. He had recommended right simple mastectomy. She was then seen by Dr. Mk Oseguera in radiation oncology on October 12, 2020 for possible radiotherapy for management of her metastatic breast cancer. Radiation was held for surgery consideration. She underwent simple right mastectomy with axillary lymph node dissection per Dr Milan on 10/21/2020. 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 1 lymph node did show extranodal extension. Per Dr. Aguilar's note pT2, pN1a. Her breast cancer prognostic profile/report from October 29, 2020 reported Ki-67 at 2% ER 99% MO 70% HER-2/joao IHC qualitative is 0+. She was seen on November 05, 2020 at [facility] for fever and generalized body aches. Her DESTIN drain has been removed on 11/03/2020. She was placed on vancomycin and clindamycin for 24+ hours and responded well. She was discharged on cefadroxil and doxycycline. She is also discharged on prednisone 20 mg twice daily for 5 days for an acute gout flare. She returned to [facility] on November 22, 2020 with swelling at the mastectomy site. She also had recurrence of low-grade temperature. She did have aspiration of the postmastectomy seroma of 600 mL. This was performed by Dr. Murillo on November 22, 2020. She was discharged on Augmentin twice daily for 7 days. She was then seen on 11/27/[address] Oseguera for consideration of radiotherapy for management of her metastatic breast cancer post simple right mastectomy. He recommended a 5 course of radiation therapy to the right chest wall and regional lymph node area. She was then seen for follow-up on December 23, 2020. She had resumed her Ibrance and Arimidex. She was tolerating it well. She had began radiation therapy to the right chest wall at that time as well. Her family history significant for breast cancer in her grandmother as well as brother She has history of COPD/asthma hypertension tolerating Ibrance/Arimidex well otherwise. Came for follow-up, denies any specific complaints, no fever chills, no nausea or vomiting, no diarrhea constipation, no melena hematochezia, no hemoptysis hematemesis, no hot flashes, tolerating Ibrance/Arimidex well otherwise, as per patient she started her next cycle with Ibrance about week ago, along with daily Arimidex, tolerating well Medications: Acetaminophen 2 Tabminder (of 500 mg) Tablet Oral q 4 hours PRN, Allopurinol 1 Tablet (of 100 mg) Tablet Oral daily, Anastrozole 1 Tablet (of 1 mg) Tablet Oral daily, Metoprolol Succinate ER 1 Tablet (of 50 mg) Tablet SR 24 HR Oral daily, Ondansetron HCl 1 Tablet (of 4 mg) Oral q 8 hours PRN Allergies: Codeine Sulfate, Morphine Sulfate, and Vancomycin HCl. Review of Systems: Review of Systems is not available for this patient. Vital Signs: Performed on Mar 09, 2021 13:09 Height - 60.00 in Weight - 194.6 lbs (HIGH) BSA - 1.85 sq.m BMI - 38.01 (HIGH) Temperature - 98.6 F Pulse - 99 /min Respiration - 18 /min BP - 150/82 mm(hg) (HIGH) O2 Sat - 98 % Pain - 6 Fatigue - 8 Performance Status: 0 - Fully active, able to carry on all predisease activities without restrictions. (ECOG) Physical Examination: Respiratory - Lungs are clear to auscultation, Cardiovascular - Regular rate and rhythm of heart, Gastrointestinal - Soft, bowel sounds present, Extremities - No visible edema. Lab/Imaging: Test performed on Jan 06, 2021 13:13 Sodium 141 mmol/L Potassium 3.9 mmol/L Chloride 104 mmol/L CO2 29 mmol/L Anion Gap 11.9 BUN 11 mg/dL Creatinine 0.9 mg/dL Cr Clearance (Est) 69.54 mL/min Glucose 125 mg/dL Osmolality - Calculated 293 mOsm/kg Calcium 9.4 mg/dL Protein, Total 7.0 g/dL Albumin 4.3 g/dL Globulin 2.7 g/dL Bilirubin, Total 0.3 mg/dL ALT (SGPT) 9 U/L AST (SGOT) 16 U/L Alkaline Phosphatase 76 IU/L WBC 4.4 10 3/uL RBC 3.90 10 6/uL HGB 12.1 g/dL HCT 38.3 % MCV 98.2 fL MCH 31.0 pg MCHC 31.6 g/dL RDW 17.7 % Platelet Count 217 10 3/cmm MPV 10.2 fL Neutrophils 1.67 10 3/uL Lymphocytes 1.7 10 3/uL Monocytes 0.7 10 3/uL Eosinophils 0.1 10 3/uL Basophils 0.1 10 3/uL Neutrophil % 38.0 % Lymphocyte % 39.6 % Monocyte % 16.9 % Eosinophil % 2.3 % Basophils % 2.7 % NRBC % 0 % Test performed on Oct 01, 2020 10:27 CA 15-3 39.7 U/mL CA 27.29 64 U/mL Impression: Status post right mastectomy with right axillary lymph node dissection done on October 21, 2019 as PET scan shows no more evidence of distant mets only right breast mass uptake. Final pathology showed 2.7 cm invasive carcinoma, metaplastic, with osteoid and sarcomatoid differentiation, grade 3, clear margins, pT2 2 out of 9 lymph node positive for metastatic disease 1 with extranodal extension pN1a, ER 99% positive MO 70% positive HER-2/joao negative Metastatic breast cancer with biopsy-proven single lesion in left sacral ala Status post radiation therapy initially diagnosed on September 20, 2019, ER more than 90% positive MO 40% positive HER-2/joao negative Ki-67 15%. Clinical stage T4, skin involvement, NX M1, stage IV Started on Ibrance/anastrozole/Zometa on January 01, 2020 COPD/asthma Obesity Hypertension Follow-up CT PET scan done on September 29, 2020 showed persistent right breast uptake otherwise no right axillary lymphadenopathy or distant mets. Right clavicular head uptake, indeterminate Plan: Discussed with patient regarding her labs white blood count 2.6 compared to 9.1 on February 03, 2021, hemoglobin 12.4 hematocrit 37.8 platelets 213,000 ANC 1460 CMP within normal limit except creatinine 1.2, CA 15.3 is 27.6 Clinically, patient is doing well with no new signs symptoms just of recurrence of disease or disease progression, follow-up CBC shows progressive leukopenia/neutropenia and as per patient she just started taking her this cycle of Ibrance about a week ago, considering her age, comorbid condition and now progressive leukopenia/neutropenia due to Ibrance, will hold her Ibrance while she will continue with daily Arimidex and return to clinic in 2 weeks and check her CBC if there is recovery of leukopenia/neutropenia, will restart her on Ibrance at this time will do 2 weeks on 1 week off while continue with daily Arimidex Signed By: Korin Aguilar M.D. <<Signature on File>>
[2021-03-10 12:58] LABS: CA 27.29 32 U/mL (<38)
== END 2021-03-10 23:59 | disposition home or self-care (01) ==
LOC: ONCMED 05:30
PROVIDERS: PCP Nurse Practitioner Family; Visit Provider Internal Medicine Hematology & Oncology
DX: Z51.0 Encounter for antineoplastic radiation therapy (principal); C50.811 Malignant neoplasm of overlapping sites of right female breast; Z17.0 Estrogen receptor positive status [ER+]; J44.9 Chronic obstructive pulmonary disease, unspecified; J45.909 Unspecified asthma, uncomplicated; E66.9 Obesity, unspecified; Z68.38 Body mass index [BMI] 38.0-38.9, adult; I10 Essential (primary) hypertension; Z79.811 Long term (current) use of aromatase inhibitors; Z79.899 Other long term (current) drug therapy; Z90.11 Acquired absence of right breast and nipple
CPT/HCPCS: 36415; 77014; 77336; 77387; 77412; 77427; 80053; 85025; 86300; 99214

== ENCOUNTER 2021-03-12 07:11 | Outpatient (RCR) | payer MEDICARE, SELFPAY ==
--- NOTE | 2021-03-12 10:55 | ONCRAD EPV_ITS ---
Radiation Oncology Follow-Up Note Patient Name: Ashlee Gray Date of : 1940 Date of Service: 03/12/2021 Attending Physician: Mk Oseguera M.D. Ashlee Gray returned to my office this morning for a routinely scheduled follow-up appointment. 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 She was diagnosed with metastatic breast cancer in September 2019 (solitary sacral lesion). The breast cancer profile was positive for estrogen receptor and progesterone receptor, but negative for HER???2. Anastrozole and Ibrance were prescribed with a complete response to treatment identified upon repeat PET/CT in September 2020. A right total mastectomy with axillary lymph node dissection was performed by Robe Milan M.D. on 10/21/2020. Daily radiotherapy was administered between the dates of December 28, 2020 through February 10, 2021. A prescribe dose of 50 Gy was delivered in 25 fractions encompassing 45 elapsed days. On review of systems, she denied skin complaints of the right chest wall. On physical examination, she weighed 195 lbs and her temperature was 98.3???F. Her blood pressure was 140/67 mmHg. The pulse was 102 bpm and her respiratory rate was 20 breaths per minute. The right chest wall demonstrated minimal hyperpigmentation without any areas of ulceration. In summary, the patient returned for a routine post radiotherapy follow-up. She was prescribed Ibrance and anastrozole and will continue follow-up with her medical oncologist. Signed by: Dr. Mk Oseguera 03/12/2021 10:53:18 AM
== END 2021-03-14 10:00 | disposition home or self-care (01) ==
LOC: ONCMED 07:11
PROVIDERS: PCP Nurse Practitioner Family; Visit Provider Radiology Radiation Oncology
DX: Z08 Encounter for follow-up examination after completed treatment for malignant neoplasm (principal); Z85.3 Personal history of malignant neoplasm of breast; L81.9 Disorder of pigmentation, unspecified; Z79.811 Long term (current) use of aromatase inhibitors; Z79.899 Other long term (current) drug therapy; Z92.3 Personal history of irradiation
CPT/HCPCS: 99024

== ENCOUNTER 2021-03-14 10:11 | Emergency (ER) | payer MEDICARE, SELFPAY ==
[2021-03-14 10:12] VITALS: BP 143/78; PULSE 86; RESP 16; TEMP 37; O2SAT 95; BMI 37.8
--- NOTE | 2021-03-14 10:51 | CTR_ITS ---
PROCEDURE INFORMATION: Exam: CT Lumbar Spine Without Contrast Exam date and time: 03/14/2021 10:51 AM Age: 81 years old Clinical indication: Injury or trauma; Fall; Blunt trauma (contusions or hematomas); Prior surgery; Additional info: Fall; Back pain TECHNIQUE: Imaging protocol: Computed tomography images of the lumbar spine without contrast. Radiation optimization: All CT scans at this facility use at least one of these dose optimization techniques: automated exposure control; mA and/or kV adjustment per patient size (includes targeted exams where dose is matched to clinical indication); or iterative reconstruction. COMPARISON: CR Lumbar Spine 2-3 views* [id number] 05/02/2016 3:34 PM RADIATION DOSE METRICS: Total DLP (mGy-cm): 1778.58 FINDINGS: Vertebrae: There is compression fracture with anterior wedging of the L1 vertebral body. This appears to be old. There is about 6 mm of retropulsion of old fracture fragment along the inferior endplate with moderate spinal stenosis. No acute fractures are seen in the lumbar spine. Chronic degenerative changes are present throughout the lumbar spine with disc space narrowing, sclerosis osteophyte formation. There is sclerosis of the left sacral ala. This could represent treated metastatic breast cancer. Discs/Spinal canal/Neural foramina: There is disc protrusion, osteophyte formation and facet joint hypertrophy causing moderate spinal stenosis at L1-L2, L2-L3, L3-L4 and L4-L5. No discrete disc herniations are seen. Soft tissues: Unremarkable. CT/CT lumbar spine wo con* [id number] IMPRESSION: 1. No acute abnormalities are seen. 2. Old compression fracture of L1. 3. Prominent chronic degenerative disease with multilevel moderate spinal stenosis. 4. There is sclerosis of the left sacral ala. This could be due to old injury or possibly treated breast cancer. Radiation Dose CTDIVOL = (mGy): DLP = 1778.58 (mGy-cm)
--- NOTE | 2021-03-14 10:51 | CTR_ITS ---
PROCEDURE INFORMATION: Exam: CT Thoracic Spine Without Contrast Exam date and time: 03/14/2021 10:51 AM Age: 81 years old Clinical indication: Injury or trauma; Fall; Blunt trauma (contusions or hematomas); Additional info: Fall; Back pain TECHNIQUE: Imaging protocol: Computed tomography images of the thoracic spine without contrast. Radiation optimization: All CT scans at this facility use at least one of these dose optimization techniques: automated exposure control; mA and/or kV adjustment per patient size (includes targeted exams where dose is matched to clinical indication); or iterative reconstruction. COMPARISON: CT cervical spin wo con* [id number] 03/14/2021 11:20 AM RADIATION DOSE METRICS: Total DLP (mGy-cm): 2230.2 FINDINGS: Vertebrae: No acute fracture. Chronic degenerative changes are present throughout the thoracic spine with scattered disc space narrowing sclerosis and osteophytes. There is mild thoracic scoliosis. Discs/Spinal canal/Neural foramina: No significant disc protrusion. No severe spinal canal stenosis. No significant neural foraminal narrowing. Soft tissues: Unremarkable. CT/CT thoracic spin wo con* [id number] IMPRESSION: Chronic degenerative disease. No acute abnormality. Radiation Dose CTDIVOL = (mGy): DLP = 2230.2 (mGy-cm)
--- NOTE | 2021-03-14 10:51 | CTR_ITS ---
PROCEDURE INFORMATION: Exam: CT Head Without Contrast Exam date and time: 03/14/2021 10:51 AM Age: 81 years old Clinical indication: Injury or trauma; Fall; Blunt trauma (contusions or hematomas); Additional info: Fall; R scalp contusion TECHNIQUE: Imaging protocol: Computed tomography of the head without contrast. Radiation optimization: All CT scans at this facility use at least one of these dose optimization techniques: automated exposure control; mA and/or kV adjustment per patient size (includes targeted exams where dose is matched to clinical indication); or iterative reconstruction. COMPARISON: No relevant prior studies available. RADIATION DOSE METRICS: Total DLP (mGy-cm): 862.24 FINDINGS: Brain: There is mild generalized chronic atrophy. No intracranial hemorrhage, edema or other acute abnormalities are seen in the brain. There is no mass effect or midline shift. Cerebral ventricles: There is mild ventricular prominence due to chronic atrophy. Paranasal sinuses: Visualized sinuses are unremarkable. No fluid levels. Mastoid air cells: Visualized mastoid air cells are well aerated. Bones/joints: Unremarkable. No acute fracture. Soft tissues: Unremarkable. CT/CT head wo con* [id number] IMPRESSION: No acute intracranial abnormality. Radiation Dose CTDIVOL = (mGy): DLP = 862.24 (mGy-cm)
--- NOTE | 2021-03-14 10:51 | XRR_ITS ---
PROCEDURE INFORMATION: Exam: XR Pelvis Exam date and time: 03/14/2021 10:51 AM Age: 81 years old Clinical indication: Injury or trauma; Fall; Blunt trauma (contusions or hematomas); Bilateral; Hip; Additional info: Fall; Back pain TECHNIQUE: Imaging protocol: XR pelvis. Views: 1 or 2 view. COMPARISON: CR Sacroiliac Joints [id number] 05/02/2016 3:39 PM FINDINGS: Bones/joints: Prominent chronic degenerative changes are present in the lumbar spine with joint space narrowing, sclerosis and osteophytes. There are sclerotic changes of the left sacral ala. This could be due to old trauma but can also be seen with treated metastatic breast cancer. No fracture, dislocation or other acute bone or joint abnormalities are seen. Soft tissues: See Bones/joints finding. XR/XR pelvis 1-2V* [id number] IMPRESSION: 1. No acute bony abnormality. 2. 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 3. Sclerosis of the left sacral ala. This could be due to trauma but can also be seen with treated metastatic breast cancer.
--- NOTE | 2021-03-14 10:51 | CTR_ITS ---
PROCEDURE INFORMATION: Exam: CT Cervical Spine Without Contrast Exam date and time: 03/14/2021 10:51 AM Age: 81 years old Clinical indication: Neck pain; Prior surgery; Additional info: Fall; Back pain/neck pain TECHNIQUE: Imaging protocol: Computed tomography images of the cervical spine without contrast. Radiation optimization: All CT scans at this facility use at least one of these dose optimization techniques: automated exposure control; mA and/or kV adjustment per patient size (includes targeted exams where dose is matched to clinical indication); or iterative reconstruction. COMPARISON: CT head wo con* [id number] 03/14/2021 11:17 AM RADIATION DOSE METRICS: Total DLP (mGy-cm): 850.76 FINDINGS: Bones/joints: The patient has undergone C3-C6 laminectomy and posterior fusion with pedicle screws and rods. Position and alignment appears satisfactory. No fracture or other acute bony abnormalities are seen. Discs/Spinal canal/Neural foramina: Chronic degenerative changes are present with disc space narrowing sclerosis and osteophytes. No significant disc protrusion. No severe spinal canal stenosis. No significant neural foraminal narrowing. Lungs: Lung apices are normal. Soft tissues: Unremarkable. CT/CT cervical spin wo con* [id number] IMPRESSION: No acute findings. Radiation Dose CTDIVOL = (mGy): DLP = 850.76 (mGy-cm)
--- NOTE | 2021-03-14 10:51 | XRR_ITS ---
PROCEDURE INFORMATION: Exam: XR Chest Exam date and time: 03/14/2021 10:51 AM Age: 81 years old Clinical indication: Injury or trauma; Fall; Blunt trauma (contusions or hematomas); Additional info: Fall; Back pain TECHNIQUE: Imaging protocol: XR of the chest. Views: 1 view. COMPARISON: CT chest w con* [id number] 11/21/2020 8:43 PM FINDINGS: Lungs: Unremarkable. No consolidation. Pleural spaces: Unremarkable. No pleural effusion. No pneumothorax. Heart/Mediastinum: Unremarkable. No cardiomegaly. Bones/joints: The patient has undergone cervical surgical fusion with pedicle screws and rods. XR/XR chest 1V portable [id number] IMPRESSION: No acute cardiopulmonary abnormality.
[2021-03-14 11:15] LABS: Basophils # 0.1 10^3/uL (0.0-0.1); Basophils % 2.5 %; Hematocrit 34.8 % (37.0-47.0); Hemoglobin 11.2 g/dL (11.5-15.3); Lymphocytes # 0.5 10^3/uL (0.8-4.8); Lymphocytes % 23.1 %; Mean Corpuscular HGB Conc 32.2 g/dL (30.0-36.0); Mean Corpuscular Hemoglobin 33.1 pg (28.0-34.0); Mean Platelet Volume 9.9 fL (7.4-10.4); Monocytes # 0.3 10^3/uL (0.2-0.9); Monocytes % 12.6 %; Neutrophils # 1.19 10^3/uL (1.8-7.7); Neutrophils % 59.8 %; Nucleated Red Blood Cells % 0 %; Platelet Count 171 10^3/cmm (130-400); Red Blood Count 3.38 10^6/uL (4.1-5.3); Red Cell Distribution Width 15.3 % (12.1-15.1)
[2021-03-14 11:20] VITALS: RESP 18
[2021-03-14] MEDS: HYDROmorphone 1 mg/mL INJ 1 mL 0.5 MG IVP (11:20)
[2021-03-14] MEDS: ondansetron 2 mg/ML SDV 2 mL 4 MG IVP (11:22)
[2021-03-14] MEDS: bacitracin ointment Pkt 1 EACH TOPICAL (11:23)
--- NOTE | 2021-03-14 11:29 | W.ED.FALL ---
HPI - Fall General: Chief Complaint: Fall Stated Complaint: BACK PAIN S/P FALL Time Seen by Provider: 03/14/21 10:13 Source: patient and family Mode of arrival: EMS Limitations: no limitations History of Present Illness: HPI Narrative: Patient reports that she slipped on some beads on the floor at home at 0900. She states she fell landing on her right side. She complains of skin tears to her mid right forearm. She also complains of striking her right parietal scalp on the floor. She denies any loss consciousness. She complains of pain to the right parietal scalp but no obvious deformity. Complains of mild pain to the neck. She has moderate pain in the lower thoracic and upper lumbar spines. She denies any pain in her pelvis. She does complain of some mild paresthesias in her feet bilaterally. She denies any other neurological changes. She denies any pain to the joints. She denies being on any blood thinners. complaint: fall Fall from: standing Place fall occurred: home Loss of consciousness: None Prolonged down time: no Symptoms prior to fall: none Context: tripped/slipped and other (Slipped on beads on the floor) Location of injury: head, neck, back and other (Right forearm) Severity: moderate Quality: sharp Associated symptoms-after fall: Reports headache(s), neck pain and other (Tingling in both feet); Denies abdominal pain, chest pain, confusion, hematuria, lightheadedness or short of breath Review of Systems Const: Denies: fever(s) or chills Eyes: Denies: change in vision or blurry vision ENMT: Denies: throat pain Card: Denies: chest pain or lightheadedness Resp: Denies: dyspnea or wheezing GI: Denies: abdominal pain, nausea or vomiting : Denies: flank pain or hematuria Musc: Reports: neck pain and back pain Skin/Breast: Reports: other (Superficial skin tears to the mid right forearm); Denies: rash or pruritus Neuro: Reports: headache(s); Denies: confusion Psych: Denies: anxiety Ronen/Lymph: Denies: enlarged lymph nodes PFS ED PFSH: Medical History Acute breast pain COPD (chronic obstructive pulmonary disease) History of right breast cancer Hypertension Pneumonia Sepsis Surgical site infection Surgical History H/O neck surgery History of appendectomy History of arthroscopic knee surgery History of breast biopsy History of carpal tunnel release History of hernia repair History of laparoscopic cholecystectomy History of tubal ligation S/P right mastectomy (10/21/20) Family History Denies family history of Anesthesia complication Bleeding disorder Social History Smoking and tobacco status: never smoked Alcohol intake: never Adopted: No Caregiver/support person: Yes Lives independently: Yes Physical Exam Const: COMMON NORMALS: no acute distress, patient oriented x3, no limitations, alert and well nourished (Obese) GENERAL APPEARANCE: cooperative HENMT: COMMON NORMALS: normocephalic (No step-off.) and atraumatic (Mild pain to the right parietal scalp. No deformity) HEAD & SCALP: normocephalic (No step-off.) and atraumatic (Mild pain to the right parietal scalp. No deformity) FACE & SINUS: normal facial exam MOUTH: Normal oral and palatal mucosa present THROAT: posterior oropharynx normal Eye: COMMON NORMALS: Equal, round and reactive pupils present and EOMs intact bilaterally PUPIL: Yes Equal, round and reactive pupils present Neck/C-Spine: COMMON NORMALS: full ROM, no lymphadenopathy, supple, no meningeal signs and no JVD GENERAL: Yes normal visual inspection Lymph: LYMPHATIC: no lymphadenopathy noted Chest: COMMONS NORMALS: normal inspection of the chest and normal palpation of entire chest wall CHEST: No Ecchymosis present and No rash Resp: COMMON NORMALS: normal respiratory effort, No retractions, No use of accessory muscles and clear to auscultation bilaterally EFFORT & INSPECTION: No respiratory distress AUSCULTATION: clear to auscultation bilaterally Cardio: COMMON NORMALS: no JVD, regular rate, regular rhythm and Peripheral pulses 2+ throughout JUGULAR VENOUS DISTENTION: no JVD RATE: regular rate RHYTHM: regular rhythm PERIPHERAL PULSES: Peripheral pulses 2+ throughout GI: COMMON NORMALS: Normal to inspection, nondistended, normoactive bowel sounds present and non-tender : COMMON NORMALS: Yes no CVA tenderness BLADDER/KIDNEY EXAM: Yes no CVA tenderness Back/Pelvis: COMMON NORMALS: no CVA tenderness GENERAL BACK: Yes tenderness (Moderate pain to the paraspinous muscles of the lower t/upper L spines) THORACIC SPINE/UPPER BACK: Yes thoracic spinal tenderness (No step-off.) PELVIS: Yes buttocks normal (Pelvis nontender. Hips nontender. Normal range of motion of all LE's) Extremity: COMMON NORMALS: normal to inspection, full ROM and capillary refill normal Neuro: COMMON NORMALS: patient oriented x3, CN's II-XII intact bilaterally, moves all extremities, no focal motor deficits, no sensory deficits noted (No sensory deficits noted.) and deep tendon reflexes 2+ bilaterally SENSORIUM/ORIENTATION: Yes alert MENINGEAL SIGNS: Yes no meningeal signs Psych: COMMON NORMALS: mental status grossly normal and Normal thought process present THOUGHT PROCESS: Normal thought process present Skin: COMMON NORMALS: no rashes or lesions noted and no wounds GENERAL SKIN EXAM: no rashes or lesions noted Course Vital Signs: Vital signs: Vital Signs Temperature 98.6 F 03/14/21 10:12 Pulse Rate 86 03/14/21 10:12 Respiratory Rate 18 03/14/21 11:20 Blood Pressure 143/78 03/14/21 10:12 Pulse Oximetry 95 03/14/21 10:12 MDM - Fall Lab Data: Attestation: I reviewed the patient's lab results. Labs: Lab Results 03/14/21 03/14/21 Range/Units 11:08 11:08 WBC 2.0 L (4.0-10.0) 10^3/ uL RBC 3.38 L (4.1-5.3) 10^6/u L Hgb 11.2 L (11.5-15.3) g/dL Hct 34.8 L (37.0-47.0) % MCV 103.0 H (81-99) fL MCH 33.1 (28.0-34.0) pg MCHC 32.2 (30.0-36.0) g/dL RDW 15.3 H (12.1-15.1) % Plt Count 171 (130-400) 10^3/c mm MPV 9.9 (7.4-10.4) fL Neut % (Auto) 59.8 % Lymph % (Auto) 23.1 % Avery % (Auto) 12.6 % Eos % (Auto) 1.0 % Baso % (Auto) 2.5 % Neut # (Auto) 1.19 L (1.8-7.7) 10^3/u L Lymph # (Auto) 0.5 L (0.8-4.8) 10^3/u L Avery # (Auto) 0.3 (0.2-0.9) 10^3/u L Eos # (Auto) 0.0 (0.0-0.8) 10^3/u L Baso # (Auto) 0.1 (0.0-0.1) 10^3/u L Nucleated RBC % (a uto) 0 % Nucleated RBCs # 0.0 /100WBC Sodium 141 (136-145) mmol/L Potassium 4.5 (3.5-5.1) mmol/L Chloride 105 (98-107) mmol/L Carbon Dioxide 28 (22-29) mmol/L Anion Gap 12.5 (5-19) BUN 15 (8-23) mg/dL Creatinine 1.2 H (0.5-0.9) mg/dL GFR Calculation Not Reportable Glucose 114 (65-115) mg/dL Calculated Osmolal ity 294 (285-295) mOsm/k g Calcium 8.8 (8.5-10.5) mg/dL Imaging Data^: Other CT: Radiologist's impression: Patient: Ashlee Gray #: [id number]: 2Acct#:[id number]/Sex: 81 / FADM Date: 03/14/21Loc: ERRoom/Bed:Attending Dr: Ordering Provider/Ordering MD: Hal Hobson MD Date of Service: 03/14/21 Procedure(s): CT thoracic spin wo con* [id number] Accession Number(s): [id number] Report Number: [id number] PROCEDURE INFORMATION: Exam: CT Thoracic Spine Without Contrast Exam date and time: 03/14/2021 10:51 AM Age: 81 years old Clinical indication: Injury or trauma; Fall; Blunt trauma (contusions or hematomas); Additional info: Fall; Back pain TECHNIQUE: Imaging protocol: Computed tomography images of the thoracic spine without contrast. Radiation optimization: All CT scans at this facility use at least one of these dose optimization techniques: automated exposure control; mA and/or kV adjustment per patient size (includes targeted exams where dose is matched to clinical indication); or iterative reconstruction. COMPARISON: CT cervical spin wo con* [id number] 03/14/2021 11:20 AM RADIATION DOSE METRICS: Total DLP (mGy-cm): 2230.2 FINDINGS: Vertebrae: No acute fracture. Chronic degenerative changes are present throughout the thoracic spine with scattered disc space narrowing sclerosis and osteophytes. There is mild thoracic scoliosis. Discs/Spinal canal/Neural foramina: No significant disc protrusion. No severe spinal canal stenosis. No significant neural foraminal narrowing. Soft tissues: Unremarkable. CT/CT thoracic spin wo con* [id number] IMPRESSION: Chronic degenerative disease. No acute abnormality. Radiation Dose CTDIVOL = (mGy): DLP = 2230.2 (mGy-cm) Dictated By:Bacilio Chan By:Bacilio Chan Date/Time:03/14/21 1220 Ashlee Gray #: [id number]: 2Acct#:[id number]/Sex: 81 / FADM Date: 03/14/21Loc: ERRoom/Bed:Attending Dr: Ordering Provider/Ordering MD: Hal Hobson MD Date of Service: 03/14/21 Procedure(s): CT lumbar spine wo con* [id number] Accession Number(s): [id number] Report Number: [id number] PROCEDURE INFORMATION: Exam: CT Lumbar Spine Without Contrast Exam date and time: 03/14/2021 10:51 AM Age: 81 years old Clinical indication: Injury or trauma; Fall; Blunt trauma (contusions or hematomas); Prior surgery; Additional info: Fall; Back pain TECHNIQUE: Imaging protocol: Computed tomography images of the lumbar spine without contrast. Radiation optimization: All CT scans at this facility use at least one of these dose optimization techniques: automated exposure control; mA and/or kV adjustment per patient size (includes targeted exams where dose is matched to clinical indication); or iterative reconstruction. COMPARISON: CR Lumbar Spine 2-3 views* [id number] 05/02/2016 3:34 PM RADIATION DOSE METRICS: Total DLP (mGy-cm): 1778.58 FINDINGS: Vertebrae: There is compression fracture with anterior wedging of the L1 vertebral body. This appears to be old. There is about 6 mm of retropulsion of old fracture fragment along the inferior endplate with moderate spinal stenosis. No acute fractures are seen in the lumbar spine. Chronic degenerative changes are present throughout the lumbar spine with disc space narrowing, sclerosis osteophyte formation. There is sclerosis of the left sacral ala. This could represent treated metastatic breast cancer. Discs/Spinal canal/Neural foramina: There is disc protrusion, osteophyte formation and facet joint hypertrophy causing moderate spinal stenosis at L1-L2, L2-L3, L3-L4 and L4-L5. No discrete disc herniations are seen. Soft tissues: Unremarkable. CT/CT lumbar spine wo con* [id number] IMPRESSION: 1. No acute abnormalities are seen. 2. Old compression fracture of L1. 3. Prominent chronic degenerative disease with multilevel moderate spinal stenosis. 4. There is sclerosis of the left sacral ala. This could be due to old injury or possibly treated breast cancer. Radiation Dose CTDIVOL = (mGy): DLP = 1778.58 (mGy-cm) Dictated By:Bacilio Chan By:Bacilio Chan Date/Time:03/14/[address] Head: Radiologist's impression: Patient: Ashlee Gray #: [id number]: 1940cct#:[id number]/Sex: 81 / FADM Date: 03/14/21Loc: ERRoom/Bed:Attending Dr: Ordering Provider/Ordering MD: Hal Hobson MD Date of Service: 03/14/21 Procedure(s): CT head wo con* [id number] Accession Number(s): [id number] Report Number: [id number] PROCEDURE INFORMATION: Exam: CT Head Without Contrast Exam date and time: 03/14/2021 10:51 AM Age: 81 years old Clinical indication: Injury or trauma; Fall; Blunt trauma (contusions or hematomas); Additional info: Fall; R scalp contusion TECHNIQUE: Imaging protocol: Computed tomography of the head without contrast. Radiation optimization: All CT scans at this facility use at least one of these dose optimization techniques: automated exposure control; mA and/or kV adjustment per patient size (includes targeted exams where dose is matched to clinical indication); or iterative reconstruction. COMPARISON: No relevant prior studies available. RADIATION DOSE METRICS: Total DLP (mGy-cm): 862.24 FINDINGS: Brain: There is mild generalized chronic atrophy. No intracranial hemorrhage, edema or other acute abnormalities are seen in the brain. There is no mass effect or midline shift. Cerebral ventricles: There is mild ventricular prominence due to chronic atrophy. Paranasal sinuses: Visualized sinuses are unremarkable. No fluid levels. Mastoid air cells: Visualized mastoid air cells are well aerated. Bones/joints: Unremarkable. No acute fracture. Soft tissues: Unremarkable. CT/CT head wo con* [id number] IMPRESSION: No acute intracranial abnormality. Radiation Dose CTDIVOL = (mGy): DLP = 862.24 (mGy-cm) Dictated By:Bacilio Chan By:Bacilio Chan Date/Time:03/14/21 1202 Other Imaging: Radiologist's impression: Ashlee Gray #: [id number]: 1940cct#:[id number]/Sex: 81 / FADM Date: 03/14/21Loc: ERRoom/Bed:Attending Dr: Ordering Provider/Ordering MD: Hal Hobson MD Date of Service: 03/14/21 Procedure(s): CT cervical spin wo con* [id number] Accession Number(s): [id number] Report Number: [id number] PROCEDURE INFORMATION: Exam: CT Cervical Spine Without Contrast Exam date and time: 03/14/2021 10:51 AM Age: 81 years old Clinical indication: Neck pain; Prior surgery; Additional info: Fall; Back pain/neck pain TECHNIQUE: Imaging protocol: Computed tomography images of the cervical spine without contrast. Radiation optimization: All CT scans at this facility use at least one of these dose optimization techniques: automated exposure control; mA and/or kV adjustment per patient size (includes targeted exams where dose is matched to clinical indication); or iterative reconstruction. COMPARISON: CT head wo con* [id number] 03/14/2021 11:17 AM RADIATION DOSE METRICS: Total DLP (mGy-cm): 850.76 FINDINGS: Bones/joints: The patient has undergone C3-C6 laminectomy and posterior fusion with pedicle screws and rods. Position and alignment appears satisfactory. No fracture or other acute bony abnormalities are seen. Discs/Spinal canal/Neural foramina: Chronic degenerative changes are present with disc space narrowing sclerosis and osteophytes. No significant disc protrusion. No severe spinal canal stenosis. No significant neural foraminal narrowing. Lungs: Lung apices are normal. Soft tissues: Unremarkable. CT/CT cervical spin wo con* [id number] IMPRESSION: No acute findings. Radiation Dose CTDIVOL = (mGy): DLP = 850.76 (mGy-cm) Dictated By:Bacilio Chan By:Bacilio Chan Date/Time:03/14/21 1204 CXR: Radiologist's impression: Ashlee Gray #: [id number]: 1940cct#:[id number]/Sex: 81 / FADM Date: 03/14/21Loc: ERRoom/Bed:Attending Dr: Ordering Provider/Ordering MD: Hal Hobson MD Date of Service: 03/14/21 Procedure(s): XR chest 1V portable [id number] Accession Number(s): [id number] Report Number: [id number] PROCEDURE INFORMATION: Exam: XR Chest Exam date and time: 03/14/2021 10:51 AM Age: 81 years old Clinical indication: Injury or trauma; Fall; Blunt trauma (contusions or hematomas); Additional info: Fall; Back pain TECHNIQUE: Imaging protocol: XR of the chest. Views: 1 view. COMPARISON: CT chest w con* [id number] 11/21/2020 8:43 PM FINDINGS: Lungs: Unremarkable. No consolidation. Pleural spaces: Unremarkable. No pleural effusion. No pneumothorax. Heart/Mediastinum: Unremarkable. No cardiomegaly. Bones/joints: The patient has undergone cervical surgical fusion with pedicle screws and rods. XR/XR chest 1V portable [id number] IMPRESSION: No acute cardiopulmonary abnormality. Dictated By:Bacilio Chan By:Bacilio Chan Date/Time:03/14/21 1217 Other Xray: Radiologist's impression: Ashlee Gray #: [id number]: 2Acct#:[id number]/Sex: 81 / FADM Date: 03/14/21Loc: ERRoom/Bed:Attending Dr: Ordering Provider/Ordering MD: Hal Hobson MD Date of Service: 03/14/21 Procedure(s): XR pelvis 1-2V* [id number] Accession Number(s): [id number] Report Number: [id number] PROCEDURE INFORMATION: Exam: XR Pelvis Exam date and time: 03/14/2021 10:51 AM Age: 81 years old Clinical indication: Injury or trauma; Fall; Blunt trauma (contusions or hematomas); Bilateral; Hip; Additional info: Fall; Back pain TECHNIQUE: Imaging protocol: XR pelvis. Views: 1 or 2 view. COMPARISON: CR Sacroiliac Joints [id number] 05/02/2016 3:39 PM FINDINGS: Bones/joints: Prominent chronic degenerative changes are present in the lumbar spine with joint space narrowing, sclerosis and osteophytes. There are sclerotic changes of the left sacral ala. This could be due to old trauma but can also be seen with treated metastatic breast cancer. No fracture, dislocation or other acute bone or joint abnormalities are seen. Soft tissues: See Bones/joints finding. XR/XR pelvis 1-2V* [id number] IMPRESSION: 1. No acute bony abnormality. 2. 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 3. Sclerosis of the left sacral ala. This could be due to trauma but can also be seen with treated metastatic breast cancer. Dictated By:Bacilio Chan By:Bacilio Chan Date/Time:03/14/21 1218 Discharge Plan Discharge Patient Disposition: Home Clinical Impression: Contusion of scalp, initial encounter, Skin tear of right upper extremity Fall Qualifiers: Encounter type: initial encounter Qualified Code(s): W19.XXXA - Unspecified fall, initial encounter Sprain of thoracic spine Qualifiers: Encounter type: initial encounter Qualified Code(s): S23.9XXA - Sprain of unspecified parts of thorax, initial encounter Lumbar back sprain Qualifiers: Encounter type: initial encounter Qualified Code(s): S33.5XXA - Sprain of ligaments of lumbar spine, initial encounter Acute cervical sprain Qualifiers: Encounter type: initial encounter Qualified Code(s): S13.9XXA - Sprain of joints and ligaments of unspecified parts of neck, initial encounter Condition: Stable Prescriptions: New tramadol 50 mg tablet 50 mg PO Q8H PRN (Reason: pain) Qty: 15 RF: 0 No Action anastrozole 1 mg tablet 1 mg PO DAILY@0700 RF: 0 metoprolol succinate 50 mg tablet extended release 24 hr 50 mg PO DAILY@0700 RF: 0 docusate sodium [Colace] 100 mg capsule 100 mg PO BID PRN (Reason: Constipation) RF: 0 ondansetron HCl [Zofran] 4 mg tablet 4 mg PO Q6H PRN (Reason: nausea and vomiting) Qty: 20 RF: 0 allopurinol 100 mg Tablet 100 mg PO DAILY RF: 0 Tylenol Extra Strength 500 mg Tablet 500 - 1,000 mg PO Q4H PRN (Reason: Pain) RF: 0 Discharge Orders: Discharge ED (Routine); Ordered 03/14/21 Ordered By: Hal Hobson Referrals: Luana Garcia FNP [Primary Care Provider] - Discharge Activity: Increase activity as tolerated Patient Instructions: Minor Head Injury (ED), Low Back Strain (ED), Acute Low Back Pain (ED), Skin Tear (ED), Opioid Safety, Wound Care (General) Activity Restrictions/Additional Instructions: Follow head injury instructions as precaution. Return if any problems. CT scans of your head and neck were normal. You have a old L1 compression fracture in your lumbar spine. No new fracture seen. Follow-up with your family doctor as needed. Coding Level of Care Code ED Registered Vascular Technologist (Rvt) for Mera [facility]wr[facility] Exam Comprehensive
[2021-03-14 11:40] LABS: Anion Gap 12.5 (5-19); Blood Urea Nitrogen 15 mg/dL (8-23); Calcium 8.8 mg/dL (8.5-10.5); Carbon Dioxide 28 mmol/L (22-29); Chloride 105 mmol/L (98-107); Glucose 114 mg/dL (65-115); Osmolality Calculated 294 mOsm/kg (285-295); Potassium 4.5 mmol/L (3.5-5.1); Sodium 141 mmol/L (136-145)
[2021-03-14 13:29] VITALS: BP 157/75; PULSE 75; RESP 18; O2SAT 99
== END 2021-03-14 13:30 | disposition home or self-care (01) ==
PROVIDERS: Emergency Provider Family Medicine; PCP Nurse Practitioner Family
DX: S23.9XXA Sprain of unspecified parts of thorax, initial encounter (principal); S33.5XXA Sprain of ligaments of lumbar spine, initial encounter; S13.9XXA Sprain of joints and ligaments of unspecified parts of neck, initial encounter; S00.03XA Contusion of scalp, initial encounter; S41.111A Laceration without foreign body of right upper arm, initial encounter; J44.9 Chronic obstructive pulmonary disease, unspecified; Z85.3 Personal history of malignant neoplasm of breast; I10 Essential (primary) hypertension; W01.0XXA Fall on same level from slipping, tripping and stumbling without subsequent striking against object, initial encounter
CPT/HCPCS: 70450; 71045; 72125; 72128; 72131; 72170; 80048; 85025; 96374; 96375; 99283; J1170; J2405

== ENCOUNTER 2021-03-25 06:07 | Outpatient (RCR) | payer MEDICARE, SELFPAY ==
[2021-03-25 14:53] LABS: Basophils # 0.1 10^3/uL (0.0-0.1); Basophils % 2.7 %; Eosinophils # 0.1 10^3/uL (0.0-0.8); Eosinophils % 2.4 %; Hematocrit 35.9 % (37.0-47.0); Hemoglobin 11.3 g/dL (11.5-15.3); Lymphocytes # 0.9 10^3/uL (0.8-4.8); Mean Corpuscular HGB Conc 31.5 g/dL (30.0-36.0); Mean Corpuscular Hemoglobin 33.1 pg (28.0-34.0); Mean Corpuscular Volume 105.3 fL (81-99); Mean Platelet Volume 10.5 fL (7.4-10.4); Monocytes # 0.6 10^3/uL (0.2-0.9); Monocytes % 17.9 %; Neutrophils % 48.7 %; Nucleated Red Blood Cells % 0 %; Platelet Count 176 10^3/cmm (130-400); Red Blood Count 3.41 10^6/uL (4.1-5.3); Red Cell Distribution Width 14.9 % (12.1-15.1); White Blood Count 3.3 10^3/uL (4.0-10.0)
[2021-03-25 15:35] LABS: Alanine Aminotransferase 10 U/L (0-33); Albumin Level 3.7 g/dL (3.5-5.2); Alkaline Phosphatase 98 IU/L (35-105); Anion Gap 12.9 (5-19); Aspartate Amino Transferase 23 U/L (0-32); Blood Urea Nitrogen 9 mg/dL (8-23); Calcium 8.5 mg/dL (8.5-10.5); Carbon Dioxide 27 mmol/L (22-29); Chloride 105 mmol/L (98-107); Globulin 2.6 g/dL (1.3-4.6); Glucose 139 mg/dL (65-115); Osmolality Calculated 291 mOsm/kg (285-295); Potassium 4.9 mmol/L (3.5-5.1); Sodium 140 mmol/L (136-145); Total Bilirubin 0.2 mg/dL (0.15-1.2); Total Protein 6.3 g/dL (6.6-8.7)
--- NOTE | 2021-03-25 15:52 | ONC FU_ITS ---
Dr. Aguilar follow up note Patient: Ashlee Buenrostro Unit #: [id number]: 1940 Dicatated By: Korin Aguilar M.D.Date of Visit:Mar 25, 2021 Onc Med Follow-up/Prog Note History of Present Illness: Ms. Buenrostro is a 81-year-old female with a history of stage IV breast cancer. She reports in July 2019, she underwent mammogram which showed right breast mass followed by ultrasound right breast which showed a 3.4 x 2 x 2.4 cm hypoechoic mass with spiculated margin at 1 o'clock position. She underwent right breast biopsy on August 16, 2019 which showed predominantly blood with atypical cells. On September 20, 2019, she underwent ultrasound-guided right breast biopsy which confirmed invasive ductal carcinoma, ER positive more than 90%, FL +40% and HER-2/joao negative, Ki-67 was 15% Ms Buenrostro underwent PET/CT scan on October 02, 2019 which showed 3.6 x 2.7 cm mass in the right breast with SUV of 7. There was no pathologically enlarged or hypermetabolic lymph nodes seen. In the bones, there is focal increased uptake in left sacral gladis at the level of S1 with SUV of 10. But no associated lesion by CT scan. And there is no other hypermetabolic lesion worrisome for malignancy. MRI scan of sacrum was recommended on October 18, 2019 showed within the left sacral ala S1 level basis stir hyperintense, T1 hypointense enhancing lesion measuring 3 x 2.3 x 2.7 cm. It did not appear to have extension into sacral neural foramen. No pathological fracture. No additional lesions are identified. As per medical record, she was planned for breast surgery but it was canceled due to MRI scan findings and biopsy was ordered and on November 18, 2019. She underwent sacral lesion biopsy which confirmed metastatic carcinoma favor breast origin, ER/FL positive, HER-2/joao negative Ki-67 was 20%. On January 01, 2020 she was started on Ibrance/anastrozole and monthly Zometa. On April 13, [address] scan of abdomen pelvis which showed diverticulosis coli without CT scan evidence of diverticulitis. Stable small right adrenal gland nodule, stable 5 mm left lower lobe lung nodule, benign. Left sacral bone metastasis. And underwent bone scan on May 14, 2020 shows abnormal uptake in left sacral gladis near SI joint unchanged since prior. On the right at L4-L5 increased uptake associated noted unchanged since the prior could be degenerative. Ms Buenrostro had received all this evaluation and treatment in [place]. She relocated to [place], [place] and was evaluated by Dr Aguilar on September 15, 2020. She had follow-up PET/CT imaging on September 29, 2020 at [facility] in [facility] which reported a central nodular density in the right breast at the 12 o'clock position just cephalad to the nipple measuring 3.9 x 1.8 cm demonstrating a maximum SUV of 4.39. There was no concerning lymphadenopathy observed in the right axilla or elsewhere in the thoracic structures. No pulmonary nodules or other focus of increased metabolic activity was identified. The liver had a maximum SUV of 6.61. The right adrenal is mildly thickened without focal increase of metabolic activity. Unremarkable left adrenal. Unremarkable liver/vein, pancreas, kidneys and uterus. No lymphadenopathy or focal increase of metabolic activity in solid organs or other soft tissue structures. There was a tiny sclerotic focus present in the right acetabular roof without association increase of metabolic activity. Degenerative changes are present throughout the spine. A small lytic focus is present in the dorsal aspect of the right clavicular head associated with increased metabolic activity with maximum SUV of 7.88. There were no other focal increase in metabolic activity in the bone or muscle. Inflammatory changes are present in the right shoulder. Previous posterior cervical fusion surgery noted. The findings in the right clavicle head were indeterminate but could represent me metastatic involvement. 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 She was referred to surgery for right breast lumpectomy for the persistent mass in her right breast a 3.9 x 1.8 cm with an SUV of 4.39. The plan was to refer her for radiation therapy or simple mastectomy depending on results of the lumpectomy. She was also referred to radiation oncology for evaluation for SBRT to the right clavicular head if metastatic disease was confirmed. Her Ibrance was held but she continued with Arimidex at that time. Mrs. Buenrostro was seen by Dr. Milan on October 06, 2020. He had recommended right simple mastectomy. She was then seen by Dr. Mk Oseguera in radiation oncology on October 12, 2020 for possible radiotherapy for management of her metastatic breast cancer. Radiation was held for surgery consideration. She underwent simple right mastectomy with axillary lymph node dissection per Dr Milan on 10/21/2020. 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 1 lymph node did show extranodal extension. Per Dr. Aguilar's note pT2, pN1a. Her breast cancer prognostic profile/report from October 29, 2020 reported Ki-67 at 2% ER 99% FL 70% HER-2/joao IHC qualitative is 0+. She was seen on November 05, 2020 at [facility] for fever and generalized body aches. Her DESTIN drain has been removed on 11/03/2020. She was placed on vancomycin and clindamycin for 24+ hours and responded well. She was discharged on cefadroxil and doxycycline. She is also discharged on prednisone 20 mg twice daily for 5 days for an acute gout flare. She returned to [facility] on November 22, 2020 with swelling at the mastectomy site. She also had recurrence of low-grade temperature. She did have aspiration of the postmastectomy seroma of 600 mL. This was performed by Dr. Murillo on November 22, 2020. She was discharged on Augmentin twice daily for 7 days. She was then seen on 11/27/[address] Oseguera for consideration of radiotherapy for management of her metastatic breast cancer post simple right mastectomy. He recommended a 5 course of radiation therapy to the right chest wall and regional lymph node area. She was then seen for follow-up on December 23, 2020. She had resumed her Ibrance and Arimidex. She was tolerating it well. She had began radiation therapy to the right chest wall at that time as well. Her family history significant for breast cancer in her grandmother as well as brother She has history of COPD/asthma hypertension tolerating Ibrance/Arimidex well otherwise.Ibrance changed to 2 weeks on 1 week off on March 26, 2021 because of persistent/progressive neutropenia/leukopenia Came for follow-up, denies any specific complaint except on 14 March she had a fall as she tripped over something and went to hospital where she had CT scan of the head done which was unremarkable also had C-spine and lumbar spine CT scan which shows sclerosis of left sacral gladis which is treated breast cancer and old compression fracture of L1 and C-spine showed C3/C6 laminectomy with posterior fusion with pedicle screws and rods. No significant neural foramen narrowing, Patient is tolerating daily Arimidex well, her Ibrance was put on hold because of persistent leukopenia, she is here with her labs to make decision regarding her Ibrance. No fever chills, no nausea or vomiting, no diarrhea or constipation, no new bony pains Medications: Acetaminophen 2 Tabminder (of 500 mg) Tablet Oral q 4 hours PRN, Allopurinol 1 Tablet (of 100 mg) Tablet Oral daily, Anastrozole 1 Tablet (of 1 mg) Tablet Oral daily, Metoprolol Succinate ER 1 Tablet (of 50 mg) Tablet SR 24 HR Oral daily, Ondansetron HCl 1 Tablet (of 4 mg) Oral q 8 hours PRN Allergies: Codeine Sulfate, Morphine Sulfate, and Vancomycin HCl. Review of Systems: Review of Systems is not available for this patient. Vital Signs: Vitals are not available for this patient. Performance Status: 0 - Fully active, able to carry on all predisease activities without restrictions. (ECOG) Physical Examination: Respiratory - Lungs are clear to auscultation, Cardiovascular - Regular rate and rhythm of heart, Gastrointestinal - Soft, bowel sounds present, Extremities - No mouth sores, no thrush, no jaundice. Lab/Imaging: Test performed on Jan 06, 2021 13:13 Sodium 141 mmol/L Potassium 3.9 mmol/L Chloride 104 mmol/L CO2 29 mmol/L Anion Gap 11.9 BUN 11 mg/dL Creatinine 0.9 mg/dL Cr Clearance (Est) 69.54 mL/min Glucose 125 mg/dL Osmolality - Calculated 293 mOsm/kg Calcium 9.4 mg/dL Protein, Total 7.0 g/dL Albumin 4.3 g/dL Globulin 2.7 g/dL Bilirubin, Total 0.3 mg/dL ALT (SGPT) 9 U/L AST (SGOT) 16 U/L Alkaline Phosphatase 76 IU/L WBC 4.4 10 3/uL RBC 3.90 10 6/uL HGB 12.1 g/dL HCT 38.3 % MCV 98.2 fL MCH 31.0 pg MCHC 31.6 g/dL RDW 17.7 % Platelet Count 217 10 3/cmm MPV 10.2 fL Neutrophils 1.67 10 3/uL Lymphocytes 1.7 10 3/uL Monocytes 0.7 10 3/uL Eosinophils 0.1 10 3/uL Basophils 0.1 10 3/uL Neutrophil % 38.0 % Lymphocyte % 39.6 % Monocyte % 16.9 % Eosinophil % 2.3 % Basophils % 2.7 % NRBC % 0 % Test performed on Oct 01, 2020 10:27 CA 15-3 39.7 U/mL CA 27.29 64 U/mL Impression: Status post right mastectomy with right axillary lymph node dissection done on October 21, 2019 as PET scan shows no more evidence of distant mets only right breast mass uptake. 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 Clinical stage T4, skin involvement, NX M1, stage IV Started on Ibrance/anastrozole/Zometa on January 01, 2020 COPD/asthma Obesity Hypertension Follow-up CT PET scan done on September 29, 2020 showed persistent right breast uptake otherwise no right axillary lymphadenopathy or distant mets. Right clavicular head uptake, indeterminate Plan: Discussed with patient regarding her labs white blood count 3.3 hemoglobin 11.3 hematocrit 35.9 platelets 176,000 ANC 1600 Clinically, patient is doing well with no new signs symptom suggestive of disease progression, tolerating combined Ibrance/Arimidex well but with expected side effect e.g. progressive/persistent leukopenia/neutropenia because of which Ibrance was held and now follow-up labs shows improvement in her leukopenia/neutropenia still not in normal range, but will start Ibrance on March 26, 2021 for 2 weeks on and then week off and instead of 3 weeks on 1 week off as done earlier. While continue daily Arimidex and she return to clinic 3 weeks with CBC CMP, will also give her prescription for lorazepam for anxiety Signed By: Korin Aguilar M.D. <<Signature on File>>
== END 2021-04-10 23:59 | disposition home or self-care (01) ==
LOC: ONCMED 06:07
PROVIDERS: PCP Nurse Practitioner Family; Visit Provider Internal Medicine Hematology & Oncology
DX: C50.211 Malignant neoplasm of upper-inner quadrant of right female breast (principal); Z17.0 Estrogen receptor positive status [ER+]; Z90.11 Acquired absence of right breast and nipple; C79.51 Secondary malignant neoplasm of bone; J44.9 Chronic obstructive pulmonary disease, unspecified; J45.909 Unspecified asthma, uncomplicated; E66.9 Obesity, unspecified; I10 Essential (primary) hypertension; Z79.811 Long term (current) use of aromatase inhibitors; Z92.21 Personal history of antineoplastic chemotherapy
CPT/HCPCS: 36415; 80053; 85025; 99214

== ENCOUNTER 2021-05-11 05:45 | Outpatient (RCR) | payer MEDICARE, SELFPAY ==
[2021-04-16 11:22] LABS: Basophils # 0.1 10^3/uL (0.0-0.1); Basophils % 1.8 %; Eosinophils # 0.1 10^3/uL (0.0-0.8); Eosinophils % 2.4 %; Hematocrit 38.2 % (37.0-47.0); Hemoglobin 12.4 g/dL (11.5-15.3); Lymphocytes # 0.9 10^3/uL (0.8-4.8); Lymphocytes % 26.2 %; Mean Corpuscular HGB Conc 32.5 g/dL (30.0-36.0); Mean Corpuscular Hemoglobin 33.2 pg (28.0-34.0); Mean Corpuscular Volume 102.1 fL (81-99); Mean Platelet Volume 10.4 fL (7.4-10.4); Monocytes # 0.6 10^3/uL (0.2-0.9); Monocytes % 16.5 %; Neutrophils % 52.8 %; Nucleated Red Blood Cells % 0 %; Platelet Count 118 10^3/cmm (130-400); Red Blood Count 3.74 10^6/uL (4.1-5.3); Red Cell Distribution Width 14.2 % (12.1-15.1); White Blood Count 3.4 10^3/uL (4.0-10.0)
[2021-04-16 11:59] LABS: Alanine Aminotransferase 13 U/L (0-33); Albumin Level 3.9 g/dL (3.5-5.2); Alkaline Phosphatase 84 IU/L (35-105); Anion Gap 12.6 (5-19); Aspartate Amino Transferase 20 U/L (0-32); Blood Urea Nitrogen 10 mg/dL (8-23); Calcium 8.6 mg/dL (8.5-10.5); Carbon Dioxide 27 mmol/L (22-29); Chloride 103 mmol/L (98-107); Globulin 2.8 g/dL (1.3-4.6); Glucose 131 mg/dL (65-115); Osmolality Calculated 287 mOsm/kg (285-295); Potassium 4.6 mmol/L (3.5-5.1); Sodium 138 mmol/L (136-145); Total Bilirubin 0.4 mg/dL (0.15-1.2); Total Protein 6.7 g/dL (6.6-8.7)
--- NOTE | 2021-04-19 16:24 | ONC FU_ITS ---
Dr. Aguilar follow up note Patient: Ashlee Buenrostro Unit #: [id number]: [id number] Dicatated By: Korin Aguilar M.D.Date of Visit:Apr 19, 2021 Onc Med Follow-up/Prog Note History of Present Illness: Ms. Buenrostro is a 81-year-old female with a history of stage IV breast cancer. She reports in July 2019, she underwent mammogram which showed right breast mass followed by ultrasound right breast which showed a 3.4 x 2 x 2.4 cm hypoechoic mass with spiculated margin at 1 o'clock position. She underwent right breast biopsy on August 16, 2019 which showed predominantly blood with atypical cells. On September 20, 2019, she underwent ultrasound-guided right breast biopsy which confirmed invasive ductal carcinoma, ER positive more than 90%, ID +40% and HER-2/joao negative, Ki-67 was 15% Ms Buenrostro underwent PET/CT scan on October 02, 2019 which showed 3.6 x 2.7 cm mass in the right breast with SUV of 7. There was no pathologically enlarged or hypermetabolic lymph nodes seen. In the bones, there is focal increased uptake in left sacral gladis at the level of S1 with SUV of 10. But no associated lesion by CT scan. And there is no other hypermetabolic lesion worrisome for malignancy. MRI scan of sacrum was recommended on October 18, 2019 showed within the left sacral ala S1 level basis stir hyperintense, T1 hypointense enhancing lesion measuring 3 x 2.3 x 2.7 cm. It did not appear to have extension into sacral neural foramen. No pathological fracture. No additional lesions are identified. As per medical record, she was planned for breast surgery but it was canceled due to MRI scan findings and biopsy was ordered and on November 18, 2019. She underwent sacral lesion biopsy which confirmed metastatic carcinoma favor breast origin, ER/ID positive, HER-2/joao negative Ki-67 was 20%. On January 01, 2020 she was started on Ibrance/anastrozole and monthly Zometa. On April 13, [address] scan of abdomen pelvis which showed diverticulosis coli without CT scan evidence of diverticulitis. Stable small right adrenal gland nodule, stable 5 mm left lower lobe lung nodule, benign. Left sacral bone metastasis. And underwent bone scan on May 14, 2020 shows abnormal uptake in left sacral gladis near SI joint unchanged since prior. On the right at L4-L5 increased uptake associated noted unchanged since the prior could be degenerative. Ms Buenrostro had received all this evaluation and treatment in [place]. She relocated to [place], [place] and was evaluated by Dr Aguilar on September 15, 2020. She had follow-up PET/CT imaging on September 29, 2020 at [facility] in [facility] which reported a central nodular density in the right breast at the 12 o'clock position just cephalad to the nipple measuring 3.9 x 1.8 cm demonstrating a maximum SUV of 4.39. There was no concerning lymphadenopathy observed in the right axilla or elsewhere in the thoracic structures. No pulmonary nodules or other focus of increased metabolic activity was identified. The liver had a maximum SUV of 6.61. The right adrenal is mildly thickened without focal increase of metabolic activity. Unremarkable left adrenal. Unremarkable liver/vein, pancreas, kidneys and uterus. No lymphadenopathy or focal increase of metabolic activity in solid organs or other soft tissue structures. There was a tiny sclerotic focus present in the right acetabular roof without association increase of metabolic activity. Degenerative changes are present throughout the spine. A small lytic focus is present in the dorsal aspect of the right clavicular head associated with increased metabolic activity with maximum SUV of 7.88. There were no other focal increase in metabolic activity in the bone or muscle. Inflammatory changes are present in the right shoulder. Previous posterior cervical fusion surgery noted. The findings in the right clavicle head were indeterminate but could represent me metastatic involvement. 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 She was referred to surgery for right breast lumpectomy for the persistent mass in her right breast a 3.9 x 1.8 cm with an SUV of 4.39. The plan was to refer her for radiation therapy or simple mastectomy depending on results of the lumpectomy. She was also referred to radiation oncology for evaluation for SBRT to the right clavicular head if metastatic disease was confirmed. Her Ibrance was held but she continued with Arimidex at that time. Mrs. Buenrostro was seen by Dr. Milan on October 06, 2020. He had recommended right simple mastectomy. She was then seen by Dr. Mk Oseguera in radiation oncology on October 12, 2020 for possible radiotherapy for management of her metastatic breast cancer. Radiation was held for surgery consideration. She underwent simple right mastectomy with axillary lymph node dissection per Dr Milan on 10/21/2020. 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 1 lymph node did show extranodal extension. Per Dr. Aguilar's note pT2, pN1a. Her breast cancer prognostic profile/report from October 29, 2020 reported Ki-67 at 2% ER 99% ID 70% HER-2/joao IHC qualitative is 0+. She was seen on November 05, 2020 at [facility] for fever and generalized body aches. Her DESTIN drain has been removed on 11/03/2020. She was placed on vancomycin and clindamycin for 24+ hours and responded well. She was discharged on cefadroxil and doxycycline. She is also discharged on prednisone 20 mg twice daily for 5 days for an acute gout flare. She returned to [facility] on November 22, 2020 with swelling at the mastectomy site. She also had recurrence of low-grade temperature. She did have aspiration of the postmastectomy seroma of 600 mL. This was performed by Dr. Murillo on November 22, 2020. She was discharged on Augmentin twice daily for 7 days. She was then seen on 11/27/[address] Oseguera for consideration of radiotherapy for management of her metastatic breast cancer post simple right mastectomy. He recommended a 5 course of radiation therapy to the right chest wall and regional lymph node area. She was then seen for follow-up on December 23, 2020. She had resumed her Ibrance and Arimidex. She was tolerating it well. She had began radiation therapy to the right chest wall at that time as well. Her family history significant for breast cancer in her grandmother as well as brother She has history of COPD/asthma hypertension tolerating Ibrance/Arimidex well otherwise.Because of progressive leukopenia her Ibrance dose was reduced to 100 mg per daily day 1 through 14 and repeat every 21 days Came for follow-up, denies any specific complaints except not feeling good and antianxiety meds help her some and she is wondering whether she may be depressed, denies any suicidal ideation, denies any fever chills denies any nausea or vomiting or diarrhea or constipation, as per patient, she completed her last 2 weekly Ibrance on April 10. And now awaiting her next shipment Medications: Acetaminophen 2 Tabminder (of 500 mg) Tablet Oral q 4 hours PRN, Allopurinol 1 Tablet (of 100 mg) Tablet Oral daily, Anastrozole 1 Tablet (of 1 mg) Tablet Oral daily, Metoprolol Succinate ER 1 Tablet (of 50 mg) Tablet SR 24 HR Oral daily, Ondansetron HCl 1 Tablet (of 4 mg) Oral q 8 hours PRN Allergies: Codeine Sulfate, Morphine Sulfate, and Vancomycin HCl. Review of Systems: Review of Systems is not available for this patient. Vital Signs: Performed on Apr 19, 2021 09:10 Height - 60.00 in Weight - 194.8 lbs (LOW) BSA - 1.85 sq.m BMI - 38.04 (HIGH) Temperature - 98.2 F (LOW) Pulse - 77 /min Respiration - 8 /min (LOW) BP - 161/85 mm(hg) (HIGH) O2 Sat - 99 % Pain - 8 Fatigue - 10 Performance Status: 0 - Fully active, able to carry on all predisease activities without restrictions. (ECOG) Physical Examination: Respiratory - Lungs are clear to auscultation, Cardiovascular - Regular rate and rhythm of heart, Gastrointestinal - Soft, bowel sounds present, Extremities - No visible edema. Lab/Imaging: Test performed on Jan 06, 2021 13:13 Sodium 141 mmol/L Potassium 3.9 mmol/L Chloride 104 mmol/L CO2 29 mmol/L Anion Gap 11.9 BUN 11 mg/dL Creatinine 0.9 mg/dL Cr Clearance (Est) 69.54 mL/min Glucose 125 mg/dL Osmolality - Calculated 293 mOsm/kg Calcium 9.4 mg/dL Protein, Total 7.0 g/dL Albumin 4.3 g/dL Globulin 2.7 g/dL Bilirubin, Total 0.3 mg/dL ALT (SGPT) 9 U/L AST (SGOT) 16 U/L Alkaline Phosphatase 76 IU/L WBC 4.4 10 3/uL RBC 3.90 10 6/uL HGB 12.1 g/dL HCT 38.3 % MCV 98.2 fL MCH 31.0 pg MCHC 31.6 g/dL RDW 17.7 % Platelet Count 217 10 3/cmm MPV 10.2 fL Neutrophils 1.67 10 3/uL Lymphocytes 1.7 10 3/uL Monocytes 0.7 10 3/uL Eosinophils 0.1 10 3/uL Basophils 0.1 10 3/uL Neutrophil % 38.0 % Lymphocyte % 39.6 % Monocyte % 16.9 % Eosinophil % 2.3 % Basophils % 2.7 % NRBC % 0 % Impression: Status post right mastectomy with right axillary lymph node dissection done on October 21, 2019 as PET scan shows no more evidence of distant mets only right breast mass uptake. Final pathology showed 2.7 cm invasive carcinoma, metaplastic, with osteoid and sarcomatoid differentiation, grade 3, clear margins, pT2 2 out of 9 lymph node positive for metastatic disease 1 with extranodal extension pN1a, ER 99% positive ID 70% positive HER-2/joao negative Metastatic breast cancer with biopsy-proven single lesion in left sacral ala Status post radiation therapy initially diagnosed on September 20, 2019, ER more than 90% positive ID 40% positive HER-2/joao negative Ki-67 15%. Clinical stage T4, skin involvement, NX M1, stage IV Started on Ibrance/anastrozole/Zometa on January 01, 2020 COPD/asthma Obesity Hypertension Follow-up CT PET scan done on September 29, 2020 showed persistent right breast uptake otherwise no right axillary lymphadenopathy or distant mets. Right clavicular head uptake, indeterminate Plan: Discussed with patient regarding her labs white blood count 3.4 hemoglobin 12.4 hematocrit 38.2 platelets 118,000 ANC 1800 CMP within normal limits Clinically, patient doing well with no new signs symptoms suggestive of recurrence of disease or disease progression, tolerating Ibrance/Arimidex reasonably well but with expected side effect e.g. progressive leukopenia/thrombocytopenia, at this point, as patient is tolerating 2 weeks on 1 week off schedule better, we will continue with Ibrance 100 mg p.o. daily day 1 through 14 and repeat every 21 days and instead of 3 weeks on 1 week off, along with Arimidex. She will return to clinic in 3 weeks with CBC CMP As far as depression/adjustment disorder is concerned, patient was offered referral to psychiatry but patient declined, she denies any suicidal ideation but she will try antidepression med in that case, we will start her on low-dose antidepressant Celexa, so we will give her prescription for Celexa 10 mg p.o. daily and if tolerated may increase the dose. Signed By: Korin Aguilar M.D. <<Signature on File>>
[2021-05-11 14:45] LABS: Basophils # 0.1 10^3/uL (0.0-0.1); Basophils % 1.1 %; Eosinophils # 0.3 10^3/uL (0.0-0.8); Eosinophils % 3.4 %; Hemoglobin 12.7 g/dL (11.5-15.3); Lymphocytes # 1.2 10^3/uL (0.8-4.8); Lymphocytes % 15.9 %; Mean Corpuscular HGB Conc 32.6 g/dL (30.0-36.0); Mean Corpuscular Hemoglobin 32.6 pg (28.0-34.0); Mean Platelet Volume 10.7 fL (7.4-10.4); Monocytes # 1.1 10^3/uL (0.2-0.9); Monocytes % 14.5 %; Neutrophils # 4.94 10^3/uL (1.8-7.7); Neutrophils % 64.8 %; Nucleated Red Blood Cells % 0 %; Platelet Count 247 10^3/cmm (130-400); Red Cell Distribution Width 13.2 % (12.1-15.1); White Blood Count 7.6 10^3/uL (4.0-10.0)
[2021-05-11 15:17] LABS: Alanine Aminotransferase 14 U/L (0-33); Albumin Level 3.7 g/dL (3.5-5.2); Alkaline Phosphatase 106 IU/L (35-105); Anion Gap 16.6 (5-19); Aspartate Amino Transferase 25 U/L (0-32); Blood Urea Nitrogen 10 mg/dL (8-23); Calcium 9.2 mg/dL (8.5-10.5); Carbon Dioxide 25 mmol/L (22-29); Chloride 102 mmol/L (98-107); Globulin 3.5 g/dL (1.3-4.6); Glucose 98 mg/dL (65-115); Osmolality Calculated 287 mOsm/kg (285-295); Potassium 4.6 mmol/L (3.5-5.1); Sodium 139 mmol/L (136-145); Total Bilirubin 0.4 mg/dL (0.15-1.2); Total Protein 7.2 g/dL (6.6-8.7)
== END 2021-05-11 23:59 | disposition home or self-care (01) ==
LOC: ONCMED 05:45
PROVIDERS: PCP Nurse Practitioner Family; Visit Provider Internal Medicine Hematology & Oncology
DX: C50.811 Malignant neoplasm of overlapping sites of right female breast (principal); Z17.0 Estrogen receptor positive status [ER+]; C79.51 Secondary malignant neoplasm of bone; J44.9 Chronic obstructive pulmonary disease, unspecified; J45.909 Unspecified asthma, uncomplicated; E66.9 Obesity, unspecified; I10 Essential (primary) hypertension; F32.9 Major depressive disorder, single episode, unspecified; F43.20 Adjustment disorder, unspecified; Z79.811 Long term (current) use of aromatase inhibitors; Z79.899 Other long term (current) drug therapy; Z92.21 Personal history of antineoplastic chemotherapy
CPT/HCPCS: 36415; 80053; 85025; 99214

== ENCOUNTER 2021-05-12 05:31 | Outpatient (RCR) | payer MEDICARE, SELFPAY ==
--- NOTE | 2021-05-13 15:50 | ONC FU_ITS ---
Dr. Aguilar follow up note Patient: Ashlee Buenrostro Unit #: [id number]: 1940 Dicatated By: Korin Aguilar M.D.Date of Visit:May 12, 2021 Onc Med Follow-up/Prog Note History of Present Illness: Ms. Buenrostro is a 81-year-old female with a history of stage IV breast cancer. She reports in July 2019, she underwent mammogram which showed right breast mass followed by ultrasound right breast which showed a 3.4 x 2 x 2.4 cm hypoechoic mass with spiculated margin at 1 o'clock position. She underwent right breast biopsy on August 16, 2019 which showed predominantly blood with atypical cells. On September 20, 2019, she underwent ultrasound-guided right breast biopsy which confirmed invasive ductal carcinoma, ER positive more than 90%, NM +40% and HER-2/joao negative, Ki-67 was 15% Ms Buenrostro underwent PET/CT scan on October 02, 2019 which showed 3.6 x 2.7 cm mass in the right breast with SUV of 7. There was no pathologically enlarged or hypermetabolic lymph nodes seen. In the bones, there is focal increased uptake in left sacral gladis at the level of S1 with SUV of 10. But no associated lesion by CT scan. And there is no other hypermetabolic lesion worrisome for malignancy. MRI scan of sacrum was recommended on October 18, 2019 showed within the left sacral ala S1 level basis stir hyperintense, T1 hypointense enhancing lesion measuring 3 x 2.3 x 2.7 cm. It did not appear to have extension into sacral neural foramen. No pathological fracture. No additional lesions are identified. As per medical record, she was planned for breast surgery but it was canceled due to MRI scan findings and biopsy was ordered and on November 18, 2019. She underwent sacral lesion biopsy which confirmed metastatic carcinoma favor breast origin, ER/NM positive, HER-2/joao negative Ki-67 was 20%. On January 01, 2020 she was started on Ibrance/anastrozole and monthly Zometa. On April 13, [address] scan of abdomen pelvis which showed diverticulosis coli without CT scan evidence of diverticulitis. Stable small right adrenal gland nodule, stable 5 mm left lower lobe lung nodule, benign. Left sacral bone metastasis. And underwent bone scan on May 14, 2020 shows abnormal uptake in left sacral gladis near SI joint unchanged since prior. On the right at L4-L5 increased uptake associated noted unchanged since the prior could be degenerative. Ms Buenrostro had received all this evaluation and treatment in [place]. She relocated to [place], [place] and was evaluated by Dr Aguilar on September 15, 2020. She had follow-up PET/CT imaging on September 29, [address] [facility] in [facility] which reported a central nodular density in the right breast at the 12 o'clock position just cephalad to the nipple measuring 3.9 x 1.8 cm demonstrating a maximum SUV of 4.39. There was no concerning lymphadenopathy observed in the right axilla or elsewhere in the thoracic structures. No pulmonary nodules or other focus of increased metabolic activity was identified. The liver had a maximum SUV of 6.61. The right adrenal is mildly thickened without focal increase of metabolic activity. Unremarkable left adrenal. Unremarkable liver/vein, pancreas, kidneys and uterus. No lymphadenopathy or focal increase of metabolic activity in solid organs or other soft tissue structures. There was a tiny sclerotic focus present in the right acetabular roof without association increase of metabolic activity. Degenerative changes are present throughout the spine. A small lytic focus is present in the dorsal aspect of the right clavicular head associated with increased metabolic activity with maximum SUV of 7.88. There were no other focal increase in metabolic activity in the bone or muscle. Inflammatory changes are present in the right shoulder. Previous posterior cervical fusion surgery noted. The findings in the right clavicle head were indeterminate but could represent me metastatic involvement. 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 She was referred to surgery for right breast lumpectomy for the persistent mass in her right breast a 3.9 x 1.8 cm with an SUV of 4.39. The plan was to refer her for radiation therapy or simple mastectomy depending on results of the lumpectomy. She was also referred to radiation oncology for evaluation for SBRT to the right clavicular head if metastatic disease was confirmed. Her Ibrance was held but she continued with Arimidex at that time. Mrs. Buenrostro was seen by Dr. Milan on October 06, 2020. He had recommended right simple mastectomy. She was then seen by Dr. Mk Oseguera in radiation oncology on October 12, 2020 for possible radiotherapy for management of her metastatic breast cancer. Radiation was held for surgery consideration. She underwent simple right mastectomy with axillary lymph node dissection per Dr Milan on 10/21/2020. 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 1 lymph node did show extranodal extension. Per Dr. Aguilar's note pT2, pN1a. Her breast cancer prognostic profile/report from October 29, 2020 reported Ki-67 at 2% ER 99% NM 70% HER-2/joao IHC qualitative is 0+. She was seen on November 05, 2020 at [facility] for fever and generalized body aches. Her DESTIN drain has been removed on 11/03/2020. She was placed on vancomycin and clindamycin for 24+ hours and responded well. She was discharged on cefadroxil and doxycycline. She is also discharged on prednisone 20 mg twice daily for 5 days for an acute gout flare. She returned to [facility] on November 22, 2020 with swelling at the mastectomy site. She also had recurrence of low-grade temperature. She did have aspiration of the postmastectomy seroma of 600 mL. This was performed by Dr. Murillo on November 22, 2020. She was discharged on Augmentin twice daily for 7 days. She was then seen on 11/27/[address] Oseguera for consideration of radiotherapy for management of her metastatic breast cancer post simple right mastectomy. He recommended a 5 course of radiation therapy to the right chest wall and regional lymph node area. She was then seen for follow-up on December 23, 2020. She had resumed her Ibrance and Arimidex. She was tolerating it well. She had began radiation therapy to the right chest wall at that time as well. Her family history significant for breast cancer in her grandmother as well as brother She has history of COPD/asthma hypertension tolerating Ibrance/Arimidex well otherwise.Because of progressive leukopenia her Ibrance dose was reduced to 100 mg per daily day 1 through 14 and repeat every 21 days Came for follow-up, denies any specific complaints, no fever chills, no nausea or vomiting, no diarrhea or constipation, rather more energetic since she is off Ibrance, as per patient last dose was taken on April 10, 2021 and since then she has been awaiting for her Ibrance in the mail. No nausea or vomiting no diarrhea constipation no new bony pains, patient was given prescription for Celexa by her adjustment disorder/depression, patient says she took it for 1 week but then started having nausea and vomiting so stopped taking it., She is taking Arimidex on regular basis along with vitamin D and calcium and tolerating well Medications: Acetaminophen 2 Tabminder (of 500 mg) Tablet Oral q 4 hours PRN, Allopurinol 1 Tablet (of 100 mg) Tablet Oral daily, Anastrozole 1 Tablet (of 1 mg) Tablet Oral daily, Metoprolol Succinate ER 1 Tablet (of 50 mg) Tablet SR 24 HR Oral daily, Ondansetron HCl 1 Tablet (of 4 mg) Oral q 8 hours PRN Allergies: Codeine Sulfate, Morphine Sulfate, and Vancomycin HCl. Review of Systems: Review of Systems is not available for this patient. Vital Signs: Performed on May 12, 2021 15:02 Height - 60.00 in Weight - 189 lbs (LOW) BSA - 1.82 sq.m BMI - 36.91 (HIGH) Temperature - 98 F (LOW) Pulse - 96 /min Respiration - 18 /min BP - 165/89 mm(hg) (HIGH) O2 Sat - 99 % Pain - 10 Fatigue - 10 Performance Status: 0 - Fully active, able to carry on all predisease activities without restrictions. (ECOG) Physical Examination: Respiratory - Lungs are clear to auscultation, Cardiovascular - Regular rate and rhythm of heart, Gastrointestinal - Soft, bowel sounds present, Extremities - . No visible edema, no rash. Lab/Imaging: Test performed on Jan 06, 2021 13:13 Sodium 141 mmol/L Potassium 3.9 mmol/L Chloride 104 mmol/L CO2 29 mmol/L Anion Gap 11.9 BUN 11 mg/dL Creatinine 0.9 mg/dL Cr Clearance (Est) 69.54 mL/min Glucose 125 mg/dL Osmolality - Calculated 293 mOsm/kg Calcium 9.4 mg/dL Protein, Total 7.0 g/dL Albumin 4.3 g/dL Globulin 2.7 g/dL Bilirubin, Total 0.3 mg/dL ALT (SGPT) 9 U/L AST (SGOT) 16 U/L Alkaline Phosphatase 76 IU/L WBC 4.4 10 3/uL RBC 3.90 10 6/uL HGB 12.1 g/dL HCT 38.3 % MCV 98.2 fL MCH 31.0 pg MCHC 31.6 g/dL RDW 17.7 % Platelet Count 217 10 3/cmm MPV 10.2 fL Neutrophils 1.67 10 3/uL Lymphocytes 1.7 10 3/uL Monocytes 0.7 10 3/uL Eosinophils 0.1 10 3/uL Basophils 0.1 10 3/uL Neutrophil % 38.0 % Lymphocyte % 39.6 % Monocyte % 16.9 % Eosinophil % 2.3 % Basophils % 2.7 % NRBC % 0 % Impression: Status post right mastectomy with right axillary lymph node dissection done on October 21, 2019 as PET scan shows no more evidence of distant mets only right breast mass uptake. 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 Clinical stage T4, skin involvement, NX M1, stage IV Started on Ibrance/anastrozole/Zometa on January 01, 2020 COPD/asthma Obesity Hypertension Follow-up CT PET scan done on September 29, 2020 showed persistent right breast uptake otherwise no right axillary lymphadenopathy or distant mets. Right clavicular head uptake, indeterminate Plan: Discussed with patient regarding her labs white blood count 7.6 hemoglobin 12.7 hematocrit 39 platelets 247,000 CMP within normal limits Clinically, patient doing well with no new signs symptoms history of recurrence of disease or disease progression, tolerating Arimidex along with vitamin D and calcium well, patient was supposed to be taking Ibrance along with this considering her age and related side effect to Ibrance, her dose was modified to 100 milligrams p.o. day 1 through 14 and repeat every 21 days instead of 3 weeks on 1 week off as patient was developing progressive neutropenia and patient was also having related side effects. And this time patient could not get her Ibrance in the mail on time, we will request however, patient navigated to investigate and ensure patient get her Ibrance on time so that she can maintain her dosing schedule along with daily Arimidex. Patient return to clinic in 6 weeks with CBC CMP As far as her adjustment disorder/depression is concerned, patient was prescribed Celexa but she could not tolerate so we will refer her to psychiatry for evaluation Chronic back pain, patient take Percocet 5/325 on as-needed basis, will give her prescription for that Signed By: Korin Aguilar M.D. <<Signature on File>>
== END 2021-06-10 23:59 | disposition home or self-care (01) ==
LOC: ONCMED 05:31
PROVIDERS: PCP Nurse Practitioner Family; Visit Provider Internal Medicine Hematology & Oncology
DX: C50.811 Malignant neoplasm of overlapping sites of right female breast (principal); Z17.0 Estrogen receptor positive status [ER+]; C79.51 Secondary malignant neoplasm of bone; J44.9 Chronic obstructive pulmonary disease, unspecified; J45.909 Unspecified asthma, uncomplicated; E66.9 Obesity, unspecified; Z68.36 Body mass index [BMI] 36.0-36.9, adult; I10 Essential (primary) hypertension; E55.9 Vitamin D deficiency, unspecified; F43.21 Adjustment disorder with depressed mood; M54.5 Low back pain; G89.29 Other chronic pain; Z79.811 Long term (current) use of aromatase inhibitors; Z92.21 Personal history of antineoplastic chemotherapy
CPT/HCPCS: 99214

== ENCOUNTER 2021-06-14 06:26 | Outpatient (RCR) | payer MEDICARE, SELFPAY ==
[2021-06-14 09:44] LABS: Basophils # 0.1 10^3/uL (0.0-0.1); Eosinophils % 1.6 %; Hematocrit 36.7 % (37.0-47.0); Hemoglobin 11.7 g/dL (11.5-15.3); Lymphocytes # 0.8 10^3/uL (0.8-4.8); Mean Corpuscular HGB Conc 31.9 g/dL (30.0-36.0); Mean Corpuscular Hemoglobin 32.3 pg (28.0-34.0); Mean Corpuscular Volume 101.4 fl (81-99); Mean Platelet Volume 10.1 fL (7.4-10.4); Monocytes # 0.2 10^3/uL (0.2-0.9); Monocytes % 7.1 %; Neutrophils # 1.44 10^3/uL (1.8-7.7); Neutrophils % 56.9 %; Nucleated Red Blood Cells % 0 %; Platelet Count 137 10^3/cmm (130-400); Red Blood Count 3.62 10^6/uL (4.1-5.3); White Blood Count 2.5 10^3/uL (4.0-10.0)
[2021-06-14 10:10] LABS: Alanine Aminotransferase 10 U/L (0-33); Albumin Level 3.8 g/dL (3.5-5.2); Alkaline Phosphatase 88 IU/L (35-105); Anion Gap 13.4 (5-19); Aspartate Amino Transferase 17 U/L (0-32); Blood Urea Nitrogen 16 mg/dL (8-23); Calcium 9.1 mg/dL (8.5-10.5); Carbon Dioxide 29 mmol/L (22-29); Chloride 103 mmol/L (98-107); Globulin 3.1 g/dL (1.3-4.6); Glucose 138 mg/dL (65-115); Osmolality Calculated 295 mOsm/kg (285-295); Potassium 4.4 mmol/L (3.5-5.1); Sodium 141 mmol/L (136-145); Total Bilirubin 0.3 mg/dL (0.15-1.2); Total Protein 6.9 g/dL (6.6-8.7)
[2021-06-14 10:14] LABS: Slide Review Slide Review Perform
--- NOTE | 2021-06-18 15:38 | ONC FU_ITS ---
Dr. Aguilar follow up note Patient: Ashlee Buenrostro Unit #: [id number]: 1940 Dicatated By: Korin Aguilar M.D.Date of Visit:Jun 14, 2021 Onc Med Follow-up/Prog Note History of Present Illness: Ms. Buenrostro is a 81-year-old female with a history of stage IV breast cancer. She reports in July 2019, she underwent mammogram which showed right breast mass followed by ultrasound right breast which showed a 3.4 x 2 x 2.4 cm hypoechoic mass with spiculated margin at 1 o'clock position. She underwent right breast biopsy on August 16, 2019 which showed predominantly blood with atypical cells. On September 20, 2019, she underwent ultrasound-guided right breast biopsy which confirmed invasive ductal carcinoma, ER positive more than 90%, ME +40% and HER-2/joao negative, Ki-67 was 15% Ms Buenrostro underwent PET/CT scan on October 02, 2019 which showed 3.6 x 2.7 cm mass in the right breast with SUV of 7. There was no pathologically enlarged or hypermetabolic lymph nodes seen. In the bones, there is focal increased uptake in left sacral gladis at the level of S1 with SUV of 10. But no associated lesion by CT scan. And there is no other hypermetabolic lesion worrisome for malignancy. MRI scan of sacrum was recommended on October 18, 2019 showed within the left sacral ala S1 level basis stir hyperintense, T1 hypointense enhancing lesion measuring 3 x 2.3 x 2.7 cm. It did not appear to have extension into sacral neural foramen. No pathological fracture. No additional lesions are identified. As per medical record, she was planned for breast surgery but it was canceled due to MRI scan findings and biopsy was ordered and on November 18, 2019. She underwent sacral lesion biopsy which confirmed metastatic carcinoma favor breast origin, ER/ME positive, HER-2/joao negative Ki-67 was 20%. On January 01, 2020 she was started on Ibrance/anastrozole and monthly Zometa. On April 13, [address] scan of abdomen pelvis which showed diverticulosis coli without CT scan evidence of diverticulitis. Stable small right adrenal gland nodule, stable 5 mm left lower lobe lung nodule, benign. Left sacral bone metastasis. And underwent bone scan on May 14, 2020 shows abnormal uptake in left sacral gladis near SI joint unchanged since prior. On the right at L4-L5 increased uptake associated noted unchanged since the prior could be degenerative. Ms Buenrostro had received all this evaluation and treatment in [place]. She relocated to [place], [place] and was evaluated by Dr Aguilar on September 15, 2020. She had follow-up PET/CT imaging on September 29, 2020 at [facility] in [facility] which reported a central nodular density in the right breast at the 12 o'clock position just cephalad to the nipple measuring 3.9 x 1.8 cm demonstrating a maximum SUV of 4.39. There was no concerning lymphadenopathy observed in the right axilla or elsewhere in the thoracic structures. No pulmonary nodules or other focus of increased metabolic activity was identified. The liver had a maximum SUV of 6.61. The right adrenal is mildly thickened without focal increase of metabolic activity. Unremarkable left adrenal. Unremarkable liver/vein, pancreas, kidneys and uterus. No lymphadenopathy or focal increase of metabolic activity in solid organs or other soft tissue structures. There was a tiny sclerotic focus present in the right acetabular roof without association increase of metabolic activity. Degenerative changes are present throughout the spine. A small lytic focus is present in the dorsal aspect of the right clavicular head associated with increased metabolic activity with maximum SUV of 7.88. There were no other focal increase in metabolic activity in the bone or muscle. Inflammatory changes are present in the right shoulder. Previous posterior cervical fusion surgery noted. The findings in the right clavicle head were indeterminate but could represent me metastatic involvement. 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 She was referred to surgery for right breast lumpectomy for the persistent mass in her right breast a 3.9 x 1.8 cm with an SUV of 4.39. The plan was to refer her for radiation therapy or simple mastectomy depending on results of the lumpectomy. She was also referred to radiation oncology for evaluation for SBRT to the right clavicular head if metastatic disease was confirmed. Her Ibrance was held but she continued with Arimidex at that time. Mrs. Buenrostro was seen by Dr. Milan on October 06, 2020. He had recommended right simple mastectomy. She was then seen by Dr. Mk Oseguera in radiation oncology on October 12, 2020 for possible radiotherapy for management of her metastatic breast cancer. Radiation was held for surgery consideration. She underwent simple right mastectomy with axillary lymph node dissection per Dr Milan on 10/21/2020. 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 1 lymph node did show extranodal extension. Per Dr. Aguilar's note pT2, pN1a. Her breast cancer prognostic profile/report from October 29, 2020 reported Ki-67 at 2% ER 99% ME 70% HER-2/joao IHC qualitative is 0+. She was seen on November 05, 2020 at [facility] for fever and generalized body aches. Her DESTIN drain has been removed on 11/03/2020. She was placed on vancomycin and clindamycin for 24+ hours and responded well. She was discharged on cefadroxil and doxycycline. She is also discharged on prednisone 20 mg twice daily for 5 days for an acute gout flare. She returned to [facility] on November 22, 2020 with swelling at the mastectomy site. She also had recurrence of low-grade temperature. She did have aspiration of the postmastectomy seroma of 600 mL. This was performed by Dr. Murillo on November 22, 2020. She was discharged on Augmentin twice daily for 7 days. She was then seen on 11/27/[address] Oseguera for consideration of radiotherapy for management of her metastatic breast cancer post simple right mastectomy. He recommended a 5 course of radiation therapy to the right chest wall and regional lymph node area. She was then seen for follow-up on December 23, 2020. She had resumed her Ibrance and Arimidex. She was tolerating it well. She had began radiation therapy to the right chest wall at that time as well. Her family history significant for breast cancer in her grandmother as well as brother She has history of COPD/asthma hypertension tolerating Ibrance/Arimidex well otherwise.Because of progressive leukopenia her Ibrance dose was reduced to 100 mg per daily day 1 through 14 and repeat every 21 days Came for follow-up, complaining of generalized weakness and fatigue, complaining of not having good quality of life, now on last week of Ibrance, tolerating reasonably well but as per patient she is having more weakness and fatigue with Ibrance now and does not want to continue. Otherwise no fever chills, no nausea or vomiting, no diarrhea or constipation, no hot flashes tolerating Arimidex and Ibrance well otherwise Medications: Acetaminophen 2 Tabminder (of 500 mg) Tablet Oral q 4 hours PRN, Allopurinol 1 Tablet (of 100 mg) Tablet Oral daily, Anastrozole 1 Tablet (of 1 mg) Tablet Oral daily, Citalopram Hydrobromide 1 Tablet (of 10 mg) Oral daily, Metoprolol Succinate ER 1 Tablet (of 50 mg) Tablet SR 24 HR Oral daily, Ondansetron HCl 1 Tablet (of 4 mg) Oral q 8 hours PRN Allergies: Codeine Sulfate, Morphine Sulfate, and Vancomycin HCl. Review of Systems: Review of Systems is not available for this patient. Vital Signs: Performed on Jun 14, 2021 11:54 Height - 60.00 in Weight - 187.8 lbs (LOW) BSA - 1.82 sq.m BMI - 36.68 (HIGH) Temperature - 98.9 F (HIGH) Pulse - 60 /min Respiration - 18 /min BP - 182/81 mm(hg) (HIGH) O2 Sat - 98 % Pain - 8 Fatigue - 10 Performance Status: 1 - No physically strenuous activity, but ambulatory and able to carry out light or sedentary work (e.g. office work, light house work). (ECOG) Physical Examination: Respiratory - Lungs are clear to auscultation, Cardiovascular - Regular rate and rhythm of heart, Gastrointestinal - Soft, bowel sounds present, Extremities - No visible edema. Lab/Imaging: Test performed on Jan 06, 2021 13:13 Sodium 141 mmol/L Potassium 3.9 mmol/L Chloride 104 mmol/L CO2 29 mmol/L Anion Gap 11.9 BUN 11 mg/dL Creatinine 0.9 mg/dL Cr Clearance (Est) 69.54 mL/min Glucose 125 mg/dL Osmolality - Calculated 293 mOsm/kg Calcium 9.4 mg/dL Protein, Total 7.0 g/dL Albumin 4.3 g/dL Globulin 2.7 g/dL Bilirubin, Total 0.3 mg/dL ALT (SGPT) 9 U/L AST (SGOT) 16 U/L Alkaline Phosphatase 76 IU/L WBC 4.4 10 3/uL RBC 3.90 10 6/uL HGB 12.1 g/dL HCT 38.3 % MCV 98.2 fL MCH 31.0 pg MCHC 31.6 g/dL RDW 17.7 % Platelet Count 217 10 3/cmm MPV 10.2 fL Neutrophils 1.67 10 3/uL Lymphocytes 1.7 10 3/uL Monocytes 0.7 10 3/uL Eosinophils 0.1 10 3/uL Basophils 0.1 10 3/uL Neutrophil % 38.0 % Lymphocyte % 39.6 % Monocyte % 16.9 % Eosinophil % 2.3 % Basophils % 2.7 % NRBC % 0 % Impression: Status post right mastectomy with right axillary lymph node dissection done on October 21, 2019 as PET scan shows no more evidence of distant mets only right breast mass uptake. 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 Clinical stage T4, skin involvement, NX M1, stage IV Started on Ibrance/anastrozole/Zometa on January 01, 2020 COPD/asthma Obesity Hypertension Follow-up CT PET scan done on September 29, 2020 showed persistent right breast uptake otherwise no right axillary lymphadenopathy or distant mets. Right clavicular head uptake, indeterminate Plan: Discussed with patient regarding her labs white blood count 2.5 hemoglobin 11.7 hematocrit 36.7 platelets 137,000 CMP within normal limits except creatinine 1.2 Clinically, patient is doing reasonably well now with progressive generalized weakness and fatigue, patient is attributing this to Ibrance and now somewhat reluctant to continue. Patient will conclude Ibrance on this Monday, while continuing daily Arimidex along with vitamin D and calcium At this point we will consider follow-up CT PET scan, if it shows no evidence of active disease, will consider discontinue Ibrance and continue with Arimidex/vitamin D and calcium supplement. Signed By: Korin Aguilar M.D. <<Signature on File>>
== END 2021-07-11 23:59 | disposition home or self-care (01) ==
LOC: ONCMED 06:26
PROVIDERS: PCP Nurse Practitioner Family; Visit Provider Internal Medicine Hematology & Oncology
DX: C50.811 Malignant neoplasm of overlapping sites of right female breast (principal); Z17.0 Estrogen receptor positive status [ER+]; Z90.11 Acquired absence of right breast and nipple; C79.51 Secondary malignant neoplasm of bone; J44.9 Chronic obstructive pulmonary disease, unspecified; J45.909 Unspecified asthma, uncomplicated; E66.9 Obesity, unspecified; Z68.36 Body mass index [BMI] 36.0-36.9, adult; I10 Essential (primary) hypertension; E55.9 Vitamin D deficiency, unspecified; Z79.811 Long term (current) use of aromatase inhibitors
CPT/HCPCS: 36415; 80053; 85025; 99214

== ENCOUNTER 2021-07-21 05:37 | Outpatient (RCR) | payer MEDICARE, SELFPAY ==
[2021-07-19 14:55] LABS: Basophils # 0.1 10^3/uL (0.0-0.1); Basophils % 1.2 %; Eosinophils # 0.2 10^3/uL (0.0-0.8); Eosinophils % 2.7 %; Hematocrit 38.4 % (37.0-47.0); Hemoglobin 12.6 g/dL (11.5-15.3); Lymphocytes # 1.3 10^3/uL (0.8-4.8); Lymphocytes % 16.5 %; Mean Corpuscular HGB Conc 32.8 g/dL (30.0-36.0); Mean Corpuscular Hemoglobin 32.4 pg (28.0-34.0); Mean Corpuscular Volume 98.7 fl (81-99); Mean Platelet Volume 10.3 fL (7.4-10.4); Monocytes # 0.9 10^3/uL (0.2-0.9); Monocytes % 12.2 %; Neutrophils # 5.16 10^3/uL (1.8-7.7); Nucleated Red Blood Cells % 0 %; Platelet Count 224 10^3/cmm (130-400); Red Blood Count 3.89 10^6/uL (4.1-5.3); Red Cell Distribution Width 14.7 % (12.1-15.1); White Blood Count 7.7 10^3/uL (4.0-10.0)
[2021-07-19 15:11] LABS: Alanine Aminotransferase 12 U/L (0-33); Albumin Level 3.7 g/dL (3.5-5.2); Alkaline Phosphatase 91 IU/L (35-105); Anion Gap 14.6 (5-19); Aspartate Amino Transferase 18 U/L (0-32); Blood Urea Nitrogen 9 mg/dL (8-23); Calcium 8.9 mg/dL (8.5-10.5); Carbon Dioxide 24 mmol/L (22-29); Chloride 103 mmol/L (98-107); Globulin 3.2 g/dL (1.3-4.6); Glucose 124 mg/dL (65-115); Osmolality Calculated 286 mOsm/kg (285-295); Potassium 3.6 mmol/L (3.5-5.1); Sodium 138 mmol/L (136-145); Total Bilirubin 0.3 mg/dL (0.15-1.2); Total Protein 6.9 g/dL (6.6-8.7)
--- NOTE | 2021-07-21 17:11 | ONC FU_ITS ---
Dr. Aguilar follow up note Patient: Ashlee Buenrostro Unit #: [id number]: 1940 Dicatated By: Korin Aguilar M.D.Date of Visit:Jul 21, 2021 Onc Med Follow-up/Prog Note History of Present Illness: Ms. Buenrostro is a 81-year-old female with a history of stage IV breast cancer. She reports in July 2019, she underwent mammogram which showed right breast mass followed by ultrasound right breast which showed a 3.4 x 2 x 2.4 cm hypoechoic mass with spiculated margin at 1 o'clock position. She underwent right breast biopsy on August 16, 2019 which showed predominantly blood with atypical cells. On September 20, 2019, she underwent ultrasound-guided right breast biopsy which confirmed invasive ductal carcinoma, ER positive more than 90%, NM +40% and HER-2/joao negative, Ki-67 was 15% Ms Buenrostro underwent PET/CT scan on October 02, 2019 which showed 3.6 x 2.7 cm mass in the right breast with SUV of 7. There was no pathologically enlarged or hypermetabolic lymph nodes seen. In the bones, there is focal increased uptake in left sacral gladis at the level of S1 with SUV of 10. But no associated lesion by CT scan. And there is no other hypermetabolic lesion worrisome for malignancy. MRI scan of sacrum was recommended on October 18, 2019 showed within the left sacral ala S1 level basis stir hyperintense, T1 hypointense enhancing lesion measuring 3 x 2.3 x 2.7 cm. It did not appear to have extension into sacral neural foramen. No pathological fracture. No additional lesions are identified. As per medical record, she was planned for breast surgery but it was canceled due to MRI scan findings and biopsy was ordered and on November 18, 2019. She underwent sacral lesion biopsy which confirmed metastatic carcinoma favor breast origin, ER/NM positive, HER-2/joao negative Ki-67 was 20%. On January 01, 2020 she was started on Ibrance/anastrozole and monthly Zometa. On April 13, [address] scan of abdomen pelvis which showed diverticulosis coli without CT scan evidence of diverticulitis. Stable small right adrenal gland nodule, stable 5 mm left lower lobe lung nodule, benign. Left sacral bone metastasis. And underwent bone scan on May 14, 2020 shows abnormal uptake in left sacral gladis near SI joint unchanged since prior. On the right at L4-L5 increased uptake associated noted unchanged since the prior could be degenerative. Ms Buenrostro had received all this evaluation and treatment in [place]. She relocated to [place], [place] and was evaluated by Dr Aguilar on September 15, 2020. She had follow-up PET/CT imaging on September 29, 2020 at [facility] in [facility] which reported a central nodular density in the right breast at the 12 o'clock position just cephalad to the nipple measuring 3.9 x 1.8 cm demonstrating a maximum SUV of 4.39. There was no concerning lymphadenopathy observed in the right axilla or elsewhere in the thoracic structures. No pulmonary nodules or other focus of increased metabolic activity was identified. The liver had a maximum SUV of 6.61. The right adrenal is mildly thickened without focal increase of metabolic activity. Unremarkable left adrenal. Unremarkable liver/vein, pancreas, kidneys and uterus. No lymphadenopathy or focal increase of metabolic activity in solid organs or other soft tissue structures. There was a tiny sclerotic focus present in the right acetabular roof without association increase of metabolic activity. Degenerative changes are present throughout the spine. A small lytic focus is present in the dorsal aspect of the right clavicular head associated with increased metabolic activity with maximum SUV of 7.88. There were no other focal increase in metabolic activity in the bone or muscle. Inflammatory changes are present in the right shoulder. Previous posterior cervical fusion surgery noted. The findings in the right clavicle head were indeterminate but could represent me metastatic involvement. 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 She was referred to surgery for right breast lumpectomy for the persistent mass in her right breast a 3.9 x 1.8 cm with an SUV of 4.39. The plan was to refer her for radiation therapy or simple mastectomy depending on results of the lumpectomy. She was also referred to radiation oncology for evaluation for SBRT to the right clavicular head if metastatic disease was confirmed. Her Ibrance was held but she continued with Arimidex at that time. Mrs. Buenrostro was seen by Dr. Milan on October 06, 2020. He had recommended right simple mastectomy. She was then seen by Dr. Mk Oseguera in radiation oncology on October 12, 2020 for possible radiotherapy for management of her metastatic breast cancer. Radiation was held for surgery consideration. She underwent simple right mastectomy with axillary lymph node dissection per Dr Milan on 10/21/2020. 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 1 lymph node did show extranodal extension. Per Dr. Aguilar's note pT2, pN1a. Her breast cancer prognostic profile/report from October 29, 2020 reported Ki-67 at 2% ER 99% NM 70% HER-2/joao IHC qualitative is 0+. She was seen on November 05, 2020 at [facility] for fever and generalized body aches. Her DESTIN drain has been removed on 11/03/2020. She was placed on vancomycin and clindamycin for 24+ hours and responded well. She was discharged on cefadroxil and doxycycline. She is also discharged on prednisone 20 mg twice daily for 5 days for an acute gout flare. She returned to [facility] on November 22, 2020 with swelling at the mastectomy site. She also had recurrence of low-grade temperature. She did have aspiration of the postmastectomy seroma of 600 mL. This was performed by Dr. Murillo on November 22, 2020. She was discharged on Augmentin twice daily for 7 days. She was then seen on 11/27/[address] Oseguera for consideration of radiotherapy for management of her metastatic breast cancer post simple right mastectomy. He recommended a 5 course of radiation therapy to the right chest wall and regional lymph node area. She was then seen for follow-up on December 23, 2020. She had resumed her Ibrance and Arimidex. She was tolerating it well. She had began radiation therapy to the right chest wall at that time as well. Her family history significant for breast cancer in her grandmother as well as brother She has history of COPD/asthma hypertension tolerating Ibrance/Arimidex well otherwise.Because of progressive leukopenia her Ibrance dose was reduced to 100 mg per daily day 1 through 14 and repeat every 21 daysFollow-up CT PET scan done on July 14, 2021 shows resolution of previously right breast lesion status post therapy with postop inflammation in the breast and adjacent lung. Right upper lung apex, possible infection. 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 No evidence of metabolically active disease or progression. Resolution of previously right clavicle finding. Came for follow-up, denies any specific complaint except generalized weakness and fatigue but no fever chills, no nausea vomiting, no diarrhea constipation, appetite is good, no weight loss, patient has chronic musculoskeletal pain/discomfort, under control with current pain medication,, Tolerating Arimidex/Ibrance reasonably well Medications: Acetaminophen 2 Tabminder (of 500 mg) Tablet Oral q 4 hours PRN, Allopurinol 1 Tablet (of 100 mg) Tablet Oral daily, Anastrozole 1 Tablet (of 1 mg) Tablet Oral daily, Citalopram Hydrobromide 1 Tablet (of 10 mg) Oral daily, Metoprolol Succinate ER 1 Tablet (of 50 mg) Tablet SR 24 HR Oral daily, Ondansetron HCl 1 Tablet (of 4 mg) Oral q 8 hours PRN Allergies: Codeine Sulfate, Morphine Sulfate, and Vancomycin HCl. Review of Systems: Review of Systems is not available for this patient. Vital Signs: Performed on Jul 21, 2021 16:25 Height - 60.00 in Weight - 185 lbs (LOW) BSA - 1.81 sq.m BMI - 36.13 (HIGH) Temperature - 98.9 F (HIGH) Pulse - 103 /min (HIGH) Respiration - 18 /min BP - 152/86 mm(hg) (HIGH) O2 Sat - 95 % (LOW) Pain - 10 Fatigue - 8 Performance Status: 0 - Fully active, able to carry on all predisease activities without restrictions. (ECOG) Physical Examination: Respiratory - Lungs are clear to auscultation, Cardiovascular - Regular rate and rhythm of heart, Gastrointestinal - Soft, bowel sounds present, Extremities - No visible edema. Lab/Imaging: Most recent lab results are not available for this patient. Impression: Status post right mastectomy with right axillary lymph node dissection done on October 21, 2019 as PET scan shows no more evidence of distant mets only right breast mass uptake. 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 Clinical stage T4, skin involvement, NX M1, stage IV Started on Ibrance/anastrozole/Zometa on January 01, 2020 COPD/asthma Obesity Hypertension Follow-up CT PET scan done on September 29, 2020 showed persistent right breast uptake otherwise no right axillary lymphadenopathy or distant mets. Right clavicular head uptake, indeterminate Plan: Discussed with patient regarding her labs white blood count 7.7 hemoglobin 12.6 hematocrit 38.4 platelets 224,000 CMP within normal limit except glucose [address] PET scan finding which shows no evidence of metastatic disease Clinically, patient doing well with no signs symptoms history of recurrence of disease, tolerating Ibrance/Arimidex well but with expected side effect is generalized weakness and fatigue, mild nausea with Ibrance. At this point, treatment options were discussed, as her CT PET scan shows no evidence of recurrence so it is advisable to continue with Ibrance 100 mg p.o. daily from day 1-14 and repeat 21 days along with daily Arimidex or if it is interfering with the patient's quality of life then continue with Arimidex alone along with vitamin D and calcium, patient is very pleased with her CT PET scan report and now wants to try another cycle of Ibrance/Arimidex if tolerated then she will continue otherwise she may prefer Arimidex alone. Patient will start her Ibrance 100 mg p.o. daily in the morning for 14 days and she is on daily Arimidex and then she will return to clinic in 3 weeks with CBC CMP and for further discussion. Signed By: Korin Aguilar M.D. <<Signature on File>>
== END 2021-08-10 23:59 | disposition home or self-care (01) ==
LOC: ONCMED 05:37
PROVIDERS: PCP Nurse Practitioner Family; Visit Provider Internal Medicine Hematology & Oncology
DX: C50.811 Malignant neoplasm of overlapping sites of right female breast (principal); Z17.0 Estrogen receptor positive status [ER+]; Z90.11 Acquired absence of right breast and nipple; Z79.811 Long term (current) use of aromatase inhibitors; J44.9 Chronic obstructive pulmonary disease, unspecified; J45.909 Unspecified asthma, uncomplicated; E66.9 Obesity, unspecified; Z68.36 Body mass index [BMI] 36.0-36.9, adult; I10 Essential (primary) hypertension; Z79.899 Other long term (current) drug therapy
CPT/HCPCS: 36415; 80053; 85025; 99214

== ENCOUNTER 2021-09-08 06:30 | Outpatient (RCR) | payer MEDICARE, SELFPAY ==
[2021-08-16 14:42] LABS: Basophils # 0.1 10^3/uL (0.0-0.1); Basophils % 2.2 %; Eosinophils # 0.1 10^3/uL (0.0-0.8); Eosinophils % 3.8 %; Hematocrit 35.4 % (37.0-47.0); Hemoglobin 11.8 g/dL (11.5-15.3); Lymphocytes % 31.1 %; Mean Corpuscular HGB Conc 33.3 g/dL (30.0-36.0); Mean Corpuscular Hemoglobin 32.6 pg (28.0-34.0); Mean Corpuscular Volume 97.8 fl (81-99); Mean Platelet Volume 9.4 fL (7.4-10.4); Monocytes # 0.3 10^3/uL (0.2-0.9); Monocytes % 10.2 %; Neutrophils # 1.65 10^3/uL (1.8-7.7); Neutrophils % 52.4 %; Nucleated Red Blood Cells % 0 %; Platelet Count 128 10^3/cmm (130-400); Red Blood Count 3.62 10^6/uL (4.1-5.3); Red Cell Distribution Width 15.1 % (12.1-15.1); White Blood Count 3.2 10^3/uL (4.0-10.0)
[2021-08-16 15:08] LABS: Alanine Aminotransferase 11 U/L (0-33); Albumin Level 3.7 g/dL (3.5-5.2); Alkaline Phosphatase 82 IU/L (35-105); Anion Gap 17.2 (5-19); Aspartate Amino Transferase 18 U/L (0-32); Blood Urea Nitrogen 12 mg/dL (8-23); Calcium 8.6 mg/dL (8.5-10.5); Carbon Dioxide 22 mmol/L (22-29); Chloride 105 mmol/L (98-107); Globulin 2.5 g/dL (1.3-4.6); Glucose 152 mg/dL (65-115); Osmolality Calculated 295 mOsm/kg (285-295); Potassium 3.2 mmol/L (3.5-5.1); Sodium 141 mmol/L (136-145); Total Bilirubin 0.3 mg/dL (0.15-1.2); Total Protein 6.2 g/dL (6.6-8.7)
--- NOTE | 2021-08-16 16:35 | ONC FU_ITS ---
Dr. Aguilar follow up note Patient: Ashlee Buenrostro Unit #: [id number]: [id number] Dicatated By: Korin Aguilar M.D.Date of Visit:Aug 16, 2021 Onc Med Follow-up/Prog Note History of Present Illness: Ms. Buenrostro is a 81-year-old female with a history of stage IV breast cancer. She reports in July 2019, she underwent mammogram which showed right breast mass followed by ultrasound right breast which showed a 3.4 x 2 x 2.4 cm hypoechoic mass with spiculated margin at 1 o'clock position. She underwent right breast biopsy on August 16, 2019 which showed predominantly blood with atypical cells. On September 20, 2019, she underwent ultrasound-guided right breast biopsy which confirmed invasive ductal carcinoma, ER positive more than 90%, [place] +40% and HER-2/joao negative, Ki-67 was 15% Ms Buenrostro underwent PET/CT scan on October 02, 2019 which showed 3.6 x 2.7 cm mass in the right breast with SUV of 7. There was no pathologically enlarged or hypermetabolic lymph nodes seen. In the bones, there is focal increased uptake in left sacral gladis at the level of S1 with SUV of 10. But no associated lesion by CT scan. And there is no other hypermetabolic lesion worrisome for malignancy. MRI scan of sacrum was recommended on October 18, 2019 showed within the left sacral ala S1 level basis stir hyperintense, T1 hypointense enhancing lesion measuring 3 x 2.3 x 2.7 cm. It did not appear to have extension into sacral neural foramen. No pathological fracture. No additional lesions are identified. As per medical record, she was planned for breast surgery but it was canceled due to MRI scan findings and biopsy was ordered and on November 18, 2019. She underwent sacral lesion biopsy which confirmed metastatic carcinoma favor breast origin, ER/[place] positive, HER-2/joao negative Ki-67 was 20%. On January 01, 2020 she was started on Ibrance/anastrozole and monthly Zometa. On April 13, [address] scan of abdomen pelvis which showed diverticulosis coli without CT scan evidence of diverticulitis. Stable small right adrenal gland nodule, stable 5 mm left lower lobe lung nodule, benign. Left sacral bone metastasis. And underwent bone scan on May 14, 2020 shows abnormal uptake in left sacral gladis near SI joint unchanged since prior. On the right at L4-L5 increased uptake associated noted unchanged since the prior could be degenerative. Ms Buenrostro had received all this evaluation and treatment in [place]. She relocated to [place], [place] and was evaluated on September 15, 2020. She had follow-up PET/CT imaging on September 29, 2020 at [facility] in [facility] which reported a central nodular density in the right breast at the 12 o'clock position just cephalad to the nipple measuring 3.9 x 1.8 cm demonstrating a maximum SUV of 4.39. There was no concerning lymphadenopathy observed in the right axilla or elsewhere in the thoracic structures. No pulmonary nodules or other focus of increased metabolic activity was identified. The liver had a maximum SUV of 6.61. The right adrenal is mildly thickened without focal increase of metabolic activity. Unremarkable left adrenal. Unremarkable liver/vein, pancreas, kidneys and uterus. No lymphadenopathy or focal increase of metabolic activity in solid organs or other soft tissue structures. There was a tiny sclerotic focus present in the right acetabular roof without association increase of metabolic activity. Degenerative changes are present throughout the spine. A small lytic focus is present in the dorsal aspect of the right clavicular head associated with increased metabolic activity with maximum SUV of 7.88. There were no other focal increase in metabolic activity in the bone or muscle. Inflammatory changes are present in the right shoulder. Previous posterior cervical fusion surgery noted. The findings in the right clavicle head were indeterminate but could represent me metastatic involvement. 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 She was referred to surgery for right breast lumpectomy for the persistent mass in her right breast a 3.9 x 1.8 cm with an SUV of 4.39. The plan was to refer her for radiation therapy or simple mastectomy depending on results of the lumpectomy. She was also referred to radiation oncology for evaluation for SBRT to the right clavicular head if metastatic disease was confirmed. Her Ibrance was held but she continued with Arimidex at that time. Mrs. Buenrostro was seen by Dr. Milan on October 06, 2020. He had recommended right simple mastectomy. She was then seen by Dr. Mk Oseguera in radiation oncology on October 12, 2020 for possible radiotherapy for management of her metastatic breast cancer. Radiation was held for surgery consideration. She underwent simple right mastectomy with axillary lymph node dissection per Dr Milan on 10/21/2020. 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 1 lymph node did show extranodal extension. Per Dr. Aguilar's note pT2, pN1a. Her breast cancer prognostic profile/report from October 29, 2020 reported Ki-67 at 2% ER 99% [place] 70% HER-2/joao IHC qualitative is 0+. She was seen on November 05, 2020 at [facility] for fever and generalized body aches. Her DESTIN drain has been removed on 11/03/2020. She was placed on vancomycin and clindamycin for 24+ hours and responded well. She was discharged on cefadroxil and doxycycline. She is also discharged on prednisone 20 mg twice daily for 5 days for an acute gout flare. She returned to [facility] on November 22, 2020 with swelling at the mastectomy site. She also had recurrence of low-grade temperature. She did have aspiration of the postmastectomy seroma of 600 mL. This was performed by Dr. Murillo on November 22, 2020. She was discharged on Augmentin twice daily for 7 days. She was then seen on 11/27/[address] Oseguera for consideration of radiotherapy for management of her metastatic breast cancer post simple right mastectomy. He recommended a 5 course of radiation therapy to the right chest wall and regional lymph node area. She was then seen for follow-up on December 23, 2020. She had resumed her Ibrance and Arimidex. She was tolerating it well. She had began radiation therapy to the right chest wall at that time as well. Her family history significant for breast cancer in her grandmother as well as brother She has history of COPD/asthma hypertension tolerating Ibrance/Arimidex well otherwise.Because of progressive leukopenia her Ibrance dose was reduced to 100 mg per daily day 1 through 14 and repeat every 21 daysFollow-up CT PET scan done on July 14, 2021 shows resolution of previously right breast lesion status post therapy with postop inflammation in the breast and adjacent lung. Right upper lung apex, possible infection. 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 No evidence of metabolically active disease or progression. Resolution of previously right clavicle finding. Came for follow-up, denies any specific complaints, no fever chills, no nausea or vomiting, no diarrhea constipation, tolerating Ibrance/Arimidex well. As per patient last Ibrance dose was taken about a week and half ago, patient was supposed to come back for follow-up 3 days ago but rescheduled. Medications: Acetaminophen 2 Tabminder (of 500 mg) Tablet Oral q 4 hours PRN, Allopurinol 1 Tablet (of 100 mg) Tablet Oral daily, Anastrozole 1 Tablet (of 1 mg) Tablet Oral daily, Citalopram Hydrobromide 1 Tablet (of 10 mg) Oral daily, Metoprolol Succinate ER 1 Tablet (of 50 mg) Tablet SR 24 HR Oral daily, Ondansetron HCl 1 Tablet (of 4 mg) Oral q 8 hours PRN Allergies: Codeine Sulfate, Morphine Sulfate, and Vancomycin HCl. Review of Systems: Review of Systems is not available for this patient. Vital Signs: Performed on Aug 16, 2021 15:16 Height - 60.00 in Weight - 184.2 lbs (LOW) BSA - 1.80 sq.m BMI - 35.97 (HIGH) Temperature - 98.1 F (LOW) Pulse - 93 /min Respiration - 18 /min BP - 162/78 mm(hg) (HIGH) O2 Sat - 95 % (LOW) Pain - 0 Fatigue - 8 Performance Status: 0 - Fully active, able to carry on all predisease activities without restrictions. (ECOG) Physical Examination: Respiratory - Lungs are clear to auscultation, Cardiovascular - Regular rate and rhythm of heart, Gastrointestinal - Soft, bowel sounds present, Extremities - No visible edema. Lab/Imaging: Most recent lab results are not available for this patient. Impression: Status post right mastectomy with right axillary lymph node dissection done on October 21, 2019 as PET scan shows no more evidence of distant mets only right breast mass uptake. Final pathology showed 2.7 cm invasive carcinoma, metaplastic, with osteoid and sarcomatoid differentiation, grade 3, clear margins, pT2 2 out of 9 lymph node positive for metastatic disease 1 with extranodal extension pN1a, ER 99% positive [place] 70% positive HER-2/joao negative Metastatic breast cancer with biopsy-proven single lesion in left sacral ala Status post radiation therapy initially diagnosed on September 20, 2019, ER more than 90% positive [place] 40% positive HER-2/joao negative Ki-67 15%. Clinical stage T4, skin involvement, NX M1, stage IV Started on Ibrance/anastrozole/Zometa on January 01, 2020 COPD/asthma Obesity Hypertension Follow-up CT PET scan done on September 29, 2020 showed persistent right breast uptake otherwise no right axillary lymphadenopathy or distant mets. Right clavicular head uptake, indeterminate Follow-up CT PET scan done on July 14, 2021 showed no evidence of metabolically active disease or progression,. 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 Findings of the right lung apex are more concerning for possible infection. Resolution of previously right clinical lesion. Plan: Discussed with patient regarding her labs white blood count 3.2 hemoglobin 11.8 hematocrit 35.4 platelets 128,000 ANC 1650 CMP within normal limit except potassium 3.2 CT PET scan done on July 14, 2021 shows resolution of previous right breast lesion status post therapy. No evidence of metabolically active disease/progression., Finding is right lung apex are more concerning for possible infection Clinically, patient is doing well with no new signs suggestive of recurrence of disease, tolerating Ibrance/Arimidex well but with expected side effect e.g. prolonged leukopenia, causing delay in treatment, Her follow-up CT PET scan shows excellent response, no active disease at this point At this point, will continue to hold Ibrance for another week and patient return to clinic in 1 week with CBC if her blood count recover, will restart next cycle of Ibrance 100 mg. Daily day 1 through 14 and repeat every 21 days along with daily Arimidex/vitamin D/calcium. And also consider Neupogen 480 mcg subcu daily x3 after each Ibrance cycle, to prevent chemotherapy-induced neutropenia and also to maintain schedule. Signed By: Korin Aguilar M.D. <<Signature on File>>
[2021-08-23 12:50] LABS: Basophils # 0.1 10^3/uL (0.0-0.1); Basophils % 1.3 %; Eosinophils # 0.1 10^3/uL (0.0-0.8); Eosinophils % 1.8 %; Hematocrit 39.5 % (37.0-47.0); Hemoglobin 12.7 g/dL (11.5-15.3); Lymphocytes # 1.2 10^3/uL (0.8-4.8); Lymphocytes % 25.6 %; Mean Corpuscular HGB Conc 32.2 g/dL (30.0-36.0); Mean Corpuscular Hemoglobin 31.9 pg (28.0-34.0); Mean Corpuscular Volume 99.2 fl (81-99); Mean Platelet Volume 9.8 fL (7.4-10.4); Monocytes # 0.6 10^3/uL (0.2-0.9); Monocytes % 13.7 %; Neutrophils % 57.4 %; Nucleated Red Blood Cells % 0 %; Platelet Count 218 10^3/cmm (130-400); Red Blood Count 3.98 10^6/uL (4.1-5.3); Red Cell Distribution Width 14.9 % (12.1-15.1); White Blood Count 4.5 10^3/uL (4.0-10.0)
[2021-08-23 13:06] LABS: Anion Gap 15.2 (5-19); Blood Urea Nitrogen 14 mg/dL (8-23); Carbon Dioxide 26 mmol/L (22-29); Chloride 100 mmol/L (98-107); Glucose 148 mg/dL (65-115); Osmolality Calculated 287 mOsm/kg (285-295); Potassium 4.2 mmol/L (3.5-5.1); Sodium 137 mmol/L (136-145)
[2021-09-08 08:58] LABS: Basophils % 1.4 %; Eosinophils # 0.1 10^3/uL (0.0-0.8); Eosinophils % 2.9 %; Hematocrit 37.8 % (37.0-47.0); Hemoglobin 12.5 g/dL (11.5-15.3); Lymphocytes # 0.8 10^3/uL (0.8-4.8); Lymphocytes % 29.2 %; Mean Corpuscular HGB Conc 33.1 g/dL (30.0-36.0); Mean Corpuscular Hemoglobin 32.7 pg (28.0-34.0); Mean Platelet Volume 9.9 fL (7.4-10.4); Monocytes # 0.2 10^3/uL (0.2-0.9); Monocytes % 5.8 %; Neutrophils # 1.67 10^3/uL (1.8-7.7); Neutrophils % 60.3 %; Nucleated Red Blood Cells % 0 %; Platelet Count 154 10^3/cmm (130-400); Red Blood Count 3.82 10^6/uL (4.1-5.3); White Blood Count 2.8 10^3/uL (4.0-10.0)
[2021-09-08 09:23] LABS: Alanine Aminotransferase 11 U/L (0-33); Albumin Level 3.8 g/dL (3.5-5.2); Alkaline Phosphatase 84 IU/L (35-105); Anion Gap 15.9 (5-19); Aspartate Amino Transferase 17 U/L (0-32); Blood Urea Nitrogen 9 mg/dL (8-23); Calcium 8.5 mg/dL (8.5-10.5); Carbon Dioxide 24 mmol/L (22-29); Chloride 100 mmol/L (98-107); Globulin 3.1 g/dL (1.3-4.6); Glucose 120 mg/dL (65-115); Osmolality Calculated 282 mOsm/kg (285-295); Potassium 3.9 mmol/L (3.5-5.1); Sodium 136 mmol/L (136-145); Total Bilirubin 0.6 mg/dL (0.15-1.2); Total Protein 6.9 g/dL (6.6-8.7)
[2021-09-08 10:00] LABS: Slide Review Slide Review Perform
== END 2021-09-10 23:59 | disposition home or self-care (01) ==
LOC: ONCMED 06:30
PROVIDERS: Internal Medicine Hematology & Oncology; PCP Nurse Practitioner Family; Visit Provider Nurse Practitioner Family
DX: C50.811 Malignant neoplasm of overlapping sites of right female breast (principal); Z17.0 Estrogen receptor positive status [ER+]; Z90.11 Acquired absence of right breast and nipple; C79.51 Secondary malignant neoplasm of bone; J44.9 Chronic obstructive pulmonary disease, unspecified; J45.909 Unspecified asthma, uncomplicated; E66.9 Obesity, unspecified; Z68.35 Body mass index [BMI] 35.0-35.9, adult; I10 Essential (primary) hypertension; E55.9 Vitamin D deficiency, unspecified; Z79.818 Long term (current) use of other agents affecting estrogen receptors and estrogen levels; Z79.899 Other long term (current) drug therapy
CPT/HCPCS: 36415; 80048; 80053; 85025; 99214

== ENCOUNTER 2021-10-06 06:21 | Outpatient (RCR) | payer MEDICARE, SELFPAY ==
[2021-09-29 09:28] LABS: Basophils % 1.2 %; Eosinophils % 1.2 %; Hematocrit 38.1 % (37.0-47.0); Hemoglobin 12.3 g/dL (11.5-15.3); Lymphocytes # 0.8 10^3/uL (0.8-4.8); Lymphocytes % 47.2 %; Mean Corpuscular HGB Conc 32.3 g/dL (30.0-36.0); Mean Corpuscular Hemoglobin 32.3 pg (28.0-34.0); Mean Platelet Volume 11.5 fL (7.4-10.4); Monocytes # 0.1 10^3/uL (0.2-0.9); Monocytes % 6.8 %; Neutrophils % 43.6 %; Nucleated Red Blood Cells % 0 %; Platelet Count 127 10^3/cmm (130-400); Red Blood Count 3.81 10^6/uL (4.1-5.3); Red Cell Distribution Width 14.3 % (12.1-15.1); White Blood Count 1.6 10^3/uL (4.0-10.0)
[2021-09-29 09:49] LABS: Alanine Aminotransferase 12 U/L (0-33); Albumin Level 3.8 g/dL (3.5-5.2); Alkaline Phosphatase 90 IU/L (35-105); Anion Gap 16.9 (5-19); Aspartate Amino Transferase 21 U/L (0-32); Blood Urea Nitrogen 13 mg/dL (8-23); Calcium 8.2 mg/dL (8.5-10.5); Carbon Dioxide 23 mmol/L (22-29); Chloride 101 mmol/L (98-107); Globulin 2.9 g/dL (1.3-4.6); Glucose 203 mg/dL (65-115); Osmolality Calculated 290 mOsm/kg (285-295); Potassium 3.9 mmol/L (3.5-5.1); Sodium 137 mmol/L (136-145); Total Bilirubin 0.4 mg/dL (0.15-1.2); Total Protein 6.7 g/dL (6.6-8.7)
[2021-09-29 09:55] LABS: Slide Review Slide Review Perform
--- NOTE | 2021-09-29 13:26 | ONC FU_ITS ---
Dr. Aguilar follow up note Patient: Ashlee Buenrostro Unit #: [id number]: 1940 Dicatated By: Korin Aguilar M.D.Date of Visit:Sep 29, 2021 Onc Med Follow-up/Prog Note History of Present Illness: Ms. Buenrostro is a 81-year-old female with a history of stage IV breast cancer. She reports in July 2019, she underwent mammogram which showed right breast mass followed by ultrasound right breast which showed a 3.4 x 2 x 2.4 cm hypoechoic mass with spiculated margin at 1 o'clock position. She underwent right breast biopsy on August 16, 2019 which showed predominantly blood with atypical cells. On September 20, 2019, she underwent ultrasound-guided right breast biopsy which confirmed invasive ductal carcinoma, ER positive more than 90%, IA +40% and HER-2/joao negative, Ki-67 was 15% Ms Buenrostro underwent PET/CT scan on October 02, 2019 which showed 3.6 x 2.7 cm mass in the right breast with SUV of 7. There was no pathologically enlarged or hypermetabolic lymph nodes seen. In the bones, there is focal increased uptake in left sacral gladis at the level of S1 with SUV of 10. But no associated lesion by CT scan. And there is no other hypermetabolic lesion worrisome for malignancy. MRI scan of sacrum was recommended on October 18, 2019 showed within the left sacral ala S1 level basis stir hyperintense, T1 hypointense enhancing lesion measuring 3 x 2.3 x 2.7 cm. It did not appear to have extension into sacral neural foramen. No pathological fracture. No additional lesions are identified. As per medical record, she was planned for breast surgery but it was canceled due to MRI scan findings and biopsy was ordered and on November 18, 2019. She underwent sacral lesion biopsy which confirmed metastatic carcinoma favor breast origin, ER/IA positive, HER-2/joao negative Ki-67 was 20%. On January 01, 2020 she was started on Ibrance/anastrozole and monthly Zometa. On April 13, [address] scan of abdomen pelvis which showed diverticulosis coli without CT scan evidence of diverticulitis. Stable small right adrenal gland nodule, stable 5 mm left lower lobe lung nodule, benign. Left sacral bone metastasis. And underwent bone scan on May 14, 2020 shows abnormal uptake in left sacral gladis near SI joint unchanged since prior. On the right at L4-L5 increased uptake associated noted unchanged since the prior could be degenerative. Ms Buenrostro had received all this evaluation and treatment in [place]. She relocated to [place], [place] and was evaluated on September 15, 2020. She had follow-up PET/CT imaging on September 29, 2020 at [facility] in [facility] which reported a central nodular density in the right breast at the 12 o'clock position just cephalad to the nipple measuring 3.9 x 1.8 cm demonstrating a maximum SUV of 4.39. There was no concerning lymphadenopathy observed in the right axilla or elsewhere in the thoracic structures. No pulmonary nodules or other focus of increased metabolic activity was identified. The liver had a maximum SUV of 6.61. The right adrenal is mildly thickened without focal increase of metabolic activity. Unremarkable left adrenal. Unremarkable liver/vein, pancreas, kidneys and uterus. No lymphadenopathy or focal increase of metabolic activity in solid organs or other soft tissue structures. There was a tiny sclerotic focus present in the right acetabular roof without association increase of metabolic activity. Degenerative changes are present throughout the spine. A small lytic focus is present in the dorsal aspect of the right clavicular head associated with increased metabolic activity with maximum SUV of 7.88. There were no other focal increase in metabolic activity in the bone or muscle. Inflammatory changes are present in the right shoulder. Previous posterior cervical fusion surgery noted. The findings in the right clavicle head were indeterminate but could represent me metastatic involvement. 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 She was referred to surgery for right breast lumpectomy for the persistent mass in her right breast a 3.9 x 1.8 cm with an SUV of 4.39. The plan was to refer her for radiation therapy or simple mastectomy depending on results of the lumpectomy. She was also referred to radiation oncology for evaluation for SBRT to the right clavicular head if metastatic disease was confirmed. Her Ibrance was held but she continued with Arimidex at that time. Mrs. Buenrostro was seen by Dr. Milan on October 06, 2020. He had recommended right simple mastectomy. She was then seen by Dr. Mk Oseguera in radiation oncology on October 12, 2020 for possible radiotherapy for management of her metastatic breast cancer. Radiation was held for surgery consideration. She underwent simple right mastectomy with axillary lymph node dissection per Dr Milan on 10/21/2020. 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 1 lymph node did show extranodal extension. Per Dr. Aguilar's note pT2, pN1a. Her breast cancer prognostic profile/report from October 29, 2020 reported Ki-67 at 2% ER 99% IA 70% HER-2/joao IHC qualitative is 0+. She was seen on November 05, 2020 at [facility] for fever and generalized body aches. Her DESTIN drain has been removed on 11/03/2020. She was placed on vancomycin and clindamycin for 24+ hours and responded well. She was discharged on cefadroxil and doxycycline. She is also discharged on prednisone 20 mg twice daily for 5 days for an acute gout flare. She returned to [facility] on November 22, 2020 with swelling at the mastectomy site. She also had recurrence of low-grade temperature. She did have aspiration of the postmastectomy seroma of 600 mL. This was performed by Dr. Murillo on November 22, 2020. She was discharged on Augmentin twice daily for 7 days. She was then seen on 11/27/[address] Oseguera for consideration of radiotherapy for management of her metastatic breast cancer post simple right mastectomy. He recommended a 5 course of radiation therapy to the right chest wall and regional lymph node area. She was then seen for follow-up on December 23, 2020. She had resumed her Ibrance and Arimidex. She was tolerating it well. She had began radiation therapy to the right chest wall at that time as well. Her family history significant for breast cancer in her grandmother as well as brother She has history of COPD/asthma hypertension tolerating Ibrance/Arimidex well otherwise.Because of progressive leukopenia her Ibrance dose was reduced to 100 mg per daily day 1 through 14 and repeat every 21 daysFollow-up CT PET scan done on July 14, 2021 shows resolution of previously right breast lesion status post therapy with postop inflammation in the breast and adjacent lung. Right upper lung apex, possible infection. 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 No evidence of metabolically active disease or progression. Resolution of previously right clavicle finding. Genetic testing done on September 17, 2019 as reported on July 12, 2021, patient brought report to us showing positive for MUTYH mutation which is associated with increased risk for colorectal cancer, As per patient her last colonoscopy was done about 5 years ago and it was normal Came for follow-up, denies any specific complaints except generalized weakness and fatigue, no fever chills, mild nausea but no vomiting, no diarrhea or constipation, no sore throat, no dysuria or hematuria, as per patient, Ibrance is interfering with quality of life, with persistent off-and-on nausea and generalized weakness. No hot flashes, has completed last cycle of Ibrance about 6 days ago, now taking daily Arimidex. Medications: Acetaminophen 2 Tabminder (of 500 mg) Tablet Oral q 4 hours PRN, Allopurinol 1 Tablet (of 100 mg) Tablet Oral daily, Anastrozole 1 Tablet (of 1 mg) Tablet Oral daily, Citalopram Hydrobromide 1 Tablet (of 10 mg) Oral daily, Metoprolol Succinate ER 1 Tablet (of 50 mg) Tablet SR 24 HR Oral daily, Ondansetron HCl 1 Tablet (of 4 mg) Oral q 8 hours PRN Allergies: Codeine Sulfate, Morphine Sulfate, and Vancomycin HCl. Review of Systems: Review of Systems is not available for this patient. Vital Signs: Performed on Sep 29, 2021 11:27 Height - 60.00 in Weight - 181.0 lbs (LOW) BSA - 1.79 sq.m BMI - 35.35 (HIGH) Temperature - 98.4 F Pulse - 68 /min Respiration - 16 /min BP - 148/85 mm(hg) (HIGH) O2 Sat - 99 % Pain - 8 Fatigue - 10 Performance Status: 0 - Fully active, able to carry on all predisease activities without restrictions. (ECOG) Physical Examination: Respiratory - Lungs are clear to auscultation, Cardiovascular - Regular rate and rhythm of heart, Gastrointestinal - Soft, bowel sounds present, Extremities - No visible edema. Lab/Imaging: Test performed on Sep 08, 2021 08:48 Sodium 136 mmol/L Potassium 3.9 mmol/L Chloride 100 mmol/L CO2 24 mmol/L Anion Gap 15.9 BUN 9 mg/dL Creatinine 1.2 mg/dL Cr Clearance (Est) 49.71 mL/min Glucose 120 mg/dL Osmolality - Calculated 282 mOsm/kg Calcium 8.5 mg/dL Protein, Total 6.9 g/dL Albumin 3.8 g/dL Globulin 3.1 g/dL Bilirubin, Total 0.6 mg/dL ALT (SGPT) 11 U/L AST (SGOT) 17 U/L Alkaline Phosphatase 84 IU/L WBC 2.8 10 3/uL RBC 3.82 10 6/uL HGB 12.5 g/dL HCT 37.8 % MCV 99.0 fl MCH 32.7 pg MCHC 33.1 g/dL RDW 14.0 % Platelet Count 154 10 3/cmm MPV 9.9 fL Neutrophils 1.67 10 3/uL Lymphocytes 0.8 10 3/uL Monocytes 0.2 10 3/uL Eosinophils 0.1 10 3/uL Basophils 0.0 10 3/uL Neutrophil % 60.3 % Lymphocyte % 29.2 % Monocyte % 5.8 % Eosinophil % 2.9 % Basophils % 1.4 % NRBC % 0 % CBC Slide Review Slide Review Perform SLIDE REVIEW AGREES WITH AUTOMATED RESULTS Impression: Status post right mastectomy with right axillary lymph node dissection done on October 21, 2019 as PET scan shows no more evidence of distant mets only right breast mass uptake. 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 Clinical stage T4, skin involvement, NX M1, stage IV Started on Ibrance/anastrozole/Zometa on January 01, 2020 COPD/asthma Obesity Hypertension Follow-up CT PET scan done on September 29, 2020 showed persistent right breast uptake otherwise no right axillary lymphadenopathy or distant mets. Right clavicular head uptake, indeterminate Follow-up CT PET scan done on July 14, 2021 showed no evidence of metabolically active disease or progression,. 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 Findings of the right lung apex are more concerning for possible infection. Resolution of previously right clinical lesion. Plan: Discussed with patient regarding her labs white blood count 1.6 hemoglobin 12.3 hematocrit 38.1 platelets 127,000 ANC 700 compared to 1670 previously CMP within normal limit except glucose 203 and creatinine 1.2 Clinically, patient doing reasonably well, no signs symptom suggestive of recurrence of disease, tolerating Ibrance/Arimidex well but with expected side effects e.g. generalized weakness and fatigue, now progressive neutropenia due to Ibrance although her Ibrance dose was reduced to 100 mg from day 1 through 14 instead of day 1 through 21, patient still developing progressive neutropenia, moreover she is also complaining of generalized weakness and fatigue and persistent mild nausea and wondering if she can stop Ibrance while continue with Arimidex. At this point, we will hold her next cycle of Ibrance for 1 week and consider Neupogen 480 mg subcu daily for 3 days and repeat her CBC in 1 week if it shows resolution of chemotherapy-induced neutropenia, then will start her next cycle of Ibrance 100 mg daily from day 1 through 14 along with daily Arimidex and then repeat CT PET scan after next cycle, if it shows no evidence of disease, in that case we might consider stopping Ibrance while continue daily Arimidex.^ As late reporting on genetic testing Done in September 2019 but reported on July 12, 2021 showing MUTYH gene mutation, which is associated with increased risk of colorectal cancer, we will refer her to genetic clinic for evaluation and recommendation. Patient had a colonoscopy done more than 5 years ago and not too excited to have another one.] Signed By: Korin Aguilar M.D. <<Signature on File>>
== END 2021-10-11 23:59 | disposition home or self-care (01) ==
LOC: ONCMED 06:21
PROVIDERS: Internal Medicine Medical Oncology; PCP Clinical Nurse Specialist Adult Health; Visit Provider Internal Medicine Hematology & Oncology
DX: C50.811 Malignant neoplasm of overlapping sites of right female breast (principal); Z17.0 Estrogen receptor positive status [ER+]; C79.51 Secondary malignant neoplasm of bone; Z90.11 Acquired absence of right breast and nipple; J44.9 Chronic obstructive pulmonary disease, unspecified; J45.909 Unspecified asthma, uncomplicated; E66.9 Obesity, unspecified; I10 Essential (primary) hypertension; D70.1 Agranulocytosis secondary to cancer chemotherapy; T45.1X5A Adverse effect of antineoplastic and immunosuppressive drugs, initial encounter; Z79.811 Long term (current) use of aromatase inhibitors; Z79.899 Other long term (current) drug therapy; Z92.21 Personal history of antineoplastic chemotherapy
CPT/HCPCS: 36415; 80053; 85025; 96372; 99215; Q5101

== ENCOUNTER 2021-10-12 06:24 | Outpatient (RCR) | payer MEDICARE, SELFPAY ==
[2021-10-12 09:23] LABS: Basophils # 0.1 10^3/uL (0.0-0.1); Basophils % 1.4 %; Eosinophils % 0.6 %; Hemoglobin 12.7 g/dL (11.5-15.3); Lymphocytes % 14.6 %; Mean Corpuscular HGB Conc 32.6 g/dL (30.0-36.0); Mean Corpuscular Hemoglobin 32.6 pg (28.0-34.0); Mean Corpuscular Volume 100.3 fl (81-99); Mean Platelet Volume 10.8 fL (7.4-10.4); Monocytes # 0.8 10^3/uL (0.2-0.9); Monocytes % 11.5 %; Neutrophils # 4.94 10^3/uL (1.8-7.7); Neutrophils % 69.6 %; Nucleated Red Blood Cells % 0 %; Platelet Count 128 10^3/cmm (130-400); Red Blood Count 3.89 10^6/uL (4.1-5.3); Red Cell Distribution Width 15.6 % (12.1-15.1); White Blood Count 7.1 10^3/uL (4.0-10.0)
--- NOTE | 2021-10-12 16:07 | ONC FU_ITS ---
Dr. Aguilar follow up note Patient: Ashlee Buenrostro Unit #: [id number]: 1940 Dicatated By: Korin Aguilar M.D.Date of Visit:Oct 12, 2021 Onc Med Follow-up/Prog Note History of Present Illness: Ms. Buenrostro is a 81-year-old female with a history of stage IV breast cancer. She reports in July 2019, she underwent mammogram which showed right breast mass followed by ultrasound right breast which showed a 3.4 x 2 x 2.4 cm hypoechoic mass with spiculated margin at 1 o'clock position. She underwent right breast biopsy on August 16, 2019 which showed predominantly blood with atypical cells. On September 20, 2019, she underwent ultrasound-guided right breast biopsy which confirmed invasive ductal carcinoma, ER positive more than 90%, AR +40% and HER-2/joao negative, Ki-67 was 15% Ms Buenrostro underwent PET/CT scan on October 02, 2019 which showed 3.6 x 2.7 cm mass in the right breast with SUV of 7. There was no pathologically enlarged or hypermetabolic lymph nodes seen. In the bones, there is focal increased uptake in left sacral gladis at the level of S1 with SUV of 10. But no associated lesion by CT scan. And there is no other hypermetabolic lesion worrisome for malignancy. MRI scan of sacrum was recommended on October 18, 2019 showed within the left sacral ala S1 level basis stir hyperintense, T1 hypointense enhancing lesion measuring 3 x 2.3 x 2.7 cm. It did not appear to have extension into sacral neural foramen. No pathological fracture. No additional lesions are identified. As per medical record, she was planned for breast surgery but it was canceled due to MRI scan findings and biopsy was ordered and on November 18, 2019. She underwent sacral lesion biopsy which confirmed metastatic carcinoma favor breast origin, ER/AR positive, HER-2/joao negative Ki-67 was 20%. On January 01, 2020 she was started on Ibrance/anastrozole and monthly Zometa. On April 13, [address] scan of abdomen pelvis which showed diverticulosis coli without CT scan evidence of diverticulitis. Stable small right adrenal gland nodule, stable 5 mm left lower lobe lung nodule, benign. Left sacral bone metastasis. And underwent bone scan on May 14, 2020 shows abnormal uptake in left sacral gladis near SI joint unchanged since prior. On the right at L4-L5 increased uptake associated noted unchanged since the prior could be degenerative. Ms Buenrostro had received all this evaluation and treatment in [place]. She relocated to [place], [place] and was evaluated on September 15, 2020. She had follow-up PET/CT imaging on September 29, 2020 at [facility] in [facility] which reported a central nodular density in the right breast at the 12 o'clock position just cephalad to the nipple measuring 3.9 x 1.8 cm demonstrating a maximum SUV of 4.39. There was no concerning lymphadenopathy observed in the right axilla or elsewhere in the thoracic structures. No pulmonary nodules or other focus of increased metabolic activity was identified. The liver had a maximum SUV of 6.61. The right adrenal is mildly thickened without focal increase of metabolic activity. Unremarkable left adrenal. Unremarkable liver/vein, pancreas, kidneys and uterus. No lymphadenopathy or focal increase of metabolic activity in solid organs or other soft tissue structures. There was a tiny sclerotic focus present in the right acetabular roof without association increase of metabolic activity. Degenerative changes are present throughout the spine. A small lytic focus is present in the dorsal aspect of the right clavicular head associated with increased metabolic activity with maximum SUV of 7.88. There were no other focal increase in metabolic activity in the bone or muscle. Inflammatory changes are present in the right shoulder. Previous posterior cervical fusion surgery noted. The findings in the right clavicle head were indeterminate but could represent me metastatic involvement. 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 She was referred to surgery for right breast lumpectomy for the persistent mass in her right breast a 3.9 x 1.8 cm with an SUV of 4.39. The plan was to refer her for radiation therapy or simple mastectomy depending on results of the lumpectomy. She was also referred to radiation oncology for evaluation for SBRT to the right clavicular head if metastatic disease was confirmed. Her Ibrance was held but she continued with Arimidex at that time. Mrs. Buenrostro was seen by Dr. Milan on October 06, 2020. He had recommended right simple mastectomy. She was then seen by Dr. Mk Oseguera in radiation oncology on October 12, 2020 for possible radiotherapy for management of her metastatic breast cancer. Radiation was held for surgery consideration. She underwent simple right mastectomy with axillary lymph node dissection per Dr Milan on 10/21/2020. 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 1 lymph node did show extranodal extension. Per Dr. Aguilar's note pT2, pN1a. Her breast cancer prognostic profile/report from October 29, 2020 reported Ki-67 at 2% ER 99% AR 70% HER-2/joao IHC qualitative is 0+. She was seen on November 05, 2020 at [facility] for fever and generalized body aches. Her DESTIN drain has been removed on 11/03/2020. She was placed on vancomycin and clindamycin for 24+ hours and responded well. She was discharged on cefadroxil and doxycycline. She is also discharged on prednisone 20 mg twice daily for 5 days for an acute gout flare. She returned to [facility] on November 22, 2020 with swelling at the mastectomy site. She also had recurrence of low-grade temperature. She did have aspiration of the postmastectomy seroma of 600 mL. This was performed by Dr. Murillo on November 22, 2020. She was discharged on Augmentin twice daily for 7 days. She was then seen on 11/27/[address] Oseguera for consideration of radiotherapy for management of her metastatic breast cancer post simple right mastectomy. He recommended a 5 course of radiation therapy to the right chest wall and regional lymph node area. She was then seen for follow-up on December 23, 2020. She had resumed her Ibrance and Arimidex. She was tolerating it well. She had began radiation therapy to the right chest wall at that time as well. Her family history significant for breast cancer in her grandmother as well as brother She has history of COPD/asthma hypertension tolerating Ibrance/Arimidex well otherwise.Because of progressive leukopenia her Ibrance dose was reduced to 100 mg per daily day 1 through 14 and repeat every 21 daysFollow-up CT PET scan done on July 14, 2021 shows resolution of previously right breast lesion status post therapy with postop inflammation in the breast and adjacent lung. Right upper lung apex, possible infection. 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 No evidence of metabolically active disease or progression. Resolution of previously right clavicle finding. Came for follow-up, denies any specific complaint except mild bony pains since on Neupogen, no fever chills, no nausea or vomiting, no diarrhea or constipation, her next cycle of Ibrance was on hold because of progressive leukopenia/neutropenia, patient is on daily Arimidex otherwise Medications: Acetaminophen 2 Tabminder (of 500 mg) Tablet Oral q 4 hours PRN, Allopurinol 1 Tablet (of 100 mg) Tablet Oral daily, Anastrozole 1 Tablet (of 1 mg) Tablet Oral daily, Citalopram Hydrobromide 1 Tablet (of 10 mg) Oral daily, Metoprolol Succinate ER 1 Tablet (of 50 mg) Tablet SR 24 HR Oral daily, Ondansetron HCl 1 Tablet (of 4 mg) Oral q 8 hours PRN Allergies: Codeine Sulfate, Morphine Sulfate, and Vancomycin HCl. Review of Systems: Review of Systems is not available for this patient. Vital Signs: Performed on Oct 12, 2021 11:13 Height - 60.00 in Weight - 185.6 lbs (HIGH) BSA - 1.81 sq.m BMI - 36.25 (HIGH) Temperature - 98.8 F Pulse - 76 /min Respiration - 16 /min BP - 157/78 mm(hg) (HIGH) O2 Sat - 94 % (LOW) Pain - 10 Fatigue - 10 Performance Status: 0 - Fully active, able to carry on all predisease activities without restrictions. (ECOG) Physical Examination: Respiratory - Lungs are clear to auscultation, Cardiovascular - Regular rate and rhythm of heart, Gastrointestinal - Soft, bowel sounds present, Extremities - No visible edema. Lab/Imaging: Test performed on Sep 29, 2021 09:17 Sodium 137 mmol/L Potassium 3.9 mmol/L Chloride 101 mmol/L CO2 23 mmol/L Anion Gap 16.9 BUN 13 mg/dL Creatinine 1.2 mg/dL Cr Clearance (Est) 49.27 mL/min Glucose 203 mg/dL Osmolality - Calculated 290 mOsm/kg Calcium 8.2 mg/dL Protein, Total 6.7 g/dL Albumin 3.8 g/dL Globulin 2.9 g/dL Bilirubin, Total 0.4 mg/dL ALT (SGPT) 12 U/L AST (SGOT) 21 U/L Alkaline Phosphatase 90 IU/L WBC 1.6 10 3/uL RBC 3.81 10 6/uL HGB 12.3 g/dL HCT 38.1 % MCV 100.0 fl MCH 32.3 pg MCHC 32.3 g/dL RDW 14.3 % Platelet Count 127 10 3/cmm MPV 11.5 fL Neutrophils 0.70 10 3/uL Lymphocytes 0.8 10 3/uL Monocytes 0.1 10 3/uL Eosinophils 0.0 10 3/uL Basophils 0.0 10 3/uL Neutrophil % 43.6 % Lymphocyte % 47.2 % Monocyte % 6.8 % Eosinophil % 1.2 % Basophils % 1.2 % NRBC % 0 % CBC Slide Review Slide Review Perform SLIDE REVIEW AGREES WITH AUTOMATED RESULTS ST Impression: Status post right mastectomy with right axillary lymph node dissection done on October 21, 2019 as PET scan shows no more evidence of distant mets only right breast mass uptake. 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 Clinical stage T4, skin involvement, NX M1, stage IV Started on Ibrance/anastrozole/Zometa on January 01, 2020 COPD/asthma Obesity Hypertension Follow-up CT PET scan done on September 29, 2020 showed persistent right breast uptake otherwise no right axillary lymphadenopathy or distant mets. Right clavicular head uptake, indeterminate Follow-up CT PET scan done on July 14, 2021 showed no evidence of metabolically active disease or progression,. 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 Findings of the right lung apex are more concerning for possible infection. Resolution of previously right clinical lesion. Plan: Discussed with patient regarding her labs white blood count 7.1 hemoglobin 12.7 g hematocrit 39 platelets 128,000 ANC [id number] Clinically, patient doing well with no new signs symptoms are stable disease progression, tolerating Ibrance/Arimidex well but with expected side effects e.g. now with progressive leukopenia/neutropenia causing delay in her Ibrance cycle and requiring Neupogen., At this point, will proceed with next cycle of Ibrance 100 mg p.o. daily day 1 through 14 q. 21 days while continue with daily Arimidex and then she will return to clinic in 3 weeks with CBC CMP and at that time we will schedule her for follow-up CT PET scan to assess disease status and if shows no evidence of metastatic disease,, at patient's request, we may discontinue Ibrance while continue with daily Arimidex. Signed By: Korin Aguilar M.D. <<Signature on File>>
== END 2021-11-08 23:59 | disposition home or self-care (01) ==
LOC: ONCMED 06:24
PROVIDERS: PCP Clinical Nurse Specialist Adult Health; Visit Provider Internal Medicine Hematology & Oncology
DX: C50.811 Malignant neoplasm of overlapping sites of right female breast (principal); Z17.0 Estrogen receptor positive status [ER+]; Z90.11 Acquired absence of right breast and nipple; J44.9 Chronic obstructive pulmonary disease, unspecified; J45.909 Unspecified asthma, uncomplicated; E66.9 Obesity, unspecified; I10 Essential (primary) hypertension; D70.1 Agranulocytosis secondary to cancer chemotherapy; T45.1X5A Adverse effect of antineoplastic and immunosuppressive drugs, initial encounter; Z79.818 Long term (current) use of other agents affecting estrogen receptors and estrogen levels; Z79.899 Other long term (current) drug therapy
CPT/HCPCS: 36415; 85025; 99214

== ENCOUNTER 2021-11-12 07:47 | Outpatient (RCR) | payer MEDICARE, SELFPAY ==
[2021-11-12 08:26] LABS: Basophils # 0.1 10^3/uL (0.0-0.1); Basophils % 1.8 %; Eosinophils # 0.1 10^3/uL (0.0-0.8); Lymphocytes # 0.9 10^3/uL (0.8-4.8); Mean Corpuscular HGB Conc 32.4 g/dL (30.0-36.0); Mean Corpuscular Hemoglobin 33.3 pg (28.0-34.0); Mean Corpuscular Volume 102.8 fl (81-99); Mean Platelet Volume 9.4 fL (7.4-10.4); Monocytes # 0.6 10^3/uL (0.2-0.9); Monocytes % 14.8 %; Neutrophils # 2.24 10^3/uL (1.8-7.7); Neutrophils % 57.1 %; Nucleated Red Blood Cells % 0 %; Platelet Count 177 10^3/cmm (130-400); Red Cell Distribution Width 14.4 % (12.1-15.1); White Blood Count 3.9 10^3/uL (4.0-10.0)
[2021-11-12 08:52] LABS: Alanine Aminotransferase 15 U/L (0-33); Alkaline Phosphatase 101 IU/L (35-105); Aspartate Amino Transferase 25 U/L (0-32); Blood Urea Nitrogen 13 mg/dL (8-23); Calcium 8.6 mg/dL (8.5-10.5); Carbon Dioxide 29 mmol/L (22-29); Chloride 100 mmol/L (98-107); Globulin 2.8 g/dL (1.3-4.6); Glucose 160 mg/dL (65-115); Osmolality Calculated 286 mOsm/kg (285-295); Sodium 136 mmol/L (136-145); Total Bilirubin 0.3 mg/dL (0.15-1.2); Total Protein 6.8 g/dL (6.6-8.7)
[2021-11-12 08:56] LABS: Anion Gap 11.6 (5-19); Potassium 4.6 mmol/L (3.5-5.1)
--- NOTE | 2021-11-12 10:21 | ONC FU_ITS ---
Dedra Bellamy Progress Note Patient: Ashlee Buenrostro Unit #: [id number]: 1940 Dicatated By: Dedra Bellamy N.P.Date of Visit:Nov 12, 2021 Onc MED Follow-up/Prog Note Chief Complaint: Metastatic breast cancer History of Present Illness: Ms. Buenrostro is a 81-year-old female with a history of stage IV breast cancer. She reports in July 2019, she underwent mammogram which showed right breast mass followed by ultrasound right breast which showed a 3.4 x 2 x 2.4 cm hypoechoic mass with spiculated margin at 1 o'clock position. She underwent right breast biopsy on August 16, 2019 which showed predominantly blood with atypical cells. On September 20, 2019, she underwent ultrasound-guided right breast biopsy which confirmed invasive ductal carcinoma, ER positive more than 90%, MT +40% and HER-2/joao negative, Ki-67 was 15% Ms Buenrostro underwent PET/CT scan on October 02, 2019 which showed 3.6 x 2.7 cm mass in the right breast with SUV of 7. There was no pathologically enlarged or hypermetabolic lymph nodes seen. In the bones, there is focal increased uptake in left sacral gladis at the level of S1 with SUV of 10. But no associated lesion by CT scan. And there is no other hypermetabolic lesion worrisome for malignancy. MRI scan of sacrum was recommended on October 18, 2019 showed within the left sacral ala S1 level basis stir hyperintense, T1 hypointense enhancing lesion measuring 3 x 2.3 x 2.7 cm. It did not appear to have extension into sacral neural foramen. No pathological fracture. No additional lesions are identified. As per medical record, she was planned for breast surgery but it was canceled due to MRI scan findings and biopsy was ordered and on November 18, 2019. She underwent sacral lesion biopsy which confirmed metastatic carcinoma favor breast origin, ER/MT positive, HER-2/joao negative Ki-67 was 20%. On January 01, 2020 she was started on Ibrance/anastrozole and monthly Zometa. On April 13, [address] scan of abdomen pelvis which showed diverticulosis coli without CT scan evidence of diverticulitis. Stable small right adrenal gland nodule, stable 5 mm left lower lobe lung nodule, benign. Left sacral bone metastasis. And underwent bone scan on May 14, 2020 shows abnormal uptake in left sacral gladis near SI joint unchanged since prior. On the right at L4-L5 increased uptake associated noted unchanged since the prior could be degenerative. Ms Buenrostro had received all this evaluation and treatment in [place]. She relocated to [place], [place] and was evaluated on September 15, 2020. She had follow-up PET/CT imaging on September 29, 2020 at [facility] in [facility] which reported a central nodular density in the right breast at the 12 o'clock position just cephalad to the nipple measuring 3.9 x 1.8 cm demonstrating a maximum SUV of 4.39. There was no concerning lymphadenopathy observed in the right axilla or elsewhere in the thoracic structures. No pulmonary nodules or other focus of increased metabolic activity was identified. The liver had a maximum SUV of 6.61. The right adrenal is mildly thickened without focal increase of metabolic activity. Unremarkable left adrenal. Unremarkable liver/vein, pancreas, kidneys and uterus. No lymphadenopathy or focal increase of metabolic activity in solid organs or other soft tissue structures. There was a tiny sclerotic focus present in the right acetabular roof without association increase of metabolic activity. Degenerative changes are present throughout the spine. A small lytic focus is present in the dorsal aspect of the right clavicular head associated with increased metabolic activity with maximum SUV of 7.88. There were no other focal increase in metabolic activity in the bone or muscle. Inflammatory changes are present in the right shoulder. Previous posterior cervical fusion surgery noted. The findings in the right clavicle head were indeterminate but could represent me metastatic involvement. 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 She was referred to surgery for right breast lumpectomy for the persistent mass in her right breast a 3.9 x 1.8 cm with an SUV of 4.39. The plan was to refer her for radiation therapy or simple mastectomy depending on results of the lumpectomy. She was also referred to radiation oncology for evaluation for SBRT to the right clavicular head if metastatic disease was confirmed. Her Ibrance was held but she continued with Arimidex at that time. Mrs. Buenrostro was seen by Dr. Milan on October 06, 2020. He had recommended right simple mastectomy. She was then seen by Dr. Mk Oseguera in radiation oncology on October 12, 2020 for possible radiotherapy for management of her metastatic breast cancer. Radiation was held for surgery consideration. She underwent simple right mastectomy with axillary lymph node dissection per Dr Milan on 10/21/2020. 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 1 lymph node did show extranodal extension. Per Dr. Aguilar's note pT2, pN1a. Her breast cancer prognostic profile/report from October 29, 2020 reported Ki-67 at 2% ER 99% MT 70% HER-2/joao IHC qualitative is 0+. She was seen on November 05, 2020 at [facility] for fever and generalized body aches. Her DESTIN drain has been removed on 11/03/2020. She was placed on vancomycin and clindamycin for 24+ hours and responded well. She was discharged on cefadroxil and doxycycline. She is also discharged on prednisone 20 mg twice daily for 5 days for an acute gout flare. She returned to [facility] on November 22, 2020 with swelling at the mastectomy site. She also had recurrence of low-grade temperature. She did have aspiration of the postmastectomy seroma of 600 mL. This was performed by Dr. Murillo on November 22, 2020. She was discharged on Augmentin twice daily for 7 days. She was then seen on 11/27/[address] Oseguera for consideration of radiotherapy for management of her metastatic breast cancer post simple right mastectomy. He recommended a 5 course of radiation therapy to the right chest wall and regional lymph node area. She was then seen for follow-up on December 23, 2020. She had resumed her Ibrance and Arimidex. She was tolerating it well. She had began radiation therapy to the right chest wall at that time as well. Her family history significant for breast cancer in her grandmother as well as brother She has history of COPD/asthma hypertension tolerating Ibrance/Arimidex well otherwise.Because of progressive leukopenia her Ibrance dose was reduced to 100 mg per daily day 1 through 14 and repeat every 21 daysFollow-up CT PET scan done on July 14, 2021 shows resolution of previously right breast lesion status post therapy with postop inflammation in the breast and adjacent lung. Right upper lung apex, possible infection. 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 No evidence of metabolically active disease or progression. Resolution of previously right clavicle finding. Came for follow-up, states she is feeling well other than musculoskeletal pain that is chronic in nature. Her primary pain is located in her right shoulder and in the palm of her right hand. She is also experiencing signs of trigger finger in the right hand which she has had in the past and had to have a release. She states her appetite has been good. She denies fever, chills, night sweats. No shortness of breath or cough. No chest pain. No GI problems. She has not been taking her Ibrance due to neutropenia and leukopenia. It was discussed at last visit that we may repeat a PET scan prior to restarting Ibrance due to the side effects Ibrance causes. She does continue to take her Arimidex. Review Of Symptoms:See above. Past Medical History: Chronic obstructive pulmonary disease Gastroesophageal reflux disease Hyperlipidemia Hypertension Osteopenia Past Surgical History: Appendectomy Carpal tunnel release Cataract excision Cholecystectomy Colectomy Colonoscopy C-spine repair-plates and screws Hernia repair Knee atrhroscopy Tubal ligation Covid vaccine booster, [employer] in 2020 Covid vaccine [employer] in 2020 Mastectomy in 2020 - Total right Allergies: Codeine Sulfate, Morphine Sulfate, and Vancomycin HCl. Medications: Acetaminophen 2 Tabminder (of 500 mg) Tablet Oral q 4 hours PRN Allopurinol 1 Tablet (of 100 mg) Tablet Oral daily Anastrozole 1 Tablet (of 1 mg) Tablet Oral daily Citalopram Hydrobromide 1 Tablet (of 10 mg) Oral daily Metoprolol Succinate ER 1 Tablet (of 50 mg) Tablet SR 24 HR Oral daily Ondansetron HCl 1 Tablet (of 4 mg) Oral q 8 hours PRN Family History: There is no documented family history. Social History: Ms. Buenrostro is . Ms. Buenrostro quit smoking 57 years ago but had smoked 1.0 pack/day for 7 years. She has no history of drinking. Physical Examination: Performed on Nov 12, 2021 08:55: Height - 60.00 in, Weight - 184.8 lbs (LOW), BSA - 1.80 sq.m, BMI - 36.09 (HIGH), Temperature - 98.2 F (LOW), Pulse - 79 /min, Respiration - 16 /min, BP - 148/75 mm(hg) (HIGH), O2 Sat - 97 %, Pain - 8, and Fatigue - 10. Performance Status: 0 - Fully active, able to carry on all predisease activities without restrictions. (ECOG) Constitutional Alert, cooperative, oriented. Mood and affect appropriate. Appears close to chronological age. Well nourished. Well developed. Eyes Conjunctivae and sclerae are clear and without icterus. Pupils are reactive and equal. Respiratory Lungs are clear to auscultation without rhonchi or wheezing. Cardiovascular Regular rate and rhythm of heart without murmurs, gallops or rubs. Abdomen Non-tender, non-distended, no masses, ascites or hepatosplenomegaly. Good bowel sounds. No guarding or rebound tenderness. Extremities No visible deformities, no cyanosis, clubbing or edema. Pulses 3+ and equal bilaterally. Musculoskeletal Tenderness right shoulder; tenderness palm of right hand with signs of trigger finger. Psychiatric Alert and oriented times three. Coherent speech. Verbalizes understanding of our discussions today. Laboratory: Test performed on Nov 12, 2021 08:17 Sodium 136 mmol/L Potassium 4.6 mmol/L Chloride 100 mmol/L CO2 29 mmol/L Anion Gap 11.6 BUN 13 mg/dL Creatinine 1.0 mg/dL Cr Clearance (Est) 60.3700 mL/min Glucose 160 mg/dL Osmolality - Calculated 286 mOsm/kg Calcium 8.6 mg/dL Protein, Total 6.8 g/dL Albumin 4.0 g/dL Globulin 2.8 g/dL Bilirubin, Total 0.3 mg/dL ALT (SGPT) 15 U/L AST (SGOT) 25 U/L Alkaline Phosphatase 101 IU/L WBC 3.9 10 3/uL RBC 3.60 10 6/uL HGB 12.0 g/dL HCT 37.0 % MCV 102.8 fl MCH 33.3 pg MCHC 32.4 g/dL RDW 14.4 % Platelet Count 177 10 3/cmm MPV 9.4 fL Neutrophils 2.24 10 3/uL Lymphocytes 0.9 10 3/uL Monocytes 0.6 10 3/uL Eosinophils 0.1 10 3/uL Basophils 0.1 10 3/uL Neutrophil % 57.1 % Lymphocyte % 24.0 % Monocyte % 14.8 % Eosinophil % 2.0 % Basophils % 1.8 % NRBC % 0 % Test performed on Sep 29, 2021 09:17 CBC Slide Review Slide Review Perform SLIDE REVIEW AGREES WITH AUTOMATED RESULTS ST Impression: Status post right mastectomy with right axillary lymph node dissection done on October 21, 2019 as PET scan shows no more evidence of distant mets only right breast mass uptake. Final pathology showed 2.7 cm invasive carcinoma, metaplastic, with osteoid and sarcomatoid differentiation, grade 3, clear margins, pT2 2 out of 9 lymph node positive for metastatic disease 1 with extranodal extension pN1a, ER 99% positive MT 70% positive HER-2/joao negative Metastatic breast cancer with biopsy-proven single lesion in left sacral ala Status post radiation therapy initially diagnosed on September 20, 2019, ER more than 90% positive MT 40% positive HER-2/joao negative Ki-67 15%. Clinical stage T4, skin involvement, NX M1, stage IV Started on Ibrance/anastrozole/Zometa on January 01, 2020 COPD/asthma Obesity Hypertension Follow-up CT PET scan done on September 29, 2020 showed persistent right breast uptake otherwise no right axillary lymphadenopathy or distant mets. Right clavicular head uptake, indeterminate Follow-up CT PET scan done on July 14, 2021 showed no evidence of metabolically active disease or progression,. 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 Findings of the right lung apex are more concerning for possible infection. Resolution of previously right clinical lesion. Plan: Labs were discussed with patient. Her WBC is 3.9, hemoglobin 12.0, hematocrit 37.0, platelet count 177,000. She has been having headaches that occur behind her eyes. She states they do not seem as intense that she is discontinue the Ibrance. I recommended an MRI to evaluate since this is a new symptom, but she is declines at this time. Patient does not wish to restart Ibrance till after the PET scan which has been ordered. She requested that it be after December 10 before she receives the PET scan. That has been noted. She will follow-up in 1 month after PET scan with CBC and CMP. Signed By: Dedra Bellamy N.P. <<Signature on File>>
== END 2021-12-09 23:59 | disposition home or self-care (01) ==
LOC: ONCMED 07:47
PROVIDERS: Internal Medicine Hematology & Oncology; PCP Clinical Nurse Specialist Adult Health; Visit Provider Nurse Practitioner Family
DX: C50.811 Malignant neoplasm of overlapping sites of right female breast (principal); Z17.0 Estrogen receptor positive status [ER+]; Z90.11 Acquired absence of right breast and nipple; C79.51 Secondary malignant neoplasm of bone; J44.9 Chronic obstructive pulmonary disease, unspecified; J45.909 Unspecified asthma, uncomplicated; E66.9 Obesity, unspecified; I10 Essential (primary) hypertension; R91.1 Solitary pulmonary nodule; Z79.818 Long term (current) use of other agents affecting estrogen receptors and estrogen levels; Z79.899 Other long term (current) drug therapy
CPT/HCPCS: 36415; 80053; 85025; 99214

== ENCOUNTER 2021-12-16 12:49 | Outpatient (RCR) | payer MEDICARE, SELFPAY ==
[2021-12-16 13:46] LABS: Basophils % 0.5 %; Eosinophils # 0.1 10^3/uL (0.0-0.8); Eosinophils % 1.2 %; Lymphocytes # 1.5 10^3/uL (0.8-4.8); Lymphocytes % 18.8 %; Mean Corpuscular HGB Conc 32.4 g/dL (30.0-36.0); Mean Corpuscular Hemoglobin 32.2 pg (28.0-34.0); Mean Corpuscular Volume 99.2 fl (81-99); Mean Platelet Volume 10.5 fL (7.4-10.4); Monocytes # 0.9 10^3/uL (0.2-0.9); Monocytes % 10.6 %; Neutrophils # 5.65 10^3/uL (1.8-7.7); Neutrophils % 68.8 %; Nucleated Red Blood Cells % 0 %; Platelet Count 185 10^3/cmm (130-400); Red Blood Count 3.73 10^6/uL (4.1-5.3); Red Cell Distribution Width 12.7 % (12.1-15.1); White Blood Count 8.2 10^3/uL (4.0-10.0)
[2021-12-16 14:03] LABS: Alanine Aminotransferase 18 U/L (0-33); Albumin Level 3.7 g/dL (3.5-5.2); Alkaline Phosphatase 109 IU/L (35-105); Anion Gap 11.9 (5-19); Aspartate Amino Transferase 26 U/L (0-32); Blood Urea Nitrogen 17 mg/dL (8-23); Calcium 9.4 mg/dL (8.5-10.5); Carbon Dioxide 28 mmol/L (22-29); Chloride 101 mmol/L (98-107); Globulin 3.4 g/dL (1.3-4.6); Glucose 159 mg/dL (65-115); Osmolality Calculated 289 mOsm/kg (285-295); Potassium 3.9 mmol/L (3.5-5.1); Sodium 137 mmol/L (136-145); Total Bilirubin 0.5 mg/dL (0.15-1.2); Total Protein 7.1 g/dL (6.6-8.7)
--- NOTE | 2021-12-16 15:26 | ONC FU_ITS ---
Dr. Aguilar follow up note Patient: Ashlee Buenrostro Unit #: [id number]: 1940 Dicatated By: Korin Aguilar M.D.Date of Visit:Dec 16, 2021 Onc Med Follow-up/Prog Note History of Present Illness: Ms. Buenrostro is a 81-year-old female with a history of stage IV breast cancer. She reports in July 2019, she underwent mammogram which showed right breast mass followed by ultrasound right breast which showed a 3.4 x 2 x 2.4 cm hypoechoic mass with spiculated margin at 1 o'clock position. She underwent right breast biopsy on August 16, 2019 which showed predominantly blood with atypical cells. On September 20, 2019, she underwent ultrasound-guided right breast biopsy which confirmed invasive ductal carcinoma, ER positive more than 90%, IA +40% and HER-2/joao negative, Ki-67 was 15% Ms Buenrostro underwent PET/CT scan on October 02, 2019 which showed 3.6 x 2.7 cm mass in the right breast with SUV of 7. There was no pathologically enlarged or hypermetabolic lymph nodes seen. In the bones, there is focal increased uptake in left sacral gladis at the level of S1 with SUV of 10. But no associated lesion by CT scan. And there is no other hypermetabolic lesion worrisome for malignancy. MRI scan of sacrum was recommended on October 18, 2019 showed within the left sacral ala S1 level basis stir hyperintense, T1 hypointense enhancing lesion measuring 3 x 2.3 x 2.7 cm. It did not appear to have extension into sacral neural foramen. No pathological fracture. No additional lesions are identified. As per medical record, she was planned for breast surgery but it was canceled due to MRI scan findings and biopsy was ordered and on November 18, 2019. She underwent sacral lesion biopsy which confirmed metastatic carcinoma favor breast origin, ER/IA positive, HER-2/joao negative Ki-67 was 20%. On January 01, 2020 she was started on Ibrance/anastrozole and monthly Zometa. On April 13, [address] scan of abdomen pelvis which showed diverticulosis coli without CT scan evidence of diverticulitis. Stable small right adrenal gland nodule, stable 5 mm left lower lobe lung nodule, benign. Left sacral bone metastasis. And underwent bone scan on May 14, 2020 shows abnormal uptake in left sacral gladis near SI joint unchanged since prior. On the right at L4-L5 increased uptake associated noted unchanged since the prior could be degenerative. Ms Buenrostro had received all this evaluation and treatment in [place]. She relocated to [place], [place] and was evaluated on September 15, 2020. She had follow-up PET/CT imaging on September 29, 2020 at [facility] in [facility] which reported a central nodular density in the right breast at the 12 o'clock position just cephalad to the nipple measuring 3.9 x 1.8 cm demonstrating a maximum SUV of 4.39. There was no concerning lymphadenopathy observed in the right axilla or elsewhere in the thoracic structures. No pulmonary nodules or other focus of increased metabolic activity was identified. The liver had a maximum SUV of 6.61. The right adrenal is mildly thickened without focal increase of metabolic activity. Unremarkable left adrenal. Unremarkable liver/vein, pancreas, kidneys and uterus. No lymphadenopathy or focal increase of metabolic activity in solid organs or other soft tissue structures. There was a tiny sclerotic focus present in the right acetabular roof without association increase of metabolic activity. Degenerative changes are present throughout the spine. A small lytic focus is present in the dorsal aspect of the right clavicular head associated with increased metabolic activity with maximum SUV of 7.88. There were no other focal increase in metabolic activity in the bone or muscle. Inflammatory changes are present in the right shoulder. Previous posterior cervical fusion surgery noted. The findings in the right clavicle head were indeterminate but could represent me metastatic involvement. 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 She was referred to surgery for right breast lumpectomy for the persistent mass in her right breast a 3.9 x 1.8 cm with an SUV of 4.39. The plan was to refer her for radiation therapy or simple mastectomy depending on results of the lumpectomy. She was also referred to radiation oncology for evaluation for SBRT to the right clavicular head if metastatic disease was confirmed. Her Ibrance was held but she continued with Arimidex at that time. Mrs. Buenrostro was seen by Dr. Milan on October 06, 2020. He had recommended right simple mastectomy. She was then seen by Dr. Mk Oseguera in radiation oncology on October 12, 2020 for possible radiotherapy for management of her metastatic breast cancer. Radiation was held for surgery consideration. She underwent simple right mastectomy with axillary lymph node dissection per Dr Milan on 10/21/2020. 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 1 lymph node did show extranodal extension. Per Dr. Aguilar's note pT2, pN1a. Her breast cancer prognostic profile/report from October 29, 2020 reported Ki-67 at 2% ER 99% IA 70% HER-2/joao IHC qualitative is 0+. She was seen on November 05, 2020 at [facility] for fever and generalized body aches. Her DESTIN drain has been removed on 11/03/2020. She was placed on vancomycin and clindamycin for 24+ hours and responded well. She was discharged on cefadroxil and doxycycline. She is also discharged on prednisone 20 mg twice daily for 5 days for an acute gout flare. She returned to [facility] on November 22, 2020 with swelling at the mastectomy site. She also had recurrence of low-grade temperature. She did have aspiration of the postmastectomy seroma of 600 mL. This was performed by Dr. Murillo on November 22, 2020. She was discharged on Augmentin twice daily for 7 days. She was then seen on 11/27/[address] Oseguera for consideration of radiotherapy for management of her metastatic breast cancer post simple right mastectomy. He recommended a 5 course of radiation therapy to the right chest wall and regional lymph node area. She was then seen for follow-up on December 23, 2020. She had resumed her Ibrance and Arimidex. She was tolerating it well. She had began radiation therapy to the right chest wall at that time as well. Her family history significant for breast cancer in her grandmother as well as brother She has history of COPD/asthma hypertension tolerating Ibrance/Arimidex well otherwise.Because of progressive leukopenia her Ibrance dose was reduced to 100 mg per daily day 1 through 14 and repeat every 21 daysFollow-up CT PET scan done on July 14, 2021 shows resolution of previously right breast lesion status post therapy with postop inflammation in the breast and adjacent lung. Right upper lung apex, possible infection. 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 No evidence of metabolically active disease or progression. Resolution of previously right clavicle finding. Came for follow-up, denies any specific complaints, no fever chills, no nausea or vomiting, no diarrhea or constipation, no new bony pains. Patient was scheduled for follow-up CT PET scan, but because of grandson's marriage, patient canceled the appointment for PET scan. Her Ibrance is on hold since first week of November 2021 as plan was to assess disease status per follow-up CT PET scan if it shows no activity then discontinue Ibrance while continuing with Arimidex. Medications: Acetaminophen 2 Tabminder (of 500 mg) Tablet Oral q 4 hours PRN, Allopurinol 1 Tablet (of 100 mg) Tablet Oral daily, Anastrozole 1 Tablet (of 1 mg) Tablet Oral daily, Citalopram Hydrobromide 1 Tablet (of 10 mg) Oral daily, Metoprolol Succinate ER 1 Tablet (of 50 mg) Tablet SR 24 HR Oral daily, Ondansetron HCl 1 Tablet (of 4 mg) Oral q 8 hours PRN Allergies: Codeine Sulfate, Morphine Sulfate, and Vancomycin HCl. Review of Systems: Review of Systems is not available for this patient. Vital Signs: Performed on Dec 16, 2021 14:43 Height - 60.00 in Weight - 183.8 lbs (LOW) BSA - 1.80 sq.m BMI - 35.90 (HIGH) Temperature - 98.0 F (LOW) Pulse - 79 /min Respiration - 18 /min BP - 125/74 mm(hg) O2 Sat - 96 % Pain - 8 Fatigue - 0 Performance Status: 0 - Fully active, able to carry on all predisease activities without restrictions. (ECOG) Physical Examination: Respiratory - Lungs are clear to auscultation, Cardiovascular - Regular rate and rhythm of heart, Gastrointestinal - Soft, bowel sounds present, Extremities - No visible edema. Lab/Imaging: Test performed on Nov 12, 2021 08:17 Sodium 136 mmol/L Potassium 4.6 mmol/L Chloride 100 mmol/L CO2 29 mmol/L Anion Gap 11.6 BUN 13 mg/dL Creatinine 1.0 mg/dL Cr Clearance (Est) 60.3700 mL/min Glucose 160 mg/dL Osmolality - Calculated 286 mOsm/kg Calcium 8.6 mg/dL Protein, Total 6.8 g/dL Albumin 4.0 g/dL Globulin 2.8 g/dL Bilirubin, Total 0.3 mg/dL ALT (SGPT) 15 U/L AST (SGOT) 25 U/L Alkaline Phosphatase 101 IU/L WBC 3.9 10 3/uL RBC 3.60 10 6/uL HGB 12.0 g/dL HCT 37.0 % MCV 102.8 fl MCH 33.3 pg MCHC 32.4 g/dL RDW 14.4 % Platelet Count 177 10 3/cmm MPV 9.4 fL Neutrophils 2.24 10 3/uL Lymphocytes 0.9 10 3/uL Monocytes 0.6 10 3/uL Eosinophils 0.1 10 3/uL Basophils 0.1 10 3/uL Neutrophil % 57.1 % Lymphocyte % 24.0 % Monocyte % 14.8 % Eosinophil % 2.0 % Basophils % 1.8 % NRBC % 0 % Test performed on Sep 29, 2021 09:17 CBC Slide Review Slide Review Perform SLIDE REVIEW AGREES WITH AUTOMATED RESULTS ST Impression: Status post right mastectomy with right axillary lymph node dissection done on October 21, 2019 as PET scan shows no more evidence of distant mets only right breast mass uptake. 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 Clinical stage T4, skin involvement, NX M1, stage IV Started on Ibrance/anastrozole/Zometa on January 01, 2020 COPD/asthma Obesity Hypertension Follow-up CT PET scan done on September 29, 2020 showed persistent right breast uptake otherwise no right axillary lymphadenopathy or distant mets. Right clavicular head uptake, indeterminate Follow-up CT PET scan done on July 14, 2021 showed no evidence of metabolically active disease or progression,. 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 Findings of the right lung apex are more concerning for possible infection. Resolution of previously right clinical lesion. Plan: Discussed with patient regarding her labs white blood count 8.2 hemoglobin 12 g 137 platelets 185,000 CMP within normal limits except creatinine 1.1 Clinically, patient doing well with no new signs symptom suggestive of disease progression, tolerating daily Arimidex well, her Ibrance is on hold since first week of November 2021 as patient is waiting for her follow-up CT PET scan to assess disease status and if it shows no disease activity e.g. complete response then we will discontinue Ibrance and continue with Arimidex alone along with vitamin D and calcium. At this point, we will continue to hold Ibrance and we will reschedule her for CT PET scan and then she return to clinic after PET scan to discuss further treatment planning in the meantime she will continue with daily Arimidex. Patient is also requesting refill/prescription for her lorazepam, citalopram and Arimidex. Return to clinic after CT PET scan for further discussion and planning Signed By: Korin Aguilar M.D. <<Signature on File>>
== END 2022-01-08 23:59 | disposition home or self-care (01) ==
LOC: ONCMED 12:49
PROVIDERS: PCP Clinical Nurse Specialist Adult Health; Visit Provider Nurse Practitioner Family
DX: C50.811 Malignant neoplasm of overlapping sites of right female breast (principal); Z17.0 Estrogen receptor positive status [ER+]; C79.51 Secondary malignant neoplasm of bone; Z90.11 Acquired absence of right breast and nipple; J44.9 Chronic obstructive pulmonary disease, unspecified; J45.909 Unspecified asthma, uncomplicated; E66.9 Obesity, unspecified; I10 Essential (primary) hypertension; Z79.899 Other long term (current) drug therapy; Z79.818 Long term (current) use of other agents affecting estrogen receptors and estrogen levels; Z92.21 Personal history of antineoplastic chemotherapy
CPT/HCPCS: 36415; 80053; 85025; 99214

== ENCOUNTER 2022-01-28 09:35 | Oncology outpatient (recurring) (ONCR) | payer MEDICARE, SELFPAY | END 2022-02-08 23:59 | disposition home or self-care (01) | LOC: ONCMED 09:36 | PROVIDERS: Visit Provider Nurse Practitioner Family | DX: C50.211 Malignant neoplasm of upper-inner quadrant of right female breast (principal); Z17.0 Estrogen receptor positive status [ER+]; Z90.11 Acquired absence of right breast and nipple; C77.8 Secondary and unspecified malignant neoplasm of lymph nodes of multiple regions; Z79.818 Long term (current) use of other agents affecting estrogen receptors and estrogen levels; Z79.2 Long term (current) use of antibiotics; Z79.891 Long term (current) use of opiate analgesic; Z79.899 Other long term (current) drug therapy | CPT/HCPCS: 99214; 99999 ==

== ENCOUNTER → 2022-01-31 10:16 | Outpatient (BNVA) | payer MEDICARE, SELFPAY | PROVIDERS: Visit Provider Surgery | DX: R07.89 Other chest pain (principal); G89.18 Other acute postprocedural pain | CPT/HCPCS: 99213 ==

== ENCOUNTER 2022-03-04 09:13 | Oncology outpatient (recurring) (ONCR) | payer MEDICARE, SELFPAY ==
[2022-03-04 09:49] LABS: Basophils # 0.1 10^3/uL (0.0-0.1); Basophils % 0.8 %; Eosinophils # 0.1 10^3/uL (0.0-0.8); Eosinophils % 1.6 %; Hematocrit 40.2 % (37.0-47.0); Hemoglobin 13.5 g/dL (11.5-15.3); Lymphocytes # 1.8 10^3/uL (0.8-4.8); Lymphocytes % 23.9 %; Mean Corpuscular HGB Conc 33.6 g/dL (30.0-36.0); Mean Corpuscular Hemoglobin 30.3 pg (28.0-34.0); Mean Corpuscular Volume 90.1 fl (81-99); Monocytes # 0.8 10^3/uL (0.2-0.9); Monocytes % 10.1 %; Neutrophils # 4.68 10^3/uL (1.8-7.7); Neutrophils % 63.3 %; Nucleated Red Blood Cells % 0 %; Platelet Count 209 10^3/cmm (130-400); Red Blood Count 4.46 10^6/uL (4.1-5.3); Red Cell Distribution Width 12.8 % (12.1-15.1); White Blood Count 7.4 10^3/uL (4.0-10.0)
[2022-03-04 10:06] LABS: Alanine Aminotransferase 14 U/L (0-33); Albumin Level 3.8 g/dL (3.5-5.2); Alkaline Phosphatase 99 IU/L (35-105); Aspartate Amino Transferase 23 U/L (0-32); Blood Urea Nitrogen 10 mg/dL (8-23); Calcium 9.5 mg/dL (8.5-10.5); Carbon Dioxide 27 mmol/L (22-29); Chloride 98 mmol/L (98-107); Globulin 3.3 g/dL (1.3-4.6); Glucose 122 mg/dL (65-115); Osmolality Calculated 278 mOsm/kg (285-295); Sodium 134 mmol/L (136-145); Total Bilirubin 0.4 mg/dL (0.15-1.2); Total Protein 7.1 g/dL (6.6-8.7)
== END 2022-03-10 23:59 | disposition home or self-care (01) ==
LOC: ONCMED 09:15
PROVIDERS: Visit Provider Nurse Practitioner Family
DX: C50.211 Malignant neoplasm of upper-inner quadrant of right female breast (principal); C77.5 Secondary and unspecified malignant neoplasm of intrapelvic lymph nodes; Z17.0 Estrogen receptor positive status [ER+]; Z79.811 Long term (current) use of aromatase inhibitors; Z90.11 Acquired absence of right breast and nipple
CPT/HCPCS: 80053; 85025; 99214

== ENCOUNTER 2022-04-22 07:59 | Oncology outpatient (recurring) (ONCR) | payer MEDICARE, SELFPAY ==
[2022-04-22 08:27] LABS: Basophils # 0.1 10^3/uL (0.0-0.1); Basophils % 0.8 %; Eosinophils # 0.2 10^3/uL (0.0-0.8); Eosinophils % 2.8 %; Hematocrit 41.6 % (37.0-47.0); Hemoglobin 13.1 g/dL (11.5-15.3); Lymphocytes # 1.5 10^3/uL (0.8-4.8); Lymphocytes % 20.7 %; Mean Corpuscular HGB Conc 31.5 g/dL (30.0-36.0); Mean Corpuscular Volume 95.2 fl (81-99); Mean Platelet Volume 10.2 fL (7.4-10.4); Monocytes # 0.6 10^3/uL (0.2-0.9); Monocytes % 8.2 %; Neutrophils # 4.85 10^3/uL (1.8-7.7); Neutrophils % 67.1 %; Nucleated Red Blood Cells % 0 %; Platelet Count 200 10^3/cmm (130-400); Red Blood Count 4.37 10^6/uL (4.1-5.3); White Blood Count 7.2 10^3/uL (4.0-10.0)
[2022-04-22 08:46] LABS: Alanine Aminotransferase 14 U/L (0-33); Albumin Level 3.8 g/dL (3.5-5.2); Alkaline Phosphatase 107 IU/L (35-105); Anion Gap 15.1 (5-19); Aspartate Amino Transferase 24 U/L (0-32); Blood Urea Nitrogen 12 mg/dL (8-23); Calcium 9.8 mg/dL (8.5-10.5); Carbon Dioxide 28 mmol/L (22-29); Chloride 102 mmol/L (98-107); Globulin 3.3 g/dL (1.3-4.6); Glucose 177 mg/dL (65-115); Osmolality Calculated 294 mOsm/kg (285-295); Potassium 5.1 mmol/L (3.5-5.1); Sodium 140 mmol/L (136-145); Total Bilirubin 0.6 mg/dL (0.15-1.2); Total Protein 7.1 g/dL (6.6-8.7)
== END 2022-05-11 23:59 | disposition home or self-care (01) ==
PROVIDERS: PCP Clinical Nurse Specialist Adult Health; Visit Provider Nurse Practitioner Family
DX: C50.211 Malignant neoplasm of upper-inner quadrant of right female breast (principal); Z90.11 Acquired absence of right breast and nipple; Z17.0 Estrogen receptor positive status [ER+]; Z79.811 Long term (current) use of aromatase inhibitors; F41.9 Anxiety disorder, unspecified; G89.29 Other chronic pain; M54.9 Dorsalgia, unspecified; M25.519 Pain in unspecified shoulder
CPT/HCPCS: 36415; 80053; 85025; 99214

== ENCOUNTER 2022-07-27 11:11 | Oncology outpatient (recurring) (ONCR) | payer MEDICARE, SELFPAY ==
[2022-07-27 11:59] LABS: Basophils # 0.1 10^3/uL (0.0-0.1); Basophils % 0.8 %; Eosinophils # 0.2 10^3/uL (0.0-0.8); Eosinophils % 2.6 %; Hematocrit 41.3 % (37.0-47.0); Hemoglobin 13.2 g/dL (11.5-15.3); Lymphocytes # 1.4 10^3/uL (0.8-4.8); Lymphocytes % 21.3 %; Mean Corpuscular Volume 96.9 fl (81-99); Mean Platelet Volume 10.5 fL (7.4-10.4); Monocytes # 0.6 10^3/uL (0.2-0.9); Monocytes % 9.5 %; Neutrophils # 4.29 10^3/uL (1.8-7.7); Neutrophils % 65.5 %; Nucleated Red Blood Cells % 0 %; Platelet Count 192 10^3/cmm (130-400); Red Blood Count 4.26 10^6/uL (4.1-5.3); Red Cell Distribution Width 13.8 % (12.1-15.1); White Blood Count 6.5 10^3/uL (4.0-10.0)
[2022-07-27 12:21] LABS: Alanine Aminotransferase 18 U/L (0-33); Alkaline Phosphatase 138 U/L (35-105); Anion Gap 15.7 (5-19); Aspartate Amino Transferase 26 U/L (0-32); Blood Urea Nitrogen 19 mg/dL (8-23); Calcium 9.6 mg/dL (8.5-10.5); Carbon Dioxide 28 mmol/L (22-29); Chloride 100 mmol/L (98-107); Globulin 3.1 g/dL (1.3-4.6); Glucose 165 mg/dL (65-115); Osmolality Calculated 296 mOsm/kg (285-295); Potassium 3.7 mmol/L (3.5-5.1); Sodium 140 mmol/L (136-145); Total Bilirubin 0.3 mg/dL (0.15-1.2); Total Protein 7.1 g/dL (6.6-8.7)
== END 2022-08-10 23:59 | disposition home or self-care (01) ==
PROVIDERS: Internal Medicine Hematology & Oncology; PCP Clinical Nurse Specialist Adult Health; Visit Provider Nurse Practitioner Family
DX: C50.211 Malignant neoplasm of upper-inner quadrant of right female breast (principal); Z90.11 Acquired absence of right breast and nipple; Z17.0 Estrogen receptor positive status [ER+]; Z79.818 Long term (current) use of other agents affecting estrogen receptors and estrogen levels; G89.29 Other chronic pain; M54.9 Dorsalgia, unspecified; C77.3 Secondary and unspecified malignant neoplasm of axilla and upper limb lymph nodes; Z92.21 Personal history of antineoplastic chemotherapy; Z92.3 Personal history of irradiation; E87.6 Hypokalemia; F41.9 Anxiety disorder, unspecified; Z79.891 Long term (current) use of opiate analgesic; Z79.899 Other long term (current) drug therapy
CPT/HCPCS: 36415; 80053; 85025; 99214

== ENCOUNTER 2022-10-29 06:02 | Outpatient (CLI) | payer MEDICARE, SELFPAY ==
--- NOTE | 2022-10-29 | PETR_ITS ---
PROCEDURE INFORMATION: Exam: PET/CT Skull Base to Mid-thigh Exam date and time: 10/29/2022 8:05 AM Age: 82 years old Clinical indication: Condition or disease; Primary cancer: Malignant neoplasm of upper-inner quadrant of right female brfinal pathology showed 2.7 cm invasive carcinoma, metaplastic, with osteoid and sarcomatoid differentiation, grade 3, clear margins, [id number]: . Metastatic breast cancer with biopsy-proven single lesion in left sacral ala status post radiation therapy; Condition/disease: Clinically, patient doing well with no new signs symptom suggestive of disease progression or recurrence of disease but concern is her persistent although chronic lower back pain, patient was treated with radiation therapy in the past, and her alk phos is mildly elevated, etiology unclear, prior surgery; Surgery type: Status post right mastectomy with right axillary lymph node dissection done on October 21, 2019; Additional info: RT breast CA 2019, surg + therapy, f/u, restage LABS AND CLINICAL REPORTS: Glucose: 140 mg/dl Treatment strategy for malignancy (PET staging): Restaging (PS) TECHNIQUE: Imaging protocol: Following at least four-hour fasting and following the injection of F-18-FDG, low dose CT images were obtained. Then, PET images were obtained. Attenuation corrected images were constructed using the CT scan. Fused images of PET and CT were reviewed. The standardized uptake values (SUV) reported below are maximum values within a region of interest, expressed in gm/ml. Exam includes orbital meatal line to mid-thigh. Radiopharmaceutical: 13.04 mCi F-18 FDG (Fluorodeoxyglucose), IV. Time of imaging post radiopharmaceutical administration: 1 hour Injection site: Left antecubital COMPARISON: CT cervical, thoracic and lumbar spine 03/14/2021, CT chest 11/21/2020 FINDINGS: Brain: Visualized brain has normal physiologic uptake. Pharynx: No abnormal uptake. Larynx: There is physiologic appearing uptake in the region of the vocal cords. Lungs, pleura and trachea: No abnormal uptake. Bandlike streaky linear density extending from the anterior aspect of the right upper lobe to the right hilar region in the region of the minor fissure is not radiotracer avid on series 3 between images 48 and 52. Heart: Normal physiologic uptake. Mediastinal space: No abnormal uptake. Liver: No abnormal uptake. Gallbladder and bile ducts: No abnormal uptake. Cholecystectomy clips are present. Pancreas: No abnormal uptake. Spleen: No abnormal uptake. Adrenal glands: No abnormal uptake. Kidneys and ureters: Normal physiologic uptake. Stomach and bowel: No abnormal uptake. A surgical staple line in the region of the cecum is noted.There are scattered colonic diverticula. Vasculature: No abnormal uptake. Atherosclerotic changes in the aorta are noted.Coronary artery atherosclerotic calcifications are noted. Lymph nodes: No abnormal uptake. No lymphadenopathy in the head, neck, chest, abdomen, pelvis, and extremities. Bones/joints: A small focus of elevated uptake at the level of S2 slightly to the left of midline is noted, SUV max 3.2. This lies within the medial aspect of a region of abnormal asymmetric sclerotic density similar to the CT from 03/14/2021 which measures approximately 3.4 x 2.3 cm in the axial plane on series 3, image 113. [id number] diffuse degenerative vertebral body spondylosis is noted. Similar moderate to severe compression fracture of L1 compared with 03/14/2021 without elevated uptake. Posterior fusion hardware from C3 through C6 is noted with bilateral laminectomies at these levels. Moderate right glenohumeral joint primary osteoarthritic changes. Soft tissues: No abnormal uptake in the visualized head, neck, chest, abdomen, pelvis, and extremities. A previously noted thin walled fluid collection in the right breast is decreased in size and no longer contains gas measuring 11.3 x 4.4 cm on series 3, image 60. Uptake within the wall of this collection demonstrates an SUV max 2.3. Mild anterior right breast skin thickening appears similar, SUV max 2.1. A surgical clips in the lateral right breast is noted. METRICS: Mediastinal blood pool: SUV max 2.0 PET/PET skulltothigh SUBSEQ [id number] IMPRESSION: 1. A small focus elevated uptake (SUV max 3.2) is identified along the medial aspect of a stable appearing sclerotic lesion involving the left sacrum which has been present since at least 03/14/2021. This region of sclerosis corresponds to the history of a treated metastatic lesion in this region. Hypermetabolic neoplastic involvement involving the medial aspect of this lesion cannot be excluded. 2. Decreased size of a fluid collection in the region of the right breast compared with 11/21/2020 suggestive of a chronic postoperative seroma. This alternatively may represent interval placement of a breast implant. Correlation with surgical history is recommended between the current study and the prior CT. A mild degree of uptake within the wall of the collection in in overlying mild anterior right breast skin thickening is likely inflammatory rather than neoplastic in nature. 3. New bandlike area of non radiotracer avid streaky density in the region of the minor fissure compared with 11/21/2020 suggestive of scarring and/or atelectasis. 4. Additional nonurgent findings as detailed above.
== END 2022-10-29 06:03 | disposition home or self-care (01) ==
PROVIDERS: PCP Clinical Nurse Specialist Adult Health; Visit Provider Internal Medicine Hematology & Oncology
DX: C50.211 Malignant neoplasm of upper-inner quadrant of right female breast (principal)
CPT/HCPCS: 78815; A9552

== ENCOUNTER 2022-11-09 09:14 | Oncology outpatient (recurring) (ONCR) | payer MEDICARE, SELFPAY ==
[2022-11-09 09:53] LABS: Basophils # 0.1 10^3/uL (0.0-0.1); Basophils % 0.8 %; Eosinophils # 0.1 10^3/uL (0.0-0.8); Eosinophils % 1.8 %; Hematocrit 42.3 % (37.0-47.0); Hemoglobin 13.5 g/dL (11.5-15.3); Lymphocytes # 1.3 10^3/uL (0.8-4.8); Lymphocytes % 17.6 %; Mean Corpuscular HGB Conc 31.9 g/dL (30.0-36.0); Mean Corpuscular Hemoglobin 30.8 pg (28.0-34.0); Mean Corpuscular Volume 96.4 fl (81-99); Mean Platelet Volume 10.4 fL (7.4-10.4); Monocytes # 0.6 10^3/uL (0.2-0.9); Neutrophils # 5.09 10^3/uL (1.8-7.7); Neutrophils % 71.4 %; Nucleated Red Blood Cells % 0 %; Platelet Count 181 10^3/cmm (130-400); Red Blood Count 4.39 10^6/uL (4.1-5.3); White Blood Count 7.1 10^3/uL (4.0-10.0)
[2022-11-09 10:25] LABS: Alanine Aminotransferase 20 U/L (0-33); Alkaline Phosphatase 132 U/L (35-105); Anion Gap 15.4 (5-19); Aspartate Amino Transferase 31 U/L (0-32); Blood Urea Nitrogen 16 mg/dL (8-23); CA 15-3 16.8 U/mL (0-25); Calcium 9.8 mg/dL (8.5-10.5); Carbon Dioxide 26 mmol/L (22-29); Chloride 102 mmol/L (98-107); Globulin 3.2 g/dL (1.3-4.6); Glucose 188 mg/dL (65-115); Osmolality Calculated 294 mOsm/kg (285-295); Potassium 4.4 mmol/L (3.5-5.1); Sodium 139 mmol/L (136-145); Total Bilirubin 0.5 mg/dL (0.15-1.2); Total Protein 7.2 g/dL (6.6-8.7)
[2022-11-10 12:16] LABS: CA 27.29 13 U/mL (<38)
== END 2022-12-09 23:59 | disposition home or self-care (01) ==
PROVIDERS: Internal Medicine Hematology & Oncology; PCP Family Medicine; Visit Provider Nurse Practitioner Family
DX: C50.211 Malignant neoplasm of upper-inner quadrant of right female breast (principal); Z17.0 Estrogen receptor positive status [ER+]; Z90.11 Acquired absence of right breast and nipple; C77.3 Secondary and unspecified malignant neoplasm of axilla and upper limb lymph nodes; Z79.818 Long term (current) use of other agents affecting estrogen receptors and estrogen levels; Z79.891 Long term (current) use of opiate analgesic; Z79.899 Other long term (current) drug therapy; Z92.21 Personal history of antineoplastic chemotherapy; Z92.3 Personal history of irradiation; M54.50 Low back pain, unspecified; Z87.891 Personal history of nicotine dependence
CPT/HCPCS: 36415; 80053; 85025; 86300; 99214

== ENCOUNTER 2022-12-24 19:22 | Emergency (ER) | payer MEDICARE, SELFPAY ==
[2022-12-24 19:25] VITALS: BP 222/117; PULSE 100; RESP 16; TEMP 37; O2SAT 98; BMI 35.2
--- NOTE | 2022-12-24 19:35 | ED_ITS ---
HPI - Fall General: Chief Complaint: Fall Stated Complaint: CP/FALL Time Seen by Provider: 12/24/22 19:26 History of Present Illness: Patient comes in with right wrist, right rib, and head pain after fall. States that she was walking up 2 steps when she tripped and fell hitting her head on the floor and landing on her right chest with her arm against her. Associated symptoms-after fall: Reports chest pain; Denies abdominal pain, headache(s) or neck pain Review of Systems Const: Reports: body aches; Denies: fever(s) Eyes: Denies: change in vision or blurry vision ENMT: Denies: throat pain or odynophagia Card: Reports: chest pain; Denies: palpitations Resp: Denies: dyspnea or productive cough GI: Denies: abdominal pain, nausea or vomiting : Reports: dysuria; Denies: flank pain Musc: Denies: neck pain or back pain Skin/Breast: Denies: rash or pruritus Neuro: Reports: numbness in extremities; Denies: headache(s) PFSH ED PFSH: Medical History Acute breast pain COPD (chronic obstructive pulmonary disease) History of right breast cancer Hypertension Pneumonia Sepsis Surgical site infection Surgical History H/O neck surgery History of appendectomy History of arthroscopic knee surgery History of breast biopsy History of carpal tunnel release History of hernia repair History of laparoscopic cholecystectomy History of tubal ligation S/P right mastectomy (10/21/20) Family History Grandfather Lung disease Other CAD (coronary artery disease) Cancer Dementia Diabetes Hyperlipidemia Hypertension Stroke Denies family history of Clotting disorder Psychiatric illness Chronic kidney disease (CKD) Suicide Anesthesia complication Bleeding disorder Social History Smoking and tobacco status: former smoker Alcohol intake: never Adopted: No Caregiver/support person: Yes Lives independently: Yes Physical Exam Const: COMMON NORMALS: patient oriented x3, healthy appearing and alert HENMT: COMMON NORMALS: normocephalic and atraumatic HEAD & SCALP: normocephalic and atraumatic Eye: COMMON NORMALS: Equal, round and reactive pupils present and EOMs intact bilaterally PUPIL: Yes Equal, round and reactive pupils present Neck/C-Spine: COMMON NORMALS: full ROM and supple Resp: COMMON NORMALS: normal respiratory effort, No retractions and No use of accessory muscles Cardio: COMMON NORMALS: regular rate and regular rhythm RATE: regular rate RHYTHM: regular rhythm GI: COMMON NORMALS: Normal to inspection, nondistended, normoactive bowel sounds present, Soft to palpation and non-tender PALPATION: Yes Soft to palpation Back/Pelvis: OTHER: No tenderness to palpation of bilateral hips Extremity: OTHER: Abrasion with tenderness to palpation of the right wrist as well as pain with ra nge of motion Neuro: COMMON NORMALS: patient oriented x3 SENSORIUM/ORIENTATION: Yes alert Psych: COMMON NORMALS: mental status grossly normal and cooperative Course Vital Signs: Vital signs: Vital Signs Temperature 98.6 F 12/24/22 19:25 Pulse Rate 100 12/24/22 19:25 Respiratory Rate 16 12/24/22 19:25 Blood Pressure 222/117 12/24/22 19:25 Pulse Oximetry 98 12/24/22 19:25 Oxygen Delivery Me thod Room Air 12/24/22 19:25 MDM - Fall Medical Decision Making Patient comes in with right wrist, right rib, and head pain after fall. States that she was walking up 2 steps when she tripped and fell hitting her head on the floor and landing on her right chest with her arm against her. On physical exam she has an abrasion and tenderness to palpation of her right wrist. She also has right rib tenderness to palpation. Will check x-ray, CT, and reassess. On reassessment I talked to the patient about the test results. Her x-rays show no acute fracture of the ribs and/or right wrist. Her CT scan of the head is unremarkable. Will discharge home at this time with precautions to return for worsening or changing symptoms. Lab Data Radiology Impressions Head CT 12/24/22 19:36 IMPRESSION: No acute intracranial abnormality. Ribs X-Ray 12/24/22 19:36 IMPRESSION: Right lower lobe atelectasis versus infiltrate. Wrist X-Ray 12/24/22 19:36 IMPRESSION: 1. Negative for fracture or dislocation. 2. Severe 1st carpometacarpal joint osteoarthritis. Discharge Plan Discharge Patient Disposition: Home Clinical Impression: Right wrist sprain, Rib pain Prescriptions: No Action potassium chloride 20 mEq tablet,ER particles/crystals 20 meq PO DAILY PRN Rx Instructions: daily for 3 days when she has leg cramps allopurinol 100 mg tablet 100 mg PO BID Qty: 180 3RF ondansetron HCl 4 mg tablet See Rx Instructions .ROUTE .COMPLEX Qty: 270 0RF Dose Instruction: TAKE 1 TABLET EVERY 8 HOURS Rx Instructions: TAKE 1 TABLET EVERY 8 HOURS anastrozole 1 mg tablet See Rx Instructions .ROUTE .COMPLEX Qty: 90 0RF Dose Instruction: TAKE 1 TABLET EVERY DAY Rx Instructions: TAKE 1 TABLET EVERY DAY docusate sodium [Colace] 100 mg capsule 100 mg PO BID PRN (Reason: Constipation) Tylenol Extra Strength 500 mg Tablet 500 - 1,000 mg PO Q4H PRN (Reason: Pain) Discharge Orders: Discharge ED (Routine); Ordered 12/24/22 Ordered By: Virgilio Lazo Referrals: Kris León MD [Primary Care Provider] - Patient Instructions: Wrist Sprain (ED) Coding Level of Care Code ED Heel Pricker for Mera Gleason
--- NOTE | 2022-12-24 19:36 | XRR_ITS ---
PROCEDURE INFORMATION: Exam: XR Right Ribs with PA Chest Exam date and time: 12/24/2022 7:45 PM Age: 82 years old Clinical indication: Injury or trauma; Fall; Rib area; Blunt trauma (contusions or hematomas) TECHNIQUE: Imaging protocol: Radiologic exam of the right ribs with PA chest. Views: 3 views COMPARISON: CR XR chest 1V portable [id number] 03/14/2021 11:34 AM FINDINGS: Lungs: Right lower lobe atelectasis versus infiltrate. Pleural spaces: Unremarkable. No pleural effusion. No pneumothorax. Heart/Mediastinum: Unremarkable. No cardiomegaly. Bones/joints: Unremarkable. XR/XR ribs RT mn 3V w CXR1V [id number] IMPRESSION: Right lower lobe atelectasis versus infiltrate.
--- NOTE | 2022-12-24 19:36 | XRR_ITS ---
PROCEDURE INFORMATION: Exam: XR Right Wrist Exam date and time: 12/24/2022 7:41 PM Age: 82 years old Clinical indication: Injury or trauma; Fall; Blunt trauma (contusions or hematomas); Wrist; Right TECHNIQUE: Imaging protocol: Radiologic exam of the right wrist. Views: 3 or more views. COMPARISON: No relevant prior studies available. FINDINGS: Bones/joints: Severe 1st carpometacarpal joint osteoarthritis. Soft tissues: Normal. XR/XR wrist RT min 3V* [id number] IMPRESSION: 1. Negative for fracture or dislocation. 2. Severe 1st carpometacarpal joint osteoarthritis.
--- NOTE | 2022-12-24 19:36 | CTR_ITS ---
PROCEDURE INFORMATION: Exam: CT Head Without Contrast Exam date and time: 12/24/2022 7:38 PM Age: 82 years old Clinical indication: Injury or trauma; Fall; Blunt trauma (contusions or hematomas) TECHNIQUE: Imaging protocol: Computed tomography of the head without contrast. Radiation optimization: All CT scans at this facility use at least one of these dose optimization techniques: automated exposure control; mA and/or kV adjustment per patient size (includes targeted exams where dose is matched to clinical indication); or iterative reconstruction. REPORTING DATA: Count of CT and Cardiac NM exams in prior 12 months: This patient has received [address] and 0 known cardiac nuclear medicine studies in the 12 months prior to the current study. COMPARISON: CT head wo con* [id number] 03/14/2021 11:17 AM RADIATION DOSE METRICS: Total DLP (mGy-cm): 1192.08 FINDINGS: Brain: Normal. No hemorrhage. Unremarkable white matter. No mass effect. Cerebral ventricles: No ventriculomegaly. Paranasal sinuses: Visualized sinuses are unremarkable. No fluid levels. Mastoid air cells: Visualized mastoid air cells are well aerated. Bones/joints: Unremarkable. No acute fracture. Soft tissues: Unremarkable. CT/CT head wo con* [id number] IMPRESSION: No acute intracranial abnormality.
[2022-12-24 21:03] VITALS: BP 199/97; O2SAT 98
== END 2022-12-24 21:05 | disposition home or self-care (01) ==
PROVIDERS: Emergency Provider Emergency Medicine; PCP Family Medicine
DX: R07.81 Pleurodynia (principal); S63.501A Unspecified sprain of right wrist, initial encounter; Z87.891 Personal history of nicotine dependence; J44.9 Chronic obstructive pulmonary disease, unspecified; I10 Essential (primary) hypertension; Z85.3 Personal history of malignant neoplasm of breast; W01.198A Fall on same level from slipping, tripping and stumbling with subsequent striking against other object, initial encounter
CPT/HCPCS: 70450; 71101; 73110; 99284

== ENCOUNTER 2023-02-09 10:26 | Oncology outpatient (recurring) (ONCR) | payer MEDICARE, SELFPAY ==
[2023-02-09 10:40] VITALS: BP 189/93; PULSE 100; RESP 18; TEMP 35.8; O2SAT 96
[2023-02-09 10:53] LABS: Basophils % 0.7 %; Eosinophils # 0.1 10^3/uL (0.0-0.8); Eosinophils % 1.6 %; Hematocrit 40.3 % (37.0-47.0); Hemoglobin 12.9 g/dL (11.5-15.3); Lymphocytes # 1.2 10^3/uL (0.8-4.8); Lymphocytes % 21.1 %; Mean Corpuscular Volume 96.9 fl (81-99); Mean Platelet Volume 10.3 fL (7.4-10.4); Monocytes # 0.5 10^3/uL (0.2-0.9); Monocytes % 8.5 %; Neutrophils # 3.73 10^3/uL (1.8-7.7); Neutrophils % 67.7 %; Nucleated Red Blood Cells % 0 %; Platelet Count 166 10^3/cmm (130-400); Red Blood Count 4.16 10^6/uL (4.1-5.3); Red Cell Distribution Width 13.9 % (12.1-15.1); White Blood Count 5.5 10^3/uL (4.0-10.0)
[2023-02-09 11:10] LABS: Alanine Aminotransferase 22 U/L (0-33); Albumin Level 3.7 g/dL (3.5-5.2); Alkaline Phosphatase 116 U/L (35-105); Anion Gap 11.6 (5-19); Aspartate Amino Transferase 32 U/L (0-32); Blood Urea Nitrogen 12 mg/dL (8-23); Calcium 9.1 mg/dL (8.5-10.5); Carbon Dioxide 29 mmol/L (22-29); Chloride 103 mmol/L (98-107); Globulin 2.8 g/dL (1.3-4.6); Glucose 254 mg/dL (65-115); Osmolality Calculated 298 mOsm/kg (285-295); Potassium 3.6 mmol/L (3.5-5.1); Sodium 140 mmol/L (136-145); Total Bilirubin 0.4 mg/dL (0.15-1.2); Total Protein 6.5 g/dL (6.6-8.7)
== END 2023-03-10 23:59 | disposition home or self-care (01) ==
PROVIDERS: Internal Medicine Hematology & Oncology; PCP Family Medicine; Visit Provider Nurse Practitioner Family
DX: C50.211 Malignant neoplasm of upper-inner quadrant of right female breast (principal); Z17.0 Estrogen receptor positive status [ER+]; Z90.11 Acquired absence of right breast and nipple; C77.3 Secondary and unspecified malignant neoplasm of axilla and upper limb lymph nodes; M54.50 Low back pain, unspecified; Z79.818 Long term (current) use of other agents affecting estrogen receptors and estrogen levels; Z79.891 Long term (current) use of opiate analgesic; Z79.899 Other long term (current) drug therapy; Z87.891 Personal history of nicotine dependence; Z92.21 Personal history of antineoplastic chemotherapy; Z92.3 Personal history of irradiation; G89.29 Other chronic pain; M54.9 Dorsalgia, unspecified; E87.6 Hypokalemia; F41.9 Anxiety disorder, unspecified; Z79.811 Long term (current) use of aromatase inhibitors; Z78.0 Asymptomatic menopausal state
CPT/HCPCS: 36415; 80053; 85025; 99214

== ENCOUNTER 2023-02-14 08:52 | Outpatient (CLI) | payer MEDICARE, SELFPAY ==
--- NOTE | 2023-02-14 09:00 | MM_ITS ---
WS: [id number] DIAGNOSTIC LEFT DIGITAL TOMOSYNTHESIS MAMMOGRAPHY WITH CAD. HISTORY: annual mammogram, prior RIGHT mastectomy. COMPARISON: 07/31/2019 Technique: CC, MLO and ML views. Breast composition: There are scattered areas of fibroglandular density. No suspicious masses or myra cification. No architectural distortion or nipple retraction. MM/[place] [id number] IMPRESSION: BI-RADS: 1-Negative FOLLOW UP: 1 Year Follow-up
== END 2023-02-14 08:53 | disposition home or self-care (01) ==
PROVIDERS: PCP Family Medicine; Visit Provider Internal Medicine Hematology & Oncology
DX: C50.211 Malignant neoplasm of upper-inner quadrant of right female breast (principal); Z90.11 Acquired absence of right breast and nipple
CPT/HCPCS: 77061; G0279

== ENCOUNTER 2023-05-25 10:51 | Oncology outpatient (recurring) (ONCR) | payer MEDICARE, SELFPAY ==
[2023-05-25 11:05] VITALS: BP 131/80; PULSE 73; RESP 16; TEMP 36.8; O2SAT 97
[2023-05-25 11:12] LABS: Basophils # 0.1 10^3/uL (0.0-0.1); Basophils % 0.8 %; Eosinophils # 0.2 10^3/uL (0.0-0.8); Eosinophils % 3.6 %; Hematocrit 38.8 % (36-47); Lymphocytes # 1.7 10^3/uL (0.8-4.8); Mean Corpuscular Hemoglobin 31.3 pg (27-33); Mean Platelet Volume 10.5 fL (7.4-10.4); Monocytes # 0.6 10^3/uL (0.2-0.9); Monocytes % 10.3 %; Neutrophils # 3.56 10^3/uL (1.8-7.7); Neutrophils % 58.1 %; Nucleated Red Blood Cells % 0 %; Platelet Count 183 10^3/cmm (157-399); Red Blood Count 3.96 10^6/uL (3.85-5.65); White Blood Count 6.12 10^3/uL (3.29-11.43)
[2023-05-25 11:35] LABS: Alanine Aminotransferase 30 U/L (0-33); Albumin Level 4.2 g/dL (3.5-5.2); Alkaline Phosphatase 148 U/L (35-105); Anion Gap 12.4 (5-19); Aspartate Amino Transferase 39 U/L (0-32); Blood Urea Nitrogen 22 mg/dL (8-23); Calcium 9.6 mg/dL (8.5-10.5); Carbon Dioxide 26 mmol/L (22-29); Chloride 105 mmol/L (98-107); Globulin 2.9 g/dL (1.3-4.6); Glucose 150 mg/dL (65-115); Osmolality Calculated 294 mOsm/kg (285-295); Potassium 4.4 mmol/L (3.5-5.1); Sodium 139 mmol/L (136-145); Total Bilirubin 0.4 mg/dL (0.15-1.2); Total Protein 7.1 g/dL (6.6-8.7)
[2023-05-26 12:36] LABS: CA 27.29 16 U/mL (<38)
== END 2023-06-10 23:59 | disposition home or self-care (01) ==
PROVIDERS: Nurse Practitioner Family; PCP Family Medicine; Visit Provider Nurse Practitioner Family
DX: C50.211 Malignant neoplasm of upper-inner quadrant of right female breast (principal); Z17.0 Estrogen receptor positive status [ER+]; Z90.11 Acquired absence of right breast and nipple; C77.3 Secondary and unspecified malignant neoplasm of axilla and upper limb lymph nodes; M54.50 Low back pain, unspecified; Z79.818 Long term (current) use of other agents affecting estrogen receptors and estrogen levels; Z79.891 Long term (current) use of opiate analgesic; Z79.899 Other long term (current) drug therapy; Z87.891 Personal history of nicotine dependence; Z92.21 Personal history of antineoplastic chemotherapy; Z92.3 Personal history of irradiation; G89.29 Other chronic pain; M54.9 Dorsalgia, unspecified; E87.6 Hypokalemia; F41.9 Anxiety disorder, unspecified; Z79.811 Long term (current) use of aromatase inhibitors; Z78.0 Asymptomatic menopausal state
CPT/HCPCS: 36415; 80053; 85025; 86300; 99214

== ENCOUNTER 2023-07-04 14:00 | Outpatient (CLI) | payer MEDICARE, SELFPAY ==
--- NOTE | 2023-07-04 08:30 | PETR_ITS ---
PROCEDURE INFORMATION: Exam: PET/CT Skull Base to Mid-thigh Exam date and time: 07/04/2023 9:23 AM Age: 83 years old Clinical indication: Condition or disease; Primary cancer: Breast cancer; Follow-up oncological assessment; Prior surgery; Surgery date: 6+ months; Additional info: Follow up metastatic breast cancer er+, . LABS AND CLINICAL REPORTS: Glucose: 118 mg/dl Treatment strategy for malignancy (PET staging): Restaging (PS) TECHNIQUE: Imaging protocol: Following at least four-hour fasting and following the injection of radiopharmaceutical, low dose CT images were obtained. Then, PET images were obtained. Attenuation corrected images were constructed using the CT scan. Fused images of PET and CT were reviewed. The standardized uptake values (SUV) reported below are maximum values within a region of interest, expressed in gm/ml. Exam includes orbital meatal line to mid-thigh. Radiopharmaceutical: 12.75 mCi F-18 FDG (Fluorodeoxyglucose), IV. Time of imaging post radiopharmaceutical administration: 1 hour Injection site: Left antecubital COMPARISON: [facility] SUBSEQ [id number] 10/29/2022 8:05 AM FINDINGS: Brain: Visualized brain has normal physiologic uptake. Pharynx: There is elevated uptake in the region of the palatine tonsils which is likely physiologic or inflammatory, SUV max 4.4. Larynx: No abnormal uptake. Lungs, pleura and trachea: No abnormal uptake. Similar bandlike area of streaky density extending from the lateral pleural surface of the right upper lobe to the right perihilar region without elevated uptake compatible with scarring. Heart: Normal physiologic uptake. Mediastinal space: No abnormal uptake. Liver: No abnormal uptake. Gallbladder and bile ducts: No abnormal uptake. Cholecystectomy clips are present. Pancreas: No abnormal uptake. Spleen: No abnormal uptake. Adrenal glands: No abnormal uptake. An ovoid nodule in the right adrenal gland measures 1.7 x 1.0 cm on series 3, image 119. This was not as well delineated but was likely present on the prior exam and was also not radiotracer avid compatible with a benign finding. Kidneys and ureters: Normal physiologic uptake. Stomach and bowel: No abnormal uptake. There are scattered colonic diverticula. A surgical staple line in the region of the cecum is noted. Vasculature: No abnormal uptake. Diffuse atherosclerotic changes are present. Lymph nodes: No abnormal uptake. No lymphadenopathy in the head, neck, chest, abdomen, pelvis, and extremities. Bones/joints: A similar region of patchy sclerotic density in the left sacrum measures 3.3 x 2.3 cm on series 3, image 181. A similar rounded focus measuring slightly less than 1 cm demonstrating elevated uptake along the posteromedial aspect of this lesion is noted on series 3, image 180, SUV max 2.7 (previously 3.2). Mild, likely inflammatory uptake in the right glenohumeral joint capsule region is noted, SUV max 3.0 moderate to severe underlying primary osteoarthritic changes. Postoperative changes of multilevel laminectomy and posterior fusion are noted in the cervical spine. Degenerative changes throughout the spine are noted with moderate degenerative spondylosis is greatest in the thoracic and lumbar spine. Mild kyphosis centered at L2-L3 is present. Soft tissues: Postoperative changes of right mastectomy are noted. There is similar mild uptake within mild skin thickening in this region, SUV max 2.4 (previously 2.1). A thin walled fluid collection versus breast implant on the right is noted measuring 10.9 x 4.0 cm in the axial plane on series 3, image 101 without current evidence of elevated uptake. METRICS: Mediastinal blood pool: SUV max 2.0 PET/PET [facility] SUBSEQ [id number] IMPRESSION: 1. Similar postoperative changes of right mastectomy. Mild anterior skin thickening demonstrates low-level uptake which is likely inflammatory in etiology. 2. Similar morphology of a sclerotic lesion in the left sacrum compatible with a treated metastatic lesion. There is a similar small focus of persistent but decreased elevated uptake along the posterior medial aspect of this region (SUV max 2.7, previously 3.2) possibly representing a decrease in neoplastic involvement or inflammatory changes. 3. Additional nonurgent findings as detailed above.
== END 2023-07-04 14:01 | disposition home or self-care (01) ==
LOC: RAD 14:00
PROVIDERS: PCP Family Medicine; Visit Provider Nurse Practitioner Family
DX: C50.211 Malignant neoplasm of upper-inner quadrant of right female breast (principal); Z17.0 Estrogen receptor positive status [ER+]; Z90.11 Acquired absence of right breast and nipple; M89.9 Disorder of bone, unspecified
CPT/HCPCS: 78815; A9552

== ENCOUNTER 2023-07-12 14:15 | Oncology outpatient (recurring) (ONCR) | payer MEDICARE, SELFPAY | END 2023-08-10 23:59 | disposition home or self-care (01) | PROVIDERS: PCP Family Medicine; Visit Provider Internal Medicine Medical Oncology | DX: C50.211 Malignant neoplasm of upper-inner quadrant of right female breast (principal); Z17.0 Estrogen receptor positive status [ER+]; Z90.11 Acquired absence of right breast and nipple; C77.3 Secondary and unspecified malignant neoplasm of axilla and upper limb lymph nodes; M54.50 Low back pain, unspecified; Z79.818 Long term (current) use of other agents affecting estrogen receptors and estrogen levels; Z79.891 Long term (current) use of opiate analgesic; Z79.899 Other long term (current) drug therapy; Z87.891 Personal history of nicotine dependence; Z92.21 Personal history of antineoplastic chemotherapy; Z92.3 Personal history of irradiation; G89.29 Other chronic pain; M54.9 Dorsalgia, unspecified; E87.6 Hypokalemia; F41.9 Anxiety disorder, unspecified; Z79.811 Long term (current) use of aromatase inhibitors; Z78.0 Asymptomatic menopausal state | CPT/HCPCS: 99214 ==

== ENCOUNTER 2023-10-12 12:16 | Oncology outpatient (recurring) (ONCR) | payer MEDICARE, SELFPAY ==
[2023-10-12 12:46] LABS: Basophils % 0.7 %; Eosinophils # 0.1 10^3/uL (0.0-0.8); Eosinophils % 1.5 %; Hematocrit 39.7 % (36-47); Lymphocytes # 1.4 10^3/uL (0.8-4.8); Lymphocytes % 24.7 %; Mean Corpuscular HGB Conc 32.2 g/dL (30-55); Mean Corpuscular Hemoglobin 30.8 pg (27-33); Mean Corpuscular Volume 95.7 fl (85-98); Mean Platelet Volume 10.6 fL (7.4-10.4); Monocytes # 0.7 10^3/uL (0.2-0.9); Monocytes % 12.4 %; Neutrophils # 3.34 10^3/uL (1.8-7.7); Neutrophils % 60.7 %; Nucleated Red Blood Cells % 0 %; Platelet Count 166 10^3/cmm (157-399); Red Blood Count 4.15 10^6/uL (3.85-5.65); Red Cell Distribution Width 13.8 % (12.1-15.1)
[2023-10-12 13:16] LABS: Alanine Aminotransferase 17 U/L (0-33); Albumin Level 4.1 g/dL (3.5-5.2); Alkaline Phosphatase 125 U/L (35-105); Anion Gap 13.5 (5-19); Aspartate Amino Transferase 32 U/L (0-32); Blood Urea Nitrogen 20 mg/dL (8-23); CA 15-3 16.7 U/mL (0-25); Calcium 9.8 mg/dL (8.5-10.5); Carbon Dioxide 27 mmol/L (22-29); Chloride 101 mmol/L (98-107); Globulin 3.4 g/dL (1.3-4.6); Glucose 116 mg/dL (65-115); Osmolality Calculated 288 mOsm/kg (285-295); Potassium 4.5 mmol/L (3.5-5.1); Sodium 137 mmol/L (136-145); Total Bilirubin 0.4 mg/dL (0.15-1.2); Total Protein 7.5 g/dL (6.6-8.7)
[2023-10-13 13:00] LABS: CA 27.29 22 U/mL (<38)
== END 2023-11-09 23:59 | disposition home or self-care (01) ==
PROVIDERS: Nurse Practitioner Family; PCP Family Medicine; Visit Provider Internal Medicine Medical Oncology
DX: C50.211 Malignant neoplasm of upper-inner quadrant of right female breast (principal); Z17.0 Estrogen receptor positive status [ER+]; Z90.11 Acquired absence of right breast and nipple; Z79.899 Other long term (current) drug therapy; Z87.891 Personal history of nicotine dependence; Z92.3 Personal history of irradiation; Z78.0 Asymptomatic menopausal state; I10 Essential (primary) hypertension; R07.89 Other chest pain; M79.601 Pain in right arm
CPT/HCPCS: 36415; 80053; 85025; 86300; 99214

== ENCOUNTER 2023-10-19 13:00 | Outpatient (CLI) | payer MEDICARE, SELFPAY ==
--- NOTE | 2023-10-19 13:30 | XR_ITS ---
WS: [id number] SCREENING DEXA SCAN [employer] CLINICAL INFORMATION: annual exam COMPARISON: None. FINDINGS: The L1-L4 bone mineral density measures 1.338 g/cm2. This corresponds to a T score score of 1.3 and Z score of 2.7. Left femoral neck bone mineral density measures 0.870 g/cm2. This corresponds to a T score of -1.1 an d Z score of 0.7. Right femoral neck bone mineral density measures 0.865 g/cm2. This corresponds to a T score -1.1of an d Z score of 0.6. Mean femoral neck bone mineral density measures 0.867 g/cm2. This corresponds to a T score of -1.1 an d Z score of 0.7. IMPRESSION: Normal bone mineralization lumbar spine. Osteopenia femoral necks. Patient's FRAX calculated 10 year probability for major osteoporotic fracture is 21.1% and osteoporot ic hip fracture is 5.7%.
== END 2023-10-19 13:01 | disposition home or self-care (01) ==
LOC: RAD 13:00
PROVIDERS: PCP Family Medicine; Visit Provider Nurse Practitioner Family
DX: Z90.11 Acquired absence of right breast and nipple (principal); Z78.0 Asymptomatic menopausal state; Z79.811 Long term (current) use of aromatase inhibitors
CPT/HCPCS: 77080

== ENCOUNTER 2023-11-03 19:19 | Emergency (ER) | payer MEDICARE, SELFPAY ==
[2023-11-03 19:31] VITALS: BP 205/105; PULSE 111; RESP 16; TEMP 36.7; O2SAT 98
--- NOTE | 2023-11-03 19:42 | CTR_ITS ---
PROCEDURE INFORMATION: Exam: CT Head Without Contrast Exam date and time: 11/03/2023 9:16 PM Age: 83 years old Clinical indication: Injury or trauma; Blunt trauma (contusions or hematomas); Patient HX: Fall with headstrike and positive loc on concrete. History of breast cancer with bone mets. ; Additional info: Fall, positive loc, head trauma TECHNIQUE: Imaging protocol: Computed tomography of the head without contrast. Radiation optimization: All CT scans at this facility use at least one of these dose optimization techniques: automated exposure control; mA and/or kV adjustment per patient size (includes targeted exams where dose is matched to clinical indication); or iterative reconstruction. COMPARISON: CT head wo con* [id number] 12/24/2022 7:38 PM RADIATION DOSE METRICS: Total DLP (mGy-cm): 1055.08 FINDINGS: Brain: Hypodensities bilaterally, nonspecific, but compatible with changes of small vessel disease, lacunar infarctions, slightly progressed compared to 12/24/2022. Otherwise, no new intracranial mass, midline shift, acute intracranial hemorrhage, nor abnormal extra-axial fluid collection seen. Mild prominence of ventricles, sulci. Cerebral ventricles: See Brain finding. Paranasal sinuses: Mild partial opacification ethmoid air cells. Mastoid air cells: Visualized portions mastoid air cells, middle ear cavities included appear clear bilaterally. Bones/joints: Hyperostosis frontalis. No displaced comminuted depressed skull fracture seen. Soft tissues: Unremarkable. Vasculature: Arterial calcification. CT/CT head wo con* [id number] IMPRESSION: No acute intracranial abnormality seen.
--- NOTE | 2023-11-03 19:46 | XRR_ITS ---
PROCEDURE INFORMATION: Exam: XR Right Hip Exam date and time: 11/03/2023 8:46 PM Age: 83 years old Clinical indication: Injury or trauma; Fall; Other: Unknown; Additional info: Fall pain TECHNIQUE: Imaging protocol: Radiologic exam of the right hip. Views: 1 view hip with pelvis when performed. COMPARISON: CR XR pelvis 1-2V* [id number] 03/14/2021 11:34 AM FINDINGS: Bones/joints: No displaced fracture nor dislocation seen of right hip. Mild narrowing right hip joint space. Degenerative changes spine. Soft tissues: Unremarkable. Vasculature: Vascular calcifications. XR/XR hip RT 2-3V wo/w pel* [id number] IMPRESSION: No displaced fracture seen of right hip.
--- NOTE | 2023-11-03 19:46 | XRR_ITS ---
PROCEDURE INFORMATION: Exam: XR Right Forearm Exam date and time: 11/03/2023 8:46 PM Age: 83 years old Clinical indication: Injury or trauma; Fall; Other: Unknown; Additional info: Fall pain TECHNIQUE: Imaging protocol: Radiologic exam of the right forearm. Views: 2 views. COMPARISON: No relevant prior studies available. FINDINGS: Bones/joints: On the frontal/AP view, thin linear lucency over distal radial diametaphysis may be incidental trabecular pattern. Otherwise, no displaced fracture seen of forearm. Degenerative changes wrist, base of thumb, 1st carpal-metacarpal joint. Soft tissues: No metallic foreign body seen. XR/XR forearm RT 2V [id number] IMPRESSION: No displaced fracture seen of forearm.
--- NOTE | 2023-11-03 20:10 | XRR_ITS ---
PROCEDURE INFORMATION: Exam: XR Right Humerus Exam date and time: 11/03/2023 8:46 PM Age: 83 years old Clinical indication: Injury or trauma; Fall; Other: Unknown; Additional info: Fall pain TECHNIQUE: Imaging protocol: Radiologic exam of the right humerus. Views: 2 or more views. COMPARISON: CT cervical spin wo con* [id number] 03/14/2021 11:20 AM FINDINGS: Bones/joints: No displaced fracture seen of humerus. Marginal spurring, degenerative changes humeral head. Lungs: Slight probable atelectasis and/or infiltrate right lung. Soft tissues: Normal. XR/[place] [id number] IMPRESSION: No displaced fracture seen of humerus. Please see body of report.
--- NOTE | 2023-11-03 20:53 | W.ED.FALL ---
HPI - Fall General: Chief Complaint: Fall Stated Complaint: Fell-Face Injury Time Seen by Provider: 11/03/23 20:40 History of Present Illness: Patient presents to the ER after falling off the bottom step of her stairs onto the concrete. Patient states she did hit her head and has a positive loss of consciousness. Patient is not on blood thinners. Patient also says she hurt her right arm from her shoulder all the way down to her wrist and also her right hip. Patient rates her pain a 6 out of 10. Patient says she does have some nausea and a headache. Review of Systems General: Reports: 10 or more systems reviewed and unremarkable except in HPI and below PFSH ED PFSH: Medical History Surgical site infection Acute breast pain Sepsis Pneumonia COPD (chronic obstructive pulmonary disease) Hypertension History of right breast cancer Surgical History S/P right mastectomy (10/21/20) H/O neck surgery History of appendectomy History of carpal tunnel release History of laparoscopic cholecystectomy History of hernia repair History of arthroscopic knee surgery History of tubal ligation History of breast biopsy Family History Grandfather Lung disease Other CAD (coronary artery disease) Cancer Dementia Diabetes Hyperlipidemia Hypertension Stroke Denies family history of Clotting disorder Psychiatric illness Chronic kidney disease (CKD) Suicide Anesthesia complication Bleeding disorder Social History Smoking and tobacco/nicotine status: former use of tobacco/nicotine Quit status (tobacco/nicotine): has quit using Year quit tobacco: 1957 Former quit date comment: 3 years when 18 Second hand smoke exposure: Yes Alcohol intake: never Substance/Drug Use: never Adopted: No Caregiver/support person: Yes Lives independently: Yes Physical Exam Const: COMMON NORMALS: no acute distress, average body habitus, patient oriented x3, no limitations, healthy appearing, alert and well nourished HENMT: COMMON NORMALS: normocephalic, atraumatic, hearing grossly normal bilaterally, external ears normal, Normal external nose present, moist oral mucous membranes and oropharynx normal HEAD & SCALP: normocephalic and atraumatic NOSE: Normal external nose present EXTERNAL EAR: Yes external ears normal Eye: COMMON NORMALS: Equal, round and reactive pupils present, EOMs intact bilaterally, conjunctivae normal and no scleral icterus CONJUNCTIVA: Yes conjunctivae normal PUPIL: Yes Equal, round and reactive pupils present Neck/C-Spine: COMMON NORMALS: full ROM, no lymphadenopathy, supple, no meningeal signs, no JVD and Thyroid normal THYROID: Thyroid normal Chest: COMMONS NORMALS: normal inspection of the chest and normal palpation of entire chest wall Resp: COMMON NORMALS: normal respiratory effort, No retractions, No use of accessory muscles and clear to auscultation bilaterally AUSCULTATION: clear to auscultation bilaterally Cardio: COMMON NORMALS: no JVD, regular rate, regular rhythm, S1 normal heart sound present, S2 normal heart sound present, No gallops present (Cardio), No clicks present (Cardio), No murmurs present (Cardio) and No rub (Cardio) RATE: regular rate RHYTHM: regular rhythm HEART SOUNDS: S1 normal heart sound present and S2 normal heart sound present GI: COMMON NORMALS: Normal to inspection, nondistended, normoactive bowel sounds present, Soft to palpation, non-tender, No hepatosplenomegaly present and no masses PALPATION: Yes Soft to palpation and Yes No hepatosplenomegaly present Extremity: NARRATIVE EXTREMITY EXAM: Diffuse tenderness to palpation over right anterior shoulder, right elbow, right forearm and right hip. No obvious deformity, crepitus at any place. Patient has multiple areas of abrasion, bruising and thin skin. Neuro: COMMON NORMALS: patient oriented x3 SENSORIUM/ORIENTATION: Yes alert MENINGEAL SIGNS: Yes no meningeal signs Course Vital Signs: Vital signs: Vital Signs Temperature 98.1 F 11/03/23 19:31 Pulse Rate 106 H 11/03/23 21:34 Respiratory Rate 16 11/03/23 21:34 Blood Pressure 173/95 11/03/23 21:34 Pulse Oximetry 100 11/03/23 21:34 Oxygen Delivery Me thod Room Air 11/03/23 21:34 MDM - Fall Medical Decision Making X-rays obtained of the humerus, hip and pelvis, forearm and head CT. All of which was essentially negative for acute fractures. These results was discussed with patient and her family. Patient is requesting pain medicine at this time we will give her 30 mg IM. Patient's blood pressure was extremely elevated and she did receive clonidine 0.1 mg which lowered it. Patient will be discharged from the ER and a prescription for pain medicine will be sent to patient's pharmacy. Patient to follow-up with her PCP within next 7 days for further evaluation and treatment. Differential Diagnosis Unlikely syncope, dislocation of shoulder region, fracture of wrist, compression fracture, concussion with loss of consciousness or concussion without loss of consciousness Medical Records I reviewed the patient's medical records. Lab Data I reviewed the patient's lab results. Radiology Impressions Head CT 11/03/23 19:42 IMPRESSION: No acute intracranial abnormality seen. Forearm X-Ray 11/03/23 19:46 IMPRESSION: No displaced fracture seen of forearm. Hip/Pelvis X-Ray 11/03/23 19:46 IMPRESSION: No displaced fracture seen of right hip. Humerus X-Ray 11/03/23 20:10 IMPRESSION: No displaced fracture seen of humerus. Please see body of report. All radiology interpretation(s) finalized by discharge Discharge Plan Discharge Patient Disposition: Home Clinical Impression: Fall Qualifiers: Encounter type: initial encounter Qualified Code(s): W19.XXXA - Unspecified fall, initial encounter Contusion of head Qualifiers: Encounter type: initial encounter Contusion of head detail: scalp Qualified Code(s): S00.03XA - Contusion of scalp, initial encounter Contusion of hip, right Qualifiers: Encounter type: initial encounter Qualified Code(s): S70.01XA - Contusion of right hip, initial encounter Contusion of arm, right Qualifiers: Encounter type: initial encounter Qualified Code(s): S40.021A - Contusion of right upper arm, initial encounter Condition: Stable Prescriptions: New tramadol 50 mg tablet 50 mg PO Q8H PRN (Reason: pain) Qty: 14 0RF No Action tizanidine [Zanaflex] 2 mg capsule See Rx Instructions PO Q8H PRN Rx Instructions: Strength unknown orally every 8 hours PRN; losartan 50 mg tablet 50 mg PO DAILY Qty: 30 0RF Rx Instructions: Stop valsartan diclofenac sodium 1 % gel 2 g topical QID Rx Instructions: apply to single elbow, wrist or hand; for hand includes palm/fingers/back of hand cholecalciferol (vitamin D3) 10 mcg (400 unit) capsule 10 mcg PO DAILY ondansetron HCl 4 mg tablet See Rx Instructions .ROUTE .COMPLEX Qty: 270 0RF Dose Instruction: TAKE 1 TABLET EVERY 8 HOURS Rx Instructions: TAKE 1 TABLET EVERY 8 HOURS allopurinol 100 mg tablet 100 mg PO BID Qty: 180 3RF anastrozole 1 mg tablet See Rx Instructions .ROUTE .COMPLEX Qty: 90 0RF Dose Instruction: TAKE 1 TABLET EVERY DAY Rx Instructions: TAKE 1 TABLET EVERY DAY docusate sodium [Colace] 100 mg capsule 100 mg PO BID PRN (Reason: Constipation) Tylenol Extra Strength 500 mg tablet 500 - 1,000 mg PO Q4H PRN (Reason: Pain) Discharge Orders: Discharge ED (Routine); Ordered 11/03/23 Ordered By: Maximilian Black Referrals: Kris León MD [Primary Care Provider] - 1 week Patient Instructions: Fall Prevention for Older Adults (ED), Contusion in Adults (ED) Activity Restrictions/Additional Instructions: All of your x-rays and CT scans were negative for acute fractures. You have been diagnosed with a fall and multiple contusions. You are being sent home with pain medicine only to take as needed. Please follow-up with your family practice doctor within the next 7 days for further evaluation and treatment. Coding Level of Care Code ED [employer] for [facility]era Gleason
[2023-11-03 21:06] VITALS: BP 184/92
[2023-11-03] MEDS: cloNIDine 0.1 mg Tablet PO (21:06)
[2023-11-03 21:34] VITALS: BP 173/95; PULSE 106; RESP 16; O2SAT 100
[2023-11-03] MEDS: ketorolac 30 mg/mL INJ IM (22:17)
[2023-11-03 22:30] VITALS: BP 173/95; PULSE 106; RESP 16; TEMP 36.7; O2SAT 100
== END 2023-11-03 22:31 | disposition home or self-care (01) ==
PROVIDERS: Emergency Provider Emergency Medicine; PCP Family Medicine
DX: S00.03XA Contusion of scalp, initial encounter (principal); S70.01XA Contusion of right hip, initial encounter; S40.021A Contusion of right upper arm, initial encounter; Z87.891 Personal history of nicotine dependence; J44.9 Chronic obstructive pulmonary disease, unspecified; I10 Essential (primary) hypertension; Z85.3 Personal history of malignant neoplasm of breast; W10.8XXA Fall (on) (from) other stairs and steps, initial encounter
CPT/HCPCS: 70450; 73060; 73090; 73502; 96372; 99284; J1885

== ENCOUNTER → 2023-12-25 09:57 | Outpatient (BNVA) | payer MEDICARE, SELFPAY | PROVIDERS: PCP Family Medicine; Referring Provider Nurse Practitioner Family; Visit Provider Internal Medicine Cardiovascular Disease | DX: R07.89 Other chest pain (principal); Z85.3 Personal history of malignant neoplasm of breast; Z87.891 Personal history of nicotine dependence | CPT/HCPCS: 99203 ==

== ENCOUNTER 2024-01-13 21:30 | Emergency (ER) | payer MEDICARE, SELFPAY ==
[2024-01-13 21:45] VITALS: BP 168/89; PULSE 120; RESP 17; TEMP 36.7; O2SAT 96; BMI 33.5
[2024-01-13 23:15] VITALS: BP 181/96; PULSE 104; RESP 18; O2SAT 100
--- NOTE | 2024-01-13 23:28 | CTR_ITS ---
PROCEDURE INFORMATION: Exam: CT Abdomen And Pelvis With Contrast Exam date and time: 01/14/2024 12:52 AM Age: 84 years old Clinical indication: Nausea and vomiting; Abdominal pain; Localized; Prior surgery; Surgery date: 6+ months; Surgery type: Mastectomy. Gb. Hernia repair. Appy. Tubal. Patient HX: C/O upper abd pain with n/v. History of breast cancer. TECHNIQUE: Imaging protocol: Computed tomography of the abdomen and pelvis with contrast. Radiation optimization: All CT scans at this facility use at least one of these dose optimization techniques: automated exposure control; mA and/or kV adjustment per patient size (includes targeted exams where dose is matched to clinical indication); or iterative reconstruction. Contrast material: OMNI 350; Contrast volume: 100 ml; Contrast route: INTRAVENOUS (IV); COMPARISON: CR XR hip RT 2-3V wo/w pel* [id number] 11/03/2023 8:46 PM RADIATION DOSE METRICS: Total DLP (mGy-cm): 1951.01 FINDINGS: Coronary arteries: Coronary arterial atherosclerotic calcifications are present. Liver: Normal. No mass. Gallbladder and bile ducts: The gallbladder is absent. Pancreas: Normal. No ductal dilation. Spleen: Normal. No splenomegaly. Adrenal glands: There is a 1.6 cm hypodense lesion in the right adrenal gland measuring 68 Hounsfield units. This is indeterminate and a three-phase adrenal CT or adrenal MRI may be of benefit. Kidneys and ureters: Normal. No hydronephrosis. Stomach and bowel: Circumferential bowel wall thickening of the small bowel in the mid abdomen (series 4, image 56) with extensive adjacent fat stranding. Findings can be seen the setting of inflammatory bowel disease. Appendix: The appendix is absent. Intraperitoneal space: Unremarkable. No free air. No significant fluid collection. Vasculature: Unremarkable. No abdominal aortic aneurysm. Lymph nodes: Unremarkable. No enlarged lymph nodes. Urinary bladder: Unremarkable as visualized. Reproductive: Unremarkable as visualized. Bones/joints: Severe compression fracture of the L1 vertebral body. Soft tissues: There is a loculated fluid collection within the right breast measuring 10.7 x 3.0 cm. There is adjacent fat stranding. Overlying skin thickening. Abscess cannot be excluded. Correlate clinically. Other findings: No abscess. CT/CT abdomen pelvis w con* [id number] IMPRESSION: 1. There is a loculated fluid collection within the right breast measuring 10.7 x 3.0 cm. There is adjacent fat stranding. Overlying skin thickening. Abscess cannot be excluded. Correlate clinically. 2. Circumferential bowel wall thickening of the small bowel in the mid abdomen (series 4, image 56) with extensive adjacent fat stranding. Findings can be seen the setting of inflammatory bowel disease. Correlate with history. 3. No abdominal abscess. 4. There is a 1.6 cm hypodense lesion in the right adrenal gland measuring 68 Hounsfield units. This is indeterminate and a three-phase adrenal CT or adrenal MRI may be of benefit.
--- NOTE | 2024-01-13 23:28 | CTR_ITS ---
PROCEDURE INFORMATION: Exam: CT Head Without Contrast Exam date and time: 01/14/2024 12:48 AM Age: 84 years old Clinical indication: Pain; Headache; Patient HX: C/O HINOJOSA; Additional info: Headache vomiting TECHNIQUE: Imaging protocol: Computed tomography of the head without contrast. Radiation optimization: All CT scans at this facility use at least one of these dose optimization techniques: automated exposure control; mA and/or kV adjustment per patient size (includes targeted exams where dose is matched to clinical indication); or iterative reconstruction. COMPARISON: CT head wo con* [id number] 11/03/2023 9:16 PM RADIATION DOSE METRICS: Total DLP (mGy-cm): 1028.88 FINDINGS: Brain: No acute intracranial hemorrhage. No acute territorial region of kothari-white dedifferentiation. No extra-axial collection. No mass effect or midline shift. Generalized parenchymal volume loss. Mild scattered nonspecific white matter hypodensities, likely chronic microvascular ischemic change. Cerebral ventricles: No acute hydrocephalus. Paranasal sinuses: Visualized sinuses are well-aerated. No fluid levels. Mastoid air cells: Visualized mastoid air cells are well aerated. Orbital cavities: No acute abnormality. Bones: No acute fracture. Soft tissues: No acute abnormality. CT/CT head wo con* [id number] IMPRESSION: No acute findings.
[2024-01-13 23:36] LABS: Basophils # 0.1 10^3/uL (0.0-0.1); Basophils % 0.5 %; Eosinophils % 0.2 %; Lymphocytes # 1.3 10^3/uL (0.8-4.8); Lymphocytes % 14.7 %; Mean Corpuscular HGB Conc 32.7 g/dL (30-55); Mean Corpuscular Hemoglobin 31.4 pg (27-33); Mean Corpuscular Volume 96.2 fl (85-98); Mean Platelet Volume 11.2 fL (7.4-10.4); Monocytes # 0.6 10^3/uL (0.2-0.9); Monocytes % 6.1 %; Neutrophils # 7.11 10^3/uL (1.8-7.7); Neutrophils % 78.2 %; Nucleated Red Blood Cells % 0 %; Platelet Count 183 10^3/cmm (157-399); Red Blood Count 4.68 10^6/uL (3.85-5.65); Red Cell Distribution Width 13.9 % (12.1-15.1); White Blood Count 9.11 10^3/uL (3.29-11.43)
[2024-01-14] VITALS: BP 195/110; PULSE 102; RESP 18; O2SAT 98
[2024-01-14 00:01] LABS: Albumin Level 4.6 g/dL (3.5-5.2); Alkaline Phosphatase 131 U/L (35-105); Blood Urea Nitrogen 17 mg/dL (8-23); Calcium 10.3 mg/dL (8.5-10.5); Carbon Dioxide 24 mmol/L (22-29); Chloride 102 mmol/L (98-107); Creatinine Clr Calc Pharmacy 33.3843; Globulin 3.3 g/dL (1.3-4.6); Glucose 126 mg/dL (65-115); Lipase 35 U/L (13-60); Osmolality Calculated 293 mOsm/kg (285-295); Sodium 140 mmol/L (136-145); Total Protein 7.9 g/dL (6.6-8.7)
[2024-01-14 00:02] LABS: Alanine Aminotransferase 24 U/L (0-33); Aspartate Amino Transferase 48 U/L (0-32)
[2024-01-14] MEDS: ondansetron 2 mg/ML SDV 2 mL 4 MG IVP ×3 (00:05→03:32)
[2024-01-14] MEDS: sodium chloride 0.9% 500 ML 999 ML IV (00:05)
[2024-01-14] MEDS: enalaprilat 2.5 mg/2 mL SDV 1.25 MG IVP (00:06)
[2024-01-14] MEDS: fentaNYL 50 mcg/mL INJ 2mL IVP ×2 (00:07→01:09)
--- NOTE | 2024-01-14 00:17 | W.ED.NAVMDI ---
HPI - Nausea/Vomiting/Diarrhea General: Chief complaint: Nausea/Vomiting/Diarrhea Stated complaint: N/V , headace, Weakness Time Seen by Provider: 01/13/24 23:01 History of Present Illness: 84 year old female presents with 12 hours of epigastric abdominal pain radiating into her back. She has vomited multiple times. She can't seem to hold much down. No chest pain. No diarrhea. No blood in the stool or vomit. No sick contacts. Has a history of multiple belly surgeries in the past. Associated nausea: Yes Associated symtoms: Reports headache(s) and nausea; Denies chest pain or palpitations Review of Systems Const: Reports: fever(s) and chills Card: Denies: chest pain or palpitations Resp: Denies: dyspnea or productive cough GI: Reports: abdominal pain, nausea and vomiting; Denies: hematemesis : Denies: flank pain or difficulty voiding Skin/Breast: Reports: rash and erythema (chronic right chest) Neuro: Reports: headache(s); Denies: numbness in extremities PFSH ED PFSH: Medical History Surgical site infection Acute breast pain Sepsis Pneumonia COPD (chronic obstructive pulmonary disease) Hypertension History of right breast cancer Surgical History S/P right mastectomy (10/21/20) H/O neck surgery History of appendectomy History of carpal tunnel release History of laparoscopic cholecystectomy History of hernia repair History of arthroscopic knee surgery History of tubal ligation History of breast biopsy Family History Grandfather Lung disease Other CAD (coronary artery disease) Cancer Dementia Diabetes Hyperlipidemia Hypertension Stroke Denies family history of Clotting disorder Psychiatric illness Chronic kidney disease (CKD) Suicide Anesthesia complication Bleeding disorder Social History Smoking and tobacco/nicotine status: former use of tobacco/nicotine Quit status (tobacco/nicotine): has quit using Year quit tobacco: 1957 Former quit date comment: 3 years when 18 Second hand smoke exposure: Yes Alcohol intake: never Substance/Drug Use: never Adopted: No Caregiver/support person: Yes Lives independently: Yes Physical Exam Const: GENERAL APPEARANCE: cooperative, ill appearing (mildly) and frail appearing (mildly) HENMT: COMMON NORMALS: normocephalic, atraumatic and Normal external nose present HEAD & SCALP: normocephalic and atraumatic FACE & SINUS: normal facial exam and face symmetric NOSE: Normal external nose present Eye: COMMON NORMALS: Equal, round and reactive pupils present and EOMs intact bilaterally PUPIL: Yes Equal, round and reactive pupils present Neck/C-Spine: GENERAL: Yes trachea midline Chest: CHEST: Yes Symmetrical chest wall rise OTHER: s/p right mastectomy. warm, red tender area with some fluctuance to right mastectomy area. Resp: COMMON NORMALS: normal respiratory effort, No retractions, No use of accessory muscles and clear to auscultation bilaterally AUSCULTATION: clear to auscultation bilaterally Cardio: COMMON NORMALS: regular rate and regular rhythm RATE: regular rate RHYTHM: regular rhythm GI: COMMON NORMALS: Normal to inspection, nondistended, normoactive bowel sounds present PALPATION: Yes Tenderness to palpation present (GI) (epigastric) and Yes Guarding due to palpation present (GI) Extremity: COMMON NORMALS: no pedal edema Neuro: WICHO COMA SCALE: document GCS findings [place] coma scale eye opening: Spontaneous [place] coma scale verbal response: Orientated [place] coma scale motor response: Obey commands [place] coma scale total score: 15 SENSORY EXAM: Yes extremities (intact) Psych: COMMON NORMALS: speech normal SPEECH: Yes normal speech Skin: COMMON NORMALS: no rashes or lesions noted GENERAL SKIN EXAM: no rashes or lesions noted Course Vital Signs: Vital signs: Vital Signs Temperature 98.1 F 01/13/24 21:45 Pulse Rate 96 01/14/24 02:40 Respiratory Rate 18 01/14/24 02:40 Blood Pressure 162/99 01/14/24 02:40 Pulse Oximetry 96 01/14/24 02:40 Oxygen Delivery Me thod Room Air 01/13/24 21:45 MDM - Nausea/Vomiting/Diarrhea Medical Decision Making The patient was quite hypertensive originally. This is improved with antihypertensives. She has not been able to take her hypertension medication today due to vomiting. Headache is improved. No more vomiting here. WBC is 9. Creatinine is 1.2. CT shows some circumferential bowel wall thickening of the small bowel, likely a focal enteritis versus inflammatory bowel disease flare. She does not have a history of IBD. Interestingly, she has the loculated fluid collection at the sight of her previous right mastectomy. There is fat stranding. There is overlying skin thickening and Cellulitis. On reexamination, the patient does have Cellulitis to this right breast area. She says that this is chronic, and has been like that for quite some time since her surgery. It is always hot she says and tender. Likely unrelated to her clinical presentation currently. However, we'll place her on doxycycline to cover this, as well as flagyl to cover the enteritis. Symptomatic treatment otherwise. Return for worsening symptoms. Lab Data 01/13/24 23:08 01/13/24 23:08 Radiology Impressions Abdomen/Pelvis CT 01/13/24:28 IMPRESSION: 1. There is a loculated fluid collection within the right breast measuring 10.7 x 3.0 cm. There is adjacent fat stranding. Overlying skin thickening. Abscess cannot be excluded. Correlate clinically. 2. Circumferential bowel wall thickening of the small bowel in the mid abdomen (series 4, image 56) with extensive adjacent fat stranding. Findings can be seen the setting of inflammatory bowel disease. Correlate with history. 3. No abdominal abscess. 4. There is a 1.6 cm hypodense lesion in the right adrenal gland measuring 68 Hounsfield units. This is indeterminate and a three-phase adrenal CT or adrenal MRI may be of benefit. Head CT 01/13/24:28 IMPRESSION: No acute findings. Laboratory Results WBC 9.11 10^3/uL (3.29-11.43) 01/13/24 23:08 RBC 4.68 10^6/uL (3.85-5.65) 01/13/24 23:08 Hgb 14.70 g/dL (11.27-16.99) 01/13/24 23:08 Hct 45.0 % (36-47) 01/13/24 23:08 MCV 96.2 fl (85-98) 01/13/24 23: MCH 31.4 pg (27-33) 01/13/24 23: MCHC 32.7 g/dL (30-55) 01/13/24 23:08 RDW 13.9 % (12.1-15.1) 01/13/24 23:08 Plt Count 183 10^3/cmm (157-399) 01/13/24 23:08 MPV 11.2 fL (7.4-10.4) H 01/13/24 23:08 Neut % (Auto) 78.2 % 01/13/24 23:08 Lymph % (Auto) 14.7 % 01/13/24 23:08 [place] % (Auto) 6.1 % 01/13/24 23:08 Eos % (Auto) 0.2 % 01/13/24 23:08 Baso % (Auto) 0.5 % 01/13/24 23:08 Neut # (Auto) 7.11 10^3/uL (1.8-7.7) 01/13/24 23:08 Lymph # (Auto) 1.3 10^3/uL (0.8-4.8) 01/13/24 23:08 [place] # (Auto) 0.6 10^3/uL (0.2-0.9) 01/13/24 23:08 Eos # (Auto) 0.0 10^3/uL (0.0-0.8) 01/13/24 23:08 Baso # (Auto) 0.1 10^3/uL (0.0-0.1) 01/13/24 23:08 Nucleated RBC % (auto) 0 % 01/13/24 23:08 Nucleated RBCs # 0.0 /100WBC 01/13/24 23:08 Sodium 140 mmol/L (136-145) 01/13/24 23:08 Potassium 5.0 mmol/L (3.5-5.1) 01/13/24 23:08 Chloride 102 mmol/L (98-107) 01/13/24 23:08 Carbon Dioxide 24 mmol/L (22-29) 01/13/24 23:08 Anion Gap 19.0 (5-19) 01/13/24 23:08 BUN 17 mg/dL (8-23) 01/13/24 23:08 Creatinine 1.2 mg/dL (0.5-0.9) H 01/13/24 23:08 GFR Calculation Not Reportable 01/13/24 23:08 Glucose 126 mg/dL (65-115) H 01/13/24 23:08 Calculated Osmolality 293 mOsm/kg (285-295) 01/13/24 23:08 Calcium 10.3 mg/dL (8.5-10.5) 01/13/24 23:08 Total Bilirubin 1.0 mg/dL (0.15-1.2) 01/13/24 23:08 AST 48 U/L (0-32) H 01/13/24 23:08 ALT 24 U/L (0-33) 01/13/24 23:08 Alkaline Phosphatase 131 U/L (35-105) H 01/13/24 23:08 Total Protein 7.9 g/dL (6.6-8.7) 01/13/24 23:08 Albumin 4.6 g/dL (3.5-5.2) 01/13/24 23:08 Globulin 3.3 g/dL (1.3-4.6) 01/13/24 23:08 Lipase 35 U/L (13-60) 01/13/24 23:08 Urine Color Yellow (Yellow) 01/14/24 00:45 Urine Appearance Clear (CLEAR) 01/14/24 00:45 Urine pH 6.5 (5-7) 01/14/24 00:45 Ur Specific [place] 1.010 (1.005-1.030) 01/14/24 00:45 Urine Protein Neg (Negative) 01/14/24 00:45 Urine Glucose (UA) Norm (Normal) 01/14/24 00:45 Urine Ketones Negative (Negative) 01/14/24 00:45 Urine Blood Neg (Negative) 01/14/24 00:45 Urine Nitrate Negative (Negative) 01/14/24 00:45 Urine Bilirubin Neg (Negative) 01/14/24 00:45 Urine Urobilinogen Neg mg/dL (Negative) 01/14/24 00:45 Ur Leukocyte Esterase Trace (Negative) H 01/14/24 00:45 Urine RBC 0-4 /hpf (0-2) H 01/14/24 00:45 Urine WBC 0-4 /hpf (0-5) H 01/14/24 00:45 Ur Squamous Epith Cells 0-4 /hpf (0-5) H 01/14/24 00:45 Amorphous Sediment Not Reportable 01/14/24 00:45 Urine Bacteria Trace /hpf (NONE) 01/14/24 00:45 Urine Mucus Trace /hpf 01/14/24 00:45 All radiology interpretation(s) finalized by discharge Discharge Plan Discharge Patient Disposition: Home Clinical Impression: S/P right mastectomy, Enteritis Condition: Stable Prescriptions: New Medrol (Darío) 4 mg tablets,dose pack See Rx Instructions .ROUTE .COMPLEX Qty: 21 0RF Rx Instructions: orally per package directions ondansetron 4 mg tablet,disintegrating 4 mg PO Q6H PRN (Reason: nausea and vomiting) Qty: 14 0RF doxycycline hyclate 100 mg tablet 100 mg PO BID 7 Days Qty: 14 0RF metronidazole 500 mg tablet 500 mg PO Q8H 7 Days Qty: 21 0RF Discontinued ondansetron HCl 4 mg tablet See Rx Instructions .ROUTE .COMPLEX Qty: 270 0RF Dose Instruction: TAKE 1 TABLET EVERY 8 HOURS Rx Instructions: TAKE 1 TABLET EVERY 8 HOURS No Action tizanidine [Zanaflex] 2 mg capsule See Rx Instructions PO Q8H PRN Rx Instructions: Strength unknown orally every 8 hours PRN; losartan 50 mg tablet 50 mg PO DAILY Qty: 30 0RF Rx Instructions: Stop valsartan diclofenac sodium 1 % gel 2 g topical QID Rx Instructions: apply to single elbow, wrist or hand; for hand includes palm/fingers/back of hand cholecalciferol (vitamin D3) 10 mcg (400 unit) capsule 10 mcg PO DAILY allopurinol 100 mg tablet 100 mg PO BID Qty: 180 3RF anastrozole 1 mg tablet See Rx Instructions .ROUTE .COMPLEX Qty: 90 3RF Dose Instruction: TAKE 1 TABLET EVERY DAY Rx Instructions: TAKE 1 TABLET EVERY DAY docusate sodium [Colace] 100 mg capsule 100 mg PO BID PRN (Reason: Constipation) Tylenol Extra Strength 500 mg tablet 500 - 1,000 mg PO Q4H PRN (Reason: Pain) tramadol 50 mg tablet 50 mg PO Q8H PRN (Reason: pain) Qty: 14 0RF Discharge Orders: Discharge ED (Routine); Ordered 01/14/24 Ordered By: Robert Connolly Referrals: Kris León MD [Primary Care Provider] - 1-3 days Patient Instructions: Cellulitis (ED), Enteritis (ED), Opioid Safety, Pain Management Activity Restrictions/Additional Instructions: Take nausea medication every 4 hours while awake whether nauseated or not for the first 24 hours, then as needed following. Other medications as directed. Return for vomiting liquids or medications, significant fever, worsening pain, any other concerning symptoms. Coding Level of Care Code ED Pastoral Assistant for Mera Gleason
[2024-01-14] MEDS: iohexol 350 mg/mL 500 mL Btl (per mL) IV (00:53)
[2024-01-14 01:01] LABS: Add Urine Microscopic? YES; Bacteria Urine TRACE /hpf; Bilirubin Urine Neg (Negative); Blood Urine Neg (Negative); Glucose Urine UA Norm (Normal); Ketones Urine Negative (Negative); Leukocyte Esterase Urine Trace (Negative); Mucus Urine TRACE /hpf; Nitrate Urine Negative (Negative); Protein Urine Neg (Negative); RBC Urine 0-4 /hpf (0-2); Squamous Epithelial Cell Urine 0-4 /hpf (0-5); Urine Appearance Clear (CLEAR); Urine Color Yellow (Yellow); Urobilinogen Urine Neg (Negative); WBC Urine 0-4 /hpf (0-5); pH Urine 6.5 (5-7)
[2024-01-14] MEDS: amlodipine 10 mg Tablet PO (01:06)
[2024-01-14] MEDS: labetalol 5 mg/mL SDV 20mL 20 MG IVP (01:07)
[2024-01-14 01:10] VITALS: BP 200/127; PULSE 103; RESP 16; O2SAT 97
[2024-01-14 01:32] VITALS: BP 108/64; PULSE 99; RESP 18; O2SAT 98
[2024-01-14 02:40] VITALS: BP 162/99; PULSE 96; RESP 18; O2SAT 96
[2024-01-14] MEDS: dexamethasone 4 mg/mL INJ 8 MG IVP (03:33)
== END 2024-01-14 03:37 | disposition home or self-care (01) ==
PROVIDERS: Emergency Provider Emergency Medicine; PCP Family Medicine
DX: K52.9 Noninfective gastroenteritis and colitis, unspecified (principal); Z90.11 Acquired absence of right breast and nipple; Z87.891 Personal history of nicotine dependence; J44.9 Chronic obstructive pulmonary disease, unspecified; I10 Essential (primary) hypertension; Z85.3 Personal history of malignant neoplasm of breast
CPT/HCPCS: 70450; 74177; 80053; 81001; 83690; 85025; 96361; 96374; 96375; 96376; 99285; J1100; J2405; J3010; J3490; J7040; Q9967

== ENCOUNTER 2024-01-18 12:45 | Oncology outpatient (recurring) (ONCR) | payer MEDICARE, SELFPAY ==
[2024-01-16 13:24] LABS: Basophils % 0.1 %; Hematocrit 38.8 % (36-47); Lymphocytes # 1.4 10^3/uL (0.8-4.8); Lymphocytes % 11.3 %; Mean Corpuscular HGB Conc 32.7 g/dL (30-55); Mean Corpuscular Hemoglobin 31.6 pg (27-33); Mean Corpuscular Volume 96.5 fl (85-98); Mean Platelet Volume 10.7 fL (7.4-10.4); Neutrophils # 9.58 10^3/uL (1.8-7.7); Neutrophils % 80.3 %; Nucleated Red Blood Cells % 0 %; Platelet Count 204 10^3/cmm (157-399); Red Blood Count 4.02 10^6/uL (3.85-5.65); Red Cell Distribution Width 14.5 % (12.1-15.1); White Blood Count 11.93 10^3/uL (3.29-11.43)
[2024-01-16 13:40] LABS: Alanine Aminotransferase 16 U/L (0-33); Albumin Level 4.2 g/dL (3.5-5.2); Alkaline Phosphatase 111 U/L (35-105); Anion Gap 16.3 (5-19); Aspartate Amino Transferase 23 U/L (0-32); Blood Urea Nitrogen 32 mg/dL (8-23); Calcium 9.8 mg/dL (8.5-10.5); Carbon Dioxide 25 mmol/L (22-29); Chloride 104 mmol/L (98-107); Globulin 3.2 g/dL (1.3-4.6); Glucose 103 mg/dL (65-115); Osmolality Calculated 299 mOsm/kg (285-295); Potassium 4.3 mmol/L (3.5-5.1); Sodium 141 mmol/L (136-145); Total Bilirubin 0.4 mg/dL (0.15-1.2); Total Protein 7.4 g/dL (6.6-8.7)
[2024-01-16 15:50] LABS: CA 15-3 17.4 U/mL (0-25)
[2024-01-19 12:39] LABS: CA 27.29 23 U/mL (<38)
== END 2024-02-09 23:59 | disposition home or self-care (01) ==
PROVIDERS: Nurse Practitioner Family; PCP Family Medicine; Visit Provider Internal Medicine Medical Oncology
DX: C50.211 Malignant neoplasm of upper-inner quadrant of right female breast; Z53.9 Procedure and treatment not carried out, unspecified reason
CPT/HCPCS: 36415; 80053; 85025; 86300; 99214

== ENCOUNTER 2024-02-26 13:18 | Outpatient (CLI) | payer MEDICARE, SELFPAY ==
--- NOTE | 2024-02-26 13:45 | MR_ITS ---
WS: [id number] MRI/MRCP OF THE ABDOMEN WITHOUT GADOLINIUM ENHANCEMENT TECHNIQUE: Coronal T2 Fase BH, Axial T2 Fase BH, Axial T2 FS BH, Zxial 3D Quintero BH, Axial DWI BH, 2D MRCP Radial BH, 3D MRCP (Resp), and Axial 3D Dyn BH Post sequences. CLINICAL INFORMATION: abnormal mass on CT recommendation for more scan COMPARISON: 01/14/2024 FINDINGS: Some images degraded by motion. Small RIGHT adrenal nodule with imaging characteristics compatible with adrenal adenoma on the out of phase imaging. LEFT adrenal gland is normal. Prior cholecystectomy. Mild dilatation of the common bile duct is unchanged likely physiologic postch olecystectomy. Small esophageal hiatal hernia. Normal caliber abdominal aorta. Aortic calcification. Small renal cysts. No hydronephrosis. Mild bilateral renal cortical atrophy. Pancreas appears normal. Mild lumbar curve. No other acute findings. MR/MR abdomen wo/w con* [id number] Impression: 1. Small RIGHT adrenal nodule with imaging characteristics compatible with aubrey ign adrenal adenoma. 2. Cholecystectomy clips. 3. Mild dilatation of the common bile duct is unchanged likely physiologic pos tcholecystectomy. 4. Small esophageal hernia. 5. Small bilateral renal cysts. No hydronephrosis. 6. No other acute findings.
[2024-02-26] MEDS: gadobenate dimeglumine 20 mL vial IV (14:25)
== END 2024-02-26 13:19 | disposition home or self-care (01) ==
LOC: RAD 13:19
PROVIDERS: PCP Family Medicine; Visit Provider Nurse Practitioner Family
DX: E27.8 Other specified disorders of adrenal gland (principal); Z90.49 Acquired absence of other specified parts of digestive tract; K44.9 Diaphragmatic hernia without obstruction or gangrene; I70.0 Atherosclerosis of aorta
CPT/HCPCS: 74183; A9577

== ENCOUNTER 2024-02-28 07:42 | Oncology outpatient (recurring) (ONCR) | payer MEDICARE, SELFPAY ==
--- NOTE | 2024-02-28 08:00 | MM_ITS ---
WS: [id number] VIEWS: MLO, CC, and ML views both breasts. 3D digital tomosynthesis is also included in this exam. V IEWS: MLO, CC, and ML views both breasts. 3D digital tomosynthesis is also included in this exam. Comparison made with prior exam of 09/20/2019, 02/14/2023.. Findings: There was no sign of mass, architectural distortion or suspicious calcification in the LEFT breast. A lmost complete mastectomy of the RIGHT breast. There are scattered areas of fibroglandular density MM/[place] [id number] Impression: BI-RADS: 2-Benign finding. FOLLOW-UP: 1 Year Follow-up This mammogram was also analyzed by the Computer Aided Detection System R2 Imag e [employer]eral Home Attendant.
== END 2024-03-10 23:59 | disposition home or self-care (01) ==
LOC: ONCMED 07:43 → RAD 02-29 08:50 → ONCMED 03-26 07:39
PROVIDERS: PCP Family Medicine; Visit Provider Nurse Practitioner Family
DX: C50.211 Malignant neoplasm of upper-inner quadrant of right female breast (principal)
CPT/HCPCS: 77062; G0279

== ENCOUNTER 2024-04-17 13:17 | Oncology outpatient (recurring) (ONCR) | payer MEDICARE, SELFPAY ==
[2024-04-17 13:56] LABS: Basophils # 0.1 10^3/uL (0.0-0.1); Basophils % 0.9 %; Eosinophils # 0.1 10^3/uL (0.0-0.8); Eosinophils % 1.7 %; Hematocrit 37.3 % (36-47); Lymphocytes # 1.7 10^3/uL (0.8-4.8); Lymphocytes % 25.8 %; Mean Corpuscular HGB Conc 32.2 g/dL (30-55); Mean Corpuscular Hemoglobin 31.2 pg (27-33); Mean Corpuscular Volume 96.9 fl (85-98); Mean Platelet Volume 10.4 fL (7.4-10.4); Monocytes # 0.8 10^3/uL (0.2-0.9); Monocytes % 11.9 %; Neutrophils # 3.85 10^3/uL (1.8-7.7); Neutrophils % 59.5 %; Nucleated Red Blood Cells % 0 %; Platelet Count 187 10^3/cmm (157-399); Red Blood Count 3.85 10^6/uL (3.85-5.65); Red Cell Distribution Width 13.9 % (12.1-15.1); White Blood Count 6.47 10^3/uL (3.29-11.43)
[2024-04-17 14:39] LABS: Alanine Aminotransferase 25 U/L (0-33); Albumin Level 3.9 g/dL (3.5-5.2); Alkaline Phosphatase 116 U/L (35-105); Anion Gap 16.1 (5-19); Aspartate Amino Transferase 30 U/L (0-32); Blood Urea Nitrogen 24 mg/dL (8-23); CA 15-3 15.5 U/mL (0-25); Calcium 9.9 mg/dL (8.5-10.5); Carbon Dioxide 26 mmol/L (22-29); Chloride 102 mmol/L (98-107); Globulin 3.3 g/dL (1.3-4.6); Glucose 113 mg/dL (65-115); Osmolality Calculated 295 mOsm/kg (285-295); Potassium 4.1 mmol/L (3.5-5.1); Sodium 140 mmol/L (136-145); Total Bilirubin 0.4 mg/dL (0.15-1.2); Total Protein 7.2 g/dL (6.6-8.7)
== END 2024-05-11 23:55 | disposition home or self-care (01) ==
PROVIDERS: PCP Family Medicine; Visit Provider Nurse Practitioner Family
DX: C50.211 Malignant neoplasm of upper-inner quadrant of right female breast (principal)
CPT/HCPCS: 36415; 80053; 85025; 86300; 99214

== ENCOUNTER 2024-05-23 07:47 | Outpatient (CLI) | payer MEDICARE, SELFPAY ==
--- NOTE | 2024-05-23 08:00 | NM_ITS ---
WS: [id number] NUCLEAR MEDICINE BONE SCAN Radiopharmaceutical: 24.6 Tc-99m MDP mCi IV Injection site: Antecubital Postinjection imaging delay: 1 hr CLINICAL INFORMATION: right upper arm pain, history of metastatic breast ca COMPARISON: None. FINDINGS: Bone lesions: Diffuse intense uptake in the RIGHT proximal humeral head suspicious for metastatic dis ease. Additional patchy areas of uptake in the lumbar spine extending into the S1 vertebral body also suspicious for metastatic disease. Intense uptake in the LEFT sternoclavicular joint may be metastat ic versus degenerative. Soft tissue contours: Normal. Kidneys: Normal. Other findings: Degenerative uptake in both knees and both feet. NM/NM bone scan whole body* [id number] IMPRESSION: 1. Intense uptake in the RIGHT proximal humeral head, lumbar spine and upper s acrum suspicious for metastatic disease. 2. Intense uptake in the LEFT sternoclavicular joint may be metastatic versus degenerative.
== END 2024-05-23 07:48 | disposition home or self-care (01) ==
PROVIDERS: PCP Family Medicine; Visit Provider Nurse Practitioner Family
DX: C50.211 Malignant neoplasm of upper-inner quadrant of right female breast (principal); M79.621 Pain in right upper arm; R93.7 Abnormal findings on diagnostic imaging of other parts of musculoskeletal system
CPT/HCPCS: 78306; A9561

== ENCOUNTER 2024-07-05 08:03 | Outpatient (CLI) | payer MEDICARE, SELFPAY ==
--- NOTE | 2024-07-05 | PETR_ITS ---
PROCEDURE INFORMATION: Exam: PET/CT Skull Base to Mid-thigh Exam date and time: 07/05/2024 9:47 AM Age: 84 years old Clinical indication: Condition or disease; Primary cancer: Right breast; Follow-up oncological assessment; Prior surgery; Surgery date: 6+ months; Surgery type: Mastectomy. Gb. Hernia repair. Appy. Tubal. ; Additional info: Breast cancer LABS AND CLINICAL REPORTS: Glucose: 107 mg/dl Treatment strategy for malignancy (PET staging): Restaging (PS) TECHNIQUE: Imaging protocol: Following at least four-hour fasting and following the injection of radiopharmaceutical, low dose CT images were obtained. Then, PET images were obtained. Attenuation corrected images were constructed using the CT scan. Fused images of PET and CT were reviewed. The standardized uptake values (SUV) reported below are maximum values within a region of interest, expressed in gm/ml. Exam includes orbital meatal line to mid-thigh. Radiopharmaceutical: 9.45 mCi F-18 FDG (Fluorodeoxyglucose), IV. Time of imaging post radiopharmaceutical administration: 53 minutes Injection site: Left antecubital COMPARISON: 1. NM bone scan whole body* [id number] 05/23/2024 8:00 AM 2. PT PET skull to thigh SUBS [id number] 07/04/2023 9:23 AM FINDINGS: Brain: Visualized brain has normal physiologic uptake. Pharynx: No abnormal uptake. Larynx: No abnormal uptake. Lungs, pleura and trachea: Stable anterolateral right lung subpleural reticulation and bandlike opacity extending from the pleura to the hilum likely representing postradiation change/scarring. Right lower lobe platelike atelectasis versus scarring. Mild dependent atelectasis. No consolidation or mass. No pleural effusion. Heart: Normal physiologic uptake. Coronary arteries: Mild coronary artery calcification. Mediastinal space: No abnormal uptake. Liver: No abnormal uptake. Gallbladder and biliary ducts: No abnormal uptake. Prior cholecystectomy. Pancreas: No abnormal uptake. Spleen: No abnormal uptake. Punctate calcifications in keeping with sequela of old granulomatous disease. Adrenal glands: No abnormal uptake. Stable non FDG avid 1.4 cm hypodense right adrenal nodule, suspect benign adenoma. Kidneys and ureters: Normal physiologic uptake. Stomach and bowel: No abnormal uptake. Colonic diverticulosis without findings of diverticulitis. Vasculature: No abnormal uptake. Mild systemic atherosclerotic calcification without aortic aneurysm. Lymph nodes: No abnormal uptake. No lymphadenopathy in the head, neck, chest, abdomen, pelvis, and extremities. Skeleton: Left posterior S1 sacral heterogeneous sclerosis with FDG uptake showing SUV max of 6.4 on axial image 113 of series 202. Moderate compression of the L1 vertebral body is stable. Degenerative change along the axial and proximal appendicular skeletal system, to include periarticular FDG uptake at the right glenohumeral joint and left sternoclavicular joint corresponding to recent comparison bone scan findings of concern. Soft tissues: Decreased non FDG avid right breast fluid collection measures 10.4 x 2.2 cm on axial image 209, previously 10.9 x 3.7 cm. Mild right breast dermal thickening with low-level FDG uptake. PET/PET skull to thigh SUBS [id number] IMPRESSION: 1. Evidence of disease progression at the left posterior sacrum with increased heterogeneous sclerosis and FDG uptake. 2. Decreased non FDG avid right breast fluid collection. 3. Degenerative changes at the right glenohumeral joint and left sternoclavicular joint correspond to recent bone scan findings of concern.
== END 2024-07-05 08:04 | disposition home or self-care (01) ==
LOC: RAD 08:05
PROVIDERS: PCP Family Medicine; Visit Provider Internal Medicine Medical Oncology
DX: C50.211 Malignant neoplasm of upper-inner quadrant of right female breast; C79.81 Secondary malignant neoplasm of breast; R93.7 Abnormal findings on diagnostic imaging of other parts of musculoskeletal system; M19.011 Primary osteoarthritis, right shoulder; M19.012 Primary osteoarthritis, left shoulder; R91.8 Other nonspecific abnormal finding of lung field; D73.89 Other diseases of spleen; D35.01 Benign neoplasm of right adrenal gland; K57.90 Diverticulosis of intestine, part unspecified, without perforation or abscess without bleeding; Z90.49 Acquired absence of other specified parts of digestive tract
CPT/HCPCS: 78815; A9552

== ENCOUNTER 2024-07-25 06:00 | Oncology outpatient (recurring) (ONCR) | payer MEDICARE, SELFPAY ==
--- NOTE | 2024-07-23 13:22 | ONCRAD EPV_ITS ---
Radiation Oncology Established Patient Visit Patient: Marina Rosado [id number] : 1940> Age: 84> Sex: Female> Account #: Dictated by: Dr. Francie Childs Date of Service: 07/23/2024 Referring Physician(s) : Korin Aguilar Diagnosis: C50.211 - Malignant neoplasm of upper-inner quadrant of right female breast, Diagnosed 09/2019 (Active) Stage IV, T2, pN1a, M1, G3, HER2 Neg, ER Pos, ND P Diagnosis: Stage IV breast cancer now with bony metastasis Radiotherapy to Date: Course: PMRT, Treatment Site: R ChestWall, Ref. ID: [id number], Energy: 15X, Dose/Fx (cGy): 200, #Fx: 25 / 25, Correction (cGy): 0, Total Dose Delivered (cGy): 5,000, Start Date: 12/28/2020, End Date: 02/10/2021, Elapsed Days: 44 Course: PMRT, Treatment Site: SCLV, Ref. ID: [id number], Energy: 15X/6X, Dose/Fx (cGy): 200, #Fx: 25 / 25, Dose Correction (cGy): 0, Total Dose Delivered (cGy): 5,000, Start Date: 12/28/2020, End Date: 02/10/2021, Elapsed Days: 44 Current History: Patient reports that she is actually had low back pain for quite some time. Her daughter feels like she has had it for the last 3 years. She says it has really been there since her diagnosis. She recently had a bone scan done in May which showed a diffuse uptake in the right proximal humeral head and uptake in the lumbar spine extending to the S1 vertebrae. 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 She had some sort of injury to this area years ago. This is currently felt to not be related to her malignant disease but is possible that the injury could just be a site of metastasis superimposed. She is here today at this point to discuss treatments to the lumbar spine to help with what has become life altering pain. She says it is present all of the time. She can no longer cook and bake like she likes to and it takes her all day to clean her house because of the pain that arises. The medical oncologist is placing her on new pain medicine to try. She is seen in consultation today to see if we can proceed with treatment to this area to get her pain under control. She has had a prior bad experience with radiation when Dr. Oseguera told her she would not have any skin reaction as she was having her chest wall treated. Current Medications: Acetaminophen, allopurinol, anastrozole, arimidex, calcium 500 + D, citalopram Hydrobromide, citalopram Hydrobromide, lORazepam, metoprolol Succinate ER, ondansetron HCl, ondansetron HCl, oxyCODONE-Acetaminophen, potassium Chloride ER. Allergies: Codeine Sulfate, Morphine Sulfate and Vancomycin HCl. Current Complaints / Review of Systems: . Vital Signs: Performed on 07/23/2024 11:21 AM BMI - 32.107 kg/m2 (high), Height - 60 in, Weight - 164.4 lbs, Temperature - 98.5 f, Pulse - 111 /min (high), Respiration - 17 /min, O2 Sat - 98 %, Pain - 10, Fatigue - 0 and BP - 130/ 83 mm(hg). Physical Exam: General: Alert and oriented x 3. No acute distress. HEENT: Normocephalic, atraumatic. Extraocular Movements Intact: Pupils Equal, Round, Reactive to Light . LUNGS: Respiratory is regular nonlabored HEART: Regular rate and rhythm,. MUSCULOSKELETAL: In describing and pointing to the area of discomfort in the low back it radiates to the left across the S1 area. It is nontender on palpation. ABDOMEN nonprotuberant EXTREMITIES: No peripheral edema is identified. NEUROLOGIC: Alert and orient x 3. Gait and speech within normal limits. Performance Status: 90 Lab: None pending. 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 Imaging: See HPI Impression: Stage IV breast cancer with bony metastasis Plan: At this point I reviewed with her the prior treatment that she had in the severe reaction that she had to the chest wall treatment. I reviewed with her that the typical course of treatment to the chest wall elicits a significant reaction in all patients. We talked about treatment to the lumbar spine and the risks and side effects that this could elicit both acute and long-term. After some discussion and discussing with her daughter on the phone she is agreed to proceed with treatment. We talked about a 2-week course to the lumbar spine. She will return for simulation and will begin her treatment shortly thereafter Signed by: 07/23/2024 1:20:06 PM <<Signature on File>> Time spent with : CPT Code: CPT Code:
--- NOTE | 2024-08-01 09:34 | N.ONRD TS_ITS ---
Radiation Oncology Treatment Summary Patient: Ashlee Gray MR#: [id number] : 1940 Age: 84 Sex: Female Dictated by: Dr. Francie Childs Date of Service: 08/01/2024 Referring Physician(s) : Dr. Donohue Diagnosis: C79.51 - Secondary malignant neoplasm of bone, Diagnosed 07/23/2024 (Active) C50.211 - Malignant neoplasm of upper-inner quadrant of right female breast, Diagnosed 09/2019 (Active) Stage IV, T2, pN1a, M1, G3, HER2 Neg, ER Pos, [place] P Radiotherapy to Date: Course: PMRT, Treatment Site: R ChestWall, Ref. ID: [id number], Energy: 15X, Dose/Fx (cGy): 200, #Fx: 25 / 25, Dose Correction (cGy): 0, Total Dose Delivered (cGy): 5,000, Start Date: 12/28/2020, End Date: 02/10/2021, Elapsed Days: 44 Course: PMRT, Treatment Site: SCLV, Ref. ID: [id number], Energy: 15X/6X, Dose/Fx (cGy): 200, #Fx: 25 / 25, Dose Correction (cGy): 0, Total Dose Delivered (cGy): 5,000, Start Date: 12/28/2020, End Date: 02/10/2021, Elapsed Days: 44 Course: L-SPINE, Treatment Site: L2-S1, 0/10 Fx, Total Dose Delivered (cGy): 0 Clinical Summary: Patient declined to return to undergo additional treatment. She had apparently been having symptoms for many months but had declined to inform either family or physicians. After she had been home several days she has had increasing pain and has elected to proceed with no additional intervention. I spoke with her daughter on the phone at length and we discussed the various options for her mother. At this point her mother really does not want to have any additional x-rays or any additional treatment. She just wants to be made comfortable. We therefore went ahead and called the hospice team to see if they can visit with her today. Plan: Patient is placed on hospice. Signed by: Dr. Francie Childs>08/01/2024 9:33:43 AM <<Signature on File>>
== END 2024-08-10 23:59 | disposition home or self-care (01) ==
PROVIDERS: PCP Family Medicine; Visit Provider Radiology Radiation Oncology
DX: C50.211 Malignant neoplasm of upper-inner quadrant of right female breast (principal)
CPT/HCPCS: 77290; 77295; 77300; 77334; 99214; 99215